=== PATIENT | male | born 1940 | race Caucasian/White ===

== ENCOUNTER 2016-09-24 11:03 | Inpatient (IN) | payer MEDICARE ==
[2016-09-24] MEDS ORDERED: SODIUM CHLORIDE 0.9% 1,000 ML IV STA (11:21)
[2016-09-24] MEDS ORDERED: methylPREDNISolone SOD SUCCI 125 MG/2 ML VIAL IV STA ×2 (11:38→11:39)
[2016-09-24] MEDS ORDERED: ALBUTEROL NEBULIZED 2.5 MG/3 ML INHALATION STA (11:39)
[2016-09-24 11:46] LABS: Basophils % (A) 0 %; CH 28.9; CHCM 30.1; Eosinophils % (A) 0 %; HCT 48.4 % (39.0-53.0); HDW 2.33; HGB 14.4 gm/dL (13.0-17.5); Hypochromasia Moderate; Luc % (Auto) 1; Lymphocytes # (A) 0.7 k/uL (1.0-4.8); Lymphocytes % (A) 7 %; MCH 28.7 pg (25.0-35.0); MCHC 29.8 g/dL (31.0-37.0); MCV 96.5 fL (80.0-100.0); Mean Platelet Volume 7.1; Monocytes # (A) 0.3 k/uL (0-1.0); Monocytes % (A) 3 %; Neutrophils # (A) 8.5 k/uL (1.3-7.7); Neutrophils % (A) 88 %; RBC 5.02 m/uL (4.30-5.90); RDW 14.1 % (11.5-15.5); WBC 9.7 k/uL (3.8-10.6); WBC (Perox) 9.21
[2016-09-24 12:01] LABS: ALT 39 U/L (21-72); AST 23 U/L (17-59); Alkaline Phosphatase 93 U/L (38-126); Anion Gap 10 mmol/L; Blood Urea Nitrogen 24 mg/dL (9-20); Carbon Dioxide 35 mmol/L (22-30); Chloride 95 mmol/L (98-107); Glucose 147 mg/dL (74-99); Non-African American GFR(MDRD) >60 (>60 ml/min/1.73 sqM); Potassium 4.9 mmol/L (3.5-5.1); Sodium 140 mmol/L (137-145); Total Bilirubin 0.6 mg/dL (0.2-1.3); Total Protein 7.3 g/dL (6.3-8.2)
[2016-09-24 12:04] LABS: Partial Thromboplastin Time 25.7 sec (22.0-30.0); Prothrombin Time 9.9 sec (9.0-12.0)
[2016-09-24] MEDS ORDERED: IPRATROPIUM-ALBUTEROL 3 ML NEB INHALATION STA (12:16)
[2016-09-24 12:21] LABS: Creatine Kinase 66 U/L (55-170)
--- NOTE | 2016-09-24 12:28 | XR ---
EXAMINATION TYPE: XR chest 2V DATE OF EXAM: 09/24/2016 COMPARISON: 06/27/2016 TECHNIQUE: PA and lateral views submitted. HISTORY: Difficulty breathing FINDINGS: The lungs are clear and there is no pneumothorax, pleural effusion, or focal pneumonia. Hyperinflat ion suggests COPD and there is an elevated left hemidiaphragm. Two surgical plates overlying the cervical spine. Arthropathy of the shoulders noted. Hypertrophic an d degenerative change of the spine. IMPRESSION: 1. No acute process. Correlate for COPD.
[2016-09-24 12:33] LABS: Troponin I <0.012 ng/mL (0.000-0.034)
[2016-09-24 12:34] LABS: Creatine Kinase MB 4.1 ng/mL (0.0-2.4)
--- NOTE | 2016-09-24 13:54 | ED ---
SOB HPI - General Chief Complaint: Shortness of Breath Stated Complaint: Diff breathing Time Seen by Provider: 09/24/16 11:13 Source: patient Mode of arrival: ambulatory Limitations: no limitations - History of Present Illness Initial Comments: 76 years old male with history of COPD, atrial fibrillation, ischemic heart disease, hypertension and on Bactroban at this point as his chest pain and shortness of breath ongoing for about 3 months now shortness of breath, worse for the last 3 days he's coughing bringing up lots of phlegm denies any fever or chills and complains about pleuritic chest pain or chest pain gets worse when he takes a deep breaths. No headaches no Past no abdominal pain no frequency urgency dysuria - Related Data Home Medications Medication Instructions Recorded Confirmed Aspirin EC [Ecotrin Low Dose] 81 mg PO Q48H 03/03/16 09/24/16 Carvedilol [Coreg] 6.25 mg PO BID 03/03/16 09/24/16 Diazepam [Valium] 10 mg PO HS 03/03/16 09/24/16 HYDROcodone/APAP 10-325MG [[place] 1 - 2 tab PO Q4HR PRN 03/03/16 09/24/16 10-325] Hydrochlorothiazide [Hydrodiuril] 50 mg PO DAILY 03/03/16 09/24/16 Olmesartan Medoxomil [Benicar] 40 mg PO DAILY 03/03/16 09/24/16 Sertraline [Zoloft] 50 mg PO DAILY 03/03/16 09/24/16 amLODIPine [Norvasc] 5 mg PO DAILY 03/03/16 09/24/16 hydrALAZINE HCL [Apresoline] 25 mg PO BID 03/03/16 09/24/16 Albuterol Inhaler [Ventolin Hfa 1 - 2 puff INHALATION RT-Q4H PRN 09/24/16 Inhaler] Fluticasone/Salmeterol [Advair Hfa 2 puff INHALATION RT-BID 09/24/16 09/24/16 115-21 Mcg Inhaler] Furosemide [Lasix] 20 mg PO DAILY 09/24/16 09/24/16 Ipratropium-Albuterol Nebulize 3 ml INHALATION RT-QID 09/24/16 09/24/16 [Duoneb 0.5 mg-3 mg/3 ml Soln] Theophylline 24 Hour [Maciej-24] 300 mg PO BID 09/24/16 09/24/16 Previous Rx's Medication Instructions Recorded Spironolactone [Aldactone] 25 mg PO DAILY #30 tab 03/11/16 Allergies Allergy/AdvReac Type Severity Reaction Status Date / Time No Known Allergies Allergy Verified 09/24/16 11:45 Review of Systems ROS Statement: Those systems with pertinent positive or pertinent negative responses have been documented in the HPI. ROS Other: All systems not noted in ROS Statement are negative. Past Medical History Past Medical History: Heart Failure, COPD, Hypertension, Myocardial Infarction ( [place]) Last Myocardial Infarction Date:: unknown History of Any Multi-Drug Resistant Organisms: None Reported Past Surgical History: Heart Catheterization With Stent Date of Last Stent Placement:: unknown Past Psychological History: No Psychological Hx Reported Smoking Status: Current every day smoker Past Alcohol Use History: None Reported Past Drug Use History: None Reported General Exam - General Exam Comments Initial Comments: General: The patient is awake and alert, in mild distress, respiratory rate is 24 Skin: Skin is warm and dry and no rashes or lesions are noted. Eye: Pupils are equal, round and reactive to light, extra-ocular movements are intact; there is normal conjunctiva bilaterally. Ears, nose, mouth and throat: There are moist mucous membranes and no oral lesions. Neck: The neck is supple, there is no tenderness Cardiovascular: There is a regular rate and rhythm. No murmur, rub or gallop is appreciated. Respiratory: To auscultation bilateral, noticed some crackles and decreased breath sounds bilateral Gastrointestinal: Soft, non-distended, non-tender abdomen without masses or organomegaly noted. There is no rebound or guarding present. Bowel sounds are unremarkable. Back: There is no tenderness to palpation in the midline. There is no obvious deformity. Musculoskeletal: Normal ROM, no tenderness, There is no pedal edema. There is no calf tenderness or swelling. No cords were appreciated. Neurological: CN II-XII intact, Cranial nerves III through XII are intact. There are no obvious motor or sensory deficits. Coordination appears grossly intact. Speech is normal. Psychiatric: Cooperative, appropriate mood & affect, normal judgment. Limitations: no limitations Course Vital Signs 09/24/16 09/24/16 09/24/16 11:07 11:10 11:30 Temperature 99.1 F Pulse Rate 86 Respiratory 24 28 H Rate Blood Pressure 153/64 O2 Sat by Pulse 79 L 90 L Oximetry 09/24/16 09/24/16 09/24/16 12:00 12:09 12:30 Temperature Pulse Rate 77 78 77 Respiratory 24 Rate Blood Pressure O2 Sat by Pulse 94 L Oximetry 09/24/16 13:00 Temperature Pulse Rate Respiratory Rate Blood Pressure O2 Sat by Pulse 92 L Oximetry EKG is normal sinus rhythm ventricular rate is 76 MN interval is 160 QRS duration is 90 QT/QTc is 370/416 review of this EKG does not reveal any ST elevation or ST depression - Reevaluation(s) Reevaluation #1: 09/24/16 13:54 Patient was reviewed at 13 45, his CBC, INR, d-dimer, compressive metabolic panel and troponin are negative his chest x-ray ruled out any pneumonia at home his O2 sat with 2 L is 88 and he is breathing pretty fast I think he needs to come in for IV steroids and inhaled steroids and some empiric antibiotics, this plan was discussed with the patient he agrees with the Medical Decision Making - Lab Data Result diagrams: 09/24/16 11:31 09/24/16 11:31 Lab Results 09/24/16 09/24/16 09/24/16 Range/Units 11:31 11:31 11:31 WBC 9.7 (3.8-10.6) k/uL RBC 5.02 (4.30-5.90) m/uL Hgb 14.4 (13.0-17.5) gm/dL Hct 48.4 (39.0-53.0) % MCV 96.5 (80.0-100.0) fL MCH 28.7 (25.0-35.0) pg MCHC 29.8 L (31.0-37.0) g/dL RDW 14.1 (11.5-15.5) % Plt Count 289 (150-450) k/uL Neutrophils % 88 % Lymphocytes % 7 % Monocytes % 3 % Eosinophils % 0 % Basophils % 0 % Neutrophils # 8.5 H (1.3-7.7) k/uL Lymphocytes # 0.7 L (1.0-4.8) k/uL Monocytes # 0.3 (0-1.0) k/uL Eosinophils # 0.0 (0-0.7) k/uL Basophils # 0.0 (0-0.2) k/uL Hypochromasia Moderate PT (9.0-12.0) sec INR (<1.1) APTT (22.0-30.0) sec D-Dimer (<0.60) mg/L FEU Sodium 140 (137-145) mmol/L Potassium 4.9 (3.5-5.1) mmol/L Chloride 95 L (98-107) mmol/L Carbon Dioxide 35 H (22-30) mmol/L Anion Gap 10 mmol/L BUN 24 H (9-20) mg/dL Creatinine 0.74 (0.66-1.25) mg/dL Est GFR (MDRD) Af Amer >60 (>60 ml/min/1.73 sqM) Est GFR (MDRD) Non-Af >60 (>60 ml/min/1.73 sqM) Glucose 147 H (74-99) mg/dL Calcium 10.0 (8.4-10.2) mg/dL Total Bilirubin 0.6 (0.2-1.3) mg/dL AST 23 (17-59) U/L ALT 39 (21-72) U/L Alkaline Phosphatase 93 (38-126) U/L Total Creatine Kinase 66 (55-170) U/L CK-MB (CK-2) 4.1 H* (0.0-2.4) ng/mL CK-MB (CK-2) Rel Index 6.2 Troponin I <0.012 (0.000-0.034) ng/mL Total Protein 7.3 (6.3-8.2) g/dL Albumin 4.2 (3.5-5.0) g/dL 09/24/16 Range/Units 11:31 WBC (3.8-10.6) k/uL RBC (4.30-5.90) m/uL Hgb (13.0-17.5) gm/dL Hct (39.0-53.0) % MCV (80.0-100.0) fL MCH (25.0-35.0) pg MCHC (31.0-37.0) g/dL RDW (11.5-15.5) % Plt Count (150-450) k/uL Neutrophils % % Lymphocytes % % Monocytes % % Eosinophils % % Basophils % % Neutrophils # (1.3-7.7) k/uL Lymphocytes # (1.0-4.8) k/uL Monocytes # (0-1.0) k/uL Eosinophils # (0-0.7) k/uL Basophils # (0-0.2) k/uL Hypochromasia PT 9.9 (9.0-12.0) sec INR 1.0 (<1.1) APTT 25.7 (22.0-30.0) sec D-Dimer 0.37 (<0.60) mg/L FEU Sodium (137-145) mmol/L Potassium (3.5-5.1) mmol/L Chloride (98-107) mmol/L Carbon Dioxide (22-30) mmol/L Anion Gap mmol/L BUN (9-20) mg/dL Creatinine (0.66-1.25) mg/dL Est GFR (MDRD) Af Amer (>60 ml/min/1.73 sqM) Est GFR (MDRD) Non-Af (>60 ml/min/1.73 sqM) Glucose (74-99) mg/dL Calcium (8.4-10.2) mg/dL Total Bilirubin (0.2-1.3) mg/dL AST (17-59) U/L ALT (21-72) U/L Alkaline Phosphatase (38-126) U/L Total Creatine Kinase (55-170) U/L CK-MB (CK-2) (0.0-2.4) ng/mL CK-MB (CK-2) Rel Index Troponin I (0.000-0.034) ng/mL Total Protein (6.3-8.2) g/dL Albumin (3.5-5.0) g/dL Disposition Clinical Impression: Acute exacerbation of COPD with asthma Disposition: ADMITTED IP TO THIS HOSP Condition: Good Referrals: Nick Lira MD [Primary Care Provider] - 1-2 days
[2016-09-24] MEDS ORDERED: IPRATROPIUM-ALBUTEROL 3 ML NEB INHALATION PRN (13:57)
[2016-09-24] MEDS ORDERED: ALBUTEROL INHALER 60 PUFF/8 GM INHALER INHALATION PRN (14:04)
[2016-09-24] MEDS ORDERED: HYDROcodone/APAP 10-325MG 1 EACH TAB PO PRN ×2 (14:04→18:39)
--- NOTE | 2016-09-24 15:37 | P.CNPUL ---
History of Present Illness Consult date: 09/24/16 Requesting physician: Miguelangel Lagunas Reason for consult: COPD Chief complaint: Shortness of breath, cough and wheezing History of present illness: This is a 76-year-old white male with history of severe end-stage COPD, O2 dependent, prednisone dependent, he is quite familiar to my service, and I see him on a regular basis at least once every 3 months. Patient continues to smoke in spite of his severe end-stage COPD, his primary care physician is Dr. Lira. Patient presented to the ER today with 4 days history of cough which is productive of greenish phlegm, wheezing, and worsening shortness of breath. Chest x-ray showed no evidence of active disease, however he has a chronic elevation of the left hemidiaphragm consistent with left hemidiaphragm paralysis. I was asked to see the patient on consultation, I went down and saw the patient in the ER, started the patient on multiple bronchodilators steroids antibiotics, and he was resumed back on his usual bronchodilators also. Reviewed the chest x-ray with the patient, and clearly the patient needs to be admitted with the impression of acute exacerbation of COPD, acute hypoxic on chronic respiratory failure, and purulent tracheobronchitis. ABC was noted to be relatively unremarkable. Electrolytes and renal profile were unremarkable except for a bicarb of 35 which is felt compensatory for chronic respiratory acidosis. Patient denies any headache, no blurred vision, no dizziness. No chest pain, no palpitations, no nausea, no vomiting, no abdominal pain, no melena, no hematemesis, no dysuria, no frequency, no urgency. Denies any symptoms of polyuria, polydipsia, heat or cold intolerance. Review of Systems 14 point review of systems were obtained, please refer to pertinent positives and negatives in HPI. Past Medical History Past Medical History: Atrial Fibrillation, Heart Failure, COPD, GERD/Reflux, Hypertension, Myocardial Infarction ([place]), Osteoarthritis (OA), Pneumonia, Respiratory Disorder, Vascular Disorder Additional Past Medical History / Comment(s): Chronic hypoxic respiratory failure, O2 at 2.5L/NC ATC, ischemic heart disease, PAD/PVD, diverticular dx, benign polypectomy, IBS, arthritis multiple joints bilaterally, numbness/ tingling bilateral feet. Last Myocardial Infarction Date:: unknown-prior to 2002 History of Any Multi-Drug Resistant Organisms: None Reported Past Surgical History: Heart Catheterization With Stent Additional Past Surgical History / Comment(s): PCI with stent 2002, L SFA angiogram/atherectomy/STITCHER HAND, R SFA atherectomy/angioplasty, pilonidal cystectomy, bilateral sebacious cysts removed from axillae, cervical sx with plates and screws, back surgery with plate, colonoscopy. Past Anesthesia/Blood Transfusion Reactions: No Reported Reaction Date of Last Stent Placement:: 2002 Past Psychological History: Depression Additional Psychological History / Comment(s): Pt resides with his spouse. He is on O2 at 2.5L/NC ATC. He ambulates mostly with a cane. He drives. He has a nebulizer. Smoking Status: Current every day smoker Past Alcohol Use History: None Reported, Occasional Additional Past Alcohol Use History / Comment(s): Pt started smoking in 1956 and is less than a ppd smoker. Past Drug Use History: None Reported - Past Family History Mother Family Medical History: No Reported History Additional Family Medical History / Comment(s): Mother was healthy and at the age of 92 yrs. Father Family Medical History: Coronary Artery Disease (CAD), Myocardial Infarction (ME ) Additional Family Medical History / Comment(s): Father had a ME in his 70's. He had CABG and back surgery. Medications and Allergies Home Medications Medication Instructions Recorded Confirmed Type Aspirin EC [Ecotrin Low Dose] 81 mg PO Q48H 03/03/16 09/24/16 History Carvedilol [Coreg] 6.25 mg PO BID 03/03/16 09/24/16 History Diazepam [Valium] 10 mg PO HS 03/03/16 09/24/16 History HYDROcodone/APAP 10-325MG [[place] 1 - 2 tab PO Q4HR PRN 03/03/16 09/24/16 History 10-325] Hydrochlorothiazide [Hydrodiuril] 50 mg PO DAILY 03/03/16 09/24/16 History Olmesartan Medoxomil [Benicar] 40 mg PO DAILY 03/03/16 09/24/16 History Sertraline [Zoloft] 50 mg PO DAILY 03/03/16 09/24/16 History amLODIPine [Norvasc] 5 mg PO DAILY 03/03/16 09/24/16 History hydrALAZINE HCL [Apresoline] 25 mg PO BID 03/03/16 09/24/16 History Albuterol Inhaler [Ventolin Hfa 1 - 2 puff INHALATION RT-Q4H PRN 09/24/16 History Inhaler] Fluticasone/Salmeterol [Advair Hfa 2 puff INHALATION RT-BID 09/24/16 09/24/16 History 115-21 Mcg Inhaler] Furosemide [Lasix] 20 mg PO DAILY 09/24/16 09/24/16 History Ipratropium-Albuterol Nebulize 3 ml INHALATION RT-QID 09/24/16 09/24/16 History [Duoneb 0.5 mg-3 mg/3 ml Soln] Theophylline 24 Hour [Maciej-24] 300 mg PO BID 09/24/16 09/24/16 History Allergies Allergy/AdvReac Type Severity Reaction Status Date / Time No Known Allergies Allergy Verified 09/24/16 11:45 Physical Exam Vitals: Vital Signs Temp Pulse Resp BP Pulse Ox 09/24/16 14:06 76 26 H 156/73 94 L 09/24/16 13:30 78 09/24/16 13:20 78 09/24/16 13:00 92 L 09/24/16 12:30 77 24 94 L 09/24/16 12:09 78 09/24/16 12:00 77 09/24/16 11:30 28 H 09/24/16 11:10 90 L 09/24/16 11:07 99.1 F 86 24 153/64 79 L Intake and Output 09/24/16 09/24/16 09/24/16 06:59 14:59 22:59 Other: Weight 106.141 kg Patient Weight 09/25/16 06:59 Weight 106.141 kg Physical Exam revealed a 76-year-old white male in mild respiratory distress. HEENT:[Neck is supple.] [No neck masses.] [No thyromegaly.] [No JVD.] Chest: [Diffuse rhonchi and wheezes noted bilaterally. Cardiac Exam: [Irregular irregular rhythm Normal S1 and S2, no S3 gallop, 2/6 systolic murmur throughout the precordium] Abdomen: [Soft, nontender, no megaly, no rebound, no guarding, normal bowel sounds.] Extremities: [No clubbing, 2+ bipedal edema, no cyanosis.] Neurological Exam: [No focal neurologic deficit.] Patient seems to be generally weak. Results - Laboratory Findings CBC and BMP: 09/24/16 11:31 09/24/16 11:31 PT/INR, D-dimer PT 9.9 sec (9.0-12.0) 09/24/16 11:31 INR 1.0 (<1.1) 09/24/16 11:31 D-Dimer 0.37 mg/L FEU (<0.60) 09/24/16 11:31 Abnormal lab findings: Abnormal Labs 09/24/16 09/24/16 09/24/16 11:31 11:31 11:31 MCHC 29.8 L Neutrophils # 8.5 H Lymphocytes # 0.7 L Chloride 95 L Carbon Dioxide 35 H BUN 24 H Glucose 147 H CK-MB (CK-2) 4.1 H* - Diagnostic Findings Chest x-ray: image reviewed (No evidence of active pulmonary status is noted, chest x-ray was compared to previous x-rays and is basically the same.) Assessment and Plan Plan: Impression: 1 acute on chronic hypoxic and hypercapnic respiratory failure secondary to severe COPD exacerbation. 2 acute exacerbation of severe end-stage COPD 3 acute tracheobronchitis 4 chronic elevation of left hemidiaphragm consistent with chronic left hemidiaphragm paralysis 5 chronic cor pulmonale secondary to severe COPD and pulmonary hypertension X multiple comorbidities including essential hypertension, chronic atrial fibrillation, cervical disc disease and previous cervical spine surgery, history of osteoarthritis, and history of tobacco dependence syndrome. Recommendation: Patient was counseled again regarding smoking cessation today, I reviewed all the meds which were ordered and I recommended that he remains on the same medications including albuterol with Atrovent updrafts, Solu-Medrol, Levaquin, Symbicort, diuretics for his chronic cor pulmonale, Huseyin, IV fluid will be placed at KVO, continue oxygen at 3 L nasal cannula, avoid high doses of narcotics and sedatives to avoid worsening hypercapnia. We'll continue to follow. Critical care time is over 30 minutes. Time with Patient: Greater than 30
[2016-09-24] MEDS: IPRATROPIUM-ALBUTEROL 3 ML NEB INHALATION SCH ×3 (15:56→21:26)
[2016-09-24] MEDS: HYDROcodone/APAP 10-325MG 1 EACH TAB PO PRN ×2 (17:06→21:17)
[2016-09-24] MEDS: ASPIRIN 81 MG CHEW PO SCH (17:21)
[2016-09-24] MEDS: LEVOFLOXACIN 500 MG TAB PO SCH (17:21)
[2016-09-24] MEDS ORDERED: methylPREDNISolone SOD SUCCI 125 MG/2 ML VIAL IV SCH (18:00)
[2016-09-24 18:24] LABS: Glucose,Whole Blood 152 mg/dL (75-99)
[2016-09-24] MEDS: CARVEDILOL 6.25 MG TAB PO SCH (18:56)
[2016-09-24] MEDS: SODIUM CHLORIDE 0.9% 1,000 ML IV SCH (18:56)
[2016-09-24] MEDS ORDERED: SALMETEROL INHALATION SCH (20:00)
[2016-09-24] MEDS ORDERED: BUDESONIDE 0.5 MG/2 ML NEBU INHALATION SCH (20:00)
[2016-09-24] MEDS ORDERED: FLUTICASONE INHALATION SCH (20:00)
[2016-09-24 20:39] LABS: Glucose,Whole Blood 190 mg/dL (75-99)
[2016-09-24] MEDS ORDERED: DIAZEPAM 5 MG TAB PO SCH ×2 (21:00)
[2016-09-24] MEDS: MELATONIN 5 MG TABLET PO SCH (21:16)
[2016-09-24] MEDS: THEOPHYLLINE 24 HOUR 300 MG CAP.ER.24H PO SCH (21:16)
[2016-09-24] MEDS: SYMBICORT 80-4.5 MCG INHALER INHALATION SCH ×2 (21:16→21:30)
[2016-09-24] MEDS: hydrALAZINE HCL 25 MG TAB PO SCH (21:16)
[2016-09-24] MEDS: INSULIN LISPRO (humaLOG) 300 UNIT/3 ML VIAL SQ SCH (21:23)
[2016-09-24] MEDS: NICOTINE 14MG/24HR PATCH TRANSDERM SCH (23:13)
[2016-09-24] MEDS: guaiFENesin 600 MG TABLET.ER PO SCH (23:13)
[2016-09-24] MEDS: methylPREDNISolone SOD SUCCI 40 MG/ML 1 ML VIAL IV SCH (23:18)
[2016-09-25] MEDS: IPRATROPIUM-ALBUTEROL 3 ML NEB INHALATION SCH ×7 (01:22→23:21)
[2016-09-25] MEDS: HYDROcodone/APAP 10-325MG 1 EACH TAB PO PRN ×4 (04:18→21:39)
[2016-09-25 06:10] LABS: Glucose,Whole Blood 180 mg/dL (75-99)
[2016-09-25] MEDS: CARVEDILOL 6.25 MG TAB PO SCH ×2 (06:40→17:34)
[2016-09-25] MEDS: INSULIN LISPRO (humaLOG) 300 UNIT/3 ML VIAL SQ SCH ×4 (06:40→21:01)
[2016-09-25] MEDS: SYMBICORT 80-4.5 MCG INHALER INHALATION SCH ×2 (08:11→22:05)
--- NOTE | 2016-09-25 08:22 | HP ---
DATE OF ADMISSION: 09/24/2016 PRESENTING COMPLAINT: Short of breath, cough. HISTORY OF PRESENTING COMPLAINT: This is a 76-year-old patient of Dr. Nick Lira with a rather extensive medical history. Patient's chronic stable medical conditions include hypertension, coronary artery with stent. Patient presented with symptoms with worsening short of breath, cough, yellow sputum. No fever, decreased appetite, some edema, very short of breath, wheezing. Patient does use oxygen at home with 2 L. Patient has continued to smoke. REVIEW OF SYSTEMS: CONSTITUTIONAL: Weak, tired. HEENT: None. RESPIRATORY: As above. CARDIOVASCULAR: Some edema. GASTROINTESTINAL: None. GENITOURINARY: None. MUSCULOSKELETAL: Pain in the joints. DERMATOLOGICAL: None. HEMATOLOGICAL: None. LYMPHATICS: None. PSYCHIATRY: Anxiety. NEUROLOGICAL: None. PAST MEDICAL HISTORY: COPD, chronic hypoxia, 2 L oxygen at home, obesity, coronary artery disease, atrial fibrillation, osteoarthritis. Past medical history also includes peripheral arterial disease, diverticular disease, irritable bowel syndrome, numbness, tingling bilateral feet. PAST SURGICAL HISTORY: Cardiac cath with stent in 2002, left superficial femoral artery angiogram, atherectomy, pilonidal cystectomy, bilateral sebaceous cyst removed from maxilla, cervical spine surgery with placement of screw, back surgery with plate. PSYCH: History of depression. SOCIAL HISTORY: , on 2.5 L at home, has a cane, smoking since 89 about 1/2 pack a day. FAMILY HISTORY: Mother was healthy, lived until the age of 92. HOME MEDICATIONS: 1. Hydralazine 25 mg b.i.d. 2. Norvasc 5 mg a day. 3. Maciej-24 three hundred mg b.i.d. 4. Aldactone 25 mg a day. 5. Zoloft 50 mg p.o. daily. 6. Benicar 40 mg p.o. daily. 7. DuoNeb q.i.d. 8. Hydrochlorothiazide 50 mg p.o. daily. 9. [place] 10 one to two tablets q.4 p.r.n. 10. Lasix 20 mg p.o. daily. 11. Advair 150/21 two puffs b.i.d. 12. Valium 10 mg q.h.s. 13. Coreg 6.25 p.o. b.i.d. 14. Aspirin 81 mg p.o. q.8. 15. Ventolin HFA 1 to 2 puffs q.4 p.r.n. ALLERGIES: None. On examination, temperature 99.1, pulse 86, respiration 24, blood pressure 150/64, pulse ox of 79% on room air. GENERAL APPEARANCE: Well built, BMI of 38.7. Sitting up edge of the bed, short of breath, wheezing. EYES: Pupils equal. Conjunctivae normal. HEENT: Oral cavity normal. NECK: JVD not raised. Mass not palpable. RESPIRATORY: Effort increased. LUNGS: Diminished breath sounds upon expiration. CARDIOVASCULAR: First and second sounds normal with mild edema. ABDOMEN: Soft, nontender. Liver and spleen not palpable. LYMPHATIC: No lymph node palpable in neck or axillae. PSYCHIATRY: Alert and oriented x3. Mood and affect anxious-appearing. NEUROLOGICAL: Pupils equal. Cranial nerves grossly intact. Power and sensation grossly intact. INVESTIGATIONS: White count 9.7, hemoglobin 14.4. Potassium 4.9. BUN 24, creatinine 0.74. Accu-Cheks are noted, troponin negative. Chest x-ray questionable infiltrate. ASSESSMENT: 1. Acute severe chronic obstructive pulmonary disease exacerbation in a smoker with acute tracheobronchitis. 2. Acute hypoxic respiratory failure on chronic hypoxic respiratory failure from underlying chronic obstructive pulmonary disease. 3. Obesity, body mass index greater than 30. 4. Coronary artery with prior history of stent. 5. Primary osteoarthrosis of multiple joints bilaterally. 6. Chronic nicotine dependence, patient is a smoker. PLAN: Patient is put on nebulized bronchodilators. Home medications are resumed. Also put on IV Solu-Medrol. Will also add some Mucinex and nicotine patch. Patient advised against smoking. Patient also put on Levaquin, Pulmonary was consulted.
[2016-09-25] MEDS: methylPREDNISolone SOD SUCCI 40 MG/ML 1 ML VIAL IV SCH ×2 (09:20→15:26)
[2016-09-25] MEDS: ENOXAPARIN 40 MG/0.4 ML SYRINGE SQ SCH (09:20)
[2016-09-25] MEDS: THEOPHYLLINE 24 HOUR 300 MG CAP.ER.24H PO SCH ×2 (09:21→21:01)
[2016-09-25] MEDS: hydrALAZINE HCL 25 MG TAB PO SCH ×2 (09:21→21:00)
[2016-09-25] MEDS: FUROSEMIDE 20 MG TAB PO SCH (09:21)
[2016-09-25] MEDS: SERTRALINE 50 MG TAB PO SCH (09:22)
[2016-09-25] MEDS: guaiFENesin 600 MG TABLET.ER PO SCH (09:22)
[2016-09-25] MEDS: HYDROCHLOROTHIAZIDE 50 MG TAB PO SCH (09:23)
[2016-09-25] MEDS: SPIRONOLACTONE 25 MG TAB PO SCH (09:23)
--- NOTE | 2016-09-25 11:09 | P.PN ---
Subjective Principal diagnosis: Acute exacerbation of severe oxygen dependent chronic obstructive pulmonary disease This is a 76-year-old white male with history of severe end-stage COPD, O2 dependent, prednisone dependent, he is quite familiar to my service, and I see him on a regular basis at least once every 3 months. Patient continues to smoke in spite of his severe end-stage COPD, his primary care physician is Dr. Lira. Patient presented to the ER today with 4 days history of cough which is productive of greenish phlegm, wheezing, and worsening shortness of breath. Chest x-ray showed no evidence of active disease, however he has a chronic elevation of the left hemidiaphragm consistent with left hemidiaphragm paralysis. I was asked to see the patient on consultation, I went down and saw the patient in the ER, started the patient on multiple bronchodilators steroids antibiotics, and he was resumed back on his usual bronchodilators also. Reviewed the chest x-ray with the patient, and clearly the patient needs to be admitted with the impression of acute exacerbation of COPD, acute hypoxic on chronic respiratory failure, and purulent tracheobronchitis. ABC was noted to be relatively unremarkable. Electrolytes and renal profile were unremarkable except for a bicarb of 35 which is felt compensatory for chronic respiratory acidosis. Patient denies any headache, no blurred vision, no dizziness. No chest pain, no palpitations, no nausea, no vomiting, no abdominal pain, no melena, no hematemesis, no dysuria, no frequency, no urgency. Denies any symptoms of polyuria, polydipsia, heat or cold intolerance. The patient is seen again today 09/25/2016 on the selective care unit. He is currently sitting up at the bedside. He is awake and alert in no acute distress. He is breathing easier today as compared to yesterday. His been treated with bronchodilators, Symbicort, theophylline, IV Solu-Medrol. He is on empiric anti-buttocks in the form of Levaquin. He is maintaining O2 saturations in the mid 90s on 3 L/m per nasal cannula. He is afebrile. Hemodynamically stable. Objective - Vital Signs Vital signs: Vital Signs Temp 96.8 F L 09/25/16 09:15 Pulse 77 09/25/16 09:15 Resp 20 09/25/16 09:15 BP 126/65 09/25/16 09:15 Pulse Ox 94 L 09/25/16 09:15 Intake & Output 09/24/16 09/25/16 09/25/16 18:59 06:59 18:59 Intake Total 240 160 Output Total 550 Balance 240 -390 Weight 102.8 kg 102.9 kg Intake: Intake, IV Titration 160 Amount Sodium Chloride 0.9% 1, 160 000 ml @ 20 mls/hr IV . Q24H [facility] Rx#:[id number] Oral 240 Output: Urine 550 Other: Voiding Method Urinal Urinal - Exam GENERAL EXAM: Obese. Alert, fairly comfortable in no apparent distress. HEAD: Normocephalic. EYES: Normal reaction of pupils, equal size. NOSE: Clear with pink turbinates. THROAT: No erythema or exudates. NECK: No masses, no JVD. CHEST: No chest wall deformity. LUNGS: Equal air entry with bilateral end expiratory wheeze, diminished throughout. CVS: S1 and S2 normal with no audible murmurs, regular rhythm. ABDOMEN: No hepatosplenomegaly, normal bowel sounds, no guarding or rigidity. SPINE: No scoliosis or deformity SKIN: No rashes CENTRAL NERVOUS SYSTEM: No focal deficits, tone is normal in all 4 extremities. Extremities: There is trace peripheral edema. No clubbing, no cyanosis. Peripheral pulses are intact. - Labs CBC & Chem 7: 09/24/16 11:31 09/24/16 11:31 Labs: Abnormal Lab Results - Last 24 Hours (Table) 09/24/16 09/24/16 09/24/16 Range/Units 11:31 11:31 11:31 MCHC 29.8 L (31.0-37.0) g/dL Neutrophils # 8.5 H (1.3-7.7) k/uL Lymphocytes # 0.7 L (1.0-4.8) k/uL Chloride 95 L (98-107) mmol/L Carbon Dioxide 35 H (22-30) mmol/L BUN 24 H (9-20) mg/dL Glucose 147 H (74-99) mg/dL POC Glucose (mg/dL) (75-99) mg/dL CK-MB (CK-2) 4.1 H* (0.0-2.4) ng/mL 09/24/16 09/24/16 09/25/16 Range/Units 18:15 20:38 06:07 MCHC (31.0-37.0) g/dL Neutrophils # (1.3-7.7) k/uL Lymphocytes # (1.0-4.8) k/uL Chloride (98-107) mmol/L Carbon Dioxide (22-30) mmol/L BUN (9-20) mg/dL Glucose (74-99) mg/dL POC Glucose (mg/dL) 152 H 190 H 180 H (75-99) mg/dL CK-MB (CK-2) (0.0-2.4) ng/mL Assessment and Plan Plan: Impression: #1 Acute on chronic hypoxic respiratory failure secondary to acute exacerbation of severe oxygen dependent chronic obstructive pulmonary disease. #2 Acute on chronic hypercapnic respiratory failure secondary to acute exacerbation of severe oxygen dependent chronic obstructive pulmonary disease. #3 Acute exacerbation of chronic obstructive pulmonary disease Complicated by purulent tracheobronchitis. #4 Chronic and ongoing tobacco dependence. 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 #6 Chronic cor pulmonale secondary to severe COPD and pulmonary hypertension. #7 Pulmonary hypertension. #8 Hypertension. #9 Chronic atrial fibrillation. #10 Osteoarthritis. Plan: The patient was seen and evaluated by Dr. Sheppard. We'll continue with his current medications including bronchodilators, Symbicort, IV Solu-Medrol and theophylline. He remains on empiric antibiotics in the form of Levaquin. He is continued on his diuretics. He is again educated regarding the importance of complete smoking cessation. We will continue to follow and make further recommendations based on his clinical status.
[2016-09-25 11:38] LABS: Glucose,Whole Blood 196 mg/dL (75-99)
[2016-09-25] MEDS: LOSARTAN 50 MG TAB PO SCH (12:04)
[2016-09-25] MEDS: amLODIPine 5 MG TAB PO SCH (12:05)
[2016-09-25] MEDS: SODIUM CHLORIDE 0.9% 1,000 ML IV SCH (14:58)
[2016-09-25] MEDS: LEVOFLOXACIN 500 MG TAB PO SCH (15:28)
[2016-09-25 17:09] LABS: Glucose,Whole Blood 119 mg/dL (75-99)
--- NOTE | 2016-09-25 19:39 | P.PN ---
Progress Note - Text DATE OF SERVICE: 09/25/2016 PRESENTING COMPLAINT: Shortness of breath and cough INTERVAL HISTORY: This patient presented with an acute severe exacerbation of COPD with acute tracheobronchitis. Patient's lying in bed, appears mildly short of breath, ambulatory to and from the bathroom, tolerating his diet, has had a BM today. REVIEW OF SYSTEMS: Done for constitutional ,cardiovascular, GI, pulmonary with relevant findings as above. CURRENT MEDICATIONS DuoNeb, Norvasc, Symbicort, Coreg, Lovenox, theophylline, nicotine patch, Solu- Medrol. PHYSICAL EXAM: VITAL SIGNS: Temperature 96.8, pulse 77, respiratory rate 20, pressure 126/65, oxygen saturation 94% on 3 L. GENERAL APPEARANCE:Lying in bed, not in distress. EYES: Pupils equal. Conjunctiva normal. NECK: JVD not raised. Mass not palpable. RESPIRATORY: Respiratory effort increased. Lungs prolonged expiration with crackles noted to auscultation. CARDIOVASCULAR: First and second sounds normal. No edema. ABDOMEN: Soft. Liver and spleen not palpable. No tenderness. No mass palpable. PSYCHIATRY: Alert and oriented x3. Mood and affect normal. INVESTIGATIONS: Labs noted ASSESSMENT: 1. Acute severe chronic obstructive pulmonary disease exacerbation in a smoker with acute tracheobronchitis. 2. Acute hypoxic respiratory failure on chronic hypoxic respiratory failure from underlying chronic obstructive pulmonary disease. 3. Obesity, body mass index greater than 30. 4. Coronary artery disease with prior history of stent. 5. Primary osteoarthritis of multiple joints bilaterally. 6 chronic nicotine dependence, patient is a smoker . PLAN: Continue current Medication and treatment plan. We'll continue to monitor closely. TECHNICAL WRITER statement: Patient was seen and examined by nurse practitioner Alycia Christie in all elements of the case discussed with attending is Dr. Lagunas
[2016-09-25 20:48] LABS: Glucose,Whole Blood 146 mg/dL (75-99)
[2016-09-25] MEDS: MELATONIN 5 MG TABLET PO SCH (21:01)
[2016-09-25] MEDS: NICOTINE 14MG/24HR PATCH TRANSDERM SCH (21:01)
--- NOTE | 2016-09-25 21:48 | PN ---
DATE OF SERVICE: 09/25/2016 ATTENDING NOTE: This patient was seen and examined by me earlier today. I reviewed the note of my nurse practitioner, Ms. Christie. Discussed additional findings below. This patient admitted with COPD exacerbation. Breathing is getting better. He has been up to the bathroom. On examination, LUNGS: Decreased breath sounds. Expiratory wheezing. Some expiratory crackles. PSYCH: Alert and oriented x3. INVESTIGATIONS: Accu-Cheks are noted. ASSESSMENT: 1. Acute chronic obstructive pulmonary disease exacerbation with tracheobronchitis. 2. Acute hypoxic respiratory failure from the above. PLAN: Continue current medication and treatment plan. Patient encouraged to be out of bed. Follow.
[2016-09-26] MEDS: methylPREDNISolone SOD SUCCI 40 MG/ML 1 ML VIAL IV SCH ×3 (00:21→16:33)
[2016-09-26] MEDS: IPRATROPIUM-ALBUTEROL 3 ML NEB INHALATION SCH ×4 (07:31→20:38)
[2016-09-26] MEDS: SYMBICORT 80-4.5 MCG INHALER INHALATION SCH ×2 (07:31→20:38)
[2016-09-26 07:41] LABS: Glucose,Whole Blood 148 mg/dL (75-99)
[2016-09-26] MEDS: CARVEDILOL 6.25 MG TAB PO SCH ×2 (08:08→16:33)
[2016-09-26] MEDS: INSULIN LISPRO (humaLOG) 300 UNIT/3 ML VIAL SQ SCH ×4 (08:08→20:59)
[2016-09-26] MEDS: amLODIPine 5 MG TAB PO SCH (08:09)
[2016-09-26] MEDS: ENOXAPARIN 40 MG/0.4 ML SYRINGE SQ SCH (08:09)
[2016-09-26] MEDS: FUROSEMIDE 20 MG TAB PO SCH (08:09)
[2016-09-26] MEDS: hydrALAZINE HCL 25 MG TAB PO SCH ×2 (08:10→21:00)
[2016-09-26] MEDS: HYDROCHLOROTHIAZIDE 50 MG TAB PO SCH (08:10)
[2016-09-26] MEDS: guaiFENesin 600 MG TABLET.ER PO SCH (08:10)
[2016-09-26] MEDS: LOSARTAN 50 MG TAB PO SCH (08:10)
[2016-09-26] MEDS: SPIRONOLACTONE 25 MG TAB PO SCH (08:11)
[2016-09-26] MEDS: SERTRALINE 50 MG TAB PO SCH (08:11)
[2016-09-26] MEDS: THEOPHYLLINE 24 HOUR 300 MG CAP.ER.24H PO SCH ×2 (08:11→21:00)
[2016-09-26] MEDS: HYDROcodone/APAP 10-325MG 1 EACH TAB PO PRN ×3 (08:21→20:59)
[2016-09-26 09:31] LABS: Basophils % (A) 0 %; CH 28.8; Eosinophils % (A) 0 %; HCT 44.3 % (39.0-53.0); HDW 2.45; HGB 13.8 gm/dL (13.0-17.5); Hypochromasia Slight; Luc # (Auto) 0.09; Luc % (Auto) 1; Lymphocytes # (A) 0.8 k/uL (1.0-4.8); Lymphocytes % (A) 7 %; MCH 29.1 pg (25.0-35.0); MCHC 31.2 g/dL (31.0-37.0); MCV 93.4 fL (80.0-100.0); Mean Platelet Volume 6.5; Monocytes # (A) 0.4 k/uL (0-1.0); Monocytes % (A) 3 %; Neutrophils # (A) 10.6 k/uL (1.3-7.7); Neutrophils % (A) 89 %; RBC 4.74 m/uL (4.30-5.90); RDW 13.4 % (11.5-15.5); WBC 11.9 k/uL (3.8-10.6); WBC (Perox) 11.42
[2016-09-26 09:42] LABS: Anion Gap 8 mmol/L; Blood Urea Nitrogen 32 mg/dL (9-20); Calcium 9.4 mg/dL (8.4-10.2); Carbon Dioxide 35 mmol/L (22-30); Chloride 92 mmol/L (98-107); Glucose 262 mg/dL (74-99); Non-African American GFR(MDRD) >60 (>60 ml/min/1.73 sqM); Potassium 4.3 mmol/L (3.5-5.1); Sodium 135 mmol/L (137-145)
[2016-09-26 11:53] LABS: Glucose,Whole Blood 216 mg/dL (75-99)
--- NOTE | 2016-09-26 14:15 | P.PN ---
Subjective Principal diagnosis: Acute exacerbation of severe oxygen dependent chronic obstructive pulmonary disease This is a 76-year-old white male with history of severe end-stage COPD, O2 dependent, prednisone dependent, he is quite familiar to my service, and I see him on a regular basis at least once every 3 months. Patient continues to smoke in spite of his severe end-stage COPD, his primary care physician is Dr. Lira. Patient presented to the ER today with 4 days history of cough which is productive of greenish phlegm, wheezing, and worsening shortness of breath. Chest x-ray showed no evidence of active disease, however he has a chronic elevation of the left hemidiaphragm consistent with left hemidiaphragm paralysis. I was asked to see the patient on consultation, I went down and saw the patient in the ER, started the patient on multiple bronchodilators steroids antibiotics, and he was resumed back on his usual bronchodilators also. Reviewed the chest x-ray with the patient, and clearly the patient needs to be admitted with the impression of acute exacerbation of COPD, acute hypoxic on chronic respiratory failure, and purulent tracheobronchitis. ABC was noted to be relatively unremarkable. Electrolytes and renal profile were unremarkable except for a bicarb of 35 which is felt compensatory for chronic respiratory acidosis. Patient denies any headache, no blurred vision, no dizziness. No chest pain, no palpitations, no nausea, no vomiting, no abdominal pain, no melena, no hematemesis, no dysuria, no frequency, no urgency. Denies any symptoms of polyuria, polydipsia, heat or cold intolerance. The patient is seen again today 09/25/2016 on the selective care unit. He is currently sitting up at the bedside. He is awake and alert in no acute distress. He is breathing easier today as compared to yesterday. His been treated with bronchodilators, Symbicort, theophylline, IV Solu-Medrol. He is on empiric anti-buttocks in the form of Levaquin. He is maintaining O2 saturations in the mid 90s on 3 L/m per nasal cannula. He is afebrile. Hemodynamically stable. The patient is seen again today 09/26/2016 in follow-up on the regular medical floor. He is awake and alert in no acute distress. He continues to have a dry nonproductive cough. He is dyspneic on minimal exertion. Not quite back to his baseline. He is maintaining O2 saturations in the low 90s on 2 L/m per nasal cannula. She's been afebrile. Hemodynamically stable. Objective - Vital Signs Vital signs: Vital Signs Temp 96.6 F L 09/26/16 07:00 Pulse 84 09/26/16 11:23 Resp 18 09/26/16 07:00 BP 146/76 09/26/16 07:00 Pulse Ox 90 L 09/26/16 07:00 Intake & Output 09/25/16 09/26/16 09/26/16 18:59 06:59 18:59 Intake Total 760 Output Total 1875 750 Balance -1115 -750 Intake: IV 160 Sodium Chloride 0.9% 1, 160 000 ml @ 20 mls/hr IV . Q24H [facility] Rx#:[id number] Oral 600 Output: Urine 1875 750 Other: Voiding Method Toilet Urinal # Voids 1 1 - Exam GENERAL EXAM: Obese. Alert, fairly comfortable in no apparent distress. HEAD: Normocephalic. EYES: Normal reaction of pupils, equal size. NOSE: Clear with pink turbinates. THROAT: No erythema or exudates. NECK: No masses, no JVD. CHEST: No chest wall deformity. LUNGS: Equal air entry with bilateral end expiratory wheeze, diminished throughout. CVS: S1 and S2 normal with no audible murmurs, regular rhythm. ABDOMEN: No hepatosplenomegaly, normal bowel sounds, no guarding or rigidity. SPINE: No scoliosis or deformity SKIN: No rashes CENTRAL NERVOUS SYSTEM: No focal deficits, tone is normal in all 4 extremities. Extremities: There is trace peripheral edema. No clubbing, no cyanosis. Peripheral pulses are intact. - Labs CBC & Chem 7: 09/26/16 08:54 09/26/16 08:52 Labs: Abnormal Lab Results - Last 24 Hours (Table) 09/25/16 09/25/16 09/26/16 Range/Units 17:04 20:46 07:39 WBC (3.8-10.6) k/uL Neutrophils # (1.3-7.7) k/uL Lymphocytes # (1.0-4.8) k/uL Sodium (137-145) mmol/L Chloride (98-107) mmol/L Carbon Dioxide (22-30) mmol/L BUN (9-20) mg/dL Glucose (74-99) mg/dL POC Glucose (mg/dL) 119 H 146 H 148 H (75-99) mg/dL 09/26/16 09/26/16 09/26/16 Range/Units 08:52 08:54 11:51 WBC 11.9 H (3.8-10.6) k/uL Neutrophils # 10.6 H (1.3-7.7) k/uL Lymphocytes # 0.8 L (1.0-4.8) k/uL Sodium 135 L (137-145) mmol/L Chloride 92 L (98-107) mmol/L Carbon Dioxide 35 H (22-30) mmol/L BUN 32 H (9-20) mg/dL Glucose 262 H (74-99) mg/dL POC Glucose (mg/dL) 216 H (75-99) mg/dL Microbiology - Last 24 Hours (Table) 09/24/16 11:31 Blood Culture - Preliminary Blood No Growth after 48 hours Assessment and Plan Plan: Impression: #1 Acute on chronic hypoxic respiratory failure secondary to acute exacerbation of severe oxygen dependent chronic obstructive pulmonary disease. #2 Acute on chronic hypercapnic respiratory failure secondary to acute exacerbation of severe oxygen dependent chronic obstructive pulmonary disease. #3 Acute exacerbation of chronic obstructive pulmonary disease Complicated by purulent tracheobronchitis. #4 Chronic and ongoing tobacco dependence. 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 #6 Chronic cor pulmonale secondary to severe COPD and pulmonary hypertension. #7 Pulmonary hypertension. #8 Hypertension. #9 Chronic atrial fibrillation. #10 Osteoarthritis. Plan: The patient was seen and evaluated by Dr. Sheppard. He is not quite back to his baseline. We'll continue with his current medications including bronchodilators , Symbicort, IV Solu-Medrol and theophylline. He remains on empiric antibiotics in the form of Levaquin. He is continued on his diuretics. He is again educated regarding the importance of complete smoking cessation. We will continue to follow and make further recommendations based on his clinical status.
[2016-09-26] MEDS: LEVOFLOXACIN 500 MG TAB PO SCH (16:32)
[2016-09-26] MEDS: ASPIRIN 81 MG CHEW PO SCH (16:32)
[2016-09-26 17:18] LABS: Glucose,Whole Blood 100 mg/dL (75-99)
[2016-09-26 20:35] LABS: Glucose,Whole Blood 139 mg/dL (75-99)
[2016-09-26] MEDS: NICOTINE 14MG/24HR PATCH TRANSDERM SCH (21:00)
[2016-09-26] MEDS: MELATONIN 5 MG TABLET PO SCH (21:00)
[2016-09-27] MEDS: methylPREDNISolone SOD SUCCI 40 MG/ML 1 ML VIAL IV SCH ×3 (00:19→15:02)
[2016-09-27 07:06] LABS: Glucose,Whole Blood 153 mg/dL (75-99)
[2016-09-27] MEDS: IPRATROPIUM-ALBUTEROL 3 ML NEB INHALATION SCH ×4 (07:30→20:57)
[2016-09-27] MEDS: SYMBICORT 80-4.5 MCG INHALER INHALATION SCH ×2 (07:30→20:42)
--- NOTE | 2016-09-27 07:43 | PN ---
DATE OF SERVICE: 09/26/2016 PRESENTING COMPLAINT: Cough. INTERVAL HISTORY: This patient presents with acute severe chronic obstructive pulmonary disease exacerbation and tracheobronchitis. Still got a cough. Some sputum production, tired, a shade better. Did tolerate some diet. REVIEW OF SYSTEMS: Done for constitutional, cardiovascular, GI, pulmonary; relevant findings as above. Current medications are as reviewed that include: Nebulized bronchodilators and IV steroids. On examination, temperature 97.1, pulse 73, respirations 16, blood pressure 137/55, pulse ox 92% on 2 liters. GENERAL APPEARANCE: Sitting up, not in distress. EYES: Pupils equal. Conjunctivae normal. NECK: JVD not raised. Mass not palpable. RESPIRATORY: Effort increased. Lungs decreased prolonged expiration. CARDIOVASCULAR: First and second sounds normal. No edema. ABDOMEN: Soft, nontender. Liver and spleen not palpable. PSYCHIATRY: Alert and oriented x3. Mood and affect normal. INVESTIGATIONS: White count 11.9, potassium 4.3. BUN 32, creatinine 0.73. Accu-Cheks are noted. ASSESSMENT: 1. Acute severe chronic obstructive pulmonary disease exacerbation in a smoker, acute purulent tracheobronchitis slow to respond. 2. Acute hypoxic respiratory failure along with chronic hypoxic respiratory failure from underlying chronic obstructive pulmonary disease. 3. Obesity, body mass index greater than 30. 4. Coronary artery disease with prior history of stent. 5. Primary osteoarthrosis multiple joints, bilateral. 6. Chronic nicotine dependence. Patient is a smoker. PLAN: Continue current medication and treatment plan. Patient will need at least 2 more days in the hospital. Care was discussed with the patient. Follow.
[2016-09-27] MEDS: LOSARTAN 50 MG TAB PO SCH (08:22)
[2016-09-27] MEDS: ENOXAPARIN 40 MG/0.4 ML SYRINGE SQ SCH (08:22)
[2016-09-27] MEDS: THEOPHYLLINE 24 HOUR 300 MG CAP.ER.24H PO SCH ×2 (08:22→22:10)
[2016-09-27] MEDS: SERTRALINE 50 MG TAB PO SCH (08:23)
[2016-09-27] MEDS: INSULIN LISPRO (humaLOG) 300 UNIT/3 ML VIAL SQ SCH ×4 (08:23→22:11)
[2016-09-27] MEDS: HYDROCHLOROTHIAZIDE 50 MG TAB PO SCH (08:23)
[2016-09-27] MEDS: CARVEDILOL 6.25 MG TAB PO SCH ×2 (08:23→15:02)
[2016-09-27] MEDS: guaiFENesin 600 MG TABLET.ER PO SCH (08:23)
[2016-09-27] MEDS: FUROSEMIDE 20 MG TAB PO SCH (08:23)
[2016-09-27] MEDS: amLODIPine 5 MG TAB PO SCH (08:23)
[2016-09-27] MEDS: hydrALAZINE HCL 25 MG TAB PO SCH ×2 (08:23→22:10)
[2016-09-27] MEDS: SPIRONOLACTONE 25 MG TAB PO SCH (08:23)
[2016-09-27] MEDS: HYDROcodone/APAP 10-325MG 1 EACH TAB PO PRN ×3 (08:40→22:11)
[2016-09-27 10:39] LABS: Anion Gap 10 mmol/L; Calcium 9.6 mg/dL (8.4-10.2); Carbon Dioxide 32 mmol/L (22-30); Chloride 92 mmol/L (98-107); Glucose 232 mg/dL (74-99); Non-African American GFR(MDRD) >60 (>60 ml/min/1.73 sqM); Sodium 134 mmol/L (137-145)
[2016-09-27 11:23] LABS: Blood Urea Nitrogen 33 mg/dL (9-20); Potassium 4.8 mmol/L (3.5-5.1)
[2016-09-27 12:01] LABS: Glucose,Whole Blood 177 mg/dL (75-99)
--- NOTE | 2016-09-27 14:22 | P.PN ---
Subjective Principal diagnosis: Acute exacerbation of severe oxygen dependent chronic obstructive pulmonary disease This is a 76-year-old white male with history of severe end-stage COPD, O2 dependent, prednisone dependent, he is quite familiar to my service, and I see him on a regular basis at least once every 3 months. Patient continues to smoke in spite of his severe end-stage COPD, his primary care physician is Dr. Lira. Patient presented to the ER today with 4 days history of cough which is productive of greenish phlegm, wheezing, and worsening shortness of breath. Chest x-ray showed no evidence of active disease, however he has a chronic elevation of the left hemidiaphragm consistent with left hemidiaphragm paralysis. I was asked to see the patient on consultation, I went down and saw the patient in the ER, started the patient on multiple bronchodilators steroids antibiotics, and he was resumed back on his usual bronchodilators also. Reviewed the chest x-ray with the patient, and clearly the patient needs to be admitted with the impression of acute exacerbation of COPD, acute hypoxic on chronic respiratory failure, and purulent tracheobronchitis. ABC was noted to be relatively unremarkable. Electrolytes and renal profile were unremarkable except for a bicarb of 35 which is felt compensatory for chronic respiratory acidosis. Patient denies any headache, no blurred vision, no dizziness. No chest pain, no palpitations, no nausea, no vomiting, no abdominal pain, no melena, no hematemesis, no dysuria, no frequency, no urgency. Denies any symptoms of polyuria, polydipsia, heat or cold intolerance. The patient is seen again today 09/25/2016 on the selective care unit. He is currently sitting up at the bedside. He is awake and alert in no acute distress. He is breathing easier today as compared to yesterday. His been treated with bronchodilators, Symbicort, theophylline, IV Solu-Medrol. He is on empiric anti-buttocks in the form of Levaquin. He is maintaining O2 saturations in the mid 90s on 3 L/m per nasal cannula. He is afebrile. Hemodynamically stable. The patient is seen again today 09/26/2016 in follow-up on the regular medical floor. He is awake and alert in no acute distress. He continues to have a dry nonproductive cough. He is dyspneic on minimal exertion. Not quite back to his baseline. He is maintaining O2 saturations in the low 90s on 2 L/m per nasal cannula. She's been afebrile. Hemodynamically stable. The patient is seen again today 09/27/2016 in follow-up on the regular medical floor. He is awake and alert in no acute distress. He is nearly back to his baseline as far as his severe COPD is concerned. His baseline is quite restricted based on the severity of his lung disease and continued and ongoing tobacco dependence. He is maintaining O2 saturations in the 90s on 3 L/m per nasal cannula. He has been afebrile. Objective - Vital Signs Vital signs: Vital Signs Temp 96.9 F L 09/27/16 07:00 Pulse 80 09/27/16 13:26 Resp 16 09/27/16 07:00 BP 139/64 09/27/16 07:00 Pulse Ox 93 L 09/27/16 13:26 Intake & Output 09/26/16 09/27/16 09/27/16 18:59 06:59 18:59 Output Total 550 Balance -550 Output: Urine 550 Other: Voiding Method Toilet Urinal # Voids 3 1 2 - Exam GENERAL EXAM: Obese. Alert, fairly comfortable in no apparent distress. HEAD: Normocephalic. EYES: Normal reaction of pupils, equal size. NOSE: Clear with pink turbinates. THROAT: No erythema or exudates. NECK: No masses, no JVD. CHEST: No chest wall deformity. LUNGS: Equal air entry with bilateral end expiratory wheeze, diminished throughout. CVS: S1 and S2 normal with no audible murmurs, regular rhythm. ABDOMEN: No hepatosplenomegaly, normal bowel sounds, no guarding or rigidity. SPINE: No scoliosis or deformity SKIN: No rashes CENTRAL NERVOUS SYSTEM: No focal deficits, tone is normal in all 4 extremities. Extremities: There is trace peripheral edema. No clubbing, no cyanosis. Peripheral pulses are intact. - Labs CBC & Chem 7: 09/26/16 08:54 09/27/16 10:13 Labs: Abnormal Lab Results - Last 24 Hours (Table) 09/26/16 09/26/16 09/27/16 Range/Units 17:16 20:33 07:04 Sodium (137-145) mmol/L Chloride (98-107) mmol/L Carbon Dioxide (22-30) mmol/L BUN (9-20) mg/dL Glucose (74-99) mg/dL POC Glucose (mg/dL) 100 H 139 H 153 H (75-99) mg/dL 09/27/16 09/27/16 Range/Units 10:13 11:52 Sodium 134 L (137-145) mmol/L Chloride 92 L (98-107) mmol/L Carbon Dioxide 32 H (22-30) mmol/L BUN 33 H (9-20) mg/dL Glucose 232 H (74-99) mg/dL POC Glucose (mg/dL) 177 H (75-99) mg/dL Microbiology - Last 24 Hours (Table) 09/24/16 11:31 Blood Culture - Preliminary Blood No Growth after 72 hours Assessment and Plan Plan: Impression: #1 Acute on chronic hypoxic respiratory failure secondary to acute exacerbation of severe oxygen dependent chronic obstructive pulmonary disease. #2 Acute on chronic hypercapnic respiratory failure secondary to acute exacerbation of severe oxygen dependent chronic obstructive pulmonary disease. #3 Acute exacerbation of chronic obstructive pulmonary disease Complicated by purulent tracheobronchitis. #4 Chronic and ongoing tobacco dependence. 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 #6 Chronic cor pulmonale secondary to severe COPD and pulmonary hypertension. #7 Pulmonary hypertension. #8 Hypertension. #9 Chronic atrial fibrillation. #10 Osteoarthritis. Plan: The patient was seen and evaluated by Dr. Sheppard. He is cleared for discharge from the pulmonary standpoint. He'll continue with the prednisone taper and empiric antibiotics along with his home pulmonary medications. He is again educated regarding the importance of complete smoking cessation and we'll continue with NicoDerm patches. He will see Dr. Sheppard in the office in 1 week. He is however encouraged to call sooner with any recurrence of symptoms or other questions or concerns.
[2016-09-27] MEDS ORDERED: LACTULOSE 20 GM/30 ML CUP PO ONE (14:30)
[2016-09-27] MEDS: LEVOFLOXACIN 500 MG TAB PO SCH (15:02)
[2016-09-27 16:57] LABS: Glucose,Whole Blood 114 mg/dL (75-99)
[2016-09-27 21:32] LABS: Glucose,Whole Blood 158 mg/dL (75-99)
--- NOTE | 2016-09-27 21:59 | P.PN ---
Progress Note - Text DATE OF SERVICE: 09/27/2016 PRESENTING COMPLAINT: Shortness of breath and cough INTERVAL HISTORY: This patient presented with an acute severe exacerbation of COPD with acute tracheobronchitis. Patient's lying in bed, appears mildly short of breath, ambulatory to and from the bathroom, tolerating his diet, has had a BM today. REVIEW OF SYSTEMS: Done for constitutional ,cardiovascular, GI, pulmonary with relevant findings as above. CURRENT MEDICATIONS DuoNeb, Norvasc, Symbicort, Coreg, Lovenox, theophylline, nicotine patch, Solu- Medrol. PHYSICAL EXAM: VITAL SIGNS: 96.9 temperature, pulse 73 respirations 16 blood pressure 139/64 oxygen saturation 93% on 2 L. GENERAL APPEARANCE:Lying in bed, not in distress. EYES: Pupils equal. Conjunctiva normal. NECK: JVD not raised. Mass not palpable. RESPIRATORY: Respiratory effort increased. Lungs prolonged expiration with crackles noted to auscultation. CARDIOVASCULAR: First and second sounds normal. No edema. ABDOMEN: Soft. Liver and spleen not palpable. No tenderness. No mass palpable. PSYCHIATRY: Alert and oriented x3. Mood and affect normal. INVESTIGATIONS: Labs noted ASSESSMENT: 1. Acute severe chronic obstructive pulmonary disease exacerbation in a smoker with acute purulent tracheobronchitis. 2. Acute hypoxic respiratory failure along with chronic hypoxic respiratory failure from underlying chronic obstructive pulmonary disease. 3. Obesity, body mass index greater than 30. 4. Coronary artery disease with prior history of stent. 5. Primary osteoarthritis of multiple joints bilaterally. 6 chronic nicotine dependence, patient is a smoker PLAN: Continue current Medication and treatment plan. Plan of care discussed with the patient. We'll continue to monitor closely. SHERIFF'S DETECTIVE statement: Patient was seen and examined by nurse practitioner Alycia Christie in all elements of the case discussed with attending is Dr. Lagunas
[2016-09-27] MEDS: MELATONIN 5 MG TABLET PO SCH (22:10)
[2016-09-27] MEDS: NICOTINE 14MG/24HR PATCH TRANSDERM SCH (22:11)
[2016-09-28] MEDS: SYMBICORT 80-4.5 MCG INHALER INHALATION SCH (07:28)
[2016-09-28] MEDS: IPRATROPIUM-ALBUTEROL 3 ML NEB INHALATION SCH ×2 (07:28→11:21)
[2016-09-28 07:32] VITALS: BP 121/60; RESP 22; TEMP 97
[2016-09-28 07:40] LABS: Glucose,Whole Blood 100 mg/dL (75-99)
[2016-09-28] MEDS: INSULIN LISPRO (humaLOG) 300 UNIT/3 ML VIAL SQ SCH ×2 (08:00→12:06)
--- NOTE | 2016-09-28 08:19 | PN ---
DATE OF SERVICE: 09/27/2016 ATTENDING NOTE: This patient was seen and examined by me earlier today. I reviewed the notes of my nurse practitioner, Ms. Christie. I discussed, reviewed with additional findings below. This patient presented with COPD exacerbation, getting better. Decreased cough. Tolerating diet. Up to the bathroom. On examination, afebrile. LUNGS: Decreased breath sounds. Prolonged expiration. CARDIOVASCULAR: First and second sounds. Decreased edema. INVESTIGATIONS: Potassium 4.8. Accu-Cheks are noted. Blood cultures negative. ASSESSMENT: 1. Acute severe chronic obstructive pulmonary disease exacerbation with acute ( ) with good clinical response. 2. Acute hypoxic respiratory failure along with chronic hypoxic respiratory failure. PLAN: Patient overall is doing better. Care was discussed with the patient. Hopefully can be discharged tomorrow. Discussed with the patient.
[2016-09-28] MEDS: THEOPHYLLINE 24 HOUR 300 MG CAP.ER.24H PO SCH (08:27)
[2016-09-28] MEDS: SERTRALINE 50 MG TAB PO SCH (08:27)
[2016-09-28] MEDS: ENOXAPARIN 40 MG/0.4 ML SYRINGE SQ SCH (08:27)
[2016-09-28] MEDS: guaiFENesin 600 MG TABLET.ER PO SCH (08:27)
[2016-09-28] MEDS: SPIRONOLACTONE 25 MG TAB PO SCH (08:27)
[2016-09-28] MEDS: FUROSEMIDE 20 MG TAB PO SCH (08:27)
[2016-09-28] MEDS: hydrALAZINE HCL 25 MG TAB PO SCH (08:27)
[2016-09-28] MEDS: CARVEDILOL 6.25 MG TAB PO SCH (08:27)
[2016-09-28] MEDS: amLODIPine 5 MG TAB PO SCH (08:27)
[2016-09-28] MEDS: LOSARTAN 50 MG TAB PO SCH (08:28)
[2016-09-28] MEDS: HYDROcodone/APAP 10-325MG 1 EACH TAB PO PRN (08:37)
[2016-09-28] MEDS ORDERED: predniSONE 20 MG TAB PO SCH (09:00)
--- NOTE | 2016-09-28 11:03 | P.PN ---
Subjective Principal diagnosis: Acute exacerbation of severe oxygen dependent chronic obstructive pulmonary disease This is a 76-year-old white male with history of severe end-stage COPD, O2 dependent, prednisone dependent, he is quite familiar to my service, and I see him on a regular basis at least once every 3 months. Patient continues to smoke in spite of his severe end-stage COPD, his primary care physician is Dr. Lira. Patient presented to the ER today with 4 days history of cough which is productive of greenish phlegm, wheezing, and worsening shortness of breath. Chest x-ray showed no evidence of active disease, however he has a chronic elevation of the left hemidiaphragm consistent with left hemidiaphragm paralysis. I was asked to see the patient on consultation, I went down and saw the patient in the ER, started the patient on multiple bronchodilators steroids antibiotics, and he was resumed back on his usual bronchodilators also. Reviewed the chest x-ray with the patient, and clearly the patient needs to be admitted with the impression of acute exacerbation of COPD, acute hypoxic on chronic respiratory failure, and purulent tracheobronchitis. ABC was noted to be relatively unremarkable. Electrolytes and renal profile were unremarkable except for a bicarb of 35 which is felt compensatory for chronic respiratory acidosis. Patient denies any headache, no blurred vision, no dizziness. No chest pain, no palpitations, no nausea, no vomiting, no abdominal pain, no melena, no hematemesis, no dysuria, no frequency, no urgency. Denies any symptoms of polyuria, polydipsia, heat or cold intolerance. The patient is seen again today 09/25/2016 on the selective care unit. He is currently sitting up at the bedside. He is awake and alert in no acute distress. He is breathing easier today as compared to yesterday. His been treated with bronchodilators, Symbicort, theophylline, IV Solu-Medrol. He is on empiric anti-buttocks in the form of Levaquin. He is maintaining O2 saturations in the mid 90s on 3 L/m per nasal cannula. He is afebrile. Hemodynamically stable. The patient is seen again today 09/26/2016 in follow-up on the regular medical floor. He is awake and alert in no acute distress. He continues to have a dry nonproductive cough. He is dyspneic on minimal exertion. Not quite back to his baseline. He is maintaining O2 saturations in the low 90s on 2 L/m per nasal cannula. She's been afebrile. Hemodynamically stable. The patient is seen again today 09/27/2016 in follow-up on the regular medical floor. He is awake and alert in no acute distress. He is nearly back to his baseline as far as his severe COPD is concerned. His baseline is quite restricted based on the severity of his lung disease and continued and ongoing tobacco dependence. He is maintaining O2 saturations in the 90s on 3 L/m per nasal cannula. He has been afebrile. The patient is seen again today 09/28/2016 in follow-up on the regular medical floor. Currently sitting up in bed he is awake and alert in no acute distress. He is about to take a shower. He denies any worsening shortness of breath, cough or congestion. He is breathing easier today as compared to yesterday. Continues to maintain good O2 saturations in the mid 90s on 3 L/m per nasal cannula. He is afebrile. Objective - Vital Signs Vital signs: Vital Signs Temp 97.0 F L 09/28/16 07:00 Pulse 80 09/28/16 07:45 Resp 22 09/28/16 07:00 BP 121/60 09/28/16 07:00 Pulse Ox 94 L 09/28/16 07:00 Intake & Output 09/27/16 09/28/16 09/28/16 18:59 06:59 18:59 Intake Total 500 240 Balance 500 240 Intake: Oral 500 240 Other: Voiding Method Toilet Toilet Urinal Urinal # Voids 2 1 - Exam GENERAL EXAM: Obese. Alert, fairly comfortable in no apparent distress. HEAD: Normocephalic. EYES: Normal reaction of pupils, equal size. NOSE: Clear with pink turbinates. THROAT: No erythema or exudates. NECK: No masses, no JVD. CHEST: No chest wall deformity. LUNGS: Equal air entry with bilateral end expiratory wheeze, diminished throughout. CVS: S1 and S2 normal with no audible murmurs, regular rhythm. ABDOMEN: No hepatosplenomegaly, normal bowel sounds, no guarding or rigidity. SPINE: No scoliosis or deformity SKIN: No rashes CENTRAL NERVOUS SYSTEM: No focal deficits, tone is normal in all 4 extremities. Extremities: There is trace peripheral edema. No clubbing, no cyanosis. Peripheral pulses are intact. - Labs CBC & Chem 7: 09/26/16 08:54 09/27/16 10:13 Labs: Abnormal Lab Results - Last 24 Hours (Table) 09/27/16 09/27/16 09/27/16 Range/Units 10:13 11:52 16:54 Sodium 134 L (137-145) mmol/L Chloride 92 L (98-107) mmol/L Carbon Dioxide 32 H (22-30) mmol/L BUN 33 H (9-20) mg/dL Glucose 232 H (74-99) mg/dL POC Glucose (mg/dL) 177 H 114 H (75-99) mg/dL 09/27/16 09/28/16 Range/Units 21:28 07:04 Sodium (137-145) mmol/L Chloride (98-107) mmol/L Carbon Dioxide (22-30) mmol/L BUN (9-20) mg/dL Glucose (74-99) mg/dL POC Glucose (mg/dL) 158 H 100 H (75-99) mg/dL Microbiology - Last 24 Hours (Table) 09/24/16 11:31 Blood Culture - Preliminary Blood No Growth after 72 hours Assessment and Plan Plan: Impression: #1 Acute on chronic hypoxic respiratory failure secondary to acute exacerbation of severe oxygen dependent chronic obstructive pulmonary disease. #2 Acute on chronic hypercapnic respiratory failure secondary to acute exacerbation of severe oxygen dependent chronic obstructive pulmonary disease. #3 Acute exacerbation of chronic obstructive pulmonary disease Complicated by purulent tracheobronchitis. #4 Chronic and ongoing tobacco dependence. 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 #6 Chronic cor pulmonale secondary to severe COPD and pulmonary hypertension. #7 Pulmonary hypertension. #8 Hypertension. #9 Chronic atrial fibrillation. #10 Osteoarthritis. Plan: The patient was seen and evaluated by Dr. Sheppard. He is cleared for discharge. He'll continue with the prednisone taper and empiric antibiotics along with his home pulmonary medications. He is again educated regarding the importance of complete smoking cessation and we'll continue with NicoDerm patches. He will see Dr. Sheppard in the office in 1 week. He is however encouraged to call sooner with any recurrence of symptoms or other questions or concerns.
[2016-09-28 11:08] LABS: Basophils % (A) 0 %; CH 28.7; CHCM 30.8; Eosinophils % (A) 0 %; HCT 49.1 % (39.0-53.0); HDW 2.29; HGB 15.1 gm/dL (13.0-17.5); Hypochromasia Slight; Luc # (Auto) 0.15; Luc % (Auto) 1; Lymphocytes # (A) 0.9 k/uL (1.0-4.8); Lymphocytes % (A) 8 %; MCH 28.7 pg (25.0-35.0); MCHC 30.7 g/dL (31.0-37.0); MCV 93.5 fL (80.0-100.0); Mean Platelet Volume 6.6; Monocytes # (A) 0.7 k/uL (0-1.0); Monocytes % (A) 6 %; Neutrophils # (A) 9.7 k/uL (1.3-7.7); Neutrophils % (A) 84 %; RBC 5.25 m/uL (4.30-5.90); RDW 13.7 % (11.5-15.5); WBC 11.6 k/uL (3.8-10.6); WBC (Perox) 11.48
[2016-09-28 11:23] VITALS: PULSE 72
[2016-09-28 11:25] LABS: Anion Gap 6 mmol/L; Blood Urea Nitrogen 31 mg/dL (9-20); Calcium 9.8 mg/dL (8.4-10.2); Carbon Dioxide 39 mmol/L (22-30); Chloride 90 mmol/L (98-107); Glucose 128 mg/dL (74-99); Non-African American GFR(MDRD) >60 (>60 ml/min/1.73 sqM); Potassium 4.8 mmol/L (3.5-5.1); Sodium 135 mmol/L (137-145)
[2016-09-28 12:04] LABS: Glucose,Whole Blood 126 mg/dL (75-99)
--- NOTE | 2016-09-30 20:56 | DS ---
DATE OF ADMISSION: 09/24/2016 DATE OF DISCHARGE: 09/28/2016 FINAL DIAGNOSES: 1. Acute severe chronic obstructive pulmonary disease exacerbation in a smoker with acute tracheobronchitis. 2. Acute hypoxic respiratory failure on chronic hypoxic respiratory failure from underlying chronic obstructive pulmonary disease, present on admission. 3. Obesity; body mass index greater than 30. 4. Coronary artery disease with prior history of stent. 5. Primary osteoarthritis of multiple joints bilaterally. 6. Chronic nicotine dependence. Patient is a smoker. HOSPITAL COURSE: This patient presents with COPD exacerbation. Doing better at the time of discharge. Symptoms have greatly improved. Patient counseled against smoking. On examination, lungs have decreased breath sounds. CARDIOVASCULAR: First and second sounds normal. Patient's blood cultures were negative. CONSULTATION: Dr. Sheppard from Pulmonary. DISCHARGE MEDICATIONS: 1. Aspirin 81 mg p.o. q.48 hours. 2. Coreg 6.25 p.o. b.i.d. 3. [place] 10 one to two tablets q.4 p.r.n. 4. Benicar 40 mg p.o. daily. 5. Zoloft 50 mg p.o. daily. 6. Norvasc 5 mg p.o. daily. 7. Hydralazine 25 mg b.i.d. 8. Aldactone 25 mg daily. 9. Ventolin HFA 1 to 2 puffs q.4 p.r.n. 10. Advair HFA 2 puffs b.i.d. 11. Lasix 20 mg p.o. daily. 12. DuoNeb q.i.d. 13. Maciej-24 300 mg b.i.d. 14. Levaquin 500 mg a day; 7 tablets. 15. Melatonin 5 mg p.o. at bedtime. 16. Nicotine patch ( ) 14. 17. Prednisone taper. Follow up with Dr. Sheppard in one week. Follow up with Dr. Nick Lira in 2 days. Steroid taper. Discharge planning more than 35 minutes.
== END 2016-09-28 16:30 | disposition home or self-care (01) | DRG 190 ==
LOC: EC 11:03 → 6SEL 13:57 → 4MS4W 09-25 13:54
PROVIDERS: ADMIT Hospitalist; ATTEND Hospitalist
DX: J44.0 Chronic obstructive pulmonary disease with (acute) lower respiratory infection (principal); J96.21 Acute and chronic respiratory failure with hypoxia; J96.22 Acute and chronic respiratory failure with hypercapnia; E87.2 Acidosis; J44.1 Chronic obstructive pulmonary disease with (acute) exacerbation; I11.0 Hypertensive heart disease with heart failure; Z99.81 Dependence on supplemental oxygen; I50.9 Heart failure, unspecified; I27.81 Cor pulmonale (chronic); I27.2 Other secondary pulmonary hypertension; J98.6 Disorders of diaphragm; J20.9 Acute bronchitis, unspecified; I25.10 Atherosclerotic heart disease of native coronary artery without angina pectoris; Z95.5 Presence of coronary angioplasty implant and graft; M19.91 Primary osteoarthritis, unspecified site; I73.9 Peripheral vascular disease, unspecified; K58.9 Irritable bowel syndrome, unspecified; F17.200 Nicotine dependence, unspecified, uncomplicated; K21.9 Gastro-esophageal reflux disease without esophagitis; I25.2 Old myocardial infarction; F32.9 Major depressive disorder, single episode, unspecified; I48.2 Chronic atrial fibrillation; K57.90 Diverticulosis of intestine, part unspecified, without perforation or abscess without bleeding; E66.9 Obesity, unspecified; Z68.30 Body mass index [BMI] 30.0-30.9, adult; Z79.82 Long term (current) use of aspirin; Z79.51 Long term (current) use of inhaled steroids; Z79.899 Other long term (current) drug therapy
CPT/HCPCS: 36415; 71020; 80048; 80053; 82550; 82553; 84484; 85025; 85379; 85610; 85730; 87040; 93005; 94640; 94760; 96374; 99285

== ENCOUNTER 2016-10-14 19:39 | Inpatient (IN) | payer MEDICARE ==
[2016-10-14] MEDS ORDERED: VANCOMYCIN 1,000 MG in SODIUM CHLORIDE 0.9% 250 ML IVPB STA (20:05)
[2016-10-14] MEDS ORDERED: SODIUM CHLORIDE 0.9% 500 ML IV STA ×2 (20:05→20:29)
[2016-10-14] MEDS ORDERED: IPRATROPIUM-ALBUTEROL 3 ML NEB INHALATION STA (20:05)
[2016-10-14] MEDS ORDERED: SODIUM CHLORIDE 0.9% 1,000 ML IV STA (20:05)
[2016-10-14] MEDS ORDERED: LEVOFLOXACIN 750MG-D5W PMX 750 MG in DEXTROSE/WATER 1 150ML.BAG IVPB STA (20:05)
[2016-10-14] MEDS ORDERED: PIPERACILLIN-TAZOBACTAM 3.375 GM in DEXTROSE/WATER 1 50ML.BAG IVPB STA (20:05)
[2016-10-14] MEDS ORDERED: KETOROLAC 30 MG/ML 1 ML VIAL IVP STA (20:06)
[2016-10-14] MEDS ORDERED: ACETAMINOPHEN TAB 500 MG TAB PO STA (20:06)
[2016-10-14] MEDS ORDERED: IV VANCOMYCIN PER PHARMACY 1 EACH MISC MISCELLANE PRN (20:07)
--- NOTE | 2016-10-14 20:14 | ED ---
SOB HPI - General Chief Complaint: Shortness of Breath Stated Complaint: JUANY Time Seen by Provider: 10/14/16 19:47 Source: patient, EMS Mode of arrival: EMS Limitations: no limitations - History of Present Illness Initial Comments: This 76-year-old white male presents with family with the complaint of shortness of breath. He relates that he was hospitalized a couple weeks ago for pneumonia. Records actually indicate that he had tracheal bronchitis and COPD. He was feeling much better after being discharged but got much worse over the last 3-4 days. He states that he's had a cough with yellowish brownish production. He has had some rigors as well as a fever at home. He has tried home breathing treatments as well. He has had occasional midsternal chest pains with coughing. The relates that she rubbed some alcohol on him to try to take care of his fever without any relief. He relates that he has been extremely weak and fell one time without injury. No other complaints or modifying factors. EMS relates that he was approximately 85% on room air when they picked him up. They gave him multiple breathing treatments as well as Solu-Medrol 125 mg IV. - Related Data Home Medications Medication Instructions Recorded Confirmed Aspirin EC [Ecotrin Low Dose] 81 mg PO Q48H 03/03/16 10/14/16 Carvedilol [Coreg] 6.25 mg PO BID 03/03/16 10/14/16 HYDROcodone/APAP 10-325MG [[place] 1.5 tab PO Q4HR PRN 03/03/16 10/14/16 10-325] Olmesartan Medoxomil [Benicar] 40 mg PO DAILY 03/03/16 10/14/16 Sertraline [Zoloft] 50 mg PO HS 03/03/16 10/14/16 amLODIPine [Norvasc] 5 mg PO HS 03/03/16 10/14/16 hydrALAZINE HCL [Apresoline] 25 mg PO BID 03/03/16 10/14/16 Albuterol Inhaler [Ventolin Hfa 2 puff INHALATION RT-Q4H PRN 09/24/16 10/14/16 Inhaler] Fluticasone/Salmeterol [Advair Hfa 2 puff INHALATION RT-BID 09/24/16 10/14/16 115-21 Mcg Inhaler] Furosemide [Lasix] 20 mg PO QAM 09/24/16 10/14/16 Ipratropium-Albuterol Nebulize 3 ml INHALATION RT-QID 09/24/16 10/14/16 [Duoneb 0.5 mg-3 mg/3 ml Soln] Theophylline 24 Hour [Maciej-24] 300 mg PO BID 09/24/16 10/14/16 Diazepam [Valium] 10 mg PO HS 10/14/16 10/14/16 Hydrochlorothiazide 50 mg PO QAM 10/14/16 10/14/16 Spironolactone [Aldactone] 25 mg PO HS 10/14/16 10/14/16 predniSONE 15 mg PO DAILY 10/14/16 10/14/16 Allergies Allergy/AdvReac Type Severity Reaction Status Date / Time No Known Allergies Allergy Verified 10/14/16 19:56 Review of Systems ROS Statement: Those systems with pertinent positive or pertinent negative responses have been documented in the HPI. ROS Other: All systems not noted in ROS Statement are negative. Past Medical History Past Medical History: Atrial Fibrillation, Heart Failure, COPD, GERD/Reflux, Hypertension, Myocardial Infarction (IA), Osteoarthritis (OA), Pneumonia, Respiratory Disorder, Vascular Disorder Additional Past Medical History / Comment(s): Chronic hypoxic respiratory failure, O2 at 2.5L/NC ATC, ischemic heart disease, PAD/PVD, diverticular dx, benign polypectomy, IBS, arthritis multiple joints bilaterally, numbness/ tingling bilateral feet. Last Myocardial Infarction Date:: unknown-prior to 2002 History of Any Multi-Drug Resistant Organisms: None Reported Past Surgical History: Heart Catheterization With Stent Additional Past Surgical History / Comment(s): PCI with stent 2002, L SFA angiogram/atherectomy/SALESPERSON CORSETS, R SFA atherectomy/angioplasty, pilonidal cystectomy, bilateral sebacious cysts removed from axillae, cervical sx with plates and screws, back surgery with plate, colonoscopy. Past Anesthesia/Blood Transfusion Reactions: No Reported Reaction Date of Last Stent Placement:: 2002 Past Psychological History: Depression Smoking Status: Current every day smoker Past Alcohol Use History: None Reported Past Drug Use History: None Reported - Past Family History Mother Family Medical History: No Reported History Additional Family Medical History / Comment(s): Mother was healthy and at the age of 92 yrs. Father Family Medical History: Coronary Artery Disease (CAD), Myocardial Infarction (IA ) Additional Family Medical History / Comment(s): Father had a IA in his 70's. He had CABG and back surgery. General Exam - General Exam Comments Initial Comments: GENERAL: The patient is well nourished and well hydrated. VITAL SIGNS: Heart rate, blood pressure, respiratory rate reviewed as recorded in nurse's notes. He has a fever of 103 and is tachycardic. EYES: Pupils are round and reactive. Extraocular movements are intact. No conjunctival / lid redness or swelling. ENT: No external evidence of injury, swelling, or ecchymosis. Airway is patent. Throat is clear. NECK: Nontender. No swelling or evidence of injury. No subcutaneous emphysema. Trachea is midline. No thyroid mass. HEART: Tachycardic but regular rhythm noted. Good peripheral pulses. LUNGS/CHEST: There is wheezing noted bilaterally with some tachypnea. No ecchymosis, subcutaneous emphysema, or tenderness. ABDOMEN: Abdomen soft without tenderness. No palpable masses or organomegaly. No peritoneal signs. No abdominal wall swelling or ecchymosis. EXTREMITIES: No extremity tenderness. Normal muscle tone and function. No thoracolumbar tenderness. NEUROLOGIC: Sensation is grossly intact. Cranial nerve exam reveals face is symmetrical, tongue is midline, speech is clear. SKIN: No abrasions or ecchymosis is noted. No induration or masses noted. PSYCHIATRIC: Alert and oriented. Appropriate behavior and judgment. Limitations: no limitations Course Vital Signs 10/14/16 10/14/16 10/14/16 19:51 20:00 20:15 Temperature 103.0 F H Pulse Rate 120 H 117 H 111 H Respiratory 24 24 24 Rate Blood Pressure 139/69 144/66 144/65 O2 Sat by Pulse 97 97 98 Oximetry 10/14/16 10/14/16 10/14/16 20:29 20:30 20:40 Temperature Pulse Rate 111 H 112 H 110 H Respiratory 24 Rate Blood Pressure 145/70 O2 Sat by Pulse 98 Oximetry 10/14/16 20:45 Temperature Pulse Rate 118 H Respiratory 24 Rate Blood Pressure 143/67 O2 Sat by Pulse 96 Oximetry Medical Decision Making - Medical Decision Making The patient was seen and examined. All diagnostics were reviewed. An IV was started and he was hydrated. He also receives Levaquin, Zosyn, and vancomycin for suspected hospital acquired pneumonia. Toradol and acetaminophen are given for fever. The EKG was done and shows a sinus tachycardia at a heart rate of 125. There is no acute ST-T wave changes identified. The MO interval is 146, QRS duration is 82, and the QTc interval is 430. The laboratory did show an elevation of the troponin. The other labs are fairly unremarkable. Radiologist read out the x-ray as showing an elevation of the left hemidiaphragm which is chronic but potentially somewhat worse. They note some haziness around the left diaphragm likely secondary to atelectasis. Upon my review, it appears that he has a left lower lobe pneumonia and possibly a right lower lobe pneumonia as compared to previous x-ray on 09/24/2016. It is felt as though this likely could be a hospital-acquired pneumonia and he will be treated for this. He did receive a breathing treatment. He previously received steroids via EMS. Appears that he has an exacerbation of his end- stage COPD as well. Negative appears that he is a degree of sepsis and would require admission to the hospital for further treatment. The patient and family are updated and they're agreeable with admission. Case is discussed with internal medicine and they are agreeable to admission with pulmonology to consult. - Lab Data Result diagrams: 10/14/16 19:50 10/14/16 19:50 Lab Results 10/14/16 10/14/16 10/14/16 Range/Units 19:50 19:50 19:50 WBC 5.5 (3.8-10.6) k/uL RBC 4.47 (4.30-5.90) m/uL Hgb 13.2 (13.0-17.5) gm/dL Hct 38.9 L (39.0-53.0) % MCV 87.1 D (80.0-100.0) fL MCH 29.4 (25.0-35.0) pg MCHC 33.8 (31.0-37.0) g/dL RDW 14.0 (11.5-15.5) % Plt Count 126 L D (150-450) k/uL Neutrophils % 78 % Lymphocytes % 13 % Monocytes % 6 % Eosinophils % 0 % Basophils % 0 % Neutrophils # 4.3 (1.3-7.7) k/uL Lymphocytes # 0.7 L (1.0-4.8) k/uL Monocytes # 0.3 (0-1.0) k/uL Eosinophils # 0.0 (0-0.7) k/uL Basophils # 0.0 (0-0.2) k/uL PT (9.0-12.0) sec INR (<1.1) APTT (22.0-30.0) sec Sodium 137 (137-145) mmol/L Potassium 3.8 (3.5-5.1) mmol/L Chloride 101 (98-107) mmol/L Carbon Dioxide 24 (22-30) mmol/L Anion Gap 12 mmol/L BUN 22 H (9-20) mg/dL Creatinine 0.95 (0.66-1.25) mg/dL Est GFR (MDRD) Af Amer >60 (>60 ml/min/1.73 sqM) Est GFR (MDRD) Non-Af >60 (>60 ml/min/1.73 sqM) Glucose 100 H (74-99) mg/dL Plasma Lactic Acid Anthony (0.7-2.0) mmol/L Calcium 8.9 (8.4-10.2) mg/dL Magnesium 1.2 L (1.6-2.3) mg/dL Total Bilirubin 0.5 (0.2-1.3) mg/dL AST 24 (17-59) U/L ALT 35 (21-72) U/L Alkaline Phosphatase 76 (38-126) U/L Total Creatine Kinase 90 (55-170) U/L CK-MB (CK-2) 1.2 (0.0-2.4) ng/mL CK-MB (CK-2) Rel Index 1.3 Troponin I 0.279 H* (0.000-0.034) ng/mL Total Protein 6.3 (6.3-8.2) g/dL Albumin 3.6 (3.5-5.0) g/dL 10/14/16 10/14/16 Range/Units 19:50 19:50 WBC (3.8-10.6) k/uL RBC (4.30-5.90) m/uL Hgb (13.0-17.5) gm/dL Hct (39.0-53.0) % MCV (80.0-100.0) fL MCH (25.0-35.0) pg MCHC (31.0-37.0) g/dL RDW (11.5-15.5) % Plt Count (150-450) k/uL Neutrophils % % Lymphocytes % % Monocytes % % Eosinophils % % Basophils % % Neutrophils # (1.3-7.7) k/uL Lymphocytes # (1.0-4.8) k/uL Monocytes # (0-1.0) k/uL Eosinophils # (0-0.7) k/uL Basophils # (0-0.2) k/uL PT 9.9 (9.0-12.0) sec INR 1.0 (<1.1) APTT 25.0 (22.0-30.0) sec Sodium (137-145) mmol/L Potassium (3.5-5.1) mmol/L Chloride (98-107) mmol/L Carbon Dioxide (22-30) mmol/L Anion Gap mmol/L BUN (9-20) mg/dL Creatinine (0.66-1.25) mg/dL Est GFR (MDRD) Af Amer (>60 ml/min/1.73 sqM) Est GFR (MDRD) Non-Af (>60 ml/min/1.73 sqM) Glucose (74-99) mg/dL Plasma Lactic Acid Anthony 1.6 (0.7-2.0) mmol/L Calcium (8.4-10.2) mg/dL Magnesium (1.6-2.3) mg/dL Total Bilirubin (0.2-1.3) mg/dL AST (17-59) U/L ALT (21-72) U/L Alkaline Phosphatase (38-126) U/L Total Creatine Kinase (55-170) U/L CK-MB (CK-2) (0.0-2.4) ng/mL CK-MB (CK-2) Rel Index Troponin I (0.000-0.034) ng/mL Total Protein (6.3-8.2) g/dL Albumin (3.5-5.0) g/dL Disposition Clinical Impression: Sepsis, Acute exacerbation of chronic obstructive airways disease, Fever, Weakness, Sinus tachycardia, Acute respiratory failure, Hospital-acquired pneumonia Disposition: ADMITTED IP TO THIS HOSP Condition: Fair Referrals: Nick Lira MD [Primary Care Provider] - 1-2 days Time of Disposition: 21:18 Decision Date: 10/14/16 Decision Time: 21:19
[2016-10-14 20:17] LABS: Basophils % (A) 0 %; CH 28.4; CHCM 32.8; Eosinophils % (A) 0 %; HCT 38.9 % (39.0-53.0); HDW 2.38; HGB 13.2 gm/dL (13.0-17.5); Luc # (Auto) 0.18; Luc % (Auto) 3; Lymphocytes # (A) 0.7 k/uL (1.0-4.8); Lymphocytes % (A) 13 %; MCH 29.4 pg (25.0-35.0); MCHC 33.8 g/dL (31.0-37.0); Mean Platelet Volume 7.6; Monocytes # (A) 0.3 k/uL (0-1.0); Monocytes % (A) 6 %; Neutrophils # (A) 4.3 k/uL (1.3-7.7); Neutrophils % (A) 78 %; RBC 4.47 m/uL (4.30-5.90); WBC 5.5 k/uL (3.8-10.6); WBC (Perox) 5.57
[2016-10-14 20:24] LABS: MCV 87.1 fL (80.0-100.0)
[2016-10-14 20:26] LABS: ALT 35 U/L (21-72); AST 24 U/L (17-59); Alkaline Phosphatase 76 U/L (38-126); Anion Gap 12 mmol/L; Blood Urea Nitrogen 22 mg/dL (9-20); Calcium 8.9 mg/dL (8.4-10.2); Carbon Dioxide 24 mmol/L (22-30); Chloride 101 mmol/L (98-107); Glucose 100 mg/dL (74-99); Magnesium 1.2 mg/dL (1.6-2.3); Non-African American GFR(MDRD) >60 (>60 ml/min/1.73 sqM); Potassium 3.8 mmol/L (3.5-5.1); Prothrombin Time 9.9 sec (9.0-12.0); Sodium 137 mmol/L (137-145); Total Bilirubin 0.5 mg/dL (0.2-1.3); Total Protein 6.3 g/dL (6.3-8.2)
--- NOTE | 2016-10-14 20:30 | XR ---
EXAMINATION TYPE: XR chest 2V DATE OF EXAM: 10/14/2016 COMPARISON: 09/24/2016 HISTORY: Short of breath and fever TECHNIQUE: Frontal and lateral views of the chest are obtained. FINDINGS: There is patchy linear density at the left lung base with elevated left diaphragm. Right l chin is clear. There is no heart failure. Cervical spine fusion surgery is noted. There are chest lead s. Bony thorax is intact. IMPRESSION: There is chronic elevated left diaphragm with left basilar atelectasis. This appears sli ghtly worse than last exam. Normal heart.
[2016-10-14 20:44] LABS: Creatine Kinase MB 1.2 ng/mL (0.0-2.4)
[2016-10-14 20:45] LABS: Troponin I 0.279 ng/mL (0.000-0.034)
[2016-10-14] MEDS ORDERED: VANCOMYCIN 2,000 MG in SODIUM CHLORIDE 0.9% 500 ML IVPB ONE (21:00)
[2016-10-14] MEDS ORDERED: PNEUMONIA PROTOCOL UTILIZED 1 EACH MISC PO PRN (21:19)
[2016-10-14] MEDS ORDERED: IBUPROFEN 400 MG TAB PO PRN (21:23)
[2016-10-14] MEDS ORDERED: ACETAMINOPHEN TAB 325 MG TAB PO PRN (21:23)
[2016-10-14] MEDS ORDERED: HEPARIN SODIUM,PORCINE 5,000 UNIT/ML 1 ML VIAL IV PRN (21:24)
[2016-10-14] MEDS ORDERED: ASPIRIN 81 MG CHEW PO STA (21:24)
[2016-10-14] MEDS ORDERED: HEPARIN SODIUM,PORCINE 5,000 UNIT/ML 1 ML VIAL IV ONE (21:24)
[2016-10-14] MEDS ORDERED: NITROGLYCERIN SL TABS 0.4 MG TAB SUBLINGUAL PRN (21:24)
[2016-10-14] MEDS ORDERED: HEPARIN SODIUM,PORCINE/D5W PMX 25,000 UNIT in DEXTROSE/WATER 1 500ML.BAG IV SCH (21:30)
[2016-10-15] MEDS: PIPERACILLIN-TAZOBACTAM 3.375 GM in DEXTROSE/WATER 1 50ML.BAG IVPB SCH ×2 (00:43→10:10)
[2016-10-15 03:22] LABS: Mean Platelet Volume 7.6
[2016-10-15] MEDS: methylPREDNISolone SOD SUCCI 125 MG/2 ML VIAL IV SCH ×3 (03:28→13:15)
[2016-10-15 03:33] LABS: Creatine Kinase MB 1.4 ng/mL (0.0-2.4)
[2016-10-15 03:40] LABS: Troponin I 0.216 ng/mL (0.000-0.034)
[2016-10-15 04:00] LABS: Cholesterol 172 mg/dL (<200); HDL Cholesterol 63 mg/dL (40-60); Triglycerides 116 mg/dL (<150)
[2016-10-15 06:03] LABS: Glucose,Whole Blood 160 mg/dL (75-99)
[2016-10-15] MEDS: NITROGLYCERIN OINT 1 INCH/GM PACKET TOPICAL SCH ×3 (06:44→13:15)
[2016-10-15 07:08] LABS: Creatine Kinase MB 1.7 ng/mL (0.0-2.4)
[2016-10-15 07:10] LABS: Troponin I 0.227 ng/mL (0.000-0.034)
[2016-10-15] MEDS: INSULIN LISPRO (humaLOG) 300 UNIT/3 ML VIAL SQ SCH ×4 (07:30→21:15)
[2016-10-15] MEDS ORDERED: SYMBICORT 80-4.5 MCG INHALER INHALATION SCH (08:00)
[2016-10-15] MEDS ORDERED: ASPIRIN 325 MG TAB PO SCH (09:00)
[2016-10-15] MEDS: HYDROcodone/APAP 10-325MG 1 EACH TAB PO PRN ×3 (10:08→22:51)
[2016-10-15] MEDS: FUROSEMIDE 20 MG TAB PO SCH (10:11)
[2016-10-15] MEDS: CARVEDILOL 6.25 MG TAB PO SCH ×2 (10:12→22:57)
[2016-10-15] MEDS: hydrALAZINE HCL 25 MG TAB PO SCH ×2 (10:12→22:57)
[2016-10-15] MEDS: HYDROCHLOROTHIAZIDE 50 MG TAB PO SCH (10:13)
[2016-10-15] MEDS: LOSARTAN 50 MG TAB PO SCH (10:14)
[2016-10-15] MEDS: THEOPHYLLINE 24 HOUR 300 MG CAP.ER.24H PO SCH ×2 (10:17→22:58)
--- NOTE | 2016-10-15 11:02 | P.CNPUL ---
History of Present Illness Consult date: 10/15/16 Requesting physician: Miguelangel Lagunas Reason for consult: COPD Chief complaint: Shortness of breath, cough, wheezing, and weakness. History of present illness: This is a 76-year-old white male with history of severe end-stage COPD, O2 dependent, prednisone dependent, quite familiar to my service. Patient is primarily a patient of Dr. Lira. He was last seen on consultation during the last admission on 09/24/2016. Patient was discharged home, and I saw him on follow-up in the office were in the patient was doing relatively well, and I was able to taper his prednisone down to 20 mg daily maintenance. Plans were even made to consider tapering down to 15 mg daily. Patient was quite pleased with his recovery. However over the last few days, patient has been developing generalized weakness, productive cough with yellow brownish phlegm, shortness of breath, wheezing, low-grade fever and chills, and some heaviness in the chest. Patient presented to the ER, chest x-ray showed atelectasis in the left lower lobe, left hemidiaphragm elevation, possible paralysis, and possible pneumonia in the left lower lobe. Patient was admitted, and this consult was initiated. He was already placed on proper antibiotics, bronchodilators, and steroids. Review of Systems 14 point review of systems were obtained, patient had mostly pulmonary symptoms as mentioned in the HPI. Denies any headaches, no blurred vision, no dizziness. No nausea no vomiting no abdominal pain no melena no hematemesis. No dysuria and no frequency no urgency. Patient is complaining of generalized aches and pains and weakness. Had a low-grade fever, and some chills. Denies any symptoms of depression, denies any symptoms of clotting bleeding or bruising. Past Medical History Past Medical History: Atrial Fibrillation, Heart Failure, COPD, GERD/Reflux, Hypertension, Myocardial Infarction ([place]), Osteoarthritis (OA), Pneumonia, Respiratory Disorder, Vascular Disorder Additional Past Medical History / Comment(s): Chronic hypoxic respiratory failure, O2 at 2.5L/NC ATC, ischemic heart disease, PAD/PVD, diverticular dx, benign polypectomy, IBS, arthritis multiple joints bilaterally, numbness/ tingling bilateral feet. 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 Past Anesthesia/Blood Transfusion Reactions: No Reported Reaction Date of Last Stent Placement:: 2002 Smoking Status: Current every day smoker - Past Family History Mother Family Medical History: No Reported History Additional Family Medical History / Comment(s): Mother was healthy and at the age of 92 yrs. Father Family Medical History: Coronary Artery Disease (CAD), Myocardial Infarction ([place] ) Additional Family Medical History / Comment(s): Father had a [place] in his 70's. He had CABG and back surgery. Medications and Allergies Home Medications Medication Instructions Recorded Confirmed Type Aspirin EC [Ecotrin Low Dose] 81 mg PO Q48H 03/03/16 10/14/16 History Carvedilol [Coreg] 6.25 mg PO BID 03/03/16 10/14/16 History HYDROcodone/APAP 10-325MG [[place] 1.5 tab PO Q4HR PRN 03/03/16 10/14/16 History 10-325] Olmesartan Medoxomil [Benicar] 40 mg PO DAILY 03/03/16 10/14/16 History Sertraline [Zoloft] 50 mg PO HS 03/03/16 10/14/16 History amLODIPine [Norvasc] 5 mg PO HS 03/03/16 10/14/16 History hydrALAZINE HCL [Apresoline] 25 mg PO BID 03/03/16 10/14/16 History Albuterol Inhaler [Ventolin Hfa 2 puff INHALATION RT-Q4H PRN 09/24/16 10/14/16 History Inhaler] Fluticasone/Salmeterol [Advair Hfa 2 puff INHALATION RT-BID 09/24/16 10/14/16 History 115-21 Mcg Inhaler] Furosemide [Lasix] 20 mg PO QAM 09/24/16 10/14/16 History Ipratropium-Albuterol Nebulize 3 ml INHALATION RT-QID 09/24/16 10/14/16 History [Duoneb 0.5 mg-3 mg/3 ml Soln] Theophylline 24 Hour [Maciej-24] 300 mg PO BID 09/24/16 10/14/16 History Diazepam [Valium] 10 mg PO HS 10/14/16 10/14/16 History Hydrochlorothiazide 50 mg PO QAM 10/14/16 10/14/16 History Spironolactone [Aldactone] 25 mg PO HS 10/14/16 10/14/16 History predniSONE 15 mg PO DAILY 10/14/16 10/14/16 History Allergies Allergy/AdvReac Type Severity Reaction Status Date / Time No Known Allergies Allergy Verified 10/14/16 19:56 Physical Exam Vitals: Vital Signs Temp Pulse Pulse Resp BP BP Pulse Ox 10/15/16 04:00 97.1 F L 76 20 111/61 94 L 10/14/16 22:30 100.7 F H 104 H 20 142/67 95 10/14/16 22:02 99.5 F 105 H 18 110/64 96 10/14/16 21:25 100.8 F H 108 H 22 120/58 94 L 10/14/16 21:05 99.1 F 111 H 18 121/55 95 10/14/16 20:45 118 H 24 143/67 96 10/14/16 20:40 110 H 10/14/16 20:30 112 H 24 145/70 98 10/14/16 20:29 111 H 10/14/16 20:15 111 H 24 144/65 98 10/14/16 20:00 117 H 24 144/66 97 10/14/16 19:51 103.0 F H 120 H 24 139/69 97 Intake and Output 10/14/16 10/15/16 10/15/16 22:59 06:59 14:59 Intake Total 1430 Balance 1430 Intake: Intake, IV Titration 1250 Amount Heparin Sodium,Porcine/ 200 D5w Pmx 25,000 unit In Dextrose/Water 1 500ml. bag @ 9.85 UNITS/KG/HR 20 .01 mls/hr IV .Q24H [facility] Rx#:[id number] Levofloxacin 750Mg-D5w 750 Pmx 750 mg In Dextrose/ Water 1 150ml.bag @ 100 mls/hr IVPB Q24H [facility] Rx#: [id number] Piperacillin-Tazobactam 3 50 .375 gm In Dextrose/Water 1 50ml.bag @ 12.5 mls/hr IVPB [facility]CE [facility] Rx#: [id number] Vancomycin 1,750 mg In 250 Sodium Chloride 0.9% 250 ml @ 125 mls/hr IVPB Q12H [facility] Rx#:[id number] Oral 180 Other: Weight 101.605 kg 101.6 kg Physical Exam revealed a 76-year-old white male in mild respiratory distress. HEENT:[Neck is supple.] [No neck masses.] [No thyromegaly.] [No JVD.] Chest: [Diffuse rhonchi and wheezes noted bilaterally. Cardiac Exam: [Irregular irregular rhythm Normal S1 and S2, no S3 gallop, 2/6 systolic murmur throughout the precordium] Abdomen: [Soft, nontender, no megaly, no rebound, no guarding, normal bowel sounds.] Extremities: [No clubbing, 2+ bipedal edema, no cyanosis.] Neurological Exam: [No focal neurologic deficit.] Patient seems to be generally weak. Results - Laboratory Findings CBC and BMP: 10/15/16 02:50 10/14/16 19:50 PT/INR, D-dimer PT 9.9 sec (9.0-12.0) 10/14/16 19:50 INR 1.0 (<1.1) 10/14/16 19:50 Abnormal lab findings: Abnormal Labs 10/14/16 10/14/16 10/14/16 19:50 19:50 19:50 Hct 38.9 L Plt Count 126 L D Lymphocytes # 0.7 L APTT BUN 22 H Glucose 100 H POC Glucose (mg/dL) Magnesium 1.2 L Troponin I 0.279 H* HDL Cholesterol 10/15/16 10/15/16 10/15/16 02:50 02:50 02:50 Hct Plt Count 104 L Lymphocytes # APTT 49.3 H BUN Glucose POC Glucose (mg/dL) Magnesium Troponin I 0.216 H* HDL Cholesterol 10/15/16 10/15/16 10/15/16 02:50 05:50 06:02 Hct Plt Count Lymphocytes # APTT 48.7 H BUN Glucose POC Glucose (mg/dL) 160 H Magnesium Troponin I HDL Cholesterol 63 H 10/15/16 06:08 Hct Plt Count Lymphocytes # APTT BUN Glucose POC Glucose (mg/dL) Magnesium Troponin I 0.227 H* HDL Cholesterol - Diagnostic Findings Chest x-ray: image reviewed (COPD, elevated left hemidiaphragm, left lower lobe atelectasis, possible pneumonia.) Assessment and Plan Plan: 1 acute on chronic hypoxic and hypercapnic respiratory failure secondary to severe COPD exacerbation. 2 acute exacerbation of severe end-stage COPD 3 acute tracheobronchitis, possible left lower lobe pneumonia, however I believe the findings are more or less findings of atelectasis. 4 chronic elevation of left hemidiaphragm consistent with chronic left hemidiaphragm paralysis 5 chronic cor pulmonale secondary to severe COPD and pulmonary hypertension X multiple comorbidities including essential hypertension, chronic atrial fibrillation, cervical disc disease and previous cervical spine surgery, history of osteoarthritis, and history of tobacco dependence syndrome. Recommendation: Agree with the present treatment plan including antibiotics bronchodilators, steroids, we'll continue to follow. Time with Patient: Greater than 30
[2016-10-15 11:30] LABS: Glucose,Whole Blood 144 mg/dL (75-99)
--- NOTE | 2016-10-15 11:41 | P.CRDCN ---
History of Present Illness Consult date: 10/15/16 History of present illness: This is a 76-year-old gentleman with history of previous ischemic heart disease and stent placement, severe COPD, hypertension and atrial fibrillation who was admitted to the hospital with increasing generalized weakness, productive cough with yellowish-brown sputum. Patient also had a low-grade fever and chills. Apparently complained of mild chest heaviness but denied any chest pain. His EKG showed sinus rhythm and sinus tachycardia without any acute ST-T abnormalities. Cardiac enzyme studies showed abnormal troponin values which are mildly elevated but the pattern is not consistent with acute myocardial injury pattern. These elevation appear to be nonspecific and could be related to hypoxia. Echocardiogram done on recent admission showed normal LV function. No further cardiac workup is suggested at this time. We'll continue to monitor him and if he clinical picture changes, we may attempt further evaluation Review of Systems As per the chart Past Medical History Past Medical History: Atrial Fibrillation, Heart Failure, COPD, GERD/Reflux, Hypertension, Myocardial Infarction ([place]), Osteoarthritis (OA), Pneumonia, Respiratory Disorder, Vascular Disorder Additional Past Medical History / Comment(s): Chronic hypoxic respiratory failure, O2 at 2.5L/NC ATC, ischemic heart disease, PAD/PVD, diverticular dx, benign polypectomy, IBS, arthritis multiple joints bilaterally, numbness/ tingling bilateral feet. 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 Past Anesthesia/Blood Transfusion Reactions: No Reported Reaction Date of Last Stent Placement:: 2002 Smoking Status: Current every day smoker - Past Family History Mother Family Medical History: No Reported History Additional Family Medical History / Comment(s): Mother was healthy and at the age of 92 yrs. Father Family Medical History: Coronary Artery Disease (CAD), Myocardial Infarction ([place] ) Additional Family Medical History / Comment(s): Father had a [place] in his 70's. He had CABG and back surgery. Medications and Allergies Home Medications Medication Instructions Recorded Confirmed Type Aspirin EC [Ecotrin Low Dose] 81 mg PO Q48H 03/03/16 10/14/16 History Carvedilol [Coreg] 6.25 mg PO BID 03/03/16 10/14/16 History HYDROcodone/APAP 10-325MG [Loving 1.5 tab PO Q4HR PRN 03/03/16 10/14/16 History 10-325] Olmesartan Medoxomil [Benicar] 40 mg PO DAILY 03/03/16 10/14/16 History Sertraline [Zoloft] 50 mg PO HS 03/03/16 10/14/16 History amLODIPine [Norvasc] 5 mg PO HS 03/03/16 10/14/16 History hydrALAZINE HCL [Apresoline] 25 mg PO BID 03/03/16 10/14/16 History Albuterol Inhaler [Ventolin Hfa 2 puff INHALATION RT-Q4H PRN 09/24/16 10/14/16 History Inhaler] Fluticasone/Salmeterol [Advair Hfa 2 puff INHALATION RT-BID 09/24/16 10/14/16 History 115-21 Mcg Inhaler] Furosemide [Lasix] 20 mg PO QAM 09/24/16 10/14/16 History Ipratropium-Albuterol Nebulize 3 ml INHALATION RT-QID 09/24/16 10/14/16 History [Duoneb 0.5 mg-3 mg/3 ml Soln] Theophylline 24 Hour [Maciej-24] 300 mg PO BID 09/24/16 10/14/16 History Diazepam [Valium] 10 mg PO HS 10/14/16 10/14/16 History Hydrochlorothiazide 50 mg PO QAM 10/14/16 10/14/16 History Spironolactone [Aldactone] 25 mg PO HS 10/14/16 10/14/16 History predniSONE 15 mg PO DAILY 10/14/16 10/14/16 History Allergies Allergy/AdvReac Type Severity Reaction Status Date / Time No Known Allergies Allergy Verified 10/14/16 19:56 Physical Exam Vitals: Vital Signs Temp Pulse Pulse Resp BP BP Pulse Ox 10/15/16 04:00 97.1 F L 76 20 111/61 94 L 10/14/16 22:30 100.7 F H 104 H 20 142/67 95 10/14/16 22:02 99.5 F 105 H 18 110/64 96 10/14/16 21:25 100.8 F H 108 H 22 120/58 94 L 10/14/16 21:05 99.1 F 111 H 18 121/55 95 10/14/16 20:45 118 H 24 143/67 96 10/14/16 20:40 110 H 10/14/16 20:30 112 H 24 145/70 98 10/14/16 20:29 111 H 10/14/16 20:15 111 H 24 144/65 98 10/14/16 20:00 117 H 24 144/66 97 10/14/16 19:51 103.0 F H 120 H 24 139/69 97 Intake and Output 10/14/16 10/15/16 10/15/16 22:59 06:59 14:59 Intake Total 1430 Balance 1430 Intake: Intake, IV Titration 1250 Amount Heparin Sodium,Porcine/ 200 D5w Pmx 25,000 unit In Dextrose/Water 1 500ml. bag @ 9.85 UNITS/KG/HR 20 .01 mls/hr IV .Q24H [facility] Rx#:[id number] Levofloxacin 750Mg-D5w 750 Pmx 750 mg In Dextrose/ Water 1 150ml.bag @ 100 mls/hr IVPB Q24H [facility] Rx#: [id number] Piperacillin-Tazobactam 3 50 .375 gm In Dextrose/Water 1 50ml.bag @ 12.5 mls/hr IVPB ONCE [facility] Rx#: [id number] Vancomycin 1,750 mg In 250 Sodium Chloride 0.9% 250 ml @ 125 mls/hr IVPB Q12H [facility] Rx#:[id number] Oral 180 Other: Weight 101.605 kg 101.6 kg GENERAL EXAM: Patient is alert and oriented and doesn't appear to be in any acute distress HEENT: Normocephalic. Normal reaction of pupils, equal size, normal range of extraocular motion. No erythema or exudates in the throat. NECK: No masses, no nuchal rigidity. CHEST: No chest wall deformity. LUNGS: Equal air entry with no crackles or wheeze. HEART: S1 and S2 normal with no audible mumurs or gallops. Regular rhythm, femorals equal on both sides.. ABDOMEN: No hepatosplenomegaly, normal bowel sounds, no guarding or rigidity. SKIN: No rashes CENTRAL NERVOUS SYSTEM: No focal deficits. EXTREMITIES: No cyanosis, clubbing or edema. Results 10/15/16 02:50 10/14/16 19:50 Cardiac Enzymes 10/14/16 10/14/16 10/15/16 Range/Units 19:50 19:50 02:50 AST 24 (17-59) U/L CK-MB (CK-2) 1.2 1.4 (0.0-2.4) ng/mL Troponin I 0.279 H* 0.216 H* (0.000-0.034) ng/mL 10/15/16 Range/Units 06:08 AST (17-59) U/L CK-MB (CK-2) 1.7 (0.0-2.4) ng/mL Troponin I 0.227 H* (0.000-0.034) ng/mL Coagulation 10/14/16 10/15/16 10/15/16 Range/Units 19:50 02:50 05:50 PT 9.9 (9.0-12.0) sec APTT 25.0 49.3 H 48.7 H (22.0-30.0) sec Lipids 10/15/16 Range/Units 02:50 Triglycerides 116 (<150) mg/dL Cholesterol 172 (<200) mg/dL HDL Cholesterol 63 H (40-60) mg/dL CBC 10/14/16 10/15/16 Range/Units 19:50 02:50 WBC 5.5 (3.8-10.6) k/uL RBC 4.47 (4.30-5.90) m/uL Hgb 13.2 (13.0-17.5) gm/dL Hct 38.9 L (39.0-53.0) % Plt Count 126 L D 104 L (150-450) k/uL Comprehensive Metabolic Panel 10/14/16 Range/Units 19:50 Sodium 137 (137-145) mmol/L Potassium 3.8 (3.5-5.1) mmol/L Chloride 101 (98-107) mmol/L Carbon Dioxide 24 (22-30) mmol/L BUN 22 H (9-20) mg/dL Creatinine 0.95 (0.66-1.25) mg/dL Glucose 100 H (74-99) mg/dL Calcium 8.9 (8.4-10.2) mg/dL AST 24 (17-59) U/L ALT 35 (21-72) U/L Alkaline Phosphatase 76 (38-126) U/L Total Protein 6.3 (6.3-8.2) g/dL Albumin 3.6 (3.5-5.0) g/dL Current Medications Generic Name Dose Route Start Last Admin Trade Name Freq PRN Reason Stop Dose Admin Acetaminophen 650 mg 10/14/16 21:23 Tylenol Tab PO Q4H PRN Fever Hydrocodone Bitart/Acetaminophen 1.5 each 10/14/16 21:32 10/15/16 10:08 Loving 10 PO 1.5 each Q4HR PRN Administration Pain Albuterol/Ipratropium 3 ml 10/14/16 21:19 Duoneb 0.5 Mg-3 Mg/3 Ml Soln INHALATION RT-Q4H PRN shortness of breath Amlodipine Besylate 5 mg 10/15/16 21:00 Norvasc PO HS [facility] Aspirin 325 mg 10/15/16 09:00 Aspirin PO DAILY [facility] Budesonide/Formoterol Fumarate 2 puff 10/15/16 08:00 10/15/16 07:57 Symbicort 80-4.5 Mcg Inhaler INHALATION 2 puff RT-BID [facility] Administration Carvedilol 6.25 mg 10/15/16 09:00 10/15/16 10:12 Coreg PO 6.25 mg BID [facility] Administration Diazepam 10 mg 10/15/16 21:00 Valium PO HS [facility] Furosemide 20 mg 10/15/16 09:00 10/15/16 10:11 Lasix PO 20 mg QAM [facility] Administration Heparin Sodium (Porcine) 0 unit 10/14/16 21:24 Heparin IV Q6HR PRN Low PTT Protocol Hydralazine HCl 25 mg 10/15/16 09:00 10/15/16 10:12 Apresoline PO 25 mg BID [facility] Administration Hydrochlorothiazide 50 mg 10/15/16 09:00 10/15/16 10:13 Hydrodiuril PO 50 mg QAM [facility] Administration Vancomycin HCl 1,750 mg/ 250 mls @ 125 mls/hr 10/15/16 16:00 Sodium Chloride IVPB Q12H [facility] Heparin Sodium/Dextrose 25,000 500 mls @ 20.01 mls/hr 10/14/16 21:30 21:55 unit/ IV Solution IV 9.84 units/kg/hr .Q24H [facility] 20 mls/hr Protocol Administration 9.85 UNITS/KG/HR Levofloxacin 750 mg/ IV 150 mls @ 100 mls/hr 10/15/16 21:00 Solution IVPB 10/27/16 21:01 Q24H [facility] Piperacillin/Tazobactam/ 50 mls @ 12.5 mls/hr 10/15/16 00:00 10/15/16 10:10 Dextrose 3.375 gm/ IV Solution IVPB 10/25/16 00:01 12.5 mls/hr Q8HR [facility] Administration Ibuprofen 400 mg 10/14/16 21:23 Motrin PO Q6H PRN Fever Insulin Human Lispro 0 unit 10/15/16 07:30 10/15/16 07:30 Humalog SQ 2 unit ACHS [facility] Administration Protocol Losartan Potassium 150 mg 10/15/16 09:00 10/15/16 10:14 Cozaar PO 150 mg DAILY [facility] Administration Methylprednisolone Sodium Succinate 60 mg 10/14/16 22:00 10/15/16 10:15 Solu-Medrol IV 60 mg QID [facility] Administration Miscellaneous Information 1 each 10/14/16 21:19 Pneumonia Protocol Utilized PO ONCE PRN Per Protocol Nitroglycerin 1 inch 10/15/16 00:00 10/15/16 07:33 Nitro-Bid Oint TOPICAL 1 inch Q6HR [facility] Administration Nitroglycerin 0.4 mg 10/14/16 21:24 Nitrostat SUBLINGUAL Q5M PRN Chest Pain Sertraline HCl 50 mg 10/15/16 21:00 Zoloft PO HS [facility] Spironolactone 25 mg 10/15/16 21:00 Aldactone PO HS [facility] Theophylline 300 mg 10/15/16 09:00 10/15/16 10:17 Maciej-24 PO 300 mg BID [facility] Administration Intake and Output 10/14/16 10/15/16 10/15/16 22:59 06:59 14:59 Intake Total 1430 Balance 1430 Intake: Intake, IV Titration 1250 Amount Heparin Sodium,Porcine/ 200 D5w Pmx 25,000 unit In Dextrose/Water 1 500ml. bag @ 9.85 UNITS/KG/HR 20 .01 mls/hr IV .Q24H [facility] Rx#:[id number] Levofloxacin 750Mg-D5w 750 Pmx 750 mg In Dextrose/ Water 1 150ml.bag @ 100 mls/hr IVPB Q24H [facility] Rx#: [id number] Piperacillin-Tazobactam 3 50 .375 gm In Dextrose/Water 1 50ml.bag @ 12.5 mls/hr IVPB ONCE [facility] Rx#: [id number] Vancomycin 1,750 mg In 250 Sodium Chloride 0.9% 250 ml @ 125 mls/hr IVPB Q12H [facility] Rx#:[id number] Oral 180 Other: Weight 101.605 kg 101.6 kg 10/15/16 02:50 10/14/16 19:50 EKG Interpretations (text) Sinus rhythm Assessment and Plan (1) Acute exacerbation of chronic obstructive airways disease Status: Acute (2) Fever Status: Acute (3) Sinus tachycardia Status: Acute (4) CAD (coronary artery disease) Status: Acute (5) HTN (hypertension) Status: Acute (6) Troponin level elevated Status: Acute Plan: Patient is admitted to mostly with exacerbation of COPD and possible underlying infection and pneumonia. His troponin values are elevated but appeared to be nonspecific and could be related to hypoxia. His recent echo- cardiogram showed normal LV function. At this point we'll continue with current medical therapy and follow the recommendation of the rubber press tender. We'll follow him. Thank you
--- NOTE | 2016-10-15 14:43 | P.HPIM ---
History of Present Illness H&P Date: 10/15/16 Chief Complaint: Cough This is a pleasant 36-year-old patient of Dr. Nick Lira with extensive medical history. Patient's chronic stable medical conditions include coronary artery disease, atrial fibrillation, osteoarthritis, peripheral artery disease, diverticular disease, irritable bowel syndrome, peripheral neuropathy. Patient presents with fever chills increasing cough yellow-green sputum production short of breath and wheezing, and rundown. Patient has stopped smoking since the last admission. Review of Systems GEN.: Tired EYES: None HEENT: None NECK: None RESPIRATORY: As above] CARDIOVASCULAR: None GASTROINTESTINAL: None GENITOURINARY: None MUSCULOSKELETAL: Pain in the joints LYMPHATICS: None HEMATOLOGICAL: None PSYCHIATRY: Anxiety NEUROLOGICAL: None Past Medical History Past Medical History: Atrial Fibrillation, Heart Failure, COPD, GERD/Reflux, Hypertension, Myocardial Infarction (LA), Osteoarthritis (OA), Pneumonia, Respiratory Disorder, Vascular Disorder Additional Past Medical History / Comment(s): Chronic hypoxic respiratory failure, O2 at 2.5L/NC ATC, ischemic heart disease, PAD/PVD, diverticular dx, benign polypectomy, IBS, arthritis multiple joints bilaterally, numbness/ tingling bilateral feet. Last Myocardial Infarction Date:: unknown-prior to 2002 History of Any Multi-Drug Resistant Organisms: None Reported Past Surgical History: Heart Catheterization With Stent Additional Past Surgical History / Comment(s): PCI with stent 2002, L SFA angiogram/atherectomy/[employer] NECKTIES, R SFA atherectomy/angioplasty, pilonidal cystectomy, bilateral sebacious cysts removed from axillae, cervical sx with plates and screws, back surgery with plate, colonoscopy. Past Anesthesia/Blood Transfusion Reactions: No Reported Reaction Date of Last Stent Placement:: 2002 Smoking Status: Former smoker (Smoking half a pack a day since 1955 stopped 3 weeks ago, ) - Past Family History Mother Family Medical History: No Reported History Additional Family Medical History / Comment(s): Mother was healthy and at the age of 92 yrs. Father Family Medical History: Coronary Artery Disease (CAD), Myocardial Infarction (LA ) Additional Family Medical History / Comment(s): Father had a LA in his 70's. He had CABG and back surgery. Medications and Allergies Home Medications Medication Instructions Recorded Confirmed Type Aspirin EC [Ecotrin Low Dose] 81 mg PO Q48H 03/03/16 10/14/16 History Carvedilol [Coreg] 6.25 mg PO BID 03/03/16 10/14/16 History HYDROcodone/APAP 10-325MG [Dierks 1.5 tab PO Q4HR PRN 03/03/16 10/14/16 History 10-325] Olmesartan Medoxomil [Benicar] 40 mg PO DAILY 03/03/16 10/14/16 History Sertraline [Zoloft] 50 mg PO HS 03/03/16 10/14/16 History amLODIPine [Norvasc] 5 mg PO HS 03/03/16 10/14/16 History hydrALAZINE HCL [Apresoline] 25 mg PO BID 03/03/16 10/14/16 History Albuterol Inhaler [Ventolin Hfa 2 puff INHALATION RT-Q4H PRN 09/24/16 10/14/16 History Inhaler] Fluticasone/Salmeterol [Advair Hfa 2 puff INHALATION RT-BID 09/24/16 10/14/16 History 115-21 Mcg Inhaler] Furosemide [Lasix] 20 mg PO QAM 09/24/16 10/14/16 History Ipratropium-Albuterol Nebulize 3 ml INHALATION RT-QID 09/24/16 10/14/16 History [Duoneb 0.5 mg-3 mg/3 ml Soln] Theophylline 24 Hour [Maciej-24] 300 mg PO BID 09/24/16 10/14/16 History Diazepam [Valium] 10 mg PO HS 10/14/16 10/14/16 History Hydrochlorothiazide 50 mg PO QAM 10/14/16 10/14/16 History Spironolactone [Aldactone] 25 mg PO HS 10/14/16 10/14/16 History predniSONE 15 mg PO DAILY 10/14/16 10/14/16 History Allergies Allergy/AdvReac Type Severity Reaction Status Date / Time No Known Allergies Allergy Verified 10/14/16 19:56 Physical Exam Vitals: VITAL SIGNS: Temperature 100.8, pulse 108, respiration 22, blood pressure 120/58 , pulse ox 94% on 3 L GENERAL: Well-built BMI 30.4, sitting up, short of breath at rest. EYES: Pupils equal. Conjunctiva normal. HEENT: External appearance of nose and ears normal, oral cavity grossly normal. NECK: JVD not raised; masses not palpable. HEART: First and second heart sounds are normal; no edema. LUNGS: Respiratory rate in increased, decreased breath sounds prolonged expiration and wheezing basal crackles. ABDOMEN: Soft, nontender, liver spleen not palpable, no masses palpable. LYMPHATICS: No lymph nodes palpable in the axilla and neck. PSYCH: Alert and oriented x3; mood and affect anxious appearingl. NEUROLOGICAL: Cranial nerves grossly intact; no facial asymmetry, power and sensation grossly intact. Results CBC & Chem 7: 10/15/16 02:50 10/14/16 19:50 Labs: White count 5.5, hemoglobin 13.2, platelets 126, potassium 3.8,. Troponin 0.2, 0.2, 0.2, Chest x-ray possible left basal infiltrate Thrombosis Risk Factor Assmnt - Choose All That Apply Any of the Below Risk Factors Present?: Yes Each Factor Represents 1 point: Abnormal pulmonary function (COPD), Obesity ( BMI >25) Each Risk Factor Represents 3 Points: Age 75 years or older Thrombosis Risk Factor Assessment Total Risk Factor Score: 5 Thrombosis Risk Factor Assessment Level: High Risk Assessment and Plan Plan: Assessment: -Possible left lower lobe pneumonia causing sepsis on presentation leading to acute COPD exacerbation -Acute COPD exacerbation and an ex-smoker -Obesity BMI greater than 30.4 -Coronary artery disease with prior history of stent next and-primary osteoarthritis of multiple joints bilateral -GERD next and-essential hypertension next 1-chronic hypoxic respiratory failure on 2.5 L that is [place] last secondary to COPD next non-peripheral arterial disease next-chronic diverticulosis next and-irritable bowel syndrome -Peripheral neuropathy cause unknown Plan: Patient home medications are resumed. Patient is put on antibiotics. Nebulized bronchodilator. IV Solu-Medrol. Troponin leak felt to be from hemodynamic instability not from acute coronary syndrome. Consultation to pulmonary and cardiology is made. Care was discussed with the patient. Sputum will be sent off for Gram stain and culture. We'll also add nebulized Pulmicort and Mucinex.
[2016-10-15] MEDS ORDERED: VANCOMYCIN 1,750 MG in SODIUM CHLORIDE 0.9% 250 ML IVPB SCH (16:00)
[2016-10-15 16:28] LABS: Glucose,Whole Blood 122 mg/dL (75-99)
[2016-10-15] MEDS: guaiFENesin 600 MG TABLET.ER PO SCH ×2 (16:32→22:56)
[2016-10-15] MEDS: ASPIRIN 81 MG CHEW PO SCH (16:32)
[2016-10-15] MEDS: methylPREDNISolone SOD SUCCI 40 MG/ML 1 ML VIAL IV SCH (16:33)
[2016-10-15] MEDS: BUDESONIDE 1 MG/2 ML NEBU INHALATION SCH (19:34)
[2016-10-15] MEDS: IPRATROPIUM-ALBUTEROL 3 ML NEB INHALATION PRN (19:36)
[2016-10-15 20:55] LABS: Glucose,Whole Blood 127 mg/dL (75-99)
[2016-10-15] MEDS ORDERED: LEVOFLOXACIN 750MG-D5W PMX 750 MG in DEXTROSE/WATER 1 150ML.BAG IVPB SCH (21:00)
[2016-10-15] MEDS: DIAZEPAM 5 MG TAB PO SCH (22:54)
[2016-10-15] MEDS: AMOXIC-POT CLAV 875-125MG 1 EACH TAB PO SCH (22:55)
[2016-10-15] MEDS: amLODIPine 5 MG TAB PO SCH (22:56)
[2016-10-15] MEDS: SPIRONOLACTONE 25 MG TAB PO SCH (22:58)
[2016-10-15] MEDS: SERTRALINE 50 MG TAB PO SCH (22:58)
[2016-10-16] MEDS: methylPREDNISolone SOD SUCCI 40 MG/ML 1 ML VIAL IV SCH ×3 (00:15→16:18)
[2016-10-16 05:45] LABS: Glucose,Whole Blood 114 mg/dL (75-99)
[2016-10-16 05:50] LABS: Mean Platelet Volume 7.3
[2016-10-16] MEDS: BUDESONIDE 1 MG/2 ML NEBU INHALATION SCH ×2 (08:13→19:55)
[2016-10-16] MEDS: IPRATROPIUM-ALBUTEROL 3 ML NEB INHALATION PRN ×4 (08:13→19:55)
[2016-10-16] MEDS: INSULIN LISPRO (humaLOG) 300 UNIT/3 ML VIAL SQ SCH ×4 (08:30→21:40)
[2016-10-16] MEDS: HYDROcodone/APAP 10-325MG 1 EACH TAB PO PRN ×3 (08:36→21:37)
[2016-10-16] MEDS: AMOXIC-POT CLAV 875-125MG 1 EACH TAB PO SCH ×2 (08:38→21:39)
[2016-10-16] MEDS: FUROSEMIDE 20 MG TAB PO SCH (08:38)
[2016-10-16] MEDS: CARVEDILOL 6.25 MG TAB PO SCH ×2 (08:38→21:39)
[2016-10-16] MEDS: ENOXAPARIN 40 MG/0.4 ML SYRINGE SQ SCH (08:38)
[2016-10-16] MEDS: guaiFENesin 600 MG TABLET.ER PO SCH ×2 (08:39→21:39)
[2016-10-16] MEDS: hydrALAZINE HCL 25 MG TAB PO SCH ×2 (08:39→21:39)
[2016-10-16] MEDS: LOSARTAN 50 MG TAB PO SCH (08:40)
[2016-10-16] MEDS: HYDROCHLOROTHIAZIDE 50 MG TAB PO SCH (08:40)
[2016-10-16] MEDS: THEOPHYLLINE 24 HOUR 300 MG CAP.ER.24H PO SCH ×2 (08:40→21:40)
[2016-10-16 09:29] LABS: Hemoglobin A1C 6.7 % (4.2-6.1)
[2016-10-16 12:09] LABS: Glucose,Whole Blood 151 mg/dL (75-99)
--- NOTE | 2016-10-16 12:23 | P.PN ---
Subjective Principal diagnosis: COPD exacerbation This is a 76-year-old white male with history of severe end-stage COPD, O2 dependent, prednisone dependent, quite familiar to Dr. Sheppard's service. Patient is primarily a patient of Dr. Lira. He was last seen on consultation during the last admission on 09/24/2016. Patient was discharged home, and Dr. Sheppard saw him on follow-up in the office were in the patient was doing relatively well, and he was able to taper his prednisone down to 20 mg daily maintenance. Plans were even made to consider tapering down to 15 mg daily. Patient was quite pleased with his recovery. However over the last few days, patient has been developing generalized weakness, productive cough with yellow brownish phlegm, shortness of breath, wheezing, low-grade fever and chills, and some heaviness in the chest. Patient presented to the ER, chest x- ray showed atelectasis in the left lower lobe, left hemidiaphragm elevation, possible paralysis, and possible pneumonia in the left lower lobe. Patient was admitted, and this consult was initiated. He was already placed on proper antibiotics, bronchodilators, and steroids. The patient is seen again today 10/16/2016 in follow-up on the selective care unit. He is currently sitting up in the chair at the bedside. He is awake and alert in no acute distress. He is breathing easier today as compared to yesterday. He denies any worsening shortness of breath, cough or congestion. He is still dyspneic on minimal exertion. He is maintaining good O2 saturations in the upper 90s on 3 L/m per nasal cannula. He has been afebrile. Objective - Vital Signs Vital signs: Vital Signs Temp 97.5 F L 10/16/16 08:15 Pulse 94 10/16/16 11:56 Resp 22 10/16/16 08:15 BP 169/82 10/16/16 08:15 Pulse Ox 98 10/16/16 08:15 Intake & Output 10/15/16 10/16/16 10/16/16 18:59 06:59 18:59 Intake Total 2060 180 Output Total 600 900 925 Balance 1460 -900 -745 Weight 101.5 kg Intake: Intake, IV Titration 1460 Amount Heparin Sodium,Porcine/ 360 D5w Pmx 25,000 unit In Dextrose/Water 1 500ml. bag @ 9.85 UNITS/KG/HR 20 .01 mls/hr IV .Q24H ON LICENSE OF [facility] Rx#:[id number] Levofloxacin 750Mg-D5w 750 Pmx 750 mg In Dextrose/ Water 1 150ml.bag @ 100 mls/hr IVPB Q24H [facility] Rx#: [id number] Piperacillin-Tazobactam 3 50 .375 gm In Dextrose/Water 1 50ml.bag @ 12.5 mls/hr IVPB ONCE [facility] Rx#: [id number] Piperacillin-Tazobactam 3 50 .375 gm In Dextrose/Water 1 50ml.bag @ 12.5 mls/hr IVPB Q8HR [facility] Rx#: [id number] Vancomycin 1,750 mg In 250 Sodium Chloride 0.9% 250 ml @ 125 mls/hr IVPB Q12H ON LICENSE OF [facility] Rx#:[id number] Oral 600 180 Output: Urine 600 900 925 Other: # Voids 1 - Exam GENERAL EXAM: Alert, active, comfortable in no apparent distress. HEAD: Normocephalic. EYES: Normal reaction of pupils, equal size. NOSE: Clear with pink turbinates. THROAT: No erythema or exudates. NECK: No masses, no JVD. CHEST: No chest wall deformity. LUNGS: Equal air entry with bilateral end expiratory wheeze. Diminished. CVS: S1 and S2 normal with no audible murmurs, regular rhythm. ABDOMEN: No hepatosplenomegaly, normal bowel sounds, no guarding or rigidity. SPINE: No scoliosis or deformity SKIN: No rashes CENTRAL NERVOUS SYSTEM: No focal deficits, tone is normal in all 4 extremities. Extremities: There is trace peripheral edema. No clubbing, no cyanosis. Peripheral pulses are intact. - Labs CBC & Chem 7: 10/16/16 05:30 10/14/16 19:50 Labs: Abnormal Lab Results - Last 24 Hours (Table) 10/15/16 10/15/16 10/15/16 Range/Units 06:08 15:28 16:26 Plt Count (150-450) k/uL APTT 36.1 H (22.0-30.0) sec POC Glucose (mg/dL) 122 H (75-99) mg/dL Hemoglobin A1c 6.7 H (4.2-6.1) % 10/15/16 10/16/16 10/16/16 Range/Units 20:53 05:30 05:43 Plt Count 104 L (150-450) k/uL APTT (22.0-30.0) sec POC Glucose (mg/dL) 127 H 114 H (75-99) mg/dL Hemoglobin A1c (4.2-6.1) % 10/16/16 Range/Units 11:46 Plt Count (150-450) k/uL APTT (22.0-30.0) sec POC Glucose (mg/dL) 151 H (75-99) mg/dL Hemoglobin A1c (4.2-6.1) % Microbiology - Last 24 Hours (Table) 10/14/16 19:50 Blood Culture - Preliminary Blood No Growth after 24 hours Assessment and Plan Plan: Impression: 1 acute on chronic hypoxic and hypercapnic respiratory failure secondary to severe COPD exacerbation. 2 acute exacerbation of severe end-stage oxygen-dependent, steroid-dependent COPD 3 acute tracheobronchitis, possible left lower lobe pneumonia, however the findings are more or less findings of atelectasis. 4 chronic elevation of left hemidiaphragm consistent with chronic left hemidiaphragm paralysis 5 chronic cor pulmonale secondary to severe COPD and pulmonary hypertension 6 multiple comorbidities including essential hypertension, chronic atrial fibrillation, cervical disc disease and previous cervical spine surgery, history of osteoarthritis, and history of tobacco dependence syndrome. Plan: The patient was seen and evaluated by Dr. Sheppard. The patient is improved today as compared to yesterday. We'll continue with his current antibiotics, bronchodilators and IV Solu-Medrol. We will increase his activity as tolerated. Plan for possible discharge in the next 24-48 hours. We'll continue to follow.
--- NOTE | 2016-10-16 14:54 | P.PN ---
Subjective Principal diagnosis: Shortness of breath and atypical chest discomfort. This is a 76-year-old gentleman with history of ischemic heart disease and prior stent placement, severe COPD, hypertension, atrial fibrillation, who was admitted to the hospital primarily with symptoms of productive cough with yellow to brown sputum, low-grade fever and chills. He is recurrently receiving treatment for pneumonia as well as exacerbation of COPD and mild heart failure. Troponins were slightly abnormal but did not appear to be consistent with myocardial injury pattern. He is currently on by mouth Lasix. Blood pressure this morning 166/80, heart rate in the 90s. We will increase the dose of Norvasc to 10 mg daily. Objective - Vital Signs Vital signs: Vital Signs Temp 97.5 F L 10/16/16 11:50 Pulse 94 10/16/16 11:56 Resp 22 10/16/16 11:50 BP 166/81 10/16/16 11:50 Pulse Ox 97 10/16/16 11:50 Intake & Output 10/15/16 10/16/16 10/16/16 18:59 06:59 18:59 Intake Total 2060 180 Output Total 056 646 2716 Balance 1460 -900 -1145 Weight 101.5 kg Intake: Intake, IV Titration 1460 Amount Heparin Sodium,Porcine/ 360 D5w Pmx 25,000 unit In Dextrose/Water 1 500ml. bag @ 9.85 UNITS/KG/HR 20 .01 mls/hr IV .Q24H [facility] Rx#:[id number] Levofloxacin 750Mg-D5w 750 Pmx 750 mg In Dextrose/ Water 1 150ml.bag @ 100 mls/hr IVPB Q24H [facility] Rx#: [id number] Piperacillin-Tazobactam 3 50 .375 gm In Dextrose/Water 1 50ml.bag @ 12.5 mls/hr IVPB ONCE [facility] Rx#: [id number] Piperacillin-Tazobactam 3 50 .375 gm In Dextrose/Water 1 50ml.bag @ 12.5 mls/hr IVPB Q8HR [facility] Rx#: [id number] Vancomycin 1,750 mg In 250 Sodium Chloride 0.9% 250 ml @ 125 mls/hr IVPB Q12H [facility] Rx#:[id number] Oral 600 180 Output: Urine 294 457 3474 Other: # Voids 1 - Exam PHYSICAL EXAMINATION: HEENT: Head is atraumatic, normocephalic. Pupils equal, round. Neck is supple. There is no elevated jugular venous pressure. HEART EXAMINATION: Heart S1, S2 normal. No murmur or gallop heard. CHEST EXAMINATION: Lungs reveal diminished air entry bilaterally with scattered coarse wheezing throughout. ABDOMEN: Soft, nontender. Bowel sounds are heard. No organomegaly noted. EXTREMITIES: 1+ peripheral pulses with no evidence of peripheral edema and no calf tenderness noted. NEUROLOGIC patient is awake, alert and oriented -3. . - Labs CBC & Chem 7: 10/16/16 05:30 10/14/16 19:50 Labs: Abnormal Lab Results - Last 24 Hours (Table) 10/15/16 10/15/16 10/15/16 Range/Units 06:08 15:28 16:26 Plt Count (150-450) k/uL APTT 36.1 H (22.0-30.0) sec POC Glucose (mg/dL) 122 H (75-99) mg/dL Hemoglobin A1c 6.7 H (4.2-6.1) % 10/15/16 10/16/16 10/16/16 Range/Units 20:53 05:30 05:43 Plt Count 104 L (150-450) k/uL APTT (22.0-30.0) sec POC Glucose (mg/dL) 127 H 114 H (75-99) mg/dL Hemoglobin A1c (4.2-6.1) % 10/16/16 Range/Units 11:46 Plt Count (150-450) k/uL APTT (22.0-30.0) sec POC Glucose (mg/dL) 151 H (75-99) mg/dL Hemoglobin A1c (4.2-6.1) % Microbiology - Last 24 Hours (Table) 10/14/16 19:50 Blood Culture - Preliminary Blood No Growth after 24 hours Assessment and Plan (1) Acute exacerbation of chronic obstructive airways disease Status: Acute (2) Acute respiratory failure Status: Acute (3) Fever Status: Acute (4) Hospital-acquired pneumonia Status: Acute (5) Sepsis Status: Acute (6) Troponin level elevated Status: Acute (7) CAD (coronary artery disease) Status: Acute (8) HTN (hypertension) Status: Acute (9) Nicotine dependence Status: Acute Plan: Cardiology's perspective we will continue current medications. We will follow him with you now on an as-needed basis only, don't hesitate to call with any questions. DNP note has been reviewed, I agree with a documented findings and plan of care. Patient was seen and examined.
--- NOTE | 2016-10-16 15:28 | P.PN ---
<Miguelangel Lagunas - Last Filed: 10/16/16 16:38> Progress Note - Text Attending note: Date of service: 10/16/2016 This patient was seen and examined by me today. I reviewed the note of ms Up. Discussed, additional finding as below Patient admitted with pneumonia and COPD exacerbation. Patient still short of breath at rest. Still, coughing and has some sputum production. Tolerating his meal better. Sitting up on a chair On examination: Lungs decreased breath sounds, decreased wheezing, no crackles. Psych slightly anxious appearing Assessment: Acute left lower lobe pneumonia with COPD exacerbation, slow to respond Plan: Continue current medication treatment plan care was discussed with the patient encouraged to be out of bed and ambulate <Alycia Christie - Last Filed: 10/16/16 18:13> Progress Note - Text DATE OF SERVICE: 10/16/2016 PRESENTING COMPLAINT: Cough INTERVAL HISTORY: This is a 76-year-old male who presents with left lower lobe pneumonia, sepsis, leading to acute exacerbation of COPD. Today, sitting up in the chair, eating breakfast, appears comfortable. REVIEW OF SYSTEMS: Done for constitutional ,cardiovascular, GI, pulmonary with relevant findings as above. CURRENT MEDICATIONS Augmentin, Coreg, Mucinex, Solu-Medrol, theophylline. PHYSICAL EXAM VITAL SIGNS: Temperature 97.5, pulse 90, Vettori rate 18, blood pressure 169/82, oxygen saturation 98% on 3 L nasal cannula. GENERAL APPEARANCE: Lying in bed, not in distress. EYES: Pupils equal. Conjunctiva normal. NECK: JVD not raised. Mass not palpable. RESPIRATORY: Respiratory effort normal. Lungs decreased bilaterally to auscultation. CARDIOVASCULAR: First and second sounds normal. No edema. ABDOMEN: Soft. Liver and spleen not palpable. No tenderness. No mass palpable. PSYCHIATRY: Alert and oriented x3. Mood and affect normal. INVESTIGATIONS: None new ASSESSMENT: -Left lower lobe pneumonia, suspect gram-negative organism, causing sepsis on presentation leading to acute COPD exacerbation, improving -Acute COPD exacerbation in an ex-smoker -Obesity BMI greater than 30.4 -Coronary artery disease with prior history of stent -primary osteoarthritis of multiple joints bilateral -GERD -essential hypertension -chronic hypoxic respiratory failure on 2.5 L home oxygen secondary to COPD -peripheral arterial disease -chronic diverticulosis -irritable bowel syndrome -Peripheral neuropathy cause unknown -Troponin leak, likely from hemodynamic instability not acute cororary syndrome PLAN: Continue current medication and treatment plan to include IV antibiotics, steroids and bronchodilators. Care was discussed with the patient. Await sputum culture. We'll monitor closely. [facility] [employer] statement: Patient was seen and examined by nurse practitioner Alycia Christie and all elements of the case discussed with attending Dr. Lagunas
[2016-10-16 16:52] LABS: Glucose,Whole Blood 108 mg/dL (75-99)
[2016-10-16 21:06] LABS: Glucose,Whole Blood 149 mg/dL (75-99)
[2016-10-16] MEDS: DIAZEPAM 5 MG TAB PO SCH (21:38)
[2016-10-16] MEDS: amLODIPine 5 MG TAB PO SCH (21:39)
[2016-10-16] MEDS: SERTRALINE 50 MG TAB PO SCH (21:40)
[2016-10-16] MEDS: SPIRONOLACTONE 25 MG TAB PO SCH (21:40)
[2016-10-17] MEDS: methylPREDNISolone SOD SUCCI 40 MG/ML 1 ML VIAL IV SCH ×4 (00:15→23:21)
[2016-10-17] MEDS: HYDROcodone/APAP 10-325MG 1 EACH TAB PO PRN ×3 (04:58→21:11)
[2016-10-17] MEDS: SPIRONOLACTONE 25 MG TAB PO SCH ×3 (05:01→21:16)
[2016-10-17 06:20] LABS: Glucose,Whole Blood 118 mg/dL (75-99)
[2016-10-17 06:33] LABS: Basophils % (A) 0 %; CH 28.3; CHCM 32.2; Eosinophils % (A) 0 %; HCT 40.7 % (39.0-53.0); HDW 2.53; HGB 13.4 gm/dL (13.0-17.5); Luc # (Auto) 0.18; Luc % (Auto) 2; Lymphocytes # (A) 0.5 k/uL (1.0-4.8); Lymphocytes % (A) 6 %; MCH 29.2 pg (25.0-35.0); MCV 88.5 fL (80.0-100.0); Mean Platelet Volume 7.6; Monocytes # (A) 0.5 k/uL (0-1.0); Monocytes % (A) 6 %; Neutrophils # (A) 7.4 k/uL (1.3-7.7); Neutrophils % (A) 86 %; RDW 14.1 % (11.5-15.5); WBC 8.6 k/uL (3.8-10.6); WBC (Perox) 8.77
[2016-10-17 06:50] LABS: Anion Gap 13 mmol/L; Blood Urea Nitrogen 26 mg/dL (9-20); Calcium 9.2 mg/dL (8.4-10.2); Carbon Dioxide 24 mmol/L (22-30); Chloride 100 mmol/L (98-107); Glucose 111 mg/dL (74-99); Non-African American GFR(MDRD) >60 (>60 ml/min/1.73 sqM); Potassium 4.4 mmol/L (3.5-5.1); Sodium 137 mmol/L (137-145)
[2016-10-17] MEDS: INSULIN LISPRO (humaLOG) 300 UNIT/3 ML VIAL SQ SCH ×4 (07:33→21:13)
[2016-10-17] MEDS: BUDESONIDE 1 MG/2 ML NEBU INHALATION SCH ×2 (08:48→19:52)
[2016-10-17] MEDS: IPRATROPIUM-ALBUTEROL 3 ML NEB INHALATION PRN ×4 (08:48→19:52)
[2016-10-17] MEDS: THEOPHYLLINE 24 HOUR 300 MG CAP.ER.24H PO SCH ×2 (09:04→21:13)
[2016-10-17] MEDS: HYDROCHLOROTHIAZIDE 50 MG TAB PO SCH (09:04)
[2016-10-17] MEDS: FUROSEMIDE 20 MG TAB PO SCH (09:04)
[2016-10-17] MEDS: LOSARTAN 50 MG TAB PO SCH (09:04)
[2016-10-17] MEDS: ENOXAPARIN 40 MG/0.4 ML SYRINGE SQ SCH (09:04)
[2016-10-17] MEDS: CARVEDILOL 6.25 MG TAB PO SCH ×2 (09:05→21:13)
[2016-10-17] MEDS: guaiFENesin 600 MG TABLET.ER PO SCH ×2 (09:05→21:13)
[2016-10-17] MEDS: AMOXIC-POT CLAV 875-125MG 1 EACH TAB PO SCH ×2 (09:05→21:13)
[2016-10-17] MEDS: hydrALAZINE HCL 25 MG TAB PO SCH ×2 (09:05→21:13)
--- NOTE | 2016-10-17 10:00 | P.PN ---
Subjective Principal diagnosis: COPD exacerbation This is a 76-year-old white male with history of severe end-stage COPD, O2 dependent, prednisone dependent, quite familiar to Dr. Sheppard's service. Patient is primarily a patient of Dr. Lira. He was last seen on consultation during the last admission on 09/24/2016. Patient was discharged home, and Dr. Sheppard saw him on follow-up in the office were in the patient was doing relatively well, and he was able to taper his prednisone down to 20 mg daily maintenance. Plans were even made to consider tapering down to 15 mg daily. Patient was quite pleased with his recovery. However over the last few days, patient has been developing generalized weakness, productive cough with yellow brownish phlegm, shortness of breath, wheezing, low-grade fever and chills, and some heaviness in the chest. Patient presented to the ER, chest x- ray showed atelectasis in the left lower lobe, left hemidiaphragm elevation, possible paralysis, and possible pneumonia in the left lower lobe. Patient was admitted, and this consult was initiated. He was already placed on proper antibiotics, bronchodilators, and steroids. The patient is seen again today 10/16/2016 in follow-up on the selective care unit. He is currently sitting up in the chair at the bedside. He is awake and alert in no acute distress. He is breathing easier today as compared to yesterday. He denies any worsening shortness of breath, cough or congestion. He is still dyspneic on minimal exertion. He is maintaining good O2 saturations in the upper 90s on 3 L/m per nasal cannula. He has been afebrile. The patient is seen again today 10/17/2016 in follow-up on the selective care unit. He is awake and alert in no acute distress. He is somewhat more bronchospastic and wheezy today as compared to yesterday however. He has not quite back to his baseline. Slight temperature at 99.9. He is tachycardic at 120. He is maintaining O2 saturations in the low 90s on 3 L/m per nasal cannula. No leukocytosis. Objective - Vital Signs Vital signs: Vital Signs Temp 99.9 F H 10/17/16 08:00 Pulse 114 H 10/17/16 09:11 Resp 22 10/17/16 08:00 BP 196/90 10/17/16 08:00 Pulse Ox 93 L 10/17/16 08:49 Intake & Output 10/16/16 10/17/16 10/17/16 18:59 06:59 18:59 Intake Total 610 100 Output Total 1525 600 300 Balance -915 -600 -200 Weight 100.7 kg Intake: Oral 610 100 Output: Urine 1525 600 300 Other: # Voids 1 1 1 # Bowel Movements 1 1 - Exam GENERAL EXAM: Alert, active, comfortable in no apparent distress. HEAD: Normocephalic. EYES: Normal reaction of pupils, equal size. NOSE: Clear with pink turbinates. THROAT: No erythema or exudates. NECK: No masses, no JVD. CHEST: No chest wall deformity. LUNGS: Equal air entry with bilateral end expiratory wheeze. Diminished. CVS: S1 and S2 normal with no audible murmurs, regular rhythm. ABDOMEN: No hepatosplenomegaly, normal bowel sounds, no guarding or rigidity. SPINE: No scoliosis or deformity SKIN: No rashes CENTRAL NERVOUS SYSTEM: No focal deficits, tone is normal in all 4 extremities. Extremities: There is trace peripheral edema. No clubbing, no cyanosis. Peripheral pulses are intact. - Labs CBC & Chem 7: 10/17/16 05:54 10/17/16 05:54 Labs: Abnormal Lab Results - Last 24 Hours (Table) 10/16/16 10/16/16 10/16/16 Range/Units 11:46 16:49 21:03 Plt Count (150-450) k/uL Lymphocytes # (1.0-4.8) k/uL BUN (9-20) mg/dL Glucose (74-99) mg/dL POC Glucose (mg/dL) 151 H 108 H 149 H (75-99) mg/dL 10/17/16 10/17/16 10/17/16 Range/Units 05:54 05:54 06:11 Plt Count 141 L (150-450) k/uL Lymphocytes # 0.5 L (1.0-4.8) k/uL BUN 26 H (9-20) mg/dL Glucose 111 H (74-99) mg/dL POC Glucose (mg/dL) 118 H (75-99) mg/dL Microbiology - Last 24 Hours (Table) 10/16/16 09:15 Gram Stain - Preliminary Sputum 10/14/16 19:50 Blood Culture - Preliminary Blood No Growth after 48 hours Assessment and Plan Plan: Impression: 1 acute on chronic hypoxic and hypercapnic respiratory failure secondary to severe COPD exacerbation. 2 acute exacerbation of severe end-stage oxygen-dependent, steroid-dependent COPD 3 acute tracheobronchitis, possible left lower lobe pneumonia, however the findings are more or less findings of atelectasis. 4 chronic elevation of left hemidiaphragm consistent with chronic left hemidiaphragm paralysis 5 chronic cor pulmonale secondary to severe COPD and pulmonary hypertension 6 multiple comorbidities including essential hypertension, chronic atrial fibrillation, cervical disc disease and previous cervical spine surgery, history of osteoarthritis, and history of tobacco dependence syndrome. Plan: The patient was seen and evaluated by Dr. Sheppard. The patient is still not quite back to baseline. We'll continue with his current antibiotics, bronchodilators and IV Solu-Medrol. We will increase his activity as tolerated. We'll continue to follow.
[2016-10-17 11:38] LABS: Glucose,Whole Blood 113 mg/dL (75-99)
[2016-10-17 16:31] LABS: Glucose,Whole Blood 145 mg/dL (75-99)
--- NOTE | 2016-10-17 16:47 | P.PN ---
<Alycia Christie - Last Filed: 10/17/16 16:37> Progress Note - Text DATE OF SERVICE: 10/17/2016 PRESENTING COMPLAINT: Cough INTERVAL HISTORY: This is a 76-year-old male who presents with left lower lobe pneumonia, sepsis, leading to acute exacerbation of COPD. Today, sitting up in the chair, taking a breathing treatment, coughing, appears uncomfortable, short of breath, tired. Patient states he does not feel very good today, did not sleep well. REVIEW OF SYSTEMS: Done for constitutional ,cardiovascular, GI, pulmonary with relevant findings as above. CURRENT MEDICATIONS Augmentin, Coreg, Mucinex, Solu-Medrol, theophylline. PHYSICAL EXAM VITAL SIGNS: Temperature 99.9, pulse 120, respiratory rate 22, blood pressure 185/91, oxygen saturation 91% on 3 L nasal cannula. GENERAL APPEARANCE: Sitting in a chair, appears distressed, short of breath, taking a breathing treatment. EYES: Pupils equal. Conjunctiva normal. NECK: JVD not raised. Mass not palpable. RESPIRATORY: Respiratory effort increased. Lungs decreased bilaterally, crackles heard to the right middle and lower base on auscultation. CARDIOVASCULAR: First and second sounds normal. No edema. ABDOMEN: Soft. Liver and spleen not palpable. No tenderness. No mass palpable. Last bowel movement 10/16/2016 PSYCHIATRY: Alert and oriented x3. Mood and affect tired and somewhat anxious appearing. INVESTIGATIONS: White blood cell count 8.6, hemoglobin 13.4, BUN 26, creatinine 0.80. Sputum culture: Pulmonary results: No organisms, many PMNs, rare squamous epithelial cells. ASSESSMENT: -Left lower lobe pneumonia, suspect gram-negative organism, causing sepsis on presentation leading to acute COPD exacerbation, slow to respond -Acute COPD exacerbation in an ex-smoker, slow to respond -Obesity BMI greater than 30.4 -Coronary artery disease with prior history of stent -primary osteoarthritis of multiple joints bilateral -GERD -essential hypertension -chronic hypoxic respiratory failure on 2.5 L home oxygen secondary to COPD -peripheral arterial disease -chronic diverticulosis -irritable bowel syndrome -Peripheral neuropathy cause unknown -Troponin leak, likely from hemodynamic instability not acute cororary syndrome PLAN: Continue current medication and treatment plan to include IV antibiotics, steroids and bronchodilators. Care was discussed with the patient. Sputum culture negative for any organisms. FURNITURE MAKER statement: Patient was seen and examined by nurse practitioner Alycia Christie and all elements of the case discussed with attending Dr. Lagunas <Miguelangel Lagunas - Last Filed: 10/17/16 22:41> Progress Note - Text Attending note. Date of service-10/17/2016 This patient was seen and examined by me today. I reviewed the note of my nurse practitioner, Ms. Christie. Discussed with her, additional findings as below Patient admitted with pneumonia and severe COPD exacerbation. Still having some yellow-green sputum production. Weak and tired. Eating some food. Sitting up in a chair. On examination: Lungs decreased breath sounds, mild wheezing, increased shortness of breath Tired appearing but able to communicate Assessment plan: Pneumonia and severe COPD exacerbation, slow to respond. Continue with steroids bronchodilators care was discussed with the patient follow-up. Cultures pending
[2016-10-17] MEDS: ASPIRIN 81 MG CHEW PO SCH (17:07)
[2016-10-17 20:53] LABS: Glucose,Whole Blood 144 mg/dL (75-99)
[2016-10-17] MEDS: SENNOSIDES-DOCUSATE SODIUM 1 EACH TAB PO SCH (21:12)
[2016-10-17] MEDS: DIAZEPAM 5 MG TAB PO SCH (21:13)
[2016-10-17] MEDS: SERTRALINE 50 MG TAB PO SCH (21:13)
[2016-10-17] MEDS: amLODIPine 5 MG TAB PO SCH (21:13)
[2016-10-18 06:15] LABS: Basophils % (A) 0 %; CH 28.2; CHCM 31.8; Eosinophils % (A) 0 %; HCT 38.6 % (39.0-53.0); HDW 2.51; HGB 12.5 gm/dL (13.0-17.5); Luc # (Auto) 0.11; Luc % (Auto) 2; Lymphocytes # (A) 0.4 k/uL (1.0-4.8); Lymphocytes % (A) 6 %; MCH 28.9 pg (25.0-35.0); MCHC 32.5 g/dL (31.0-37.0); Mean Platelet Volume 7.4; Monocytes # (A) 0.3 k/uL (0-1.0); Monocytes % (A) 4 %; Neutrophils # (A) 5.6 k/uL (1.3-7.7); Neutrophils % (A) 88 %; RBC 4.33 m/uL (4.30-5.90); WBC 6.3 k/uL (3.8-10.6); WBC (Perox) 6.87
[2016-10-18 06:29] LABS: Anion Gap 8 mmol/L; Blood Urea Nitrogen 28 mg/dL (9-20); Calcium 8.7 mg/dL (8.4-10.2); Carbon Dioxide 28 mmol/L (22-30); Chloride 99 mmol/L (98-107); Glucose 151 mg/dL (74-99); Non-African American GFR(MDRD) >60 (>60 ml/min/1.73 sqM); Sodium 135 mmol/L (137-145)
[2016-10-18 06:38] LABS: Glucose,Whole Blood 157 mg/dL (75-99)
[2016-10-18] MEDS: INSULIN LISPRO (humaLOG) 300 UNIT/3 ML VIAL SQ SCH ×4 (06:49→20:56)
[2016-10-18] MEDS: guaiFENesin 600 MG TABLET.ER PO SCH ×2 (07:56→20:56)
[2016-10-18] MEDS: THEOPHYLLINE 24 HOUR 300 MG CAP.ER.24H PO SCH ×2 (07:56→20:55)
[2016-10-18] MEDS: ENOXAPARIN 40 MG/0.4 ML SYRINGE SQ SCH (07:56)
[2016-10-18] MEDS: HYDROCHLOROTHIAZIDE 50 MG TAB PO SCH (07:56)
[2016-10-18] MEDS: AMOXIC-POT CLAV 875-125MG 1 EACH TAB PO SCH ×2 (07:56→20:56)
[2016-10-18] MEDS: CARVEDILOL 6.25 MG TAB PO SCH ×2 (07:57→20:56)
[2016-10-18] MEDS: LOSARTAN 50 MG TAB PO SCH (07:57)
[2016-10-18] MEDS: FUROSEMIDE 20 MG TAB PO SCH (07:57)
[2016-10-18] MEDS: hydrALAZINE HCL 25 MG TAB PO SCH ×2 (07:58→20:56)
[2016-10-18] MEDS: SENNOSIDES-DOCUSATE SODIUM 1 EACH TAB PO SCH ×2 (07:58→20:56)
[2016-10-18] MEDS: methylPREDNISolone SOD SUCCI 40 MG/ML 1 ML VIAL IV SCH ×3 (07:58→23:47)
[2016-10-18] MEDS: BUDESONIDE 1 MG/2 ML NEBU INHALATION SCH ×2 (08:29→20:23)
[2016-10-18] MEDS: IPRATROPIUM-ALBUTEROL 3 ML NEB INHALATION PRN ×4 (08:29→20:23)
[2016-10-18] MEDS: HYDROcodone/APAP 10-325MG 1 EACH TAB PO PRN ×2 (11:24→21:07)
[2016-10-18 11:41] LABS: Glucose,Whole Blood 166 mg/dL (75-99)
--- NOTE | 2016-10-18 11:45 | P.PN ---
Subjective Principal diagnosis: COPD exacerbation This is a 76-year-old white male with history of severe end-stage COPD, O2 dependent, prednisone dependent, quite familiar to Dr. Sheppard's service. Patient is primarily a patient of Dr. Lira. He was last seen on consultation during the last admission on 09/24/2016. Patient was discharged home, and Dr. Sheppard saw him on follow-up in the office were in the patient was doing relatively well, and he was able to taper his prednisone down to 20 mg daily maintenance. Plans were even made to consider tapering down to 15 mg daily. Patient was quite pleased with his recovery. However over the last few days, patient has been developing generalized weakness, productive cough with yellow brownish phlegm, shortness of breath, wheezing, low-grade fever and chills, and some heaviness in the chest. Patient presented to the ER, chest x- ray showed atelectasis in the left lower lobe, left hemidiaphragm elevation, possible paralysis, and possible pneumonia in the left lower lobe. Patient was admitted, and this consult was initiated. He was already placed on proper antibiotics, bronchodilators, and steroids. The patient is seen again today 10/16/2016 in follow-up on the selective care unit. He is currently sitting up in the chair at the bedside. He is awake and alert in no acute distress. He is breathing easier today as compared to yesterday. He denies any worsening shortness of breath, cough or congestion. He is still dyspneic on minimal exertion. He is maintaining good O2 saturations in the upper 90s on 3 L/m per nasal cannula. He has been afebrile. The patient is seen again today 10/17/2016 in follow-up on the selective care unit. He is awake and alert in no acute distress. He is somewhat more bronchospastic and wheezy today as compared to yesterday however. He has not quite back to his baseline. Slight temperature at 99.9. He is tachycardic at 120. He is maintaining O2 saturations in the low 90s on 3 L/m per nasal cannula. No leukocytosis. The patient is seen again today 10/18/2016 in follow-up in the selective care unit. He is currently resting quite comfortably in bed. He is awake and alert in no acute distress. He is able to lay flat or last evening then he has since admission. He states he is better today as compared to yesterday but still not quite back to his baseline. Sputum culture reveals no growth to date. Blood cultures revealed no growth. No leukocytosis. He is maintaining O2 saturations in the low 90s on 3 L/m per nasal cannula. Currently afebrile. Objective - Vital Signs Vital signs: Vital Signs Temp 97.6 F 10/18/16 11:29 Pulse 83 10/18/16 11:30 Resp 18 10/18/16 11:30 BP 92/54 10/18/16 11:29 Pulse Ox 90 L 10/18/16 11:29 Intake & Output 10/17/16 10/18/16 10/18/16 18:59 06:59 18:59 Intake Total 218 100 Output Total 600 200 250 Balance -382 -200 -150 Weight 99.1 kg Intake: Oral 218 100 Output: Urine 600 200 250 Other: # Voids 1 1 - Exam GENERAL EXAM: Alert, active, comfortable in no apparent distress. HEAD: Normocephalic. EYES: Normal reaction of pupils, equal size. NOSE: Clear with pink turbinates. THROAT: No erythema or exudates. NECK: No masses, no JVD. CHEST: No chest wall deformity. LUNGS: Equal air entry with bilateral end expiratory wheeze. Diminished. CVS: S1 and S2 normal with no audible murmurs, regular rhythm. ABDOMEN: No hepatosplenomegaly, normal bowel sounds, no guarding or rigidity. SPINE: No scoliosis or deformity SKIN: No rashes CENTRAL NERVOUS SYSTEM: No focal deficits, tone is normal in all 4 extremities. Extremities: There is trace peripheral edema. No clubbing, no cyanosis. Peripheral pulses are intact. - Labs CBC & Chem 7: 10/18/16 05:53 10/18/16 05:53 Labs: Abnormal Lab Results - Last 24 Hours (Table) 10/17/16 10/17/16 10/17/16 Range/Units 11:34 16:26 20:33 Hgb (13.0-17.5) gm/dL Hct (39.0-53.0) % Plt Count (150-450) k/uL Lymphocytes # (1.0-4.8) k/uL Sodium (137-145) mmol/L BUN (9-20) mg/dL Glucose (74-99) mg/dL POC Glucose (mg/dL) 113 H 145 H 144 H (75-99) mg/dL 10/18/16 10/18/16 10/18/16 Range/Units 05:53 05:53 06:36 Hgb 12.5 L (13.0-17.5) gm/dL Hct 38.6 L (39.0-53.0) % Plt Count 127 L (150-450) k/uL Lymphocytes # 0.4 L (1.0-4.8) k/uL Sodium 135 L (137-145) mmol/L BUN 28 H (9-20) mg/dL Glucose 151 H (74-99) mg/dL POC Glucose (mg/dL) 157 H (75-99) mg/dL Microbiology - Last 24 Hours (Table) 10/16/16 09:15 Gram Stain - Final Sputum Sputum Culture - Final 10/14/16 19:50 Blood Culture - Preliminary Blood No Growth after 72 hours Assessment and Plan Plan: Impression: 1 acute on chronic hypoxic and hypercapnic respiratory failure secondary to severe COPD exacerbation. 2 acute exacerbation of severe end-stage oxygen-dependent, steroid-dependent COPD 3 acute tracheobronchitis, possible left lower lobe pneumonia, however the findings are more or less findings of atelectasis. 4 chronic elevation of left hemidiaphragm consistent with chronic left hemidiaphragm paralysis 5 chronic cor pulmonale secondary to severe COPD and pulmonary hypertension 6 multiple comorbidities including essential hypertension, chronic atrial fibrillation, cervical disc disease and previous cervical spine surgery, history of osteoarthritis, and history of tobacco dependence syndrome. Plan: The patient was seen and evaluated by Dr. Sheppard. The patient is still not quite back to baseline. He will most likely need inpatient rehabilitation prior to his returning to home. We'll continue with his current antibiotics, bronchodilators and IV Solu-Medrol. We will increase his activity as tolerated. Physical therapy is working with the patient. We'll continue to follow.
--- NOTE | 2016-10-18 15:56 | P.PN ---
<Alycia Christie - Last Filed: 10/18/16 15:41> Progress Note - Text DATE OF SERVICE: 10/18/2016 PRESENTING COMPLAINT: Cough INTERVAL HISTORY: This is a 76-year-old male who presents with left lower lobe pneumonia, sepsis, leading to acute exacerbation of COPD. 10/17/2016:Today, sitting up in the chair, taking a breathing treatment, coughing, appears uncomfortable, short of breath, tired. Patient states he does not feel very good today, did not sleep well. 10/18/2016: Sitting at the bedside, just finished working with physical therapy , physical therapist praising patient for how good he is able to do arcing up and down the hallway, utilizing a walker and oxygen. Patient appears more relaxed today, breathing easier, continues to produce whitish sputum, more noted early in the morning less as the day progresses, more awake and more participatory in activity. REVIEW OF SYSTEMS: Done for constitutional ,cardiovascular, GI, pulmonary with relevant findings as above. CURRENT MEDICATIONS Augmentin, Coreg, Mucinex, Solu-Medrol, theophylline. PHYSICAL EXAM VITAL SIGNS: Temperature 98.2, pulse 97, respiratory rate 20, blood pressure 128/55, oxygen saturation 91% on 3 L . GENERAL APPEARANCE: Sitting up on the edge of the bed, appears happy after working with physical therapy, mildly short of breath, EYES: Pupils equal. Conjunctiva normal. NECK: JVD not raised. Mass not palpable. RESPIRATORY: Respiratory effort increased. Lungs decreased bilaterally, crackles heard bilaterally and worse to the right middle and lower base on auscultation. CARDIOVASCULAR: First and second sounds normal. No edema. ABDOMEN: Soft. Liver and spleen not palpable. No tenderness. No mass palpable. Last bowel movement 10/17/2016 PSYCHIATRY: Alert and oriented x3. Mood and affect more perky today. INVESTIGATIONS: Hemoglobin 12.5, platelet count 127, potassium 4.0, sodium 135, Sputum culture: No growth to date Blood cultures: No growth to date ASSESSMENT: -Left lower lobe pneumonia, suspect gram-negative organism, causing sepsis on presentation leading to acute COPD exacerbation, slow to respond -Acute COPD exacerbation in an ex-smoker, slow to respond -Obesity BMI greater than 30.4 -Coronary artery disease with prior history of stent -primary osteoarthritis of multiple joints bilateral -GERD -essential hypertension -chronic hypoxic respiratory failure on 2.5 L home oxygen secondary to COPD -peripheral arterial disease -chronic diverticulosis -irritable bowel syndrome -Peripheral neuropathy cause unknown -Troponin leak, likely from hemodynamic instability not acute cororary syndrome PLAN: Continue current medication and treatment plan to include IV antibiotics, steroids and bronchodilators. Patient ate about 50% of his meal today. Pulmonology suggested possibility of patient requiring rehab prior to returning home, PT eval suggests home PT. Care was discussed with the patient. Sputum culture negative for any organisms. YARN SORTER statement: Patient was seen and examined by nurse practitioner Alycia Christie and all elements of the case discussed with attending Dr. Lagunas <Miguelangel Lagunas - Last Filed: 10/18/16 19:17> Progress Note - Text Attending note. Date of service-10/18/2016 This patient was seen and examined by me today. I reviewed the note of my nurse practitioner, Ms. Christie. Discussed with her, additional findings as below Patient admitted with COPD exacerbation and pneumonia. Feels a bit better. Still producing some sputum. On examination Lungs decreased breath sounds, some wheezing, more awake Investigations White count 6.3, sputum culture negative Assessment and plan Acute COPD exacerbation pneumonia slowly improving. Continue with antibiotics, bronchodilators and steroids. Expect the patient to be in the hospital for another couple of days
[2016-10-18 16:48] LABS: Glucose,Whole Blood 151 mg/dL (75-99)
[2016-10-18 20:48] LABS: Glucose,Whole Blood 169 mg/dL (75-99)
[2016-10-18] MEDS: SPIRONOLACTONE 25 MG TAB PO SCH (20:55)
[2016-10-18] MEDS: amLODIPine 5 MG TAB PO SCH (20:56)
[2016-10-18] MEDS: SERTRALINE 50 MG TAB PO SCH (20:56)
[2016-10-18] MEDS: DIAZEPAM 5 MG TAB PO SCH (22:12)
[2016-10-19 06:05] LABS: Glucose,Whole Blood 168 mg/dL (75-99)
[2016-10-19] MEDS: INSULIN LISPRO (humaLOG) 300 UNIT/3 ML VIAL SQ SCH ×4 (06:45→21:33)
[2016-10-19] MEDS: IPRATROPIUM-ALBUTEROL 3 ML NEB INHALATION PRN ×2 (07:04→10:57)
[2016-10-19] MEDS: BUDESONIDE 1 MG/2 ML NEBU INHALATION SCH ×2 (07:04→19:37)
[2016-10-19] MEDS: methylPREDNISolone SOD SUCCI 40 MG/ML 1 ML VIAL IV SCH ×2 (09:34→18:05)
[2016-10-19] MEDS: ENOXAPARIN 40 MG/0.4 ML SYRINGE SQ SCH (09:35)
[2016-10-19] MEDS: AMOXIC-POT CLAV 875-125MG 1 EACH TAB PO SCH ×2 (09:35→21:31)
[2016-10-19] MEDS: CARVEDILOL 6.25 MG TAB PO SCH ×2 (09:35→21:32)
[2016-10-19] MEDS: FUROSEMIDE 20 MG TAB PO SCH (09:36)
[2016-10-19] MEDS: hydrALAZINE HCL 25 MG TAB PO SCH ×2 (09:37→21:33)
[2016-10-19] MEDS: guaiFENesin 600 MG TABLET.ER PO SCH ×2 (09:37→21:32)
[2016-10-19] MEDS: HYDROCHLOROTHIAZIDE 50 MG TAB PO SCH (09:38)
[2016-10-19] MEDS: LOSARTAN 50 MG TAB PO SCH (09:39)
[2016-10-19] MEDS: SENNOSIDES-DOCUSATE SODIUM 1 EACH TAB PO SCH ×2 (09:39→21:33)
[2016-10-19] MEDS: THEOPHYLLINE 24 HOUR 300 MG CAP.ER.24H PO SCH ×2 (09:40→21:32)
--- NOTE | 2016-10-19 11:14 | P.PN ---
Subjective Principal diagnosis: Acute exacerbation of COPD and acute on chronic hypoxic respiratory failure This is a 76-year-old white male with history of severe end-stage COPD, O2 dependent, prednisone dependent, quite familiar to Dr. Sheppard's service. Patient is primarily a patient of Dr. Lira. He was last seen on consultation during the last admission on 09/24/2016. Patient was discharged home, and Dr. Sheppard saw him on follow-up in the office were in the patient was doing relatively well, and he was able to taper his prednisone down to 20 mg daily maintenance. Plans were even made to consider tapering down to 15 mg daily. Patient was quite pleased with his recovery. However over the last few days, patient has been developing generalized weakness, productive cough with yellow brownish phlegm, shortness of breath, wheezing, low-grade fever and chills, and some heaviness in the chest. Patient presented to the ER, chest x- ray showed atelectasis in the left lower lobe, left hemidiaphragm elevation, possible paralysis, and possible pneumonia in the left lower lobe. Patient was admitted, and this consult was initiated. He was already placed on proper antibiotics, bronchodilators, and steroids. The patient is seen again today 10/16/2016 in follow-up on the selective care unit. He is currently sitting up in the chair at the bedside. He is awake and alert in no acute distress. He is breathing easier today as compared to yesterday. He denies any worsening shortness of breath, cough or congestion. He is still dyspneic on minimal exertion. He is maintaining good O2 saturations in the upper 90s on 3 L/m per nasal cannula. He has been afebrile. The patient is seen again today 10/17/2016 in follow-up on the selective care unit. He is awake and alert in no acute distress. He is somewhat more bronchospastic and wheezy today as compared to yesterday however. He has not quite back to his baseline. Slight temperature at 99.9. He is tachycardic at 120. He is maintaining O2 saturations in the low 90s on 3 L/m per nasal cannula. No leukocytosis. The patient is seen again today 10/18/2016 in follow-up in the selective care unit. He is currently resting quite comfortably in bed. He is awake and alert in no acute distress. He is able to lay flat or last evening then he has since admission. He states he is better today as compared to yesterday but still not quite back to his baseline. Sputum culture reveals no growth to date. Blood cultures revealed no growth. No leukocytosis. He is maintaining O2 saturations in the low 90s on 3 L/m per nasal cannula. Currently afebrile. Reevaluated today on 10/19/2016, patient seems to be resting comfortably in bed, awake, alert, in no distress. Patient developed shortness of breath with any activity. He seems to be generally weak, fatigued, hence I have recommended possible rehab referral before sending the patient home. Arrangements for rehab are in progress. Labs from yesterday were all reviewed and they seem to be relatively unremarkable. Objective - Vital Signs Vital signs: Vital Signs Temp 96.5 F L 10/19/16 04:00 Pulse 84 10/19/16 11:08 Resp 18 10/19/16 04:00 BP 120/59 10/19/16 04:00 Pulse Ox 90 L 10/19/16 04:00 Intake & Output 10/18/16 10/19/16 10/19/16 18:59 06:59 18:59 Intake Total 480 20 180 Output Total 700 800 Balance -220 -780 180 Weight 99.5 kg Intake: IV 20 Flush 20 Oral 480 180 Output: Urine 700 800 Other: # Voids 1 2 - Exam GENERAL EXAM: Alert, active, comfortable in no apparent distress. HEAD: Normocephalic. EYES: Normal reaction of pupils, equal size. NOSE: Clear with pink turbinates. THROAT: No erythema or exudates. NECK: No masses, no JVD. CHEST: No chest wall deformity. LUNGS: Equal air entry with bilateral end expiratory wheeze. Diminished. CVS: S1 and S2 normal with no audible murmurs, regular rhythm. ABDOMEN: No hepatosplenomegaly, normal bowel sounds, no guarding or rigidity. SPINE: No scoliosis or deformity SKIN: No rashes CENTRAL NERVOUS SYSTEM: No focal deficits, tone is normal in all 4 extremities. Extremities: There is trace peripheral edema. No clubbing, no cyanosis. Peripheral pulses are intact. - Labs CBC & Chem 7: 10/18/16 05:53 10/18/16 05:53 Labs: Abnormal Lab Results - Last 24 Hours (Table) 10/18/16 10/18/16 10/18/16 Range/Units 11:37 16:46 20:45 POC Glucose (mg/dL) 166 H 151 H 169 H (75-99) mg/dL 10/19/16 Range/Units 06:03 POC Glucose (mg/dL) 168 H (75-99) mg/dL Microbiology - Last 24 Hours (Table) 10/14/16 19:50 Blood Culture - Preliminary Blood No Growth after 96 hours 10/16/16 09:15 Gram Stain - Final Sputum Sputum Culture - Final Assessment and Plan Plan: 1 acute on chronic hypoxic and hypercapnic respiratory failure secondary to severe COPD exacerbation. 2 acute exacerbation of severe end-stage COPD 3 acute tracheobronchitis, possible left lower lobe pneumonia, however I believe the findings are more or less findings of atelectasis. 4 chronic elevation of left hemidiaphragm consistent with chronic left hemidiaphragm paralysis 5 chronic cor pulmonale secondary to severe COPD and pulmonary hypertension X multiple comorbidities including essential hypertension, chronic atrial fibrillation, cervical disc disease and previous cervical spine surgery, history of osteoarthritis, and history of tobacco dependence syndrome. Recommendation: Continue bronchodilators, steroids, antibiotics, possible rehab referral early next week. Time with Patient: Less than 30
[2016-10-19 12:04] LABS: Glucose,Whole Blood 165 mg/dL (75-99)
[2016-10-19] MEDS: IPRATROPIUM-ALBUTEROL 3 ML NEB INHALATION SCH ×3 (12:40→23:12)
[2016-10-19] MEDS ORDERED: LACTULOSE 20 GM/30 ML CUP PO SCH (13:30)
--- NOTE | 2016-10-19 14:11 | P.PN ---
<Alycia Christie - Last Filed: 10/19/16 14:00> Progress Note - Text DATE OF SERVICE: 10/18/2016 PRESENTING COMPLAINT: Cough INTERVAL HISTORY: This is a 76-year-old male who presents with left lower lobe pneumonia, sepsis, leading to acute exacerbation of COPD. 10/17/2016:Today, sitting up in the chair, taking a breathing treatment, coughing, appears uncomfortable, short of breath, tired. Patient states he does not feel very good today, did not sleep well. 10/18/2016: Sitting at the bedside, just finished working with physical therapy , physical therapist praising patient for how good he is able to do arcing up and down the hallway, utilizing a walker and oxygen. Patient appears more relaxed today, breathing easier, continues to produce whitish sputum, more noted early in the morning less as the day progresses, more awake and more participatory in activity. 10/19/2016: Lying in bed, resting comfortably. Appears relaxed, breathing easier, continues to produce whitish greenish sputum, sputum culture sent, states he feels better each day. Tolerating his diet, eating about 75% today. No BM since admission, ordered lactulose. REVIEW OF SYSTEMS: Done for constitutional ,cardiovascular, GI, pulmonary with relevant findings as above. CURRENT MEDICATIONS Augmentin, Coreg, Mucinex, Solu-Medrol, theophylline. PHYSICAL EXAM VITAL SIGNS: Temperature 95.7, pulse 89, respiratory rate 16, blood pressure 136/61, oxygen saturation 91% on 3 L nasal cannula. GENERAL APPEARANCE: Lying in the bed, appears alterable, mildly short of breath on minimal exertion EYES: Pupils equal. Conjunctiva normal. NECK: JVD not raised. Mass not palpable. RESPIRATORY: Respiratory effort increased. Lungs decreased bilaterally, wheezing , crackles heard bilaterally and worse to the right middle and lower base on auscultation. CARDIOVASCULAR: First and second sounds normal. No edema. ABDOMEN: Soft. Liver and spleen not palpable. No tenderness. No mass palpable. PSYCHIATRY: Alert and oriented x3. Mood and affect calm and cooperative today. INVESTIGATIONS: None new Sputum culture: Many PMNs, leukocytes, rare squamous epithelial cells, no organisms. Blood cultures: No growth after 96 hours. ASSESSMENT: -Left lower lobe pneumonia, suspect gram-negative organism, causing sepsis on presentation leading to acute COPD exacerbation, slow to respond -Acute COPD exacerbation in an ex-smoker, slow to respond -Obesity BMI greater than 30.4 -Coronary artery disease with prior history of stent -primary osteoarthritis of multiple joints bilateral -GERD -essential hypertension -chronic hypoxic respiratory failure on 2.5 L home oxygen secondary to COPD -peripheral arterial disease -chronic diverticulosis -irritable bowel syndrome -Peripheral neuropathy cause unknown -Troponin leak, likely from hemodynamic instability not acute cororary syndrome PLAN: Continue current medication and treatment plan to include IV antibiotics, steroids and bronchodilators. Pulmonology suggested possibility of patient requiring rehab prior to returning home, will discuss PT eval and their recommendations for patient. Care was discussed with the patient. IN FILE OPERATOR statement: Patient was seen and examined by nurse practitioner Alycia Christie and all elements of the case discussed with attending Dr. Lagunas <Miguelangel Lagunas - Last Filed: 10/19/16 18:34> Progress Note - Text Attending note. Date of service-10/20/2016 This patient was seen and examined by me today. I reviewed the note of my nurse practitioner, Ms. Christie. Discussed with her, additional findings as below Patient admitted with COPD exacerbation and pneumonia. Still coughing up some green-yellow sputum. Though tolerating diet better. On examination: Lungs decreased breath sounds, with prolonged expiration. Mild edema Investigations: Accu-Cheks noted Assessment and plan: Pneumonia, still bringing up sputum slow to respond, we will send off repeat sputum Acute COPD exacerbation slow to respond, continue with IV steroids and bronchodilators.
[2016-10-19 17:28] LABS: Glucose,Whole Blood 142 mg/dL (75-99)
[2016-10-19] MEDS: ASPIRIN 81 MG CHEW PO SCH (17:40)
[2016-10-19 20:41] LABS: Glucose,Whole Blood 200 mg/dL (75-99)
[2016-10-19] MEDS: SPIRONOLACTONE 25 MG TAB PO SCH (21:31)
[2016-10-19] MEDS: amLODIPine 5 MG TAB PO SCH (21:31)
[2016-10-19] MEDS: SERTRALINE 50 MG TAB PO SCH (21:33)
[2016-10-19] MEDS: HYDROcodone/APAP 10-325MG 1 EACH TAB PO PRN (21:49)
[2016-10-19] MEDS: DIAZEPAM 5 MG TAB PO SCH (21:49)
[2016-10-20] MEDS: methylPREDNISolone SOD SUCCI 40 MG/ML 1 ML VIAL IV SCH ×4 (00:14→22:50)
[2016-10-20 07:38] LABS: Glucose,Whole Blood 127 mg/dL (75-99)
[2016-10-20] MEDS: INSULIN LISPRO (humaLOG) 300 UNIT/3 ML VIAL SQ SCH ×4 (08:00→21:50)
[2016-10-20] MEDS ORDERED: BISACODYL 10 MG SUPP RECTAL STA (08:26)
[2016-10-20] MEDS: ENOXAPARIN 40 MG/0.4 ML SYRINGE SQ SCH (08:43)
[2016-10-20] MEDS: BUDESONIDE 1 MG/2 ML NEBU INHALATION SCH ×2 (08:43→20:14)
[2016-10-20] MEDS: IPRATROPIUM-ALBUTEROL 3 ML NEB INHALATION SCH ×4 (08:43→20:14)
[2016-10-20] MEDS: guaiFENesin 600 MG TABLET.ER PO SCH ×2 (08:44→21:50)
[2016-10-20] MEDS: SENNOSIDES-DOCUSATE SODIUM 1 EACH TAB PO SCH ×2 (08:44→21:49)
[2016-10-20] MEDS: CARVEDILOL 6.25 MG TAB PO SCH ×2 (08:44→21:49)
[2016-10-20] MEDS: AMOXIC-POT CLAV 875-125MG 1 EACH TAB PO SCH ×2 (08:47→22:50)
[2016-10-20] MEDS: HYDROCHLOROTHIAZIDE 50 MG TAB PO SCH (08:48)
[2016-10-20] MEDS: THEOPHYLLINE 24 HOUR 300 MG CAP.ER.24H PO SCH ×2 (08:49→22:01)
[2016-10-20] MEDS: LOSARTAN 50 MG TAB PO SCH (08:49)
[2016-10-20] MEDS: LACTULOSE 20 GM/30 ML CUP PO SCH ×3 (08:49→22:50)
[2016-10-20] MEDS: FUROSEMIDE 20 MG TAB PO SCH (08:50)
[2016-10-20] MEDS: hydrALAZINE HCL 25 MG TAB PO SCH ×2 (08:50→21:50)
[2016-10-20 10:18] LABS: Basophils % (A) 0 %; CH 28.5; CHCM 32.4; Eosinophils % (A) 0 %; HCT 40.8 % (39.0-53.0); HDW 2.57; HGB 13.3 gm/dL (13.0-17.5); Luc # (Auto) 0.14; Luc % (Auto) 2; Lymphocytes # (A) 0.5 k/uL (1.0-4.8); Lymphocytes % (A) 9 %; MCH 28.9 pg (25.0-35.0); MCHC 32.5 g/dL (31.0-37.0); MCV 88.7 fL (80.0-100.0); Mean Platelet Volume 7.8; Monocytes # (A) 0.4 k/uL (0-1.0); Monocytes % (A) 6 %; Neutrophils # (A) 5.2 k/uL (1.3-7.7); Neutrophils % (A) 83 %; RDW 14.1 % (11.5-15.5); WBC 6.2 k/uL (3.8-10.6); WBC (Perox) 6.06
--- NOTE | 2016-10-20 10:34 | P.PN ---
Subjective Principal diagnosis: COPD exacerbation This is a 76-year-old white male with history of severe end-stage COPD, O2 dependent, prednisone dependent, quite familiar to Dr. Sheppard's service. Patient is primarily a patient of Dr. Lira. He was last seen on consultation during the last admission on 09/24/2016. Patient was discharged home, and Dr. Sheppard saw him on follow-up in the office were in the patient was doing relatively well, and he was able to taper his prednisone down to 20 mg daily maintenance. Plans were even made to consider tapering down to 15 mg daily. Patient was quite pleased with his recovery. However over the last few days, patient has been developing generalized weakness, productive cough with yellow brownish phlegm, shortness of breath, wheezing, low-grade fever and chills, and some heaviness in the chest. Patient presented to the ER, chest x- ray showed atelectasis in the left lower lobe, left hemidiaphragm elevation, possible paralysis, and possible pneumonia in the left lower lobe. Patient was admitted, and this consult was initiated. He was already placed on proper antibiotics, bronchodilators, and steroids. The patient is seen again today 10/16/2016 in follow-up on the selective care unit. He is currently sitting up in the chair at the bedside. He is awake and alert in no acute distress. He is breathing easier today as compared to yesterday. He denies any worsening shortness of breath, cough or congestion. He is still dyspneic on minimal exertion. He is maintaining good O2 saturations in the upper 90s on 3 L/m per nasal cannula. He has been afebrile. The patient is seen again today 10/17/2016 in follow-up on the selective care unit. He is awake and alert in no acute distress. He is somewhat more bronchospastic and wheezy today as compared to yesterday however. He has not quite back to his baseline. Slight temperature at 99.9. He is tachycardic at 120. He is maintaining O2 saturations in the low 90s on 3 L/m per nasal cannula. No leukocytosis. The patient is seen again today 10/18/2016 in follow-up in the selective care unit. He is currently resting quite comfortably in bed. He is awake and alert in no acute distress. He is able to lay flat or last evening then he has since admission. He states he is better today as compared to yesterday but still not quite back to his baseline. Sputum culture reveals no growth to date. Blood cultures revealed no growth. No leukocytosis. He is maintaining O2 saturations in the low 90s on 3 L/m per nasal cannula. Currently afebrile. Reevaluated today on 10/19/2016, patient seems to be resting comfortably in bed, awake, alert, in no distress. Patient developed shortness of breath with any activity. He seems to be generally weak, fatigued, hence I have recommended possible rehab referral before sending the patient home. Arrangements for rehab are in progress. Labs from yesterday were all reviewed and they seem to be relatively unremarkable. The patient is seen again today 10/20/2016 in follow-up on the regular medical floor. He is awake and alert in no acute distress. He is breathing easier today as compared to yesterday. He is still quite dyspneic on minimal exertion however. He is maintaining O2 saturations in the low 90s on 3 L/m per nasal cannula. He's been afebrile. No leukocytosis. Hemodynamically stable. The plan is for probable transfer to subacute inpatient rehabilitation prior to home. Objective - Vital Signs Vital signs: Vital Signs Temp 97.0 F L 10/20/16 08:00 Pulse 90 10/20/16 08:54 Resp 16 10/20/16 08:00 BP 133/64 10/20/16 08:00 Pulse Ox 91 L 10/20/16 08:00 Intake & Output 10/19/16 10/20/16 10/20/16 18:59 06:59 18:59 Intake Total 180 Output Total 300 Balance 180 -300 Weight 100 kg Intake: Oral 180 Output: Urine 300 Other: # Voids 1 - Exam GENERAL EXAM: Alert, active, comfortable in no apparent distress. HEAD: Normocephalic. EYES: Normal reaction of pupils, equal size. NOSE: Clear with pink turbinates. THROAT: No erythema or exudates. NECK: No masses, no JVD. CHEST: No chest wall deformity. LUNGS: Equal air entry with bilateral end expiratory wheeze. Diminished. CVS: S1 and S2 normal with no audible murmurs, regular rhythm. ABDOMEN: No hepatosplenomegaly, normal bowel sounds, no guarding or rigidity. SPINE: No scoliosis or deformity SKIN: No rashes CENTRAL NERVOUS SYSTEM: No focal deficits, tone is normal in all 4 extremities. Extremities: There is trace peripheral edema. No clubbing, no cyanosis. Peripheral pulses are intact. - Labs CBC & Chem 7: 10/20/16 10:04 10/18/16 05:53 Labs: Abnormal Lab Results - Last 24 Hours (Table) 10/19/16 10/19/16 10/19/16 Range/Units 11:55 17:07 20:38 Lymphocytes # (1.0-4.8) k/uL POC Glucose (mg/dL) 165 H 142 H 200 H (75-99) mg/dL 10/20/16 10/20/16 Range/Units 07:33 10:04 Lymphocytes # 0.5 L (1.0-4.8) k/uL POC Glucose (mg/dL) 127 H (75-99) mg/dL Microbiology - Last 24 Hours (Table) 10/14/16 19:50 Blood Culture - Preliminary Blood No Growth after 120 hours Assessment and Plan Plan: Impression: 1 acute on chronic hypoxic and hypercapnic respiratory failure secondary to severe COPD exacerbation. 2 acute exacerbation of severe end-stage oxygen-dependent, steroid-dependent COPD 3 acute tracheobronchitis, possible left lower lobe pneumonia, however the findings are more or less findings of atelectasis. 4 chronic elevation of left hemidiaphragm consistent with chronic left hemidiaphragm paralysis 5 chronic cor pulmonale secondary to severe COPD and pulmonary hypertension 6 multiple comorbidities including essential hypertension, chronic atrial fibrillation, cervical disc disease and previous cervical spine surgery, history of osteoarthritis, and history of tobacco dependence syndrome. Plan: The patient was seen and evaluated by Dr. Sheppard. We'll continue with his current antibiotics, bronchodilators and IV Solu-Medrol. We will increase his activity as tolerated. Physical therapy is working with the patient. We'll continue to follow.
[2016-10-20 10:40] LABS: Anion Gap 9 mmol/L; Blood Urea Nitrogen 36 mg/dL (9-20); Calcium 9.5 mg/dL (8.4-10.2); Carbon Dioxide 31 mmol/L (22-30); Chloride 99 mmol/L (98-107); Glucose 200 mg/dL (74-99); Non-African American GFR(MDRD) >60 (>60 ml/min/1.73 sqM); Potassium 3.7 mmol/L (3.5-5.1); Sodium 139 mmol/L (137-145)
[2016-10-20 12:43] LABS: Glucose,Whole Blood 164 mg/dL (75-99)
--- NOTE | 2016-10-20 15:28 | P.PN ---
Progress Note - Text ADDENDUM: DATE of service: 10/19/2016 REGARDING: Progress note dated 10/18/2016, should be 10/19/2016.
[2016-10-20] MEDS: HYDROcodone/APAP 10-325MG 1 EACH TAB PO PRN ×2 (17:01→22:00)
[2016-10-20 17:09] LABS: Glucose,Whole Blood 145 mg/dL (75-99)
--- NOTE | 2016-10-20 19:06 | P.PN ---
<Alycia Christie - Last Filed: 10/20/16 18:58> Progress Note - Text DATE OF SERVICE: 10/20/2016 PRESENTING COMPLAINT: Cough INTERVAL HISTORY: This is a 76-year-old male who presents with left lower lobe pneumonia, sepsis, leading to acute exacerbation of COPD. 10/17/2016:Today, sitting up in the chair, taking a breathing treatment, coughing, appears uncomfortable, short of breath, tired. Patient states he does not feel very good today, did not sleep well. 10/18/2016: Sitting at the bedside, just finished working with physical therapy , physical therapist praising patient for how good he is able to do arcing up and down the hallway, utilizing a walker and oxygen. Patient appears more relaxed today, breathing easier, continues to produce whitish sputum, more noted early in the morning less as the day progresses, more awake and more participatory in activity. 10/19/2016: Lying in bed, resting comfortably. Appears relaxed, breathing easier, continues to produce whitish greenish sputum, sputum culture sent, states he feels better each day. Tolerating his diet, eating about 75% today. No BM since admission, ordered lactulose. 10/20/2016: Lying in bed, receiving treatment. Appears relaxed, breathing easier, continues to produce whitish sputum area sputum culture negative for growth. Tolerates his diet, however says his appetite is low, it only about 50 % of his meal. Last BM was today. Patient would like to go to rehab before going home. Case management notified. REVIEW OF SYSTEMS: Done for constitutional ,cardiovascular, GI, pulmonary with relevant findings as above. CURRENT MEDICATIONS Augmentin, Coreg, Mucinex, Solu-Medrol, theophylline. PHYSICAL EXAM VITAL SIGNS: Temperature 95.7, pulse 89, respiratory rate 16, blood pressure 136/61, oxygen saturation 91% on 3 L nasal cannula. GENERAL APPEARANCE: Lying in the bed, appears comfortable, mildly short of breath on minimal exertion EYES: Pupils equal. Conjunctiva normal. NECK: JVD not raised. Mass not palpable. RESPIRATORY: Respiratory effort increased. Lungs decreased bilaterally, wheezing , prolonged expiration CARDIOVASCULAR: First and second sounds normal. Mild edema. ABDOMEN: Soft. Liver and spleen not palpable. No tenderness. No mass palpable. PSYCHIATRY: Alert and oriented x3. Mood and affect calm and cooperative today. INVESTIGATIONS: None new Sputum culture: Many PMNs, leukocytes, rare squamous epithelial cells, no organisms. Blood cultures: No growth after 96 hours. ASSESSMENT: -Left lower lobe pneumonia, suspect gram-negative organism, causing sepsis on presentation leading to acute COPD exacerbation, slow to respond -Acute COPD exacerbation in an ex-smoker, slow to respond -Obesity BMI greater than 30.4 -Coronary artery disease with prior history of stent -primary osteoarthritis of multiple joints bilateral -GERD -essential hypertension -chronic hypoxic respiratory failure on 2.5 L home oxygen secondary to COPD -peripheral arterial disease -chronic diverticulosis -irritable bowel syndrome -Peripheral neuropathy cause unknown -Troponin leak, likely from hemodynamic instability not acute cororary syndrome PLAN: Continue current medication and treatment plan to include IV antibiotics, steroids and bronchodilators. Pulmonology suggested possibility of patient requiring rehab prior to returning home, will discuss PT eval and their recommendations for patient. Care was discussed with the patient. PSS DELIVERY PROFESSIONAL statement: Patient was seen and examined by nurse practitioner Alycia Christie and all elements of the case discussed with attending Dr. Lagunas <Miguelangel Lagunas - Last Filed: 10/20/16 19:35> Progress Note - Text Attending note. Date of service-10/20/2016 This patient was seen and examined by me today. I reviewed the note of my nurse practitioner, Ms. Christie. Discussed with her, additional findings as below. Patient admitted with COPD exacerbation and pneumonia. Sputum production is gone down. Tired.. Patient looking to go to inpatient rehab On examination: Lungs decreased breath sounds, expiratory wheezing Investigations: Labs noted, unremarkable Assessment and plan: Acute COPD exacerbation pneumonia with clinical improvement. Medical debility. Looking for the patient to go to rehab. Possibly next 1-2 days depending how he does. Continue on Augmentin
[2016-10-20] MEDS: DIAZEPAM 5 MG TAB PO SCH (21:49)
[2016-10-20] MEDS: amLODIPine 5 MG TAB PO SCH (21:50)
[2016-10-20] MEDS: SERTRALINE 50 MG TAB PO SCH (21:50)
[2016-10-20 21:52] LABS: Glucose,Whole Blood 210 mg/dL (75-99)
[2016-10-20] MEDS: SPIRONOLACTONE 25 MG TAB PO SCH (22:01)
[2016-10-21 07:16] LABS: Glucose,Whole Blood 130 mg/dL (75-99)
[2016-10-21] MEDS: IPRATROPIUM-ALBUTEROL 3 ML NEB INHALATION SCH ×4 (07:41→21:10)
[2016-10-21] MEDS: BUDESONIDE 1 MG/2 ML NEBU INHALATION SCH ×2 (07:41→21:10)
[2016-10-21] MEDS: INSULIN LISPRO (humaLOG) 300 UNIT/3 ML VIAL SQ SCH ×4 (08:13→23:48)
[2016-10-21] MEDS: ENOXAPARIN 40 MG/0.4 ML SYRINGE SQ SCH (08:32)
[2016-10-21] MEDS: LOSARTAN 50 MG TAB PO SCH (08:33)
[2016-10-21] MEDS: methylPREDNISolone SOD SUCCI 40 MG/ML 1 ML VIAL IV SCH ×2 (08:33→17:40)
[2016-10-21] MEDS: guaiFENesin 600 MG TABLET.ER PO SCH ×2 (08:34→21:59)
[2016-10-21] MEDS: THEOPHYLLINE 24 HOUR 300 MG CAP.ER.24H PO SCH ×2 (08:34→22:00)
[2016-10-21] MEDS: AMOXIC-POT CLAV 875-125MG 1 EACH TAB PO SCH ×2 (08:34→21:59)
[2016-10-21] MEDS: hydrALAZINE HCL 25 MG TAB PO SCH ×2 (08:34→21:59)
[2016-10-21] MEDS: FUROSEMIDE 20 MG TAB PO SCH (08:35)
[2016-10-21] MEDS: HYDROCHLOROTHIAZIDE 50 MG TAB PO SCH (08:35)
[2016-10-21] MEDS: LACTULOSE 20 GM/30 ML CUP PO SCH ×3 (08:36→22:00)
[2016-10-21] MEDS: CARVEDILOL 6.25 MG TAB PO SCH ×2 (08:36→21:59)
[2016-10-21] MEDS: SENNOSIDES-DOCUSATE SODIUM 1 EACH TAB PO SCH ×2 (08:36→22:03)
[2016-10-21] MEDS ORDERED: BISACODYL 10 MG SUPP RECTAL STA (08:38)
[2016-10-21] MEDS: HYDROcodone/APAP 10-325MG 1 EACH TAB PO PRN ×2 (08:52→22:01)
[2016-10-21 12:49] LABS: Glucose,Whole Blood 108 mg/dL (75-99)
[2016-10-21 14:41] VITALS: BMI 29.9
[2016-10-21 16:59] LABS: Glucose,Whole Blood 131 mg/dL (75-99)
--- NOTE | 2016-10-21 17:33 | PN ---
This is a 76 year old gentleman with a history of acute on chronic hypoxemic and hypercapnic respiratory failure secondary to severe COPD and COPD exacerbation. He also has a history of acute tracheobronchitis with possible left lower lobe pneumonia, chronic elevation fo left diaphragm, chronic cor pulmonale with chronic hypoxemia, pulmonary hypertension as well as multiple other co-morbidities including hypertension, chronic atrial fibrillation, cervical disc disease, previous cervical spine surgery, osteoarthritis and tobacco dependence. The patient is doing about the same. Not a really good historian. Doesn't appear to be short of breath. Laying flat in bed. Does arouse, is appropriate. Current Vital Signs: Are reviewed. They include a temperature of 96.4, heart rate 88, respiratory rate 16, blood pressure 157/72 with a mean of 100 and a 3 liter saturation of 94%. No acute distress. No respiratory distress. No audible wheezing. HEENT Examination: Is grossly unremarkable. Mucous membranes are moist, no oral lesions. Neck: Supple, full range of motion, no adenopathy or thyromegaly. neck veins are flat. Cardiovascular Examination; Reveals a regular rhythm and rate, S1, S2 normal. No murmur. Lungs: Reveal diminished breath sounds, a few scattered rhonchi. No wheezes or crackles. He does not take real deep breaths. Abdomen: Soft, bowel sounds heard. Extremities: Intact. No cyanosis, clubbing or edema. Lab data is reviewed, nothing from today. Chest x-ray from the 3rd shows evidence of chronic elevation of the left ede- diaphragm. Microbiology is all negative. ASSESSMENT: 1. Acute on chronic hypoxia and hypercapnic respiratory failure secondary to severe COPD/COPD exacerbation. 2. Purulent tracheobronchitis. 3. Possible left lower lobe pneumonia. 4. Chronic elevation of left ede-diaphragm. 5. Pulmonary hypertension. 6. Cor pulmonale. 7. Essential hypertension. 8. Chronic atrial fibrillation. 9. Cervical disc disease. 10. Previous cervical spine surgery. 11. History of osteoarthritis. 12. History of chronic tobacco dependence. PLAN: Will continue to follow up. PROGNOSIS: Guarded. MEDICATIONS: Are reviewed. Labs and x-rays are reviewed. Likely discharged hopefully in the near future. No discharge recommendations are made. PROGNOSIS: Guarded. MTDD
[2016-10-21] MEDS: ASPIRIN 81 MG CHEW PO SCH (17:40)
--- NOTE | 2016-10-21 18:48 | P.PN ---
<Alycia Christie - Last Filed: 10/22/16 15:35> Progress Note - Text DATE OF SERVICE: 10/21/2016 PRESENTING COMPLAINT: Cough INTERVAL HISTORY: This is a 76-year-old male who presents with left lower lobe pneumonia, sepsis, leading to acute exacerbation of COPD. 10/17/2016:Today, sitting up in the chair, taking a breathing treatment, coughing, appears uncomfortable, short of breath, tired. Patient states he does not feel very good today, did not sleep well. 10/18/2016: Sitting at the bedside, just finished working with physical therapy , physical therapist praising patient for how good he is able to do arcing up and down the hallway, utilizing a walker and oxygen. Patient appears more relaxed today, breathing easier, continues to produce whitish sputum, more noted early in the morning less as the day progresses, more awake and more participatory in activity. 10/19/2016: Lying in bed, resting comfortably. Appears relaxed, breathing easier, continues to produce whitish greenish sputum, sputum culture sent, states he feels better each day. Tolerating his diet, eating about 75% today. No BM since admission, ordered lactulose. 10/20/2016: Lying in bed, receiving treatment. Appears relaxed, breathing easier, continues to produce whitish sputum area sputum culture negative for growth. Tolerates his diet, however says his appetite is low, it only about 50 % of his meal. Last BM was today. Patient would like to go to rehab before going home. Case management notified. 10/21/2016: Sitting up the bed eating his meal states he feels better, breathing easier, has a cough, continues to produce whitish sputum, sputum culture negative. Tolerates his diet, happy to be going to rehab. Last BM today. REVIEW OF SYSTEMS: Done for constitutional ,cardiovascular, GI, pulmonary with relevant findings as above. CURRENT MEDICATIONS Augmentin, Coreg, Mucinex, Solu-Medrol, theophylline. PHYSICAL EXAM VITAL SIGNS: Temperature 96.4, pulse 85, respiratory rate 16 blood pressure 157/72 oxygen saturation 94% on 3 L. GENERAL APPEARANCE: Sitting on the edge of the bed, appears comfortable, mild short of breath on minimal exertion EYES: Pupils equal. Conjunctiva normal. NECK: JVD not raised. Mass not palpable. RESPIRATORY: Respiratory effort increased. Lungs decreased bilaterally, wheezing , prolonged expiration CARDIOVASCULAR: First and second sounds normal. Mild edema. ABDOMEN: Soft. Liver and spleen not palpable. No tenderness. No mass palpable. PSYCHIATRY: Alert and oriented x3. Mood and affect calm and cooperative today. INVESTIGATIONS: None new ASSESSMENT: -Left lower lobe pneumonia, suspect gram-negative organism, causing sepsis on presentation leading to acute COPD exacerbation, improving -Acute COPD exacerbation in an ex-smoker, improving -Obesity BMI greater than 30.4 -Coronary artery disease with prior history of stent -primary osteoarthritis of multiple joints bilateral -GERD -essential hypertension -chronic hypoxic respiratory failure on 2.5 L home oxygen secondary to COPD -peripheral arterial disease -chronic diverticulosis -irritable bowel syndrome -Peripheral neuropathy cause unknown -Troponin leak, likely from hemodynamic instability not acute cororary syndrome -Medical debility related to chronic disease. PLAN: Continue current medication and treatment plan to include IV antibiotics, steroids and bronchodilators. Discharge planning the next couple of days. FRICTION PAINT MACHINE TENDER statement: Patient was seen and examined by nurse practitioner Alycia Christie and all elements of the case discussed with attending Dr. Lagunas <Miguelangel Lagunas - Last Filed: 10/22/16 17:42> Progress Note - Text Attending note. Date of service-10/21/2016 This patient was seen and examined by me . I reviewed the note of my nurse practitioner, Ms. Christie. Discussed with her, additional findings as below. Patient admitted with COPD exacerbation and pneumonia. Doing better. Breathing is improved. Sputum production greatly improved. Tolerating his diet On examination: Sitting up in a chair, lungs decreased breath sounds, cardiovascular first seconds are normal Investigations: Accu-Cheks noted Assessment and plan: Acute COPD exacerbation and pneumonia, clinically improving. Pending patient transferred to go to rehab. Care was discussed with the patient
[2016-10-21 20:59] LABS: Glucose,Whole Blood 198 mg/dL (75-99)
[2016-10-21] MEDS: DIAZEPAM 5 MG TAB PO SCH (21:58)
[2016-10-21] MEDS: SPIRONOLACTONE 25 MG TAB PO SCH (21:59)
[2016-10-21] MEDS: amLODIPine 5 MG TAB PO SCH (21:59)
[2016-10-21] MEDS: SERTRALINE 50 MG TAB PO SCH (22:00)
[2016-10-22] MEDS: methylPREDNISolone SOD SUCCI 40 MG/ML 1 ML VIAL IV SCH ×3 (01:46→15:59)
[2016-10-22 07:12] LABS: Glucose,Whole Blood 88 mg/dL (75-99)
[2016-10-22] MEDS: IPRATROPIUM-ALBUTEROL 3 ML NEB INHALATION SCH ×3 (07:23→15:59)
[2016-10-22] MEDS: BUDESONIDE 1 MG/2 ML NEBU INHALATION SCH (07:23)
[2016-10-22] MEDS: INSULIN LISPRO (humaLOG) 300 UNIT/3 ML VIAL SQ SCH ×2 (08:08→12:42)
[2016-10-22] MEDS: HYDROcodone/APAP 10-325MG 1 EACH TAB PO PRN ×2 (09:53→16:01)
[2016-10-22] MEDS: LACTULOSE 20 GM/30 ML CUP PO SCH ×2 (09:53→15:59)
[2016-10-22] MEDS: ENOXAPARIN 40 MG/0.4 ML SYRINGE SQ SCH (09:53)
[2016-10-22] MEDS: THEOPHYLLINE 24 HOUR 300 MG CAP.ER.24H PO SCH (09:56)
[2016-10-22] MEDS: AMOXIC-POT CLAV 875-125MG 1 EACH TAB PO SCH (09:57)
[2016-10-22] MEDS: hydrALAZINE HCL 25 MG TAB PO SCH (09:57)
[2016-10-22] MEDS: HYDROCHLOROTHIAZIDE 50 MG TAB PO SCH (09:58)
[2016-10-22] MEDS: LOSARTAN 50 MG TAB PO SCH (09:58)
[2016-10-22] MEDS: guaiFENesin 600 MG TABLET.ER PO SCH (09:58)
[2016-10-22] MEDS: SENNOSIDES-DOCUSATE SODIUM 1 EACH TAB PO SCH (09:59)
[2016-10-22] MEDS: FUROSEMIDE 20 MG TAB PO SCH (09:59)
[2016-10-22] MEDS: CARVEDILOL 6.25 MG TAB PO SCH (09:59)
[2016-10-22 10:53] LABS: CH 28.2; CHCM 32.4; HCT 41.1 % (39.0-53.0); HDW 2.59; HGB 13.6 gm/dL (13.0-17.5); Immature Gran Flag Moderate; MCHC 33.2 g/dL (31.0-37.0); MCV 87.5 fL (80.0-100.0); Mean Platelet Volume 7.4; RDW 13.9 % (11.5-15.5); WBC 9.8 k/uL (3.8-10.6); WBC (Perox) 10.01
[2016-10-22 11:05] LABS: Anion Gap 8 mmol/L; Blood Urea Nitrogen 29 mg/dL (9-20); Calcium 9.7 mg/dL (8.4-10.2); Carbon Dioxide 33 mmol/L (22-30); Chloride 96 mmol/L (98-107); Glucose 106 mg/dL (74-99); Non-African American GFR(MDRD) >60 (>60 ml/min/1.73 sqM); Sodium 137 mmol/L (137-145)
[2016-10-22 11:47] LABS: Add Differential Manual Differential
[2016-10-22 11:51] LABS: Band Neutrophils % 1.5 %; Manual Review Performed; Nucleated Red Blood Cells 0 /100 WBC (0-0); Total Cells Counted 200
[2016-10-22 11:53] LABS: Glucose,Whole Blood 93 mg/dL (75-99)
--- NOTE | 2016-10-22 15:50 | P.DS ---
<Alycia Christie - Last Filed: 10/22/16 15:34> Providers Date of admission: 10/14/16 21:20 Expected date of discharge: 10/22/16 Attending physician: Miguelangel Lagunas Consults: 10/14/16 21:19 Consult Physician Routine Consulting Provider: Leticia Sheppard Consult Reason/Comments: resp failure, pneumonia, copd Do you want consulting provider notified?: Yes 10/14/16 21:24 Consult Physician Urgent Consulting Provider: Yoandy Tucker Consult Reason/Comments: elevated troponin Do you want consulting provider notified?: Yes Primary care physician: [facility] Hospital Course: FINAL DIAGNOSES: -Left lower lobe pneumonia, suspect gram-negative organism, causing sepsis on presentation leading to acute COPD exacerbation -Acute COPD exacerbation in an ex-smoker -Obesity BMI greater than 30.4 -Coronary artery disease with prior history of stent -primary osteoarthritis of multiple joints bilateral -GERD -essential hypertension -chronic hypoxic respiratory failure on 2.5 L home oxygen secondary to COPD -peripheral arterial disease -chronic diverticulosis -irritable bowel syndrome -Peripheral neuropathy cause unknown -Troponin leak, likely from hemodynamic instability not acute cororary syndrome -Medical debility related to chronic disease. HOSPTIAL COURSE: This is a 76-year-old male who presents with left lower lobe pneumonia, sepsis leading to acute exacerbation of COPD. Patient placed on antibiotics, nebulized bronchodilators, IV Solu-Medrol and nebulized Pulmicort and Mucinex. Pulmonology and cardiology consulted. Overall patient's cough improved, afebrile, less sputum production, continues on oxygen at 3 L nasal cannula, breathing improved, less shortness of breath, with activity tolerance improvement. Blood and sputum cultures negative. Patient's ambulatory to and from the bathroom, with oxygen, tolerating his diet. Due to patient's medical debility, will be transferred to [facility] for rehab. PHYSICAL EXAM: VITAL SIGNS: Temperature 96.9 pulse 82, respirations 16, blood pressure 145/48, oxygen saturation 95% on 3 L CARDIOVASCULAR: First and second sounds noted, trace edema noted to lower extremities RESPIRATORY: Respiratory effort increased, lung sounds diminished bilaterally, uses O2 at 3 L.. Patient was seen and examined by nurse practitioner Alycia Christie in all elements of the case discussed with attending Dr. Lagunas DISPOSITION: [facility]. Patient Condition at Discharge: Good Plan - Discharge Summary New Discharge Prescriptions: New Sennosides-Docusate Sodium [Senokot-S] 2 each PO BID #14 tab Amoxic-Pot Clav 875-125Mg [Augmentin 875-125] 1 each PO Q12HR #6 tab guaiFENesin [Mucinex] 1,200 mg PO Q12HR tab predniSONE 10 mg PO DAILY #30 tab Continue Sertraline [Zoloft] 50 mg PO HS hydrALAZINE HCL [Apresoline] 25 mg PO BID amLODIPine [Norvasc] 5 mg PO HS HYDROcodone/APAP 10-325MG [[place] 10-325] 1.5 tab PO Q4HR PRN PRN Reason: Pain Carvedilol [Coreg] 6.25 mg PO BID Aspirin EC [Ecotrin Low Dose] 81 mg PO Q48H Olmesartan Medoxomil [Benicar] 40 mg PO DAILY Albuterol Inhaler [Ventolin Hfa Inhaler] 2 puff INHALATION RT-Q4H PRN PRN Reason: Shortness Of Breath Fluticasone/Salmeterol [Advair Hfa 115-21 Mcg Inhaler] 2 puff INHALATION RT- BID Furosemide [Lasix] 20 mg PO QAM Theophylline 24 Hour [Maciej-24] 300 mg PO BID Ipratropium-Albuterol Nebulize [Duoneb 0.5 mg-3 mg/3 ml Soln] 3 ml INHALATION RT-QID Spironolactone [Aldactone] 25 mg PO HS Hydrochlorothiazide 50 mg PO QAM Diazepam [Valium] 10 mg PO HS #7 Discontinued predniSONE 15 mg PO DAILY Discharge Medication List Aspirin EC [Ecotrin Low Dose] 81 mg PO Q48H 03/03/16 [History] Carvedilol [Coreg] 6.25 mg PO BID 03/03/16 [History] HYDROcodone/APAP 10-325MG [[place] 10-325] 1.5 tab PO Q4HR PRN 03/03/16 [History] Olmesartan Medoxomil [Benicar] 40 mg PO DAILY 03/03/16 [History] Sertraline [Zoloft] 50 mg PO HS 03/03/16 [History] amLODIPine [Norvasc] 5 mg PO HS 03/03/16 [History] hydrALAZINE HCL [Apresoline] 25 mg PO BID 03/03/16 [History] Albuterol Inhaler [Ventolin Hfa Inhaler] 2 puff INHALATION RT-Q4H PRN 09/24/16 [ History] Fluticasone/Salmeterol [Advair Hfa 115-21 Mcg Inhaler] 2 puff INHALATION RT-BID 09/24/16 [History] Furosemide [Lasix] 20 mg PO QAM 09/24/16 [History] Ipratropium-Albuterol Nebulize [Duoneb 0.5 mg-3 mg/3 ml Soln] 3 ml INHALATION RT -QID 09/24/16 [History] Theophylline 24 Hour [Maciej-24] 300 mg PO BID 09/24/16 [History] Hydrochlorothiazide 50 mg PO QAM 10/14/16 [History] Spironolactone [Aldactone] 25 mg PO HS 10/14/16 [History] Amoxic-Pot Clav 875-125Mg [Augmentin 875-125] 1 each PO Q12HR #6 tab 10/22/16 [ Rx] Diazepam [Valium] 10 mg PO HS #7 10/22/16 [Rx] Sennosides-Docusate Sodium [Senokot-S] 2 each PO BID #14 tab 10/22/16 [Rx] guaiFENesin [Mucinex] 1,200 mg PO Q12HR tab 10/22/16 [Rx] predniSONE 10 mg PO DAILY #30 tab 10/22/16 [Rx] Follow up Appointment(s)/Referral(s): Jesus Manuel Quiñonez MD [REFERRING] - 10/23/16 Leticia Sheppard MD [STAFF PHYSICIAN] - 1 Week [facility], [NON-STAFF] - As Needed (When discharged from [facility] Nick Lira MD [Primary Care Provider] - 2 Weeks Yoandy Tucker MD [STAFF PHYSICIAN] - 1 Week Ambulatory/Diagnostic Orders: Basic Metabolic Panel [LAB.AMB] Location: Determined By Patient Complete Blood Count w/diff [LAB.AMB] Location: Determined By Patient Patient Instructions/Handouts: COPD (Chronic Obstructive Pulmonary Disease) (DC ) Activity/Diet/Wound Care/Special Instructions: heart healthy diet with consistent carbs. Discharge Disposition: TRANSFER TO SNF/ECF <Miguelangel Lagunas - Last Filed: 10/23/16 17:40> Hospital Course: Attending note. Date of service-10/22/2016 This patient was seen and examined by me . I reviewed the note of my nurse practitioner, Ms. Christie. Discussed with her, additional findings as below. patient admitted with acute COPD exacerbation and pneumonia. Responded well to nebulized bronchodilators IV steroids antibiotics. Doing much better the time of discharge. On examination: lungs-decreased breath sounds and mild wheezing, mild edema Investigations: Assessment and plan: acute COPD exacerbation and pneumonia, suspected gram-negative organism. Care was discussed with the patient and questions answered. Discharge planning more than 35 minutes
[2016-10-22 16:11] VITALS: BP 129/59; RESP 18; TEMP 96.1
[2016-10-22 16:13] VITALS: PULSE 90
--- NOTE | 2016-10-22 16:30 | PN ---
This is a 76-year-old gentleman admitted with diagnosis of hypoxemic respiratory failure with purulent tracheobronchitis and possible left lower lobe pneumonia. The patient is doing much better. Sitting up in bed. Talking on the phone. No obvious shortness of breath. States his breathing has improved. Not coughing. Not producing any phlegm. Short of breath with exertion. No fever, no chills. No hemoptysis. Vital signs are stable. Temperature 96.9, heart rate 80, respiratory rate 16, blood pressure 145/48, mean 83, 3-liter saturation is 95%, 2-liter saturation is 94%. Appears in no acute distress. HEENT examination is grossly unremarkable. Mucous membranes are moist. No oral lesions. Neck supple. Full range of motion. No adenopathy or thyromegaly. Neck veins are flat. Cardiovascular examination reveals regular rhythm rate. S1, S2. normal. There is no S3, no S4 or murmur. Lungs reveal diminished breath sounds. A few scattered rhonchi. No wheezes or crackles. Breath sounds are improved. Abdomen is soft. Bowel sounds are heard. Extremities are intact. No cyanosis or clubbing. Labs are reviewed. CBC is completely normal. Sodium and potassium are normal. Chloride 96. CO2 is 33 reflecting the fact that he is a CO2 retainer. Baseline CO2 is probably 58+/- 2 mmHg based on the bicarbonate concentration of 33. BUN and creatinine were 29 and 0.8. Anion gap was normal at 8. Microbiology is all negative. No recent x-rays to report. Medications are reviewed. 1. Acute on chronic hypoxemic and hypercapnic respiratory failure secondary to severe chronic obstructive pulmonary disease and chronic obstructive pulmonary disease exacerbation. 2. Purulent tracheobronchitis versus possible pneumonia left lower lobe. 3. Chronic elevation of left hemidiaphragm making the left lower lobe difficult to interpret. 4. History of moderate pulmonary hypertension. 5. Cor pulmonale. 6. Chronic hypoxemia. PLAN: The patient is doing well. No additional recommendations are made. will continue to follow. Prednisone can be substituted for Solu-Medrol. Symbicort can be substituted for Pulmicort and Perforomist. Discharge planning is apparently underway. Will continue to follow. [facility]
== END 2016-10-22 16:45 | DRG 871 ==
LOC: EC 19:39 → 6SEL 21:20 → 4MS4W 10-19 19:19
PROVIDERS: ADMIT Hospitalist; ATTEND Hospitalist
DX: A41.9 Sepsis, unspecified organism (principal); J15.6 Pneumonia due to other Gram-negative bacteria; J96.21 Acute and chronic respiratory failure with hypoxia; I11.0 Hypertensive heart disease with heart failure; I27.2 Other secondary pulmonary hypertension; I50.9 Heart failure, unspecified; Z99.81 Dependence on supplemental oxygen; J96.22 Acute and chronic respiratory failure with hypercapnia; J44.0 Chronic obstructive pulmonary disease with (acute) lower respiratory infection; J44.1 Chronic obstructive pulmonary disease with (acute) exacerbation; G62.9 Polyneuropathy, unspecified; I48.2 Chronic atrial fibrillation; E66.9 Obesity, unspecified; F17.200 Nicotine dependence, unspecified, uncomplicated; I25.10 Atherosclerotic heart disease of native coronary artery without angina pectoris; I25.2 Old myocardial infarction; I27.81 Cor pulmonale (chronic); I73.9 Peripheral vascular disease, unspecified; J98.6 Disorders of diaphragm; K21.9 Gastro-esophageal reflux disease without esophagitis; K57.90 Diverticulosis of intestine, part unspecified, without perforation or abscess without bleeding; K58.9 Irritable bowel syndrome, unspecified; M15.9 Polyosteoarthritis, unspecified; M19.91 Primary osteoarthritis, unspecified site; Y95 Nosocomial condition; Z79.51 Long term (current) use of inhaled steroids; Z79.52 Long term (current) use of systemic steroids; Z79.899 Other long term (current) drug therapy; Z82.49 Family history of ischemic heart disease and other diseases of the circulatory system; Z79.82 Long term (current) use of aspirin; Z68.30 Body mass index [BMI] 30.0-30.9, adult
CPT/HCPCS: 36415; 71020; 80048; 80053; 80061; 80198; 82550; 82553; 83036; 83605; 83735; 84484; 85025; 85049; 85610; 85730; 87040; 87070; 87205; 93005; 94640; 94760; 96365; 96366; 96375; 96376; 99285

== ENCOUNTER 2017-06-20 16:10 | Inpatient (IN) | payer MEDICARE ==
[2017-06-20] MEDS ORDERED: IPRATROPIUM-ALBUTEROL 3 ML NEB INHALATION STA (16:31)
[2017-06-20] MEDS ORDERED: methylPREDNISolone SOD SUCCI 125 MG/2 ML VIAL IV STA ×2 (16:42→22:43)
[2017-06-20] MEDS ORDERED: LEVOFLOXACIN 500MG-D5W PMX 500 MG in DEXTROSE/WATER 1 100ML.BAG IVPB STA (16:42)
[2017-06-20 16:49] LABS: ABG Base Excess 17.6 mmol/L; ABG Oxygen Saturation 92.7 % (94-97); ABG PCO2 62 mmHg (35-45); ABG PH 7.44 (7.35-7.45); ABG PO2 89 mmHg (83-108); ABG TCO2 44 mmol/L (19-24)
[2017-06-20 16:54] LABS: Basophils % (A) 0 %; Eosinophils # (A) 0.1 k/uL (0-0.7); Eosinophils % (A) 1 %; HCT 43.6 % (39.0-53.0); HGB 13.3 gm/dL (13.0-17.5); Hypochromasia Moderate; Lymphocytes # (A) 0.6 k/uL (1.0-4.8); Lymphocytes % (A) 7 %; MCH 27.7 pg (25.0-35.0); MCHC 30.6 g/dL (31.0-37.0); MCV 90.5 fL (80.0-100.0); Mean Platelet Volume 7.5; Monocytes # (A) 0.2 k/uL (0-1.0); Monocytes % (A) 2 %; Neutrophils # (A) 6.9 k/uL (1.3-7.7); Neutrophils % (A) 89 %; Platelet Count 207 k/uL (150-450); RBC 4.82 m/uL (4.30-5.90); RDW 15.2 % (11.5-15.5); WBC 7.8 k/uL (3.8-10.6)
--- NOTE | 2017-06-20 17:02 | ED ---
SOB HPI - General Chief Complaint: Shortness of Breath Stated Complaint: Cardiology consult Time Seen by Provider: 06/20/17 16:20 Source: EMS Mode of arrival: EMS Limitations: no limitations - History of Present Illness Initial Comments: This is a 77-year-old male with a history of COPD who presents emergency department for worsening cough, congestion, and shortness of breath. He originally presented to [facility] who evaluated him there. While there they noted that he was in respiratory distress. A VBG was performed that showed a CO2 of 80 and a pH of 7.36. The patient was placed on BiPAP at that time and given a breathing treatment. Blood work was also performed and showed a troponin of 1.28. He was started on heparin. Chest x-ray was unremarkable. He was transferred to this facility for definitive treatment and his elevated troponin. The patient currently denies any chest discomfort. He states he has a fluttering in his chest at times however no pain. He does state these been coughing more recently. He does follow with Dr. Scott for his COPD and continues to smoke. He's been compliant with his medications. He is chronically O2 dependent at home. He denies any abdominal pain, nausea, vomiting, or diarrhea. No lower extremity pain or swelling. No other acute complaints at this time. - Related Data Home Medications Medication Instructions Recorded Confirmed Carvedilol [Coreg] 6.25 mg PO BID 03/03/16 06/20/17 HYDROcodone/APAP 10-325MG [[place] 1 - 2 tab PO Q4HR PRN 03/03/16 06/20/17 10-325] Olmesartan Medoxomil [Benicar] 40 mg PO DAILY 03/03/16 06/20/17 Sertraline [Zoloft] 50 mg PO DAILY 03/03/16 06/20/17 amLODIPine [Norvasc] 5 mg PO DAILY 03/03/16 06/20/17 hydrALAZINE HCL [Apresoline] 25 mg PO BID 03/03/16 06/20/17 Albuterol Inhaler [Ventolin Hfa 2 puff INHALATION RT-Q4H PRN 09/24/16 06/20/17 Inhaler] Fluticasone/Salmeterol [Advair Hfa 2 puff INHALATION RT-BID 06/13/17 03/09/18 115-21 Mcg Inhaler] Furosemide [Lasix] 20 mg PO DAILY 09/24/16 06/20/17 Ipratropium-Albuterol Nebulize 3 ml INHALATION RT-QID 09/24/16 06/20/17 [Duoneb 0.5 mg-3 mg/3 ml Soln] Theophylline 24 Hour [Maciej-24] 300 mg PO BID 09/24/16 06/20/17 Hydrochlorothiazide 50 mg PO DAILY 10/14/16 06/20/17 Spironolactone [Aldactone] 25 mg PO DAILY 10/14/16 06/20/17 Diazepam [Valium] 5 mg PO HS 06/20/17 06/20/17 Triamcinolone 0.1% Ointment 1 applic TOPICAL BID PRN 06/20/17 06/20/17 [Kenalog 0.1% Ointment] Allergies Allergy/AdvReac Type Severity Reaction Status Date / Time No Known Allergies Allergy Verified 06/20/17 17:10 Review of Systems ROS Statement: Those systems with pertinent positive or pertinent negative responses have been documented in the HPI. ROS Other: All systems not noted in ROS Statement are negative. Past Medical History Past Medical History: Atrial Fibrillation, Heart Failure, COPD, GERD/Reflux, Hyperlipidemia, Hypertension, Myocardial Infarction ([place]), Osteoarthritis (OA), Pneumonia, Respiratory Disorder, Sleep Apnea/CPAP/BIPAP, Vascular Disorder Additional Past Medical History / Comment(s): Chronic hypoxic respiratory failure, O2 at 2.5L/NC ATC, ischemic heart disease, PAD/PVD, diverticular dx, benign polypectomy, IBS, arthritis multiple joints bilaterally, numbness/ tingling bilateral feet. Last Myocardial Infarction Date:: unknown-prior to 2002 History of Any Multi-Drug Resistant Organisms: None Reported Past Surgical History: Heart Catheterization With Stent Additional Past Surgical History / Comment(s): PCI with stent 2002, L SFA angiogram/atherectomy/BARREL AND RECEIVER ALIGNER, R SFA atherectomy/angioplasty, pilonidal cystectomy, bilateral sebacious cysts removed from axillae, cervical sx with plates and screws, back surgery with plate, colonoscopy. Past Anesthesia/Blood Transfusion Reactions: No Reported Reaction Date of Last Stent Placement:: 2002 Past Psychological History: Depression Smoking Status: Current every day smoker Past Alcohol Use History: Occasional Past Drug Use History: None Reported - Past Family History Mother Family Medical History: No Reported History Additional Family Medical History / Comment(s): Mother was healthy and at the age of 92 yrs. Father Family Medical History: Coronary Artery Disease (CAD), Myocardial Infarction ([place] ) Additional Family Medical History / Comment(s): Father had a [place] in his 70's. He had CABG and back surgery. General Exam - General Exam Comments Initial Comments: Constitutional: Awake alert Appears comfortable Head: Normocephalic atraumatic Eyes: no conjunctival injection No scleral icterus EOMI Neck: No JVD Supple Heart: Regular rate rhythm normal S1-S2 no murmurs Lungs: Patient is tachypneic and has conversational dyspnea, there is expiratory wheezing bilaterally, no rhonchi or rales Abdomen: Soft nondistended nontender Extremities: Non edematous DP pulses intact Radial pulses intact Neuro: A&Ox3 No focal neurologic deficits Psych: Appropriate mood and affect Limitations: no limitations Course Vital Signs 06/20/17 06/20/17 06/20/17 16:13 16:58 17:06 Temperature 98.7 F Pulse Rate 83 83 90 Respiratory 22 Rate Blood Pressure 163/70 O2 Sat by Pulse 95 Oximetry 06/20/17 17:22 Temperature Pulse Rate 85 Respiratory 16 Rate Blood Pressure 177/78 O2 Sat by Pulse 94 L Oximetry Medical Decision Making - Medical Decision Making This is a 77-year-old male who presented from outside hospital for shortness of breath and elevated troponin. The patient initially was found to be hyper With a CO2 of 80 at outside hospital. Repeat ABG here shows a CO2 of 60 which is well compensated. Patient is comfortable at bedside and does not require BiPAP at this time. Oxygen sats are low 90s on 2 L. Patient's troponin did elevate to [address] segment changes on EKGs. Patient is on heparin currently. Will admit for cardiology evaluation and also treatment of COPD exacerbation area of no chest x-ray done outside hospital did not show any infiltrates. Dr. Gibson accepts the admission. - Lab Data Result diagrams: 06/20/17 16:45 06/20/17 16:45 Lab Results 06/20/17 06/20/17 06/20/17 Range/Units 16:45 16:45 16:45 WBC 7.8 (3.8-10.6) k/uL RBC 4.82 (4.30-5.90) m/uL Hgb 13.3 (13.0-17.5) gm/dL Hct 43.6 (39.0-53.0) % MCV 90.5 (80.0-100.0) fL MCH 27.7 (25.0-35.0) pg MCHC 30.6 L (31.0-37.0) g/dL RDW 15.2 (11.5-15.5) % Plt Count 207 (150-450) k/uL Neutrophils % 89 % Lymphocytes % 7 % Monocytes % 2 % Eosinophils % 1 % Basophils % 0 % Neutrophils # 6.9 (1.3-7.7) k/uL Lymphocytes # 0.6 L (1.0-4.8) k/uL Monocytes # 0.2 (0-1.0) k/uL Eosinophils # 0.1 (0-0.7) k/uL Basophils # 0.0 (0-0.2) k/uL Hypochromasia Moderate PT 9.7 (9.0-12.0) sec INR 1.0 (<1.2) APTT 69.6 H (22.0-30.0) sec Sample Site ABG pH (7.35-7.45) ABG pCO2 (35-45) mmHg ABG pO2 (83-108) mmHg ABG HCO3 (21-25) mmol/L ABG Total CO2 (19-24) mmol/L ABG O2 Saturation (94-97) % ABG Base Excess mmol/L Raimundo Test FiO2 % Sodium 142 (137-145) mmol/L Potassium 4.1 (3.5-5.1) mmol/L Chloride 94 L (98-107) mmol/L Carbon Dioxide 38 H (22-30) mmol/L Anion Gap 10 mmol/L BUN 27 H (9-20) mg/dL Creatinine 0.70 (0.66-1.25) mg/dL Est GFR (CKD-EPI)AfAm >90 (>60 ml/min/1.73 sqM) Est GFR (CKD-EPI)NonAf >90 (>60 ml/min/1.73 sqM) Glucose 123 H (74-99) mg/dL Calcium 9.8 (8.4-10.2) mg/dL Total Bilirubin 0.5 (0.2-1.3) mg/dL AST 25 (17-59) U/L ALT 26 (21-72) U/L Alkaline Phosphatase 112 (38-126) U/L Troponin I (0.000-0.034) ng/mL Total Protein 6.6 (6.3-8.2) g/dL Albumin 3.7 (3.5-5.0) g/dL 06/20/17 06/20/17 Range/Units 16:45 16:47 WBC (3.8-10.6) k/uL RBC (4.30-5.90) m/uL Hgb (13.0-17.5) gm/dL Hct (39.0-53.0) % MCV (80.0-100.0) fL MCH (25.0-35.0) pg MCHC (31.0-37.0) g/dL RDW (11.5-15.5) % Plt Count (150-450) k/uL Neutrophils % % Lymphocytes % % Monocytes % % Eosinophils % % Basophils % % Neutrophils # (1.3-7.7) k/uL Lymphocytes # (1.0-4.8) k/uL Monocytes # (0-1.0) k/uL Eosinophils # (0-0.7) k/uL Basophils # (0-0.2) k/uL Hypochromasia PT (9.0-12.0) sec INR (<1.2) APTT (22.0-30.0) sec Sample Site LRAD ABG pH 7.44 (7.35-7.45) ABG pCO2 62 H (35-45) mmHg ABG pO2 89 (83-108) mmHg ABG HCO3 42 H* (21-25) mmol/L ABG Total CO2 44 H (19-24) mmol/L ABG O2 Saturation 92.7 L (94-97) % ABG Base Excess 17.6 mmol/L Raimundo Test Yes FiO2 36 % Sodium (137-145) mmol/L Potassium (3.5-5.1) mmol/L Chloride (98-107) mmol/L Carbon Dioxide (22-30) mmol/L Anion Gap mmol/L BUN (9-20) mg/dL Creatinine (0.66-1.25) mg/dL Est GFR (CKD-EPI)AfAm (>60 ml/min/1.73 sqM) Est GFR (CKD-EPI)NonAf (>60 ml/min/1.73 sqM) Glucose (74-99) mg/dL Calcium (8.4-10.2) mg/dL Total Bilirubin (0.2-1.3) mg/dL AST (17-59) U/L ALT (21-72) U/L Alkaline Phosphatase (38-126) U/L Troponin I 2.000 H* (0.000-0.034) ng/mL Total Protein (6.3-8.2) g/dL Albumin (3.5-5.0) g/dL Disposition Clinical Impression: NSTEMI (non-ST elevated myocardial infarction), COPD exacerbation Disposition: ADMITTED IP TO THIS HOSP Condition: Stable
[2017-06-20 17:04] LABS: ABG HCO3 42 mmol/L (21-25)
[2017-06-20 17:05] LABS: Prothrombin Time 9.7 sec (9.0-12.0)
[2017-06-20 17:20] LABS: ALT 26 U/L (21-72); AST 25 U/L (17-59); Albumin 3.7 g/dL (3.5-5.0); Alkaline Phosphatase 112 U/L (38-126); Blood Urea Nitrogen 27 mg/dL (9-20); Calcium 9.8 mg/dL (8.4-10.2); Chloride 94 mmol/L (98-107); Glucose 123 mg/dL (74-99); Potassium 4.1 mmol/L (3.5-5.1); Sodium 142 mmol/L (137-145); Total Bilirubin 0.5 mg/dL (0.2-1.3); Total Protein 6.6 g/dL (6.3-8.2)
[2017-06-20] MEDS: HEPARIN SOD,PORK IN 0.45% NACL 25,000 UNIT in 0.45% NACL 1 500ML.BAG IV SCH (17:26)
[2017-06-20 17:30] LABS: Partial Thromboplastin Time 69.6 sec (22.0-30.0)
[2017-06-20 17:32] LABS: Anion Gap 10 mmol/L; Carbon Dioxide 38 mmol/L (22-30)
[2017-06-20] MEDS ORDERED: NITROGLYCERIN SL TABS 0.4 MG TAB SUBLINGUAL PRN (17:44)
[2017-06-20] MEDS ORDERED: TRIAMCINOLONE ACET 0.1% OINTMENT 15 GM TUBE TOPICAL PRN (17:46)
[2017-06-20] MEDS: SYMBICORT 160-4.5 MCG INHALER INHALATION SCH (20:33)
[2017-06-20] MEDS: IPRATROPIUM-ALBUTEROL 3 ML NEB INHALATION SCH (20:33)
[2017-06-20] MEDS: hydrALAZINE HCL 25 MG TAB PO SCH (21:43)
[2017-06-20] MEDS: HYDROcodone/APAP 10-325MG 1 EACH TAB PO PRN (21:43)
[2017-06-20] MEDS: THEOPHYLLINE 24 HOUR 300 MG CAP.ER.24H PO SCH (21:44)
[2017-06-20] MEDS: DIAZEPAM 5 MG TAB PO SCH (22:24)
[2017-06-20] MEDS: CARVEDILOL 6.25 MG TAB PO SCH (22:27)
[2017-06-20] MEDS ORDERED: IPRATROPIUM-ALBUTEROL 3 ML NEB INHALATION PRN (22:38)
[2017-06-20] MEDS ORDERED: HEPARIN SODIUM,PORCINE 5,000 UNIT/ML 1 ML VIAL IV PRN (22:39)
[2017-06-20 23:23] LABS: Creatine Kinase MB 3.1 ng/mL (0.0-2.4); Troponin I 1.81 ng/mL (0.000-0.034)
[2017-06-21 05:29] VITALS: BMI 30.7
[2017-06-21] MEDS: amLODIPine 5 MG TAB PO SCH ×2 (05:44→11:08)
[2017-06-21] MEDS: HYDROcodone/APAP 10-325MG 1 EACH TAB PO PRN ×2 (05:48→22:02)
[2017-06-21 06:12] LABS: Cholesterol 160 mg/dL (<200); HDL Cholesterol 59 mg/dL (40-60); LDL Cholesterol,Calculated 81 mg/dL (0-99); Triglycerides 101 mg/dL (<150)
[2017-06-21] MEDS: CARVEDILOL 6.25 MG TAB PO SCH ×2 (06:41→18:18)
[2017-06-21 06:55] LABS: Creatine Kinase MB 3.3 ng/mL (0.0-2.4)
[2017-06-21 06:56] LABS: Troponin I 1.73 ng/mL (0.000-0.034)
[2017-06-21] MEDS: SYMBICORT 160-4.5 MCG INHALER INHALATION SCH ×2 (08:38→20:41)
[2017-06-21] MEDS: IPRATROPIUM-ALBUTEROL 3 ML NEB INHALATION SCH ×4 (08:38→20:41)
--- NOTE | 2017-06-21 10:40 | CONS ---
CONSULTATION Mr. Doan is a 77-year-old male patient with severe lung disease who was admitted to [facility] with severe shortness of breath. He was transferred here because of an abnormal troponin. When I saw this morning, he was very short of breath; he was cyanotic and was on a BiPAP mask. He denies any chest discomfort or any loss of consciousness. MEDICATION LIST: His medication list includes: 1. Carvedilol. 2. Benicar. 3. Amlodipine. 4. Hydralazine. 5. Lasix. 6. Spironolactone. ALLERGIES: NO KNOWN DRUG ALLERGIES. PAST HISTORY: 1. Atrial fibrillation. 2. COPD. 3. Hypertension. 4. History of MD. 5. Obstructive sleep apnea. 6. Severe lung disease. 7. Hypoxic respiratory failure, on home oxygen. 8. Peripheral vascular, disease status post stenting. 9. Coronary stenting in 2002. 10.Atherectomy in the past. SOCIAL HISTORY: He is a current smoker. FAMILY HISTORY: Noncontributory. REVIEW OF SYSTEMS: He has had some fever, chills, cough expectoration, shortness of breath. No nausea, vomiting or diarrhea. No hematuria or dysuria. No strokes or seizures. No skin lesions or musculoskeletal complaints. PHYSICAL EXAMINATION: He is very tachypneic. He is cyanotic. Even at rest his respirations are labored. Pulse rate is in the 80s. Blood pressure is 185/84 mmHg this morning, but prior to that it was 119/56 mmHg. HEAD AND NECK EXAMINATION: No JVD. Breath sounds are reduced bilaterally with rhonchorous breath sounds and crackles and bilateral wheezing. Heart sounds are distant. ABDOMEN: Soft. Extremities are fairly blue. LABS: Labs are reviewed. He has abnormal troponin with a downward trend. EKG was reviewed and shows 1.[address] depression in the lateral precordial leads and the high lateral leads. IMPRESSION: 1. Likely non-Q-wave myocardial infarction, although this could be viral myocarditis. 2. Chronic obstructive pulmonary disease exacerbation and hypoxic respiratory failure at this time. 3. Hypertension. 4. Coronary artery disease, status post stenting. 5. Peripheral vascular disease, status post atherectomy and peripheral interventions. SUGGEST: Medical treatment for now. I do not see atorvastatin on his medical records. I will start him on 20 mg of atorvastatin. I believe he had a history of intolerance to statins. MMODL / IJN: [id number] /
[2017-06-21] MEDS: methylPREDNISolone SOD SUCCI 125 MG/2 ML VIAL IV SCH ×2 (11:06→16:51)
[2017-06-21] MEDS: ASPIRIN 325 MG TAB PO SCH (11:07)
[2017-06-21] MEDS: THEOPHYLLINE 24 HOUR 300 MG CAP.ER.24H PO SCH ×2 (11:07→22:02)
[2017-06-21] MEDS: FUROSEMIDE 20 MG TAB PO SCH (11:07)
[2017-06-21] MEDS: hydrALAZINE HCL 25 MG TAB PO SCH ×2 (11:08→22:01)
[2017-06-21] MEDS: HYDROCHLOROTHIAZIDE 50 MG TAB PO SCH (11:08)
[2017-06-21] MEDS: SERTRALINE 50 MG TAB PO SCH (11:09)
[2017-06-21] MEDS: LOSARTAN 50 MG TAB PO SCH (11:09)
[2017-06-21] MEDS: SPIRONOLACTONE 25 MG TAB PO SCH (11:09)
[2017-06-21] MEDS: ATORVASTATIN 20 MG TAB PO SCH (13:35)
[2017-06-21] MEDS: HEPARIN SOD,PORK IN 0.45% NACL 25,000 UNIT in 0.45% NACL 1 500ML.BAG IV SCH (20:21)
[2017-06-21] MEDS: DIAZEPAM 5 MG TAB PO SCH (22:02)
[2017-06-22] MEDS: methylPREDNISolone SOD SUCCI 125 MG/2 ML VIAL IV SCH ×4 (01:22→23:10)
[2017-06-22] MEDS: HYDROcodone/APAP 10-325MG 1 EACH TAB PO PRN ×2 (04:12→20:20)
[2017-06-22 06:31] LABS: Basophils % (A) 0 %; Eosinophils % (A) 0 %; HCT 37.4 % (39.0-53.0); Hypochromasia Slight; Lymphocytes # (A) 0.6 k/uL (1.0-4.8); Lymphocytes % (A) 7 %; MCH 27.9 pg (25.0-35.0); MCV 87.2 fL (80.0-100.0); Mean Platelet Volume 7.8; Monocytes # (A) 0.4 k/uL (0-1.0); Monocytes % (A) 4 %; Neutrophils # (A) 7.5 k/uL (1.3-7.7); Neutrophils % (A) 88 %; Platelet Count 222 k/uL (150-450); RBC 4.29 m/uL (4.30-5.90); RDW 15.4 % (11.5-15.5); WBC 8.6 k/uL (3.8-10.6)
[2017-06-22] MEDS: CARVEDILOL 6.25 MG TAB PO SCH ×2 (06:53→16:47)
[2017-06-22 07:00] LABS: Anion Gap 8 mmol/L; Blood Urea Nitrogen 36 mg/dL (9-20); Calcium 9.6 mg/dL (8.4-10.2); Carbon Dioxide 36 mmol/L (22-30); Chloride 95 mmol/L (98-107); Glucose 137 mg/dL (74-99); Potassium 3.6 mmol/L (3.5-5.1); Sodium 139 mmol/L (137-145)
[2017-06-22] MEDS: SYMBICORT 160-4.5 MCG INHALER INHALATION SCH ×2 (08:55→20:14)
[2017-06-22] MEDS: IPRATROPIUM-ALBUTEROL 3 ML NEB INHALATION SCH ×4 (08:55→20:14)
[2017-06-22] MEDS: ASPIRIN 325 MG TAB PO SCH (09:25)
[2017-06-22] MEDS: ATORVASTATIN 20 MG TAB PO SCH (09:25)
[2017-06-22] MEDS: THEOPHYLLINE 24 HOUR 300 MG CAP.ER.24H PO SCH ×2 (09:25→20:20)
[2017-06-22] MEDS: HYDROCHLOROTHIAZIDE 50 MG TAB PO SCH (09:26)
[2017-06-22] MEDS: SERTRALINE 50 MG TAB PO SCH (09:26)
[2017-06-22] MEDS: hydrALAZINE HCL 25 MG TAB PO SCH ×2 (09:26→20:21)
[2017-06-22] MEDS: FUROSEMIDE 20 MG TAB PO SCH (09:26)
[2017-06-22] MEDS: SPIRONOLACTONE 25 MG TAB PO SCH (09:27)
--- NOTE | 2017-06-22 10:43 | P.PN ---
Subjective Patient is doing better than yesterday. He is able to lie flat in bed. He is less short of breath today. Denies any chest discomfort On examination his blood pressure is 139/69 mmHg afebrile 97.3F Breath sounds are significantly reduced with bibasilar crackles, rhonchorous breath sounds Heart sounds are soft Abdomen is soft Impression Acute and chronic respiratory failure with severe end-stage underlying lung disease Likely non-Q-wave CO Suggest Continue aspirin, continue atorvastatin, patient has a history of myalgias, continue beta blockers continue losartan Switched to 2 baby aspirins Objective - Vital Signs Vital signs: Vital Signs Temp 97.3 F L 06/22/17 09:24 Pulse 62 06/22/17 09:24 Resp 20 06/22/17 09:24 BP 139/69 06/22/17 09:24 Pulse Ox 93 L 06/22/17 09:24 Intake & Output 06/21/17 06/22/17 06/22/17 17:59 06:59 18:59 Intake Total 818.749 Output Total 300 Balance 518.749 Weight Intake: IV 208 Heparin Sod,Pork in 0.45% 208 NaCl 25,000 unit In 0.45 % NaCl 1 500ml.bag @ 9.7 UNITS/KG/HR 19.97 mls/hr IV .Q24H [facility]I Rx#: [id number] Intake, IV Titration 310.749 Amount Heparin Sod,Pork in 0.45% 310.749 NaCl 25,000 unit In 0.45 % NaCl 1 500ml.bag @ 9.7 UNITS/KG/HR 19.97 mls/hr IV .Q24H [facility]I Rx#: [id number] Oral 300 Output: Urine 300 Other: Voiding Method # Voids 250 - Labs CBC & Chem 7: 06/22/17 06:09 06/22/17 06:09 Labs: Abnormal Lab Results - Last 24 Hours (Table) 06/22/17 06/22/17 06/22/17 Range/Units 06:09 06:09 06:09 RBC 4.29 L (4.30-5.90) m/uL Hgb 12.0 L (13.0-17.5) gm/dL Hct 37.4 L (39.0-53.0) % Lymphocytes # 0.6 L (1.0-4.8) k/uL APTT 36.1 H (22.0-30.0) sec Chloride 95 L (98-107) mmol/L Carbon Dioxide 36 H (22-30) mmol/L BUN 36 H (9-20) mg/dL Glucose 137 H (74-99) mg/dL
[2017-06-22 12:16] LABS: Glucose,Whole Blood 110 mg/dL (75-99)
[2017-06-22 12:27] LABS: Glucose,Whole Blood 111 mg/dL (75-99)
[2017-06-22] MEDS: LOSARTAN 50 MG TAB PO SCH (13:01)
[2017-06-22] MEDS: HEPARIN SOD,PORK IN 0.45% NACL 25,000 UNIT in 0.45% NACL 1 500ML.BAG IV SCH (14:51)
[2017-06-22 17:07] LABS: Glucose,Whole Blood 150 mg/dL (75-99)
--- NOTE | 2017-06-22 17:11 | P.HPIM ---
History of Present Illness H&P Date: 06/21/17 Chief Complaint: Shortness of breath Patient is a 77-year-old male with a known history of COPD on home oxygen, coronary artery disease with history of stent placement and multiple other medical problems was initially presented to [facility] with complaints of worsening cough congestion and shortness of breath. Patient was placed on BiPAP at a time and was continued on breathing treatments and steroids. Patient was found to have elevated troponin level I.28. Patient was started on heparin drip and transferred to [facility] for further evaluation by cardiology. Otherwise patient denied any chest discomfort. Chest x-ray showed no acute process. Patient does have cough without much sputum production. No nausea vomiting or abdominal pain. No leg worsening leg swelling. No other plates at this time. A dsouza is currently on BiPAP machine. Troponin 2.0, 1.8 [address] depression in the lateral leads. Sinus rhythm Review of Systems Constitutional: Patient denies any fever or chills . No generalized weakness or weight loss. Abdomen: Patient denied nausea vomiting and diarrhea and abdominal pain. Cardiovascular: Patient denies any chest pain or short of breath no palpitations. Respiratory: Cough without sputum production and shortness of breath. Neurologic: Patient denied any numbness or tingling headache. Musculoskeletal: Patient denies any complaints of joint swelling or deformity. Skin: Negative Psychiatric: Negative Endocrine: No heat or cold intolerance. No recent weight gain. Genitourinary: No dysuria or hematuria. All other 14 point ROS negative except the above Past Medical History Past Medical History: Atrial Fibrillation, Heart Failure, COPD, GERD/Reflux, Hyperlipidemia, Hypertension, Myocardial Infarction (DE), Osteoarthritis (OA), Pneumonia, Respiratory Disorder, Sleep Apnea/CPAP/BIPAP, Vascular Disorder Additional Past Medical History / Comment(s): Chronic hypoxic respiratory failure, O2 at 2.5L/NC ATC, ischemic heart disease, PAD/PVD, diverticular dx, benign polypectomy, IBS, arthritis multiple joints bilaterally, numbness/ tingling bilateral feet. Last Myocardial Infarction Date:: unknown-prior to 2002 History of Any Multi-Drug Resistant Organisms: None Reported Past Surgical History: Heart Catheterization With Stent Additional Past Surgical History / Comment(s): PCI with stent 2002, L SFA angiogram/atherectomy/[employer], R SFA atherectomy/angioplasty, pilonidal cystectomy, bilateral sebacious cysts removed from axillae, cervical sx with plates and screws, back surgery with plate, colonoscopy. Past Anesthesia/Blood Transfusion Reactions: No Reported Reaction Date of Last Stent Placement:: 2002 Past Psychological History: Depression Additional Psychological History / Comment(s): Pt resides with his spouse. He is on O2 at 2.5L/NC ATC. He ambulates mostly with a cane. He drives. He has a nebulizer. Smoking Status: Current every day smoker Past Alcohol Use History: Occasional Additional Past Alcohol Use History / Comment(s): Pt started smoking in 1956 and is less than a ppd smoker. Past Drug Use History: None Reported - Past Family History Mother Family Medical History: No Reported History Additional Family Medical History / Comment(s): Mother was healthy and at the age of 92 yrs. Father Family Medical History: Coronary Artery Disease (CAD), Myocardial Infarction (DE ) Additional Family Medical History / Comment(s): Father had a DE in his 70's. He had CABG and back surgery. Medications and Allergies Home Medications Medication Instructions Recorded Confirmed Type Carvedilol [Coreg] 6.25 mg PO BID 03/03/16 06/20/17 History HYDROcodone/APAP 10-325MG [[place] 1 - 2 tab PO Q4HR PRN 03/03/16 06/20/17 History 10-325] Olmesartan Medoxomil [Benicar] 40 mg PO DAILY 03/03/16 06/20/17 History Sertraline [Zoloft] 50 mg PO DAILY 03/03/16 06/20/17 History amLODIPine [Norvasc] 5 mg PO DAILY 03/03/16 06/20/17 History hydrALAZINE HCL [Apresoline] 25 mg PO BID 03/03/16 06/20/17 History Albuterol Inhaler [Ventolin Hfa 2 puff INHALATION RT-Q4H PRN 09/24/16 06/20/17 History Inhaler] Fluticasone/Salmeterol [Advair Hfa 2 puff INHALATION RT-BID 09/24/16 06/20/17 History 115-21 Mcg Inhaler] Furosemide [Lasix] 20 mg PO DAILY 09/24/16 06/20/17 History Ipratropium-Albuterol Nebulize 3 ml INHALATION RT-QID 09/24/16 06/20/17 History [Duoneb 0.5 mg-3 mg/3 ml Soln] Theophylline 24 Hour [Maciej-24] 300 mg PO BID 09/24/16 06/20/17 History Hydrochlorothiazide 50 mg PO DAILY 10/14/16 06/20/17 History Spironolactone [Aldactone] 25 mg PO DAILY 10/14/16 06/20/17 History Diazepam [Valium] 5 mg PO HS 06/20/17 06/20/17 History Triamcinolone 0.1% Ointment 1 applic TOPICAL BID PRN 06/20/17 06/20/17 History [Kenalog 0.1% Ointment] Allergies Allergy/AdvReac Type Severity Reaction Status Date / Time No Known Allergies Allergy Verified 06/20/17 17:10 Physical Exam Vitals: Vital Signs Temp Pulse Pulse Resp BP BP Pulse Ox 06/21/17 08:51 84 06/21/17 08:40 76 90 L 06/21/17 08:13 72 20 06/21/17 04:00 96.8 F L 80 28 H 185/84 94 L 06/21/17 00:28 88 06/21/17 00:10 88 06/21/17 00:00 74 28 H 119/56 95 06/20/17 20:45 88 06/20/17 20:34 84 99 06/20/17 20:00 97.3 F L 74 30 H 149/76 95 06/20/17 18:43 98.2 F 106 H 16 175/79 98 06/20/17 18:00 83 18 171/84 94 L 06/20/17 17:22 85 16 177/78 94 L 06/20/17 17:06 90 06/20/17 16:58 83 06/20/17 16:13 98.7 F 83 22 163/70 95 Intake and Output 06/20/17 06/21/17 06/21/17 22:59 06:59 14:59 Intake Total 104.177 160 Balance 104.177 160 Intake: IV 160 Heparin Sod,Pork in 0.45% 160 NaCl 25,000 unit In 0.45 % NaCl 1 500ml.bag @ 9.7 UNITS/KG/HR 19.97 mls/hr IV .Q24H [facility] Rx#: [id number] Intake, IV Titration 104.177 Amount Heparin Sod,Pork in 0.45% 104.177 NaCl 25,000 unit In 0.45 % NaCl 1 500ml.bag @ 9.7 UNITS/KG/HR 19.97 mls/hr IV .Q24H [facility] Rx#: [id number] Other: Voiding Method Toilet Toilet Toilet Urinal # Voids 1 Weight 102.9 kg 105 kg PHYSICAL EXAMINATION: Patient is lying in the bed comfortably, no acute distress, awake alert and oriented.. HEENT: Normocephalic. Neck is supple. Pupils reactive. Nostrils clear. Oral cavity is moist. Ears reveal no drainage. Neck reveals no JVD, carotid bruits, or thyromegaly. CHEST EXAMINATION: Trachea is central. Symmetrical expansion. Bilateral diminished air entry and rhonchi and wheezing present CARDIAC: Normal S1, S2 with no gallops. No murmurs ABDOMEN: Soft. Bowel sounds normal. No organomegaly. No abdominal bruits. Extremities: reveal no edema. No clubbing or cyanosis Neurologically awake, alert, oriented x3 with well-coordinated movements. No focal deficits noted Skin: No rash or skin lesions. Psychiatric: Cooperative. Nonsuicidal Musculoskeletal: No joint swelling or deformity. Normal range of motion. Results CBC & Chem 7: 06/22/17 06:09 06/22/17 06:09 Labs: Abnormal Lab Results - Last 24 Hours (Table) 06/20/17 06/20/17 06/20/17 Range/Units 16:45 16:45 16:45 MCHC 30.6 L (31.0-37.0) g/dL Lymphocytes # 0.6 L (1.0-4.8) k/uL APTT 69.6 H (22.0-30.0) sec ABG pCO2 (35-45) mmHg ABG HCO3 (21-25) mmol/L ABG Total CO2 (19-24) mmol/L ABG O2 Saturation (94-97) % Chloride 94 L (98-107) mmol/L Carbon Dioxide 38 H (22-30) mmol/L BUN 27 H (9-20) mg/dL Glucose 123 H (74-99) mg/dL CK-MB (CK-2) (0.0-2.4) ng/mL Troponin I (0.000-0.034) ng/mL 06/20/17 06/20/17 06/20/17 Range/Units 16:45 16:47 21:36 MCHC (31.0-37.0) g/dL Lymphocytes # (1.0-4.8) k/uL APTT (22.0-30.0) sec ABG pCO2 62 H (35-45) mmHg ABG HCO3 42 H* (21-25) mmol/L ABG Total CO2 44 H (19-24) mmol/L ABG O2 Saturation 92.7 L (94-97) % Chloride (98-107) mmol/L Carbon Dioxide (22-30) mmol/L BUN (9-20) mg/dL Glucose (74-99) mg/dL CK-MB (CK-2) 3.1 H* (0.0-2.4) ng/mL Troponin I 2.000 H* 1.810 H* (0.000-0.034) ng/mL 06/20/17 06/21/17 06/21/17 Range/Units 21:36 05:01 05:01 MCHC (31.0-37.0) g/dL Lymphocytes # (1.0-4.8) k/uL APTT 35.7 H 46.4 H (22.0-30.0) sec ABG pCO2 (35-45) mmHg ABG HCO3 (21-25) mmol/L ABG Total CO2 (19-24) mmol/L ABG O2 Saturation (94-97) % Chloride (98-107) mmol/L Carbon Dioxide (22-30) mmol/L BUN (9-20) mg/dL Glucose (74-99) mg/dL CK-MB (CK-2) 3.3 H* (0.0-2.4) ng/mL Troponin I 1.730 H* (0.000-0.034) ng/mL Thrombosis Risk Factor Assmnt - Choose All That Apply Each Risk Factor Represents 3 Points: Age 75 years or older Thrombosis Risk Factor Assessment Total Risk Factor Score: 3 Thrombosis Risk Factor Assessment Level: Moderate Risk Assessment and Plan Assessment: Shortness of breath secondary to acute COPD exacerbation Acute hypoxic respiratory failure Elevated troponin likely due to non-ST elevated DE Chronic hypoxic and hypercapnic respiratory failure on home oxygen 2.5 L Hypertension Hyperlipidemia Osteoarthritis History of DE Obstructive sleep apnea on CPAP Peripheral vascular disease IBS Numbness and tingling bilateral feet History of black back surgery Depression Plan: Patient will be continued on heparin drip. Cardiology was consulted. Patient was started on atorvastatin 20 mg daily. Continue with steroids IV and breathing treatments and follow closely. Continue with home medications and further recommendations based on the clinical course. 2-D echocardiogram was ordered. Time with Patient: Greater than 30
[2017-06-22] MEDS: DIAZEPAM 5 MG TAB PO SCH (20:20)
[2017-06-22 20:53] LABS: Glucose,Whole Blood 141 mg/dL (75-99)
[2017-06-23 06:08] LABS: Basophils % (A) 0 %; Eosinophils % (A) 0 %; HGB 11.5 gm/dL (13.0-17.5); Hypochromasia Moderate; Lymphocytes # (A) 0.6 k/uL (1.0-4.8); Lymphocytes % (A) 6 %; MCH 26.6 pg (25.0-35.0); MCHC 30.3 g/dL (31.0-37.0); MCV 87.9 fL (80.0-100.0); Mean Platelet Volume 8.2; Monocytes # (A) 0.5 k/uL (0-1.0); Monocytes % (A) 5 %; Neutrophils # (A) 9.1 k/uL (1.3-7.7); Neutrophils % (A) 89 %; Platelet Count 214 k/uL (150-450); RBC 4.33 m/uL (4.30-5.90); RDW 15.7 % (11.5-15.5); WBC 10.3 k/uL (3.8-10.6)
[2017-06-23] MEDS: CARVEDILOL 6.25 MG TAB PO SCH ×2 (06:31→16:34)
[2017-06-23 06:35] LABS: Anion Gap 9 mmol/L; Blood Urea Nitrogen 32 mg/dL (9-20); Calcium 9.3 mg/dL (8.4-10.2); Carbon Dioxide 33 mmol/L (22-30); Chloride 96 mmol/L (98-107); Glucose 146 mg/dL (74-99); Potassium 3.4 mmol/L (3.5-5.1); Sodium 138 mmol/L (137-145)
[2017-06-23 06:50] LABS: Glucose,Whole Blood 145 mg/dL (75-99)
[2017-06-23] MEDS: HEPARIN SOD,PORK IN 0.45% NACL 25,000 UNIT in 0.45% NACL 1 500ML.BAG IV SCH (07:37)
[2017-06-23] MEDS: SYMBICORT 160-4.5 MCG INHALER INHALATION SCH ×2 (07:39→20:00)
[2017-06-23] MEDS: IPRATROPIUM-ALBUTEROL 3 ML NEB INHALATION SCH ×4 (07:39→20:00)
[2017-06-23] MEDS: amLODIPine 5 MG TAB PO SCH (07:52)
[2017-06-23] MEDS: ASPIRIN 81 MG PO SCH (07:52)
[2017-06-23] MEDS: methylPREDNISolone SOD SUCCI 125 MG/2 ML VIAL IV SCH ×2 (07:52→16:34)
[2017-06-23] MEDS: HYDROCHLOROTHIAZIDE 50 MG TAB PO SCH (07:53)
[2017-06-23] MEDS: ATORVASTATIN 20 MG TAB PO SCH (07:53)
[2017-06-23] MEDS: hydrALAZINE HCL 25 MG TAB PO SCH ×2 (07:53→20:10)
[2017-06-23] MEDS: FUROSEMIDE 20 MG TAB PO SCH (07:53)
[2017-06-23] MEDS: SPIRONOLACTONE 25 MG TAB PO SCH (07:54)
[2017-06-23] MEDS: SERTRALINE 50 MG TAB PO SCH (07:54)
[2017-06-23] MEDS: LOSARTAN 50 MG TAB PO SCH (07:54)
[2017-06-23] MEDS: THEOPHYLLINE 24 HOUR 300 MG CAP.ER.24H PO SCH ×2 (07:54→20:11)
[2017-06-23] MEDS: HYDROcodone/APAP 10-325MG 1 EACH TAB PO PRN ×2 (07:57→20:11)
--- NOTE | 2017-06-23 10:16 | P.PN ---
Subjective Patient is breathing a lot better. He looks a lot more comfortable he is lying flat in bed he does not appear to be in any respiratory distress. He is not experiencing any chest pain On examination he is afebrile 97.2F ulcer to 70s, blood pressure 133/62 mmHg Breath sounds are decreased bilaterally with lesser rhonchi and crackles than in the last few days Abdomen soft nontender Heart sounds are normal and soft No murmurs extended is warm no edema Labs are reviewed hemoglobin 11.5 sodium 138 potassium 3.4 renal function normal Impression Severe lung disease on home oxygen, end-stage lung disease COPD exacerbation, improving Likely non-Q-wave myocardial infarction on medical treatment Plan Continue medical treatment without any changes at this point Lipid panel on atorvastatin Previously he was experiencing a lot of aches in his muscles probably from cervical and lumbar spine disease but asked for atorvastatin to be discontinued. I would continue at least at a low dose Objective - Vital Signs Vital signs: Vital Signs Temp 97.2 F L 06/23/17 08:00 Pulse 78 06/23/17 08:00 Resp 18 06/23/17 08:00 BP 150/90 06/23/17 08:00 Pulse Ox 93 L 06/23/17 08:00 Intake & Output 06/22/17 06/23/17 06/23/17 18:59 06:59 18:59 Intake Total 1372.192 810.000 Output Total 1950 1300 Balance -577.808 -490.000 Weight 103 kg Intake: IV 208 310 Heparin Sod,Pork in 0.45% 208 310 NaCl 25,000 unit In 0.45 % NaCl 1 500ml.bag @ 9.7 UNITS/KG/HR 19.97 mls/hr IV .Q24H [facility] Rx#: [id number] Intake, IV Titration 484.192 500.000 Amount Heparin Sod,Pork in 0.45% 484.192 500.000 NaCl 25,000 unit In 0.45 % NaCl 1 500ml.bag @ 9.7 UNITS/KG/HR 19.97 mls/hr IV .Q24H [facility] Rx#: [id number] Oral 680 Output: Urine 1950 1300 Other: Voiding Method Toilet Toilet Urinal Urinal # Voids 250 1 - Labs CBC & Chem 7: 06/23/17 05:40 06/23/17 05:40 Labs: Abnormal Lab Results - Last 24 Hours (Table) 06/22/17 06/22/17 06/22/17 Range/Units 12:06 12:16 15:11 Hgb (13.0-17.5) gm/dL Hct (39.0-53.0) % MCHC (31.0-37.0) g/dL RDW (11.5-15.5) % Neutrophils # (1.3-7.7) k/uL Lymphocytes # (1.0-4.8) k/uL APTT 46.5 H (22.0-30.0) sec Potassium (3.5-5.1) mmol/L Chloride (98-107) mmol/L Carbon Dioxide (22-30) mmol/L BUN (9-20) mg/dL Glucose (74-99) mg/dL POC Glucose (mg/dL) 110 H 111 H (75-99) mg/dL 06/22/17 06/22/17 06/23/17 Range/Units 17:05 20:38 05:40 Hgb 11.5 L (13.0-17.5) gm/dL Hct 38.0 L (39.0-53.0) % MCHC 30.3 L (31.0-37.0) g/dL RDW 15.7 H (11.5-15.5) % Neutrophils # 9.1 H (1.3-7.7) k/uL Lymphocytes # 0.6 L (1.0-4.8) k/uL APTT (22.0-30.0) sec Potassium (3.5-5.1) mmol/L Chloride (98-107) mmol/L Carbon Dioxide (22-30) mmol/L BUN (9-20) mg/dL Glucose (74-99) mg/dL POC Glucose (mg/dL) 150 H 141 H (75-99) mg/dL 06/23/17 06/23/17 06/23/17 Range/Units 05:40 05:40 05:58 Hgb (13.0-17.5) gm/dL Hct (39.0-53.0) % MCHC (31.0-37.0) g/dL RDW (11.5-15.5) % Neutrophils # (1.3-7.7) k/uL Lymphocytes # (1.0-4.8) k/uL APTT 45.5 H (22.0-30.0) sec Potassium 3.4 L (3.5-5.1) mmol/L Chloride 96 L (98-107) mmol/L Carbon Dioxide 33 H (22-30) mmol/L BUN 32 H (9-20) mg/dL Glucose 146 H (74-99) mg/dL POC Glucose (mg/dL) 145 H (75-99) mg/dL
[2017-06-23] MEDS ORDERED: POTASSIUM CHLORIDE ER 20 MEQ TAB.ER PO STA (11:13)
[2017-06-23 12:00] LABS: Glucose,Whole Blood 157 mg/dL (75-99)
[2017-06-23 17:11] LABS: Glucose,Whole Blood 115 mg/dL (75-99)
--- NOTE | 2017-06-23 17:29 | P.CNPUL ---
History of Present Illness Consult date: 06/23/17 Requesting physician: Ariel Gibson Reason for consult: dyspnea, cough, COPD Chief complaint: Worsening cough, congestion, shortness of breath History of present illness: Marco is a 77-year-old white male patient of Dr. Duran, who presented to the emergency department on 06/20/2017 at 1610 with complaints of increasing shortness of breath, cough, congestion, wheezing. The onset of symptoms was 2 days prior to admission. 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 He quit smoking 2 weeks ago, he carries a long history of nicotine dependence. On presentation patient was in significant amount of respiratory distress. A blood gas showed pH of 7.44, pCO2 of 62, pO2 of 89, this was done on FiO2 of 36% . This is consistent with chronic hypercapnic respiratory failure with metabolic compensation. Patient was placed on BiPAP support. Chest x-ray was negative for any acute process. Patient had positive troponins 3, with initial troponin at 2.0. White count on admission was 7.8, hemoglobin 13.3, carbon dioxide is 38, BUN is 27, creatinine 0.70. EKG showed sinus rhythm with PVCs and ST depression in the lateral leads. Patient denies any fever chills or chest pain. His cough is nonproductive. Past medical history includes atrial fibrillation, hypertension, obstructive sleep apnea on BiPAP therapy, hypoxic respiratory failure on home oxygen, peripheral vascular disease with prior stenting, coronary artery disease with PCI and stenting. Patient was started on IV Solu-Medrol, nebulized treatments, Symbicort, aspirin, Coreg, oral Lasix and was admitted for further management. Patient was seen for cardiology, who had diagnosed the patient with non-Q-wave myocardial infarction. In addition, patient has an acute COPD exacerbation with tracheobronchitis, and will be treated for the same. At the time of my evaluation, patient is off the BiPAP support, on 3 L per nasal cannula with O2 sat at 94%. He states his breathing has improved, lung sounds are diminished, with scattered faint wheezing. Review of Systems All systems: negative Constitutional: Denies chills, Denies fever Eyes: denies blurred vision, denies pain Ears, nose, mouth and throat: Denies headache, Denies sore throat Cardiovascular: Denies chest pain, Denies shortness of breath Respiratory: Reports dyspnea, Reports home oxygen, Reports respiratory infections, Reports sleep apnea, Denies cough Gastrointestinal: Denies abdominal pain, Denies diarrhea, Denies nausea, Denies vomiting Musculoskeletal: Denies myalgias Integumentary: Denies pruritus, Denies rash Neurological: Denies numbness, Denies weakness Psychiatric: Denies anxiety, Denies depression Endocrine: Denies fatigue, Denies weight change Past Medical History Past Medical History: Atrial Fibrillation, Heart Failure, COPD, GERD/Reflux, Hyperlipidemia, Hypertension, Myocardial Infarction (MT), Osteoarthritis (OA), Pneumonia, Respiratory Disorder, Sleep Apnea/CPAP/BIPAP, Vascular Disorder Additional Past Medical History / Comment(s): Chronic hypoxic respiratory failure, O2 at 2.5L/NC ATC, ischemic heart disease, PAD/PVD, diverticular dx, benign polypectomy, IBS, arthritis multiple joints bilaterally, numbness/ tingling bilateral feet. Last Myocardial Infarction Date:: unknown-prior to 2002 History of Any Multi-Drug Resistant Organisms: None Reported Past Surgical History: Heart Catheterization With Stent Additional Past Surgical History / Comment(s): PCI with stent 2002, L SFA angiogram/atherectomy/[facility], R SFA atherectomy/angioplasty, pilonidal cystectomy, bilateral sebacious cysts removed from axillae, cervical sx with plates and screws, back surgery with plate, colonoscopy. Past Anesthesia/Blood Transfusion Reactions: No Reported Reaction Date of Last Stent Placement:: 2002 Past Psychological History: Depression Additional Psychological History / Comment(s): Pt resides with his spouse. He is on O2 at 2.5L/NC ATC. He ambulates mostly with a cane. He drives. He has a nebulizer. Smoking Status: Current every day smoker Past Alcohol Use History: Occasional Additional Past Alcohol Use History / Comment(s): Pt started smoking in 1956 and is less than a ppd smoker. Past Drug Use History: None Reported - Past Family History Mother Family Medical History: No Reported History Additional Family Medical History / Comment(s): Mother was healthy and at the age of 92 yrs. Father Family Medical History: Coronary Artery Disease (CAD), Myocardial Infarction (MT ) Additional Family Medical History / Comment(s): Father had a MT in his 70's. He had CABG and back surgery. Medications and Allergies Home Medications Medication Instructions Recorded Confirmed Type Carvedilol [Coreg] 6.25 mg PO BID 03/03/16 06/20/17 History HYDROcodone/APAP 10-325MG [Corona 1 - 2 tab PO Q4HR PRN 03/03/16 06/20/17 History 10-325] Olmesartan Medoxomil [Benicar] 40 mg PO DAILY 03/03/16 06/20/17 History Sertraline [Zoloft] 50 mg PO DAILY 03/03/16 06/20/17 History amLODIPine [Norvasc] 5 mg PO DAILY 03/03/16 06/20/17 History hydrALAZINE HCL [Apresoline] 25 mg PO BID 03/03/16 06/20/17 History Albuterol Inhaler [Ventolin Hfa 2 puff INHALATION RT-Q4H PRN 09/24/16 06/20/17 History Inhaler] Fluticasone/Salmeterol [Advair Hfa 2 puff INHALATION RT-BID 09/24/16 06/20/17 History 115-21 Mcg Inhaler] Furosemide [Lasix] 20 mg PO DAILY 09/24/16 06/20/17 History Ipratropium-Albuterol Nebulize 3 ml INHALATION RT-QID 09/24/16 06/20/17 History [Duoneb 0.5 mg-3 mg/3 ml Soln] Theophylline 24 Hour [Maciej-24] 300 mg PO BID 09/24/16 06/20/17 History Hydrochlorothiazide 50 mg PO DAILY 10/14/16 06/20/17 History Spironolactone [Aldactone] 25 mg PO DAILY 10/14/16 06/20/17 History Diazepam [Valium] 5 mg PO HS 06/20/17 06/20/17 History Triamcinolone 0.1% Ointment 1 applic TOPICAL BID PRN 06/20/17 06/20/17 History [Kenalog 0.1% Ointment] Allergies Allergy/AdvReac Type Severity Reaction Status Date / Time No Known Allergies Allergy Verified 06/20/17 17:10 Physical Exam Vitals: Vital Signs Temp Pulse Pulse Resp BP Pulse Ox 06/23/17 12:00 97.1 F L 74 18 129/62 93 L 06/23/17 11:07 92 06/23/17 10:56 92 06/23/17 08:00 97.2 F L 78 18 150/90 93 L 06/23/17 07:50 78 06/23/17 07:39 84 93 L 06/23/17 04:00 86 18 133/62 93 L 06/23/17 00:00 98.1 F 75 18 131/60 93 L 06/22/17 20:29 78 06/22/17 20:14 76 06/22/17 20:00 97.5 F L 71 17 177/82 94 L 06/22/17 16:25 78 06/22/17 16:13 78 06/22/17 15:43 97.1 F L 78 20 144/72 93 L Intake and Output 06/23/17 06/23/17 06/23/17 06:59 14:59 22:59 Intake Total 810.000 416 Output Total 900 Balance -90.000 416 Intake: IV 310 Heparin Sod,Pork in 0.45% 310 NaCl 25,000 unit In 0.45 % NaCl 1 500ml.bag @ 9.7 UNITS/KG/HR 19.97 mls/hr IV .Q24H [facility] Rx#: [id number] Intake, IV Titration 500.000 Amount Heparin Sod,Pork in 0.45% 500.000 NaCl 25,000 unit In 0.45 % NaCl 1 500ml.bag @ 9.7 UNITS/KG/HR 19.97 mls/hr IV .Q24H [facility] Rx#: [id number] Oral 416 Output: Urine 900 Other: Voiding Method Toilet Urinal # Voids 1 1 Weight 103 kg GENERAL EXAM: Alert, pleasant 77 showed white male, comfortable in no apparent distress. HEAD: Normocephalic/atraumatic. EYES: Normal reaction of pupils, equal size. Conjunctiva pink, sclera white. NOSE: Clear with pink turbinates. THROAT: No erythema or exudates. NECK: No masses, no JVD, no thyroid enlargement, no adenopathy. CHEST: No chest wall deformity. Symmetrical expansion. LUNGS: Equal air entry with faint scattered wheezes CVS: Regular rate and rhythm, normal S1 and S2, no gallops, no murmurs, no rubs ABDOMEN: Soft, nontender. No hepatosplenomegaly, normal bowel sounds, no guarding or rigidity. EXTREMITIES: No clubbing, no cyanosis, 2+ pulses and upper and lower extremities. Trace edema in bilateral lower extremities, there is chronic venous stasis in the BLE noted MUSCULOSKELETAL: Muscle strength and tone normal. SPINE: No scoliosis or deformity SKIN: No rashes CENTRAL NERVOUS SYSTEM: Alert and oriented -3. No focal deficits, tone is normal in all 4 extremities. PSYCHIATRIC: Alert and oriented -3. Appropriate affect. Intact judgment and insight. Results - Laboratory Findings CBC and BMP: 06/23/17 05:40 06/23/17 05:40 ABG ABG pH 7.44 (7.35-7.45) 06/20/17 16:47 ABG pCO2 62 mmHg (35-45) H 06/20/17 16:47 ABG pO2 89 mmHg (83-108) 06/20/17 16:47 ABG O2 Saturation 92.7 % (94-97) L 06/20/17 16:47 PT/INR, D-dimer PT 9.7 sec (9.0-12.0) 06/20/17 16:45 INR 1.0 (<1.2) 06/20/17 16:45 Abnormal lab findings: Abnormal Labs 06/20/17 06/20/17 06/20/17 16:45 16:45 16:45 RBC Hgb Hct MCHC 30.6 L RDW Neutrophils # Lymphocytes # 0.6 L APTT 69.6 H ABG pCO2 ABG HCO3 ABG Total CO2 ABG O2 Saturation Potassium Chloride 94 L Carbon Dioxide 38 H BUN 27 H Glucose 123 H POC Glucose (mg/dL) CK-MB (CK-2) Troponin I 06/20/17 06/20/17 06/20/17 16:45 16:47 21:36 RBC Hgb Hct MCHC RDW Neutrophils # Lymphocytes # APTT ABG pCO2 62 H ABG HCO3 42 H* ABG Total CO2 44 H ABG O2 Saturation 92.7 L Potassium Chloride Carbon Dioxide BUN Glucose POC Glucose (mg/dL) CK-MB (CK-2) 3.1 H* Troponin I 2.000 H* 1.810 H* 06/20/17 06/21/17 06/21/17 21:36 05:01 05:01 RBC Hgb Hct MCHC RDW Neutrophils # Lymphocytes # APTT 35.7 H 46.4 H ABG pCO2 ABG HCO3 ABG Total CO2 ABG O2 Saturation Potassium Chloride Carbon Dioxide BUN Glucose POC Glucose (mg/dL) CK-MB (CK-2) 3.3 H* Troponin I 1.730 H* 06/22/17 06/22/17 06/22/17 06:09 06:09 06:09 RBC 4.29 L Hgb 12.0 L Hct 37.4 L MCHC RDW Neutrophils # Lymphocytes # 0.6 L APTT 36.1 H ABG pCO2 ABG HCO3 ABG Total CO2 ABG O2 Saturation Potassium Chloride 95 L Carbon Dioxide 36 H BUN 36 H Glucose 137 H POC Glucose (mg/dL) CK-MB (CK-2) Troponin I 06/22/17 06/22/17 06/22/17 12:06 12:16 15:11 RBC Hgb Hct MCHC RDW Neutrophils # Lymphocytes # APTT 46.5 H ABG pCO2 ABG HCO3 ABG Total CO2 ABG O2 Saturation Potassium Chloride Carbon Dioxide BUN Glucose POC Glucose (mg/dL) 110 H 111 H CK-MB (CK-2) Troponin I 06/22/17 06/22/17 06/23/17 17:05 20:38 05:40 RBC Hgb 11.5 L Hct 38.0 L MCHC 30.3 L RDW 15.7 H Neutrophils # 9.1 H Lymphocytes # 0.6 L APTT ABG pCO2 ABG HCO3 ABG Total CO2 ABG O2 Saturation Potassium Chloride Carbon Dioxide BUN Glucose POC Glucose (mg/dL) 150 H 141 H CK-MB (CK-2) Troponin I 06/23/17 06/23/17 06/23/17 05:40 05:40 05:58 RBC Hgb Hct MCHC RDW Neutrophils # Lymphocytes # APTT 45.5 H ABG pCO2 ABG HCO3 ABG Total CO2 ABG O2 Saturation Potassium 3.4 L Chloride 96 L Carbon Dioxide 33 H BUN 32 H Glucose 146 H POC Glucose (mg/dL) 145 H CK-MB (CK-2) Troponin I 06/23/17 06/23/17 11:43 11:46 RBC Hgb Hct MCHC RDW Neutrophils # Lymphocytes # APTT 54.5 H ABG pCO2 ABG HCO3 ABG Total CO2 ABG O2 Saturation Potassium Chloride Carbon Dioxide BUN Glucose POC Glucose (mg/dL) 157 H CK-MB (CK-2) Troponin I - Diagnostic Findings Chest x-ray: report reviewed Assessment and Plan Plan: Assessment: #1. Acute on chronic hypoxic and hypercapnic respiratory failure secondary to acute COPD exacerbation with tracheobronchitis #2. Acute non-ST elevated MT with elevated troponins #3. Chronic hypoxic and hypercapnic respiratory failure secondary to advanced steroid-dependent COPD with baseline FEV1 of 50% of predicted, GOLD stage III #4. Sleep apnea, on CPAP therapy #5. History of left chronic hemidiaphragm paralysis #6. Hypertension, hyperlipidemia #7. History of atrial fibrillation, currently in sinus rhythm #8. Chronic cor pulmonale secondary to severe COPD and pulmonary hypertension #9. Depression #10. Cervical disc disease with previous cervical spine surgery #11. History of osteoarthritis #12. History of tobacco dependence syndrome, currently in remission Plan: Continue methylprednisolone, continue DuoNeb and Symbicort, Theodur. We will add doxycycline for patient's tracheobronchitis. Continue BiPAP support at bedtime and as needed during the day. Patient already reports feeling better, continue monitoring for signs of worsening dyspnea, chest congestion, chest pain. Patient was counseled again about smoking cessation. I performed a history & physical examination of the patient and discussed their management with my nurse practitioner, Shy Pennington. I reviewed the nurse practitioner's note and agree with the documented findings and plan of care. Lung sounds are positive for faint wheezes throughout the lung wen. The findings and the impression was discussed with the patient. I attest to the documentation by the nurse practitioner. Time with Patient: Greater than 30
[2017-06-23] MEDS: DIAZEPAM 5 MG TAB PO SCH (20:10)
[2017-06-23] MEDS: DOXYCYCLINE 50 MG CAP PO SCH (20:11)
[2017-06-23 21:08] LABS: Glucose,Whole Blood 151 mg/dL (75-99)
--- NOTE | 2017-06-23 21:39 | P.PN ---
Subjective Progress Note Date: 06/22/17 Principal diagnosis: Acute COPD exacerbation Patient is a 77-year-old male with a known history of COPD on home oxygen, coronary artery disease with history of stent placement and multiple other medical problems was initially presented to [facility] with complaints of worsening cough congestion and shortness of breath. Patient was placed on BiPAP at a time and was continued on breathing treatments and steroids. Patient was found to have elevated troponin level I.28. Patient was started on heparin drip and transferred to [facility] for further evaluation by cardiology. Otherwise patient denied any chest discomfort. Chest x-ray showed no acute process. Patient does have cough without much sputum production. No nausea vomiting or abdominal pain. No leg worsening leg swelling. No other plates at this time. A dsouza is currently on BiPAP machine. Troponin 2.0, 1.8 and 1[address] depression in the lateral leads. Sinus rhythm 06/22/2017 Patient says that his breathing is better today. No complaints of chest pain. Or worsening shortness of breath. No fever no chills. Does have cough without sputum production. Patient continues to be on heparin drip for non-ST elevated UT. Otherwise no acute overnight issues. Saturating well on nausea cannula oxygen. All other review of systems negative except above current medications reviewed Objective - Vital Signs Vital signs: Vital Signs Temp 97.1 F L 06/22/17 15:43 Pulse 78 06/22/17 16:25 Resp 20 06/22/17 15:43 BP 144/72 06/22/17 15:43 Pulse Ox 93 L 06/22/17 15:43 Intake & Output 06/21/17 06/22/17 06/22/17 17:59 06:59 18:59 Intake Total 1192.192 Output Total 1550 Balance -357.808 Weight Intake: IV 208 Heparin Sod,Pork in 0.45% 208 NaCl 25,000 unit In 0.45 % NaCl 1 500ml.bag @ 9.7 UNITS/KG/HR 19.97 mls/hr IV .Q24H [facility] Rx#: [id number] Intake, IV Titration 484.192 Amount Heparin Sod,Pork in 0.45% 484.192 NaCl 25,000 unit In 0.45 % NaCl 1 500ml.bag @ 9.7 UNITS/KG/HR 19.97 mls/hr IV .Q24H [facility] Rx#: [id number] Oral 500 Output: Urine 1550 Other: Voiding Method Toilet Urinal # Voids 250 - Exam PHYSICAL EXAMINATION: Patient is lying in the bed comfortably, no acute distress, awake alert and oriented.. HEENT: Normocephalic. Neck is supple. Pupils reactive. Nostrils clear. Oral cavity is moist. Ears reveal no drainage. Neck reveals no JVD, carotid bruits, or thyromegaly. CHEST EXAMINATION: Trachea is central. Symmetrical expansion. Diminished air entry. Expiratory wheezing. No crackles. CARDIAC: Normal S1, S2 with no gallops. No murmurs ABDOMEN: Soft. Bowel sounds normal. No organomegaly. No abdominal bruits. Extremities: reveal no edema. No clubbing or cyanosis Neurologically awake, alert, oriented x3 with well-coordinated movements. No focal deficits noted Skin: No rash or skin lesions. Psychiatric: Coperative. Nonsuicidal Musculoskeletal: No joint swelling or deformity. Normal range of motion. - Labs CBC & Chem 7: 06/23/17 05:40 06/23/17 05:40 Labs: Abnormal Lab Results - Last 24 Hours (Table) 06/22/17 06/22/17 06/22/17 Range/Units 06:09 06:09 06:09 RBC 4.29 L (4.30-5.90) m/uL Hgb 12.0 L (13.0-17.5) gm/dL Hct 37.4 L (39.0-53.0) % Lymphocytes # 0.6 L (1.0-4.8) k/uL APTT 36.1 H (22.0-30.0) sec Chloride 95 L (98-107) mmol/L Carbon Dioxide 36 H (22-30) mmol/L BUN 36 H (9-20) mg/dL Glucose 137 H (74-99) mg/dL POC Glucose (mg/dL) (75-99) mg/dL 06/22/17 06/22/17 06/22/17 Range/Units 12:06 12:16 15:11 RBC (4.30-5.90) m/uL Hgb (13.0-17.5) gm/dL Hct (39.0-53.0) % Lymphocytes # (1.0-4.8) k/uL APTT 46.5 H (22.0-30.0) sec Chloride (98-107) mmol/L Carbon Dioxide (22-30) mmol/L BUN (9-20) mg/dL Glucose (74-99) mg/dL POC Glucose (mg/dL) 110 H 111 H (75-99) mg/dL 06/22/17 Range/Units 17:05 RBC (4.30-5.90) m/uL Hgb (13.0-17.5) gm/dL Hct (39.0-53.0) % Lymphocytes # (1.0-4.8) k/uL APTT (22.0-30.0) sec Chloride (98-107) mmol/L Carbon Dioxide (22-30) mmol/L BUN (9-20) mg/dL Glucose (74-99) mg/dL POC Glucose (mg/dL) 150 H (75-99) mg/dL Assessment and Plan Assessment: Shortness of breath secondary to acute COPD exacerbation Acute hypoxic respiratory failure Elevated troponin likely due to non-ST elevated UT Chronic hypoxic and hypercapnic respiratory failure on home oxygen 2.5 L Hypertension Hyperlipidemia Osteoarthritis History of UT Obstructive sleep apnea on CPAP Peripheral vascular disease IBS Numbness and tingling bilateral feet History of black back surgery Depression Plan: Patient will be continued on heparin drip. Cardiology is following.. Patient was started on atorvastatin 20 mg daily. Continue with steroids IV and breathing treatments and follow closely. Continue with home medications and further recommendations based on the clinical course. 2-D echocardiogram was ordered. Time with Patient: Greater than 30
--- NOTE | 2017-06-23 21:43 | P.PN ---
Subjective Progress Note Date: 06/23/17 Principal diagnosis: Acute COPD exacerbation Patient is a 77-year-old male with a known history of COPD on home oxygen, coronary artery disease with history of stent placement and multiple other medical problems was initially presented to [facility] with complaints of worsening cough congestion and shortness of breath. Patient was placed on BiPAP at a time and was continued on breathing treatments and steroids. Patient was found to have elevated troponin level I.28. Patient was started on heparin drip and transferred to [facility] for further evaluation by cardiology. Otherwise patient denied any chest discomfort. Chest x-ray showed no acute process. Patient does have cough without much sputum production. No nausea vomiting or abdominal pain. No leg worsening leg swelling. No other plates at this time. A dsouza is currently on BiPAP machine. Troponin 2.0, 1.8 and 1.[address] depression in the lateral leads. Sinus rhythm 06/22/2017 Patient says that his breathing is better today. No complaints of chest pain. Or worsening shortness of breath. No fever no chills. Does have cough without sputum production. Patient continues to be on heparin drip for non-ST elevated [place]. Otherwise no acute overnight issues. Saturating well on nausea cannula oxygen. 06/23/2017 Patient is improving clinically. No fever no chills. No nausea vomiting or abdominal pain. PT OT will be consulted and follow up closely. Antibiotic the form of doxycycline was added. Otherwise no acute overnight issues. Cardiology and pulmonary is following. All other review of systems negative except above current medications reviewed Objective - Vital Signs Vital signs: Vital Signs Temp 98.3 F 06/23/17 20:00 Pulse 96 06/23/17 20:13 Resp 18 06/23/17 20:00 BP 144/73 06/23/17 20:00 Pulse Ox 95 06/23/17 20:00 Intake & Output 06/23/17 06/23/17 06/24/17 06:59 18:59 06:59 Intake Total 810.000 416 Output Total 1300 Balance -490.000 416 Weight 103 kg Intake: IV 310 Heparin Sod,Pork in 0.45% 310 NaCl 25,000 unit In 0.45 % NaCl 1 500ml.bag @ 9.7 UNITS/KG/HR 19.97 mls/hr IV .Q24H [facility] Rx#: [id number] Intake, IV Titration 500.000 Amount Heparin Sod,Pork in 0.45% 500.000 NaCl 25,000 unit In 0.45 % NaCl 1 500ml.bag @ 9.7 UNITS/KG/HR 19.97 mls/hr IV .Q24H [facility] Rx#: [id number] Oral 416 Output: Urine 1300 Other: Voiding Method Toilet Toilet Urinal Urinal # Voids 1 1 1 - Exam PHYSICAL EXAMINATION: Patient is lying in the bed comfortably, no acute distress, awake alert and oriented.. HEENT: Normocephalic. Neck is supple. Pupils reactive. Nostrils clear. Oral cavity is moist. Ears reveal no drainage. Neck reveals no JVD, carotid bruits, or thyromegaly. CHEST EXAMINATION: Trachea is central. Symmetrical expansion. Bibasilar diminished air entry. No wheezing. No crackles. CARDIAC: Normal S1, S2 with no gallops. No murmurs ABDOMEN: Soft. Bowel sounds normal. No organomegaly. No abdominal bruits. Extremities: reveal no edema. No clubbing or cyanosis Neurologically awake, alert, oriented x3 with well-coordinated movements. No focal deficits noted Skin: No rash or skin lesions. Psychiatric: Coperative. Nonsuicidal Musculoskeletal: No joint swelling or deformity. Normal range of motion. - Labs CBC & Chem 7: 06/23/17 05:40 06/23/17 05:40 Labs: Abnormal Lab Results - Last 24 Hours (Table) 06/23/17 06/23/17 06/23/17 Range/Units 05:40 05:40 05:40 Hgb 11.5 L (13.0-17.5) gm/dL Hct 38.0 L (39.0-53.0) % MCHC 30.3 L (31.0-37.0) g/dL RDW 15.7 H (11.5-15.5) % Neutrophils # 9.1 H (1.3-7.7) k/uL Lymphocytes # 0.6 L (1.0-4.8) k/uL APTT 45.5 H (22.0-30.0) sec Potassium 3.4 L (3.5-5.1) mmol/L Chloride 96 L (98-107) mmol/L Carbon Dioxide 33 H (22-30) mmol/L BUN 32 H (9-20) mg/dL Glucose 146 H (74-99) mg/dL POC Glucose (mg/dL) (75-99) mg/dL 06/23/17 06/23/17 06/23/17 Range/Units 05:58 11:43 11:46 Hgb (13.0-17.5) gm/dL Hct (39.0-53.0) % MCHC (31.0-37.0) g/dL RDW (11.5-15.5) % Neutrophils # (1.3-7.7) k/uL Lymphocytes # (1.0-4.8) k/uL APTT 54.5 H (22.0-30.0) sec Potassium (3.5-5.1) mmol/L Chloride (98-107) mmol/L Carbon Dioxide (22-30) mmol/L BUN (9-20) mg/dL Glucose (74-99) mg/dL POC Glucose (mg/dL) 145 H 157 H (75-99) mg/dL 06/23/17 06/23/17 Range/Units 16:57 20:50 Hgb (13.0-17.5) gm/dL Hct (39.0-53.0) % MCHC (31.0-37.0) g/dL RDW (11.5-15.5) % Neutrophils # (1.3-7.7) k/uL Lymphocytes # (1.0-4.8) k/uL APTT (22.0-30.0) sec Potassium (3.5-5.1) mmol/L Chloride (98-107) mmol/L Carbon Dioxide (22-30) mmol/L BUN (9-20) mg/dL Glucose (74-99) mg/dL POC Glucose (mg/dL) 115 H 151 H (75-99) mg/dL Assessment and Plan Assessment: Shortness of breath secondary to acute COPD exacerbation Acute hypoxic respiratory failure secondary to COPD Elevated troponin likely due to non-ST elevated [place] Chronic hypoxic and hypercapnic respiratory failure on home oxygen 2.5 L Hypertension Hyperlipidemia Osteoarthritis History of VA Obstructive sleep apnea on CPAP Peripheral vascular disease IBS Numbness and tingling bilateral feet History of black back surgery Depression Plan: Heparin discontinued. Cardiology is following.. Patient was started on atorvastatin 20 mg daily. Continue with steroids IV and breathing treatments and follow closely. Continue with home medications and further recommendations based on the clinical course. 2-D echocardiogram was ordered. Time with Patient: Greater than 30
[2017-06-24] MEDS: methylPREDNISolone SOD SUCCI 125 MG/2 ML VIAL IV SCH ×4 (00:07→23:09)
[2017-06-24] MEDS: HEPARIN SODIUM,PORCINE 5,000 UNIT/ML 1 ML VIAL SQ SCH ×4 (00:07→23:09)
[2017-06-24] MEDS: HYDROcodone/APAP 10-325MG 1 EACH TAB PO PRN ×4 (00:17→20:09)
[2017-06-24 06:19] LABS: Glucose,Whole Blood 140 mg/dL (75-99)
[2017-06-24] MEDS: CARVEDILOL 6.25 MG TAB PO SCH ×2 (06:42→17:10)
[2017-06-24] MEDS: SYMBICORT 160-4.5 MCG INHALER INHALATION SCH ×2 (07:57→21:22)
[2017-06-24] MEDS: IPRATROPIUM-ALBUTEROL 3 ML NEB INHALATION SCH ×4 (07:57→21:22)
[2017-06-24 08:53] LABS: Anion Gap 9 mmol/L; Blood Urea Nitrogen 35 mg/dL (9-20); Calcium 9.3 mg/dL (8.4-10.2); Carbon Dioxide 29 mmol/L (22-30); Chloride 99 mmol/L (98-107); Glucose 245 mg/dL (74-99); Potassium 3.9 mmol/L (3.5-5.1); Sodium 137 mmol/L (137-145)
[2017-06-24] MEDS: DOXYCYCLINE 50 MG CAP PO SCH ×2 (09:00→20:09)
[2017-06-24] MEDS: ASPIRIN 81 MG PO SCH (09:00)
[2017-06-24] MEDS: THEOPHYLLINE 24 HOUR 300 MG CAP.ER.24H PO SCH ×2 (09:00→20:09)
[2017-06-24] MEDS: ATORVASTATIN 20 MG TAB PO SCH (09:00)
[2017-06-24] MEDS: hydrALAZINE HCL 25 MG TAB PO SCH ×2 (09:01→20:08)
[2017-06-24] MEDS: HYDROCHLOROTHIAZIDE 50 MG TAB PO SCH (09:01)
[2017-06-24] MEDS: SERTRALINE 50 MG TAB PO SCH (09:03)
[2017-06-24] MEDS: SPIRONOLACTONE 25 MG TAB PO SCH (09:03)
[2017-06-24] MEDS: FUROSEMIDE 20 MG TAB PO SCH (11:41)
[2017-06-24] MEDS: LOSARTAN 50 MG TAB PO SCH (11:41)
[2017-06-24 12:13] LABS: Glucose,Whole Blood 136 mg/dL (75-99)
--- NOTE | 2017-06-24 12:16 | P.PN ---
Subjective Progress Note Date: 06/24/17 Principal diagnosis: Acute on chronic hypoxic/hypercapnic respiratory failure secondary to an acute exacerbation of chronic obstructive pulmonary disease, complicated by acute tracheobronchitisJunaid Lara is a 77-year-old white male patient of Dr. Duran, who presented to the emergency department on 06/20/2017 at 1610 with complaints of increasing shortness of breath, cough, congestion, wheezing. The onset of symptoms was 2 days prior to admission. 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 He quit smoking 2 weeks ago, he carries a long history of nicotine dependence. On presentation patient was in significant amount of respiratory distress. A blood gas showed pH of 7.44, pCO2 of 62, pO2 of 89, this was done on FiO2 of 36% . This is consistent with chronic hypercapnic respiratory failure with metabolic compensation. Patient was placed on BiPAP support. Chest x-ray was negative for any acute process. Patient had positive troponins 3, with initial troponin at 2.0. White count on admission was 7.8, hemoglobin 13.3, carbon dioxide is 38, BUN is 27, creatinine 0.70. EKG showed sinus rhythm with PVCs and ST depression in the lateral leads. Patient denies any fever chills or chest pain. His cough is nonproductive. Past medical history includes atrial fibrillation, hypertension, obstructive sleep apnea on BiPAP therapy, hypoxic respiratory failure on home oxygen, peripheral vascular disease with prior stenting, coronary artery disease with PCI and stenting. Patient was started on IV Solu-Medrol, nebulized treatments, Symbicort, aspirin, Coreg, oral Lasix and was admitted for further management. Patient was seen for cardiology, who had diagnosed the patient with non-Q-wave myocardial infarction. In addition, patient has an acute COPD exacerbation with tracheobronchitis, and will be treated for the same. At the time of my evaluation, patient is off the BiPAP support, on 3 L per nasal cannula with O2 sat at 94%. He states his breathing has improved, lung sounds are diminished, with scattered faint wheezing. The patient is seen again today 06/24/2017 in follow-up in the selective care unit. He is awake and alert in no acute distress. He states he is breathing easier today as compared to yesterday but still not quite back to his baseline. He is still dyspneic on minimal exertion. Still bronchospastic and wheezing. He did utilize the BiPAP through the night. He is currently maintaining good O2 saturations in the mid to upper 90s on 3 L/m per nasal cannula. He's been afebrile. Hemodynamically stable. Objective - Vital Signs Vital signs: Vital Signs Temp 97.5 F L 06/24/17 11:30 Pulse 68 06/24/17 11:46 Resp 20 06/24/17 11:30 BP 131/68 06/24/17 11:30 Pulse Ox 96 06/24/17 11:30 Intake & Output 06/23/17 06/24/17 06/24/17 18:59 06:59 18:59 Intake Total 416 120 180 Output Total 100 Balance 416 120 80 Weight 101.7 kg Intake: Oral 416 120 180 Output: Urine 100 Other: Voiding Method Toilet Toilet Urinal Urinal # Voids 1 1 - Exam GENERAL EXAM: Alert, pleasant male, comfortable in no apparent distress. HEAD: Normocephalic/atraumatic. EYES: Normal reaction of pupils, equal size. Conjunctiva pink, sclera white. NOSE: Clear with pink turbinates. THROAT: No erythema or exudates. NECK: No masses, no JVD, no thyroid enlargement, no adenopathy. CHEST: No chest wall deformity. Symmetrical expansion. LUNGS: Equal air entry with faint scattered wheezes CVS: Regular rate and rhythm, normal S1 and S2, no gallops, no murmurs, no rubs ABDOMEN: Soft, nontender. No hepatosplenomegaly, normal bowel sounds, no guarding or rigidity. EXTREMITIES: No clubbing, no cyanosis, 2+ pulses and upper and lower extremities. Trace edema in bilateral lower extremities, there is chronic venous stasis in the BLE noted MUSCULOSKELETAL: Muscle strength and tone normal. SPINE: No scoliosis or deformity SKIN: No rashes CENTRAL NERVOUS SYSTEM: Alert and oriented -3. No focal deficits, tone is normal in all 4 extremities. PSYCHIATRIC: Alert and oriented -3. Appropriate affect. Intact judgment and insight. - Labs CBC & Chem 7: 06/23/17 05:40 06/24/17 08:18 Labs: Abnormal Lab Results - Last 24 Hours (Table) 06/23/17 06/23/17 06/23/17 Range/Units 11:43 11:46 16:57 APTT 54.5 H (22.0-30.0) sec BUN (9-20) mg/dL Glucose (74-99) mg/dL POC Glucose (mg/dL) 157 H 115 H (75-99) mg/dL 06/23/17 06/24/17 06/24/17 Range/Units 20:50 06:11 08:18 APTT (22.0-30.0) sec BUN 35 H (9-20) mg/dL Glucose 245 H (74-99) mg/dL POC Glucose (mg/dL) 151 H 140 H (75-99) mg/dL Assessment and Plan Assessment: Assessment: #1. Acute on chronic hypoxic and hypercapnic respiratory failure secondary to acute COPD exacerbation with tracheobronchitis #2. Acute non-ST elevated [place] with elevated troponins #3. Chronic hypoxic and hypercapnic respiratory failure secondary to advanced steroid-dependent COPD with baseline FEV1 of 50% of predicted, GOLD stage III #4. Sleep apnea, on CPAP therapy #5. History of left chronic hemidiaphragm paralysis #6. Hypertension, hyperlipidemia #7. History of atrial fibrillation, currently in sinus rhythm #8. Chronic cor pulmonale secondary to severe COPD and pulmonary hypertension #9. Depression #10. Cervical disc disease with previous cervical spine surgery #11. History of osteoarthritis #12. History of tobacco dependence syndrome, currently in remission Plan: The patient was seen and evaluated by Dr. Sheppard. He is improved today as compared to yesterday. We'll continue with his BiPAP throughout the evening and during the day while napping. Continue with his DuoNeb inhalations, Symbicort, IV Solu-Medrol, theophylline, empiric antibiotics in the form of Vibramycin. Continue diuretics. Cardiology is on the case as well. Planning medical management. We will increase his activity as tolerated. We will continue to follow and make further recommendations based on his clinical status. I, the cosigning physician, performed a history & physical examination of the patient. Lungs sounds have bilateral end expiratory wheezing. Diminished.. Maintaining good O2 saturations in the 90s on 3 liters per minute per nasal cannula. I discussed the assessment and plan of care with my nurse practitioner , Jihan Hawkins. I attest to the above note as dictated by her.
--- NOTE | 2017-06-24 13:42 | P.PN ---
Subjective Patient is lying flat in bed. His color has improved dramatically. He does not appear cyanotic. His lungs are rhonchorous bilaterally reduced breath sounds bilaterally but has been a significant improvement in his condition. He denies any chest discomfort Blood pressure 131/68 mmHg pulse rate in the 50s and 60s afebrile 97.5F heart sounds are normal Breath sounds are reduced bilaterally with bilateral rhonchi No lower extremity edema Impression Severe COPD exacerbation Advanced lung disease with home oxygen Non-Q-wave myocardial infarction Plan Continue medical therapy for CAD and non-Q-wave [place] Objective - Vital Signs Vital signs: Vital Signs Temp 97.5 F L 06/24/17 11:30 Pulse 68 06/24/17 11:46 Resp 20 06/24/17 11:30 BP 131/68 06/24/17 11:30 Pulse Ox 96 06/24/17 11:30 Intake & Output 06/23/17 06/24/17 06/24/17 18:59 06:59 18:59 Intake Total 416 120 280 Output Total 300 Balance 416 120 -20 Weight 101.7 kg Intake: Oral 416 120 280 Output: Urine 300 Other: Voiding Method Toilet Toilet Urinal Urinal # Voids 1 1 - Labs CBC & Chem 7: 06/23/17 05:40 06/24/17 08:18 Labs: Abnormal Lab Results - Last 24 Hours (Table) 06/23/17 06/23/17 06/24/17 Range/Units 16:57 20:50 06:11 BUN (9-20) mg/dL Glucose (74-99) mg/dL POC Glucose (mg/dL) 115 H 151 H 140 H (75-99) mg/dL 06/24/17 06/24/17 Range/Units 08:18 11:44 BUN 35 H (9-20) mg/dL Glucose 245 H (74-99) mg/dL POC Glucose (mg/dL) 136 H (75-99) mg/dL
[2017-06-24] MEDS ORDERED: Potassium Replacement Protocol 1 EACH MISC MISCELLANE PRN (15:42)
[2017-06-24] MEDS ORDERED: Magnesium Replacement Protocol 1 EACH MISC MISCELLANE PRN (15:42)
[2017-06-24] MEDS: MAGNESIUM SULFATE-D5W PMX 1 GM in DEXTROSE/WATER 1 100ML.BAG IVPB SCH ×2 (16:17→18:03)
[2017-06-24] MEDS ORDERED: POTASSIUM CHLORIDE ER 20 MEQ TAB.ER PO SCH (17:00)
[2017-06-24] MEDS: amLODIPine 5 MG TAB PO SCH (17:10)
[2017-06-24 17:26] LABS: Glucose,Whole Blood 117 mg/dL (75-99)
[2017-06-24] MEDS: DIAZEPAM 5 MG TAB PO SCH (20:08)
[2017-06-24 20:46] LABS: Glucose,Whole Blood 219 mg/dL (75-99)
[2017-06-25 06:03] LABS: Glucose,Whole Blood 125 mg/dL (75-99)
[2017-06-25] MEDS: HYDROcodone/APAP 10-325MG 1 EACH TAB PO PRN ×3 (06:21→20:06)
[2017-06-25] MEDS: CARVEDILOL 6.25 MG TAB PO SCH ×2 (06:30→16:55)
[2017-06-25 07:57] LABS: Potassium 4.4 mmol/L (3.5-5.1)
[2017-06-25] MEDS: SYMBICORT 160-4.5 MCG INHALER INHALATION SCH ×2 (08:16→20:24)
[2017-06-25] MEDS: IPRATROPIUM-ALBUTEROL 3 ML NEB INHALATION SCH ×4 (08:16→20:26)
[2017-06-25] MEDS: SPIRONOLACTONE 25 MG TAB PO SCH (08:39)
[2017-06-25] MEDS: HEPARIN SODIUM,PORCINE 5,000 UNIT/ML 1 ML VIAL SQ SCH ×3 (08:39→23:10)
[2017-06-25] MEDS: HYDROCHLOROTHIAZIDE 50 MG TAB PO SCH (08:39)
[2017-06-25] MEDS: SERTRALINE 50 MG TAB PO SCH (08:39)
[2017-06-25] MEDS: amLODIPine 5 MG TAB PO SCH (08:39)
[2017-06-25] MEDS: methylPREDNISolone SOD SUCCI 125 MG/2 ML VIAL IV SCH ×3 (08:39→23:11)
[2017-06-25] MEDS: ASPIRIN 81 MG PO SCH (08:40)
[2017-06-25] MEDS: DOXYCYCLINE 50 MG CAP PO SCH ×2 (08:40→20:06)
[2017-06-25] MEDS: THEOPHYLLINE 24 HOUR 300 MG CAP.ER.24H PO SCH ×2 (08:40→20:06)
[2017-06-25] MEDS: ATORVASTATIN 20 MG TAB PO SCH (08:40)
[2017-06-25] MEDS: hydrALAZINE HCL 25 MG TAB PO SCH ×2 (08:40→20:05)
[2017-06-25] MEDS: LOSARTAN 50 MG TAB PO SCH (08:40)
[2017-06-25] MEDS: FUROSEMIDE 20 MG TAB PO SCH (08:40)
[2017-06-25 08:48] VITALS: RESP 18
--- NOTE | 2017-06-25 10:35 | P.PN ---
Subjective Patient is lying in bed looks comfortable. Denies any chest discomfort. Significant improvement in breathing and respiratory status. Skin color has improved dramatically. When he came in he was cyanotic. Now he looks fairly pink Denies any chest discomfort. Mild tachypnea at rest, back to his baseline Afebrile 97F, respirations 18, blood pressure 129/69 mmHg Breath sounds are reduced bilaterally bilateral rhonchus breath sounds bilateral rhonchi Heart sounds S1 and S2 are soft no murmurs or gallops Abdomen soft nontender Extremities warm no edema Labs are reviewed from yesterday. BUN 35 creatinine 0.81 potassium and normal magnesium 1.7 beats magnesium 2.0 and repeat potassium 4.4 to Impression Non-Q wave myocardial infarction Severe lung disease end-stage on home oxygen Hypertension Suggest Continue amlodipine 5 g by mouth daily along with hydralazine 25 mg either twice or thrice daily, hydrochlorothiazide and spironolactone Continue aspirin and statins Continue carvedilol Medical management of non-Q wave myocardial infarction Follow-up with Dr. Rodríguez in about 2-3 weeks postdischarge Objective - Vital Signs Vital signs: Vital Signs Temp 97 F L 06/25/17 08:40 Pulse 76 06/25/17 08:40 Resp 18 06/25/17 08:40 BP 129/69 06/25/17 08:40 Pulse Ox 91 L 06/25/17 08:40 Intake & Output 06/24/17 06/25/17 06/25/17 18:59 06:59 18:59 Intake Total 380 600 Output Total 600 900 Balance -220 -300 Weight 101.3 kg Intake: Intake, IV Titration 100 Amount Magnesium Sulfate-D5w Pmx 100 1 gm In Dextrose/Water 1 100ml.bag @ 100 mls/hr IVPB Q1H [facility] Rx#: [id number] Oral 280 600 Output: Urine 600 900 Other: Voiding Method Toilet Toilet Toilet Urinal Urinal Urinal # Bowel Movements 1 - Labs CBC & Chem 7: 06/23/17 05:40 06/25/17 06:44 Labs: Abnormal Lab Results - Last 24 Hours (Table) 06/24/17 06/24/17 06/24/17 Range/Units 11:44 16:58 20:44 POC Glucose (mg/dL) 136 H 117 H 219 H (75-99) mg/dL 06/25/17 Range/Units 06:02 POC Glucose (mg/dL) 125 H (75-99) mg/dL
[2017-06-25 11:27] LABS: Glucose,Whole Blood 202 mg/dL (75-99)
--- NOTE | 2017-06-25 12:43 | P.PN ---
Subjective Progress Note Date: 06/24/17 Principal diagnosis: Acute COPD exacerbation Patient is a 77-year-old male with a known history of COPD on home oxygen, coronary artery disease with history of stent placement and multiple other medical problems was initially presented to [facility] with complaints of worsening cough congestion and shortness of breath. Patient was placed on BiPAP at a time and was continued on breathing treatments and steroids. Patient was found to have elevated troponin level I.28. Patient was started on heparin drip and transferred to [facility] for further evaluation by cardiology. Otherwise patient denied any chest discomfort. Chest x-ray showed no acute process. Patient does have cough without much sputum production. No nausea vomiting or abdominal pain. No leg worsening leg swelling. No other plates at this time. A dsouza is currently on BiPAP machine. Troponin 2.0, 1.8 and 1[address] depression in the lateral leads. Sinus rhythm 06/22/2017 Patient says that his breathing is better today. No complaints of chest pain. Or worsening shortness of breath. No fever no chills. Does have cough without sputum production. Patient continues to be on heparin drip for non-ST elevated [place]. Otherwise no acute overnight issues. Saturating well on nausea cannula oxygen. 06/23/2017 Patient is improving clinically. No fever no chills. No nausea vomiting or abdominal pain. PT OT will be consulted and follow up closely. Antibiotic the form of doxycycline was added. Otherwise no acute overnight issues. Cardiology and pulmonary is following. 06/24/2017 Patient's breathing status is improving. Didn't require BiPAP last night and early in the morning. PT OT was consulted. Patient was seen by swallow evaluation and the patient is able to complete his meal. Otherwise family is discussing about legal guardianship and possible transfer to extended care facility. Pulmonary and cardiology is following. No complaints of chest pain. No nausea vomiting or abdominal pain. No diarrhea or constipation. All other review of systems negative except above current medications reviewed Objective - Vital Signs Vital signs: Vital Signs Temp 97 F L 06/24/17 15:37 Pulse 84 06/24/17 15:37 Resp 24 06/24/17 16:00 BP 125/74 06/24/17 15:37 Pulse Ox 95 06/24/17 15:37 Intake & Output 06/24/17 06/24/17 06/25/17 06:59 18:59 06:59 Intake Total 120 380 Output Total 600 Balance 120 -220 Weight 101.7 kg Intake: Intake, IV Titration 100 Amount Magnesium Sulfate-D5w Pmx 100 1 gm In Dextrose/Water 1 100ml.bag @ 100 mls/hr IVPB Q1H [facility] Rx#: [id number] Oral 120 280 Output: Urine 600 Other: Voiding Method Toilet Toilet Urinal Urinal # Voids 1 # Bowel Movements 1 - Exam PHYSICAL EXAMINATION: Patient is lying in the bed comfortably, no acute distress, awake alert and oriented.. HEENT: Normocephalic. Neck is supple. Pupils reactive. Nostrils clear. Oral cavity is moist. Ears reveal no drainage. Neck reveals no JVD, carotid bruits, or thyromegaly. CHEST EXAMINATION: Trachea is central. Symmetrical expansion. Bibasilar diminished air entry. No wheezing. No crackles. CARDIAC: Normal S1, S2 with no gallops. No murmurs ABDOMEN: Soft. Bowel sounds normal. No organomegaly. No abdominal bruits. Extremities: reveal no edema. No clubbing or cyanosis Neurologically awake, alert, oriented x3 with well-coordinated movements. No focal deficits noted Skin: No rash or skin lesions. Psychiatric: Coperative. Nonsuicidal Musculoskeletal: No joint swelling or deformity. Normal range of motion. - Labs CBC & Chem 7: 06/23/17 05:40 06/25/17 06:44 Labs: Abnormal Lab Results - Last 24 Hours (Table) 06/23/17 06/24/17 06/24/17 Range/Units 20:50 06:11 08:18 BUN 35 H (9-20) mg/dL Glucose 245 H (74-99) mg/dL POC Glucose (mg/dL) 151 H 140 H (75-99) mg/dL 06/24/17 06/24/17 Range/Units 11:44 16:58 BUN (9-20) mg/dL Glucose (74-99) mg/dL POC Glucose (mg/dL) 136 H 117 H (75-99) mg/dL Assessment and Plan Assessment: Shortness of breath secondary to acute COPD exacerbation due to tracheobronchitis Acute hypoxic respiratory failure secondary to COPD Elevated troponin likely due to non-ST elevated [place]. Cardiology recommends medical management Chronic hypoxic and hypercapnic respiratory failure on home oxygen 2.5 L Hypertension Hyperlipidemia Osteoarthritis History of [place] Obstructive sleep apnea on CPAP Peripheral vascular disease IBS Numbness and tingling bilateral feet History of black back surgery Depression Plan: Heparin discontinued. Cardiology is following.. Patient was started on atorvastatin 20 mg daily. Continue with steroids IV and breathing treatments and antibiotics. follow closely. Continue with home medications and further recommendations based on the clinical course. 2-D echocardiogram was ordered. Time with Patient: Greater than 30
--- NOTE | 2017-06-25 14:10 | P.PN ---
Subjective Progress Note Date: 06/25/17 Principal diagnosis: Acute on chronic hypoxic and hypercapnic respiratory failure secondary to COPD and purulent tracheobronchitisJunaid Lara is a 77-year-old white male patient of Dr. Duran, who presented to the emergency department on 06/20/2017 at 1610 with complaints of increasing shortness of breath, cough, congestion, wheezing. The onset of symptoms was 2 days prior to admission. 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 He quit smoking 2 weeks ago, he carries a long history of nicotine dependence. On presentation patient was in significant amount of respiratory distress. A blood gas showed pH of 7.44, pCO2 of 62, pO2 of 89, this was done on FiO2 of 36% . This is consistent with chronic hypercapnic respiratory failure with metabolic compensation. Patient was placed on BiPAP support. Chest x-ray was negative for any acute process. Patient had positive troponins 3, with initial troponin at 2.0. White count on admission was 7.8, hemoglobin 13.3, carbon dioxide is 38, BUN is 27, creatinine 0.70. EKG showed sinus rhythm with PVCs and ST depression in the lateral leads. Patient denies any fever chills or chest pain. His cough is nonproductive. Past medical history includes atrial fibrillation, hypertension, obstructive sleep apnea on BiPAP therapy, hypoxic respiratory failure on home oxygen, peripheral vascular disease with prior stenting, coronary artery disease with PCI and stenting. Patient was started on IV Solu-Medrol, nebulized treatments, Symbicort, aspirin, Coreg, oral Lasix and was admitted for further management. Patient was seen for cardiology, who had diagnosed the patient with non-Q-wave myocardial infarction. In addition, patient has an acute COPD exacerbation with tracheobronchitis, and will be treated for the same. At the time of my evaluation, patient is off the BiPAP support, on 3 L per nasal cannula with O2 sat at 94%. He states his breathing has improved, lung sounds are diminished, with scattered faint wheezing. The patient is seen again today 06/24/2017 in follow-up in the selective care unit. He is awake and alert in no acute distress. He states he is breathing easier today as compared to yesterday but still not quite back to his baseline. He is still dyspneic on minimal exertion. Still bronchospastic and wheezing. He did utilize the BiPAP through the night. He is currently maintaining good O2 saturations in the mid to upper 90s on 3 L/m per nasal cannula. He's been afebrile. Hemodynamically stable. Reevaluated today on 06/25/2017, patient is doing well, relatively asymptomatic, feels great, no cough no wheezing no shortness of breath and no chest pain. Labs were reviewed had a relatively normal electrolytes and renal profile is normal CBC. Objective - Vital Signs Vital signs: Vital Signs Temp 97 F L 06/25/17 08:40 Pulse 69 06/25/17 13:24 Resp 18 06/25/17 11:37 BP 134/77 06/25/17 11:37 Pulse Ox 92 L 06/25/17 11:37 Intake & Output 06/24/17 06/25/17 06/25/17 18:59 06:59 18:59 Intake Total 380 600 240 Output Total 600 900 Balance -220 -300 240 Weight 101.3 kg Intake: Intake, IV Titration 100 Amount Magnesium Sulfate-D5w Pmx 100 1 gm In Dextrose/Water 1 100ml.bag @ 100 mls/hr IVPB Q1H [facility] Rx#: [id number] Oral 280 600 240 Output: Urine 600 900 Other: Voiding Method Toilet Toilet Toilet Urinal Urinal Urinal # Bowel Movements 1 - Exam GENERAL EXAM: Alert, pleasant male, comfortable in no apparent distress. HEAD: Normocephalic/atraumatic. EYES: Normal reaction of pupils, equal size. Conjunctiva pink, sclera white. NOSE: Clear with pink turbinates. THROAT: No erythema or exudates. NECK: No masses, no JVD, no thyroid enlargement, no adenopathy. CHEST: No chest wall deformity. Symmetrical expansion. LUNGS: Equal air entry with faint scattered wheezes, more so on forced expiratory maneuver. CVS: Regular rate and rhythm, normal S1 and S2, no gallops, no murmurs, no rubs ABDOMEN: Soft, nontender. No hepatosplenomegaly, normal bowel sounds, no guarding or rigidity. EXTREMITIES: No clubbing, no cyanosis, 2+ pulses and upper and lower extremities. Trace edema in bilateral lower extremities, there is chronic venous stasis in the BLE noted MUSCULOSKELETAL: Muscle strength and tone normal. SPINE: No scoliosis or deformity SKIN: No rashes CENTRAL NERVOUS SYSTEM: Alert and oriented -3. No focal deficits, tone is normal in all 4 extremities. PSYCHIATRIC: Alert and oriented -3. Appropriate affect. Intact judgment and insight. - Labs CBC & Chem 7: 06/23/17 05:40 06/25/17 06:44 Labs: Abnormal Lab Results - Last 24 Hours (Table) 06/24/17 06/24/17 06/25/17 Range/Units 16:58 20:44 06:02 POC Glucose (mg/dL) 117 H 219 H 125 H (75-99) mg/dL 06/25/17 Range/Units 11:22 POC Glucose (mg/dL) 202 H (75-99) mg/dL Assessment and Plan Assessment: #1. Acute on chronic hypoxic and hypercapnic respiratory failure secondary to acute COPD exacerbation with tracheobronchitis #2. Acute non-ST elevated [place] with elevated troponins #3. Chronic hypoxic and hypercapnic respiratory failure secondary to advanced steroid-dependent COPD with baseline FEV1 of 50% of predicted, GOLD stage III #4. Sleep apnea, on CPAP therapy #5. History of left chronic hemidiaphragm paralysis #6. Hypertension, hyperlipidemia #7. History of atrial fibrillation, currently in sinus rhythm #8. Chronic cor pulmonale secondary to severe COPD and pulmonary hypertension #9. Depression #10. Cervical disc disease with previous cervical spine surgery #11. History of osteoarthritis #12. History of tobacco dependence syndrome, currently in remission Recommendation: Consider discharge planning today, patient has updrafts at home , BiPAP, O2, patient is to remain on the present medications including prednisone and tapered over the next 2 weeks down to his maintenance dose which is usually 5-10 mg or until he sees me in my office. Has to be cleared by cardiology since the patient also had acute non-ST elevation myocardial infarction.
[2017-06-25 16:23] LABS: Glucose,Whole Blood 128 mg/dL (75-99)
[2017-06-25] MEDS: DIAZEPAM 5 MG TAB PO SCH (20:06)
[2017-06-25 21:13] LABS: Glucose,Whole Blood 180 mg/dL (75-99)
--- NOTE | 2017-06-25 22:10 | P.PN ---
Subjective Progress Note Date: 06/25/17 Principal diagnosis: Acute COPD exacerbation Patient is a 77-year-old male with a known history of COPD on home oxygen, coronary artery disease with history of stent placement and multiple other medical problems was initially presented to [facility] with complaints of worsening cough congestion and shortness of breath. Patient was placed on BiPAP at a time and was continued on breathing treatments and steroids. Patient was found to have elevated troponin level I.28. Patient was started on heparin drip and transferred to [facility] for further evaluation by cardiology. Otherwise patient denied any chest discomfort. Chest x-ray showed no acute process. Patient does have cough without much sputum production. No nausea vomiting or abdominal pain. No leg worsening leg swelling. No other plates at this time. A dsouza is currently on BiPAP machine. Troponin 2.0, 1.8 [address] depression in the lateral leads. Sinus rhythm 06/22/2017 Patient says that his breathing is better today. No complaints of chest pain. Or worsening shortness of breath. No fever no chills. Does have cough without sputum production. Patient continues to be on heparin drip for non-ST elevated AZ. Otherwise no acute overnight issues. Saturating well on nausea cannula oxygen. 06/23/2017 Patient is improving clinically. No fever no chills. No nausea vomiting or abdominal pain. PT OT will be consulted and follow up closely. Antibiotic the form of doxycycline was added. Otherwise no acute overnight issues. Cardiology and pulmonary is following. 06/24/2017 Patient's breathing status is improving. Didn't require BiPAP last night and early in the morning. PT OT was consulted. Patient was seen by swallow evaluation and the patient is able to complete his meal. Otherwise family is discussing about legal guardianship and possible transfer to extended care facility. Pulmonary and cardiology is following. No complaints of chest pain. No nausea vomiting or abdominal pain. No diarrhea or constipation. 06/25/2017 Patient is breathing status is much improved. Currently saturating well on nausea cannula. PT OT is following. Otherwise patient is awaiting for prior authorization for rehab transfer. If not family is willing to take him home likely tomorrow. All other review of systems negative except above current medications reviewed Objective - Vital Signs Vital signs: Vital Signs Temp 97.1 F L 06/25/17 20:00 Pulse 71 06/25/17 20:26 Resp 18 03/14/18 20:00 BP 135/76 06/25/17 20:00 Pulse Ox 93 L 06/25/17 20:26 Intake & Output 06/25/17 06/25/17 06/26/17 06:59 18:59 06:59 Intake Total 600 720 Output Total 900 300 Balance -300 420 Weight 101.3 kg Intake: Oral 600 720 Output: Urine 900 300 Other: Voiding Method Toilet Toilet Toilet Urinal Urinal Urinal # Voids 2 - Exam PHYSICAL EXAMINATION: Patient is lying in the bed comfortably, no acute distress, awake alert and oriented.. HEENT: Normocephalic. Neck is supple. Pupils reactive. Nostrils clear. Oral cavity is moist. Ears reveal no drainage. Neck reveals no JVD, carotid bruits, or thyromegaly. CHEST EXAMINATION: Trachea is central. Symmetrical expansion. Bibasilar diminished air entry. No wheezing. No crackles. CARDIAC: Normal S1, S2 with no gallops. No murmurs ABDOMEN: Soft. Bowel sounds normal. No organomegaly. No abdominal bruits. Extremities: reveal no edema. No clubbing or cyanosis Neurologically awake, alert, oriented x3 with well-coordinated movements. No focal deficits noted Skin: No rash or skin lesions. Psychiatric: Coperative. Nonsuicidal Musculoskeletal: No joint swelling or deformity. Normal range of motion. - Labs CBC & Chem 7: 06/23/17 05:40 06/25/17 06:44 Labs: Abnormal Lab Results - Last 24 Hours (Table) 06/25/17 06/25/17 06/25/17 Range/Units 06:02 11:22 16:17 POC Glucose (mg/dL) 125 H 202 H 128 H (75-99) mg/dL 06/25/17 Range/Units 21:11 POC Glucose (mg/dL) 180 H (75-99) mg/dL Assessment and Plan Assessment: Shortness of breath secondary to acute COPD exacerbation due to tracheobronchitis Acute hypoxic respiratory failure secondary to COPD Elevated troponin likely due to non-ST elevated AZ. 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 Cardiology is following.. Patient was started on atorvastatin 20 mg daily. Continue with steroids IV and breathing treatments and antibiotics. follow closely. Continue with home medications and further recommendations based on the clinical course. 2-D echocardiogram was ordered. Time with Patient: Greater than 30
[2017-06-25 23:40] VITALS: TEMP 97.2
[2017-06-26 05:59] LABS: Glucose,Whole Blood 135 mg/dL (75-99)
[2017-06-26] MEDS: HYDROcodone/APAP 10-325MG 1 EACH TAB PO PRN (06:41)
[2017-06-26] MEDS: CARVEDILOL 6.25 MG TAB PO SCH (06:41)
[2017-06-26] MEDS: methylPREDNISolone SOD SUCCI 125 MG/2 ML VIAL IV SCH (08:15)
[2017-06-26] MEDS: hydrALAZINE HCL 25 MG TAB PO SCH (08:15)
[2017-06-26] MEDS: ATORVASTATIN 20 MG TAB PO SCH (08:15)
[2017-06-26] MEDS: HYDROCHLOROTHIAZIDE 50 MG TAB PO SCH (08:15)
[2017-06-26] MEDS: HEPARIN SODIUM,PORCINE 5,000 UNIT/ML 1 ML VIAL SQ SCH (08:15)
[2017-06-26] MEDS: FUROSEMIDE 20 MG TAB PO SCH (08:16)
[2017-06-26] MEDS: THEOPHYLLINE 24 HOUR 300 MG CAP.ER.24H PO SCH (08:16)
[2017-06-26] MEDS: SPIRONOLACTONE 25 MG TAB PO SCH (08:16)
[2017-06-26] MEDS: ASPIRIN 81 MG PO SCH (08:16)
[2017-06-26] MEDS: DOXYCYCLINE 50 MG CAP PO SCH (08:16)
[2017-06-26] MEDS: amLODIPine 5 MG TAB PO SCH (08:16)
[2017-06-26] MEDS: SERTRALINE 50 MG TAB PO SCH (08:16)
[2017-06-26] MEDS: LOSARTAN 50 MG TAB PO SCH (08:16)
[2017-06-26 08:21] VITALS: BP 141/70
[2017-06-26] MEDS: SYMBICORT 160-4.5 MCG INHALER INHALATION SCH (08:21)
[2017-06-26] MEDS: IPRATROPIUM-ALBUTEROL 3 ML NEB INHALATION SCH ×2 (08:21→12:13)
[2017-06-26 08:24] VITALS: PULSE 72
--- NOTE | 2017-06-26 11:29 | P.PN ---
Subjective Progress Note Date: 06/26/17 Principal diagnosis: COPD exacerbation and non-STEMI This is a 77-year-old gentleman who presented to the emergency room initially with symptoms of progressively worsening shortness of breath with associated productive cough, congestion and significant wheezing. He's been receiving treatment here for COPD exacerbation. Patient does have known history of hypertension, hyperlipidemia, obstructive sleep apnea, paroxysmal atrial fibrillation, coronary artery disease with prior stenting, PVD with prior stenting. He did rule in for non-Q-wave myocardial infarction and the decision was made to maximize medical therapy. Patient was seen and examined this morning, overall breathing is significantly improved. Objective - Vital Signs Vital signs: Vital Signs Temp 97.2 F L 06/26/17 03:30 Pulse 72 06/26/17 08:36 Resp 18 06/26/17 08:15 BP 141/70 06/26/17 08:15 Pulse Ox 93 L 06/26/17 08:15 Intake & Output 06/25/17 06/26/17 06/26/17 18:59 06:59 18:59 Intake Total 720 300 480 Output Total 300 525 Balance 420 -225 480 Intake: Oral 720 300 480 Output: Urine 300 525 Other: Voiding Method Toilet Toilet Toilet Urinal Urinal Urinal # Voids 2 - Exam PHYSICAL EXAMINATION: HEENT: Head is atraumatic, normocephalic. Pupils equal, round. Neck is supple. There is no elevated jugular venous pressure. HEART EXAMINATION: Heart S1, S2 normal. No murmur or gallop heard. CHEST EXAMINATION: Lungs reveal decreased air exchange throughout with scattered wheezes ABDOMEN: Soft, nontender. Bowel sounds are heard. No organomegaly noted. EXTREMITIES: 1+ peripheral pulses with trace evidence of peripheral edema and no calf tenderness noted. Bilateral venous stasis NEUROLOGIC patient is awake, alert and oriented -3. . - Labs CBC & Chem 7: 06/23/17 05:40 06/25/17 06:44 Labs: Abnormal Lab Results - Last 24 Hours (Table) 06/25/17 06/25/17 06/25/17 Range/Units 11:22 16:17 21:11 POC Glucose (mg/dL) 202 H 128 H 180 H (75-99) mg/dL 06/26/17 Range/Units 05:58 POC Glucose (mg/dL) 135 H (75-99) mg/dL Assessment and Plan Plan: Assessment and plan #1 COPD exacerbation with associated tracheobronchitis #2 non-ST elevation myocardial infarction, medical therapy advised #3 sleep apnea #4 known severe COPD # 5 history of coronary artery disease with prior PCI #6 hypertension #7 hyperlipidemia #8 history of nicotine dependence #9 PVD with prior stenting Plan From cardiology's perspective, we will recommend to continue current medical therapy. On discharge patient will follow-up with Dr. Govea in the office in 2-3 weeks. DNP note has been reviewed, I agree with a documented findings and plan of care. Patient was seen and examined.
[2017-06-26 11:44] LABS: Glucose,Whole Blood 140 mg/dL (75-99)
--- NOTE | 2017-06-26 11:57 | P.PN ---
Subjective Progress Note Date: 06/26/17 Principal diagnosis: Acute on chronic hypoxic and hypercapnic respiratory failure secondary to COPD and purulent tracheobronchitisJunaid Lara is a 77-year-old white male patient of Dr. Duran, who presented to the emergency department on 06/20/2017 at 1610 with complaints of increasing shortness of breath, cough, congestion, wheezing. The onset of symptoms was 2 days prior to admission. 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 He quit smoking 2 weeks ago, he carries a long history of nicotine dependence. On presentation patient was in significant amount of respiratory distress. A blood gas showed pH of 7.44, pCO2 of 62, pO2 of 89, this was done on FiO2 of 36% . This is consistent with chronic hypercapnic respiratory failure with metabolic compensation. Patient was placed on BiPAP support. Chest x-ray was negative for any acute process. Patient had positive troponins 3, with initial troponin at 2.0. White count on admission was 7.8, hemoglobin 13.3, carbon dioxide is 38, BUN is 27, creatinine 0.70. EKG showed sinus rhythm with PVCs and ST depression in the lateral leads. Patient denies any fever chills or chest pain. His cough is nonproductive. Past medical history includes atrial fibrillation, hypertension, obstructive sleep apnea on BiPAP therapy, hypoxic respiratory failure on home oxygen, peripheral vascular disease with prior stenting, coronary artery disease with PCI and stenting. Patient was started on IV Solu-Medrol, nebulized treatments, Symbicort, aspirin, Coreg, oral Lasix and was admitted for further management. Patient was seen for cardiology, who had diagnosed the patient with non-Q-wave myocardial infarction. In addition, patient has an acute COPD exacerbation with tracheobronchitis, and will be treated for the same. At the time of my evaluation, patient is off the BiPAP support, on 3 L per nasal cannula with O2 sat at 94%. He states his breathing has improved, lung sounds are diminished, with scattered faint wheezing. The patient is seen again today 06/24/2017 in follow-up in the selective care unit. He is awake and alert in no acute distress. He states he is breathing easier today as compared to yesterday but still not quite back to his baseline. He is still dyspneic on minimal exertion. Still bronchospastic and wheezing. He did utilize the BiPAP through the night. He is currently maintaining good O2 saturations in the mid to upper 90s on 3 L/m per nasal cannula. He's been afebrile. Hemodynamically stable. Reevaluated today on 06/25/2017, patient is doing well, relatively asymptomatic, feels great, no cough no wheezing no shortness of breath and no chest pain. Labs were reviewed had a relatively normal electrolytes and renal profile is normal CBC. Reevaluated today on 06/26/2017, patient is doing well, anxious to go home, he is denying any shortness of breath cough or wheezing, does not seem to be in any form of respiratory distress. Objective - Vital Signs Vital signs: Vital Signs Temp 97.2 F L 06/26/17 03:30 Pulse 72 06/26/17 08:36 Resp 18 06/26/17 08:15 BP 141/70 06/26/17 08:15 Pulse Ox 93 L 06/26/17 08:15 Intake & Output 06/25/17 06/26/17 06/26/17 18:59 06:59 18:59 Intake Total 720 300 480 Output Total 300 525 Balance 420 -225 480 Intake: Oral 720 300 480 Output: Urine 300 525 Other: Voiding Method Toilet Toilet Toilet Urinal Urinal Urinal # Voids 2 - Exam GENERAL EXAM: Alert, pleasant male, cushingoid-looking, comfortable in no apparent distress. HEAD: Normocephalic/atraumatic. EYES: Normal reaction of pupils, equal size. Conjunctiva pink, sclera white. NOSE: Clear with pink turbinates. THROAT: No erythema or exudates. NECK: No masses, no JVD, no thyroid enlargement, no adenopathy. CHEST: No chest wall deformity. Symmetrical expansion. LUNGS: Equal air entry no wheezing noted except on forced expiratory maneuver.. CVS: Regular rate and rhythm, normal S1 and S2, no gallops, no murmurs, no rubs ABDOMEN: Soft, nontender. No hepatosplenomegaly, normal bowel sounds, no guarding or rigidity. EXTREMITIES: No clubbing, no cyanosis, 2+ pulses and upper and lower extremities. Trace edema in bilateral lower extremities, there is chronic venous stasis in the BLE noted MUSCULOSKELETAL: Muscle strength and tone normal. SPINE: No scoliosis or deformity SKIN: No rashes CENTRAL NERVOUS SYSTEM: Alert and oriented -3. No focal deficits, tone is normal in all 4 extremities. PSYCHIATRIC: Alert and oriented -3. Appropriate affect. Intact judgment and insight. - Labs CBC & Chem 7: 06/23/17 05:40 06/25/17 06:44 Labs: Abnormal Lab Results - Last 24 Hours (Table) 06/25/17 06/25/17 06/26/17 Range/Units 16:17 21:11 05:58 POC Glucose (mg/dL) 128 H 180 H 135 H (75-99) mg/dL 06/26/17 Range/Units 11:40 POC Glucose (mg/dL) 140 H (75-99) mg/dL Assessment and Plan Assessment: #1. Acute on chronic hypoxic and hypercapnic respiratory failure secondary to acute COPD exacerbation with tracheobronchitis #2. Acute non-ST elevated CA with elevated troponins #3. Chronic hypoxic and hypercapnic respiratory failure secondary to advanced steroid-dependent COPD with baseline FEV1 of 50% of predicted, GOLD stage III #4. Sleep apnea, on CPAP therapy #5. History of left chronic hemidiaphragm paralysis #6. Hypertension, hyperlipidemia #7. History of atrial fibrillation, currently in sinus rhythm #8. Chronic cor pulmonale secondary to severe COPD and pulmonary hypertension #9. Depression #10. Cervical disc disease with previous cervical spine surgery #11. History of osteoarthritis #12. History of tobacco dependence syndrome, currently in remission Recommendation: Consider discharge planning today, cleared by pulmonary for discharge planning today, we will see the patient on outpatient basis. Time with Patient: Less than 30
[2017-06-26] MEDS ORDERED: predniSONE 50 MG TAB PO SCH (12:00)
--- NOTE | 2017-06-30 20:41 | ECHOF ---
Referral Reason:nstemi MEASUREMENTS -------- HEIGHT: 182.9 cm WEIGHT: 101.2 kg BP: 141/70 IVSd: 1.3 cm (0.6 - 1.1) LVIDd: 3.7 cm (3.9 - 5.3) LVPWd: 1.3 cm (0.6 - 1.1) IVSs: 1.5 cm LVIDs: 2.4 cm LVPWs: 1.4 cm MV E Alan: 0.60 m/s MV DecT: 158 ms MV A Alan: 0.80 m/s MV E/A Ratio: 0.74 FINDINGS -------- Sinus rhythm. This was a technically difficult study with suboptimal views. No plax views or psax views. Pt has se kateryna COPD. The left ventricular size is normal. Left ventricular wall thickness is normal. Overall left vent ricular systolic function is normal with, an EF between 55 - 60 %. The RV was not well visualized. The left atrium is normal in size. The right atrium was not well visualized. The aortic valve was not well visualized. The mitral valve was not well visualized. The tricuspid valve was not well visualized. The pulmonic valve was not well visualized. CONCLUSIONS -------- 1. Sinus rhythm. 2. This was a technically difficult study with suboptimal views. No plax views or psax views. 3. Pt has severe COPD. 4. The left ventricular size is normal. 5. Left ventricular wall thickness is normal. 6. Overall left ventricular systolic function is normal with, an EF between 55 - 60 %. 7. The RV was not well visualized. 8. The left atrium is normal in size. 9. The right atrium was not well visualized. 10. Lumason used. 11. The aortic valve was not well visualized. 12. The mitral valve was not well visualized. 13. The tricuspid valve was not well visualized. 14. The pulmonic valve was not well visualized. PARTS COUNTER REPRESENTATIVE: Velma Conroy RDCS
--- NOTE | 2017-06-30 21:48 | P.DS ---
Providers Date of admission: 06/20/17 17:44 Expected date of discharge: 06/26/17 Attending physician: Ariel Gibson Consults: 06/20/17 17:44 Consult Physician Urgent Consulting Provider: [facility] Consult Reason/Comments: NSTEMI Do you want consulting provider notified?: Yes 06/22/17 14:40 Consult Physician Urgent Consulting Provider: Chucky Lee Consult Reason/Comments: copd, respiratory distress Do you want consulting provider notified?: Yes Primary care physician: Erik Duran MD Hospital Course: Discharge diagnosis Shortness of breath secondary to acute COPD exacerbation due to tracheobronchitis Acute hypoxic respiratory failure secondary to COPD Elevated troponin likely due to non-ST elevated FL. Cardiology recommends medical management Chronic hypoxic and hypercapnic respiratory failure on home oxygen 2.5 L Hypertension Hyperlipidemia Osteoarthritis History of FL Obstructive sleep apnea on CPAP Peripheral vascular disease IBS Numbness and tingling bilateral feet History of black back surgery Depression Hospital course Patient is a 77-year-old male with a known history of COPD on home oxygen, coronary artery disease with history of stent placement and multiple other medical problems was initially presented to [facility] with complaints of worsening cough congestion and shortness of breath. Patient was placed on BiPAP at a time and was continued on breathing treatments and steroids. Patient was found to have elevated troponin level I.28. Patient was started on heparin drip and transferred to [facility] for further evaluation by cardiology. Otherwise patient denied any chest discomfort. Chest x-ray showed no acute process. Patient does have cough without much sputum production. No nausea vomiting or abdominal pain. No leg worsening leg swelling. No other plates at this time. A dsouza is currently on BiPAP machine. Troponin 2.0, 1.8 [address] depression in the lateral leads. Sinus rhythm 06/22/2017 Patient says that his breathing is better today. No complaints of chest pain. Or worsening shortness of breath. No fever no chills. Does have cough without sputum production. Patient continues to be on heparin drip for non-ST elevated FL. Otherwise no acute overnight issues. Saturating well on nausea cannula oxygen. 06/23/2017 Patient is improving clinically. No fever no chills. No nausea vomiting or abdominal pain. PT OT will be consulted and follow up closely. Antibiotic the form of doxycycline was added. Otherwise no acute overnight issues. Cardiology and pulmonary is following. 06/24/2017 Patient's breathing status is improving. Didn't require BiPAP last night and early in the morning. PT OT was consulted. Patient was seen by swallow evaluation and the patient is able to complete his meal. Otherwise family is discussing about legal guardianship and possible transfer to extended care facility. Pulmonary and cardiology is following. No complaints of chest pain. No nausea vomiting or abdominal pain. No diarrhea or constipation. 06/25/2017 Patient is breathing status is much improved. Currently saturating well on nausea cannula. PT OT is following. Otherwise patient is awaiting for prior authorization for rehab transfer. If not family is willing to take him home likely tomorrow. Patient will be discharged on tapering steroid dose, antibiotics and recommended to follow up with primary care physician and cardiology as well as pulmonary in the clinic. Otherwise patient is stable to be discharged home with family . Discharge physical examination was done and vitals reviewed Vital Signs 06/20/17 06/20/17 06/20/17 16:13 16:58 17:06 Temperature 98.7 F Pulse Rate 83 83 90 Pulse Rate [ Pulse Oximetery ] Respiratory 22 Rate Blood Pressure 163/70 Blood Pressure [Left Arm] Blood Pressure [Right Arm] O2 Sat by Pulse 95 Oximetry 06/20/17 06/20/17 06/20/17 17:22 18:00 18:43 Temperature 98.2 F Pulse Rate 85 83 106 H Pulse Rate [ Pulse Oximetery ] Respiratory 16 18 16 Rate Blood Pressure 177/78 171/84 175/79 Blood Pressure [Left Arm] Blood Pressure [Right Arm] O2 Sat by Pulse 94 L 94 L 98 Oximetry 06/20/17 06/20/17 06/20/17 20:00 20:34 20:45 Temperature 97.3 F L Pulse Rate 84 88 Pulse Rate [ 74 Pulse Oximetery ] Respiratory 30 H Rate Blood Pressure Blood Pressure [Left Arm] Blood Pressure 149/76 [Right Arm] O2 Sat by Pulse 95 99 Oximetry 06/21/17 06/21/17 06/21/17 00:00 00:10 00:28 Temperature Pulse Rate 88 88 Pulse Rate [ 74 Pulse Oximetery ] Respiratory 28 H Rate Blood Pressure Blood Pressure [Left Arm] Blood Pressure 119/56 [Right Arm] O2 Sat by Pulse 95 Oximetry 06/21/17 06/21/17 06/21/17 04:00 08:13 08:40 Temperature 96.8 F L Pulse Rate 76 Pulse Rate [ 80 72 Pulse Oximetery ] Respiratory 28 H 20 Rate Blood Pressure Blood Pressure [Left Arm] Blood Pressure 185/84 [Right Arm] O2 Sat by Pulse 94 L 90 L Oximetry 06/21/17 06/21/17 06/21/17 08:51 09:00 12:41 Temperature 96.4 F L Pulse Rate 84 Pulse Rate [ 78 78 Pulse Oximetery ] Respiratory 14 22 Rate Blood Pressure Blood Pressure [Left Arm] Blood Pressure 158/68 130/70 [Right Arm] O2 Sat by Pulse 94 L 96 Oximetry 06/21/17 06/21/17 06/21/17 13:01 13:09 16:31 Temperature Pulse Rate 80 86 84 Pulse Rate [ Pulse Oximetery ] Respiratory Rate Blood Pressure Blood Pressure [Left Arm] Blood Pressure [Right Arm] O2 Sat by Pulse Oximetry 06/21/17 06/21/17 06/21/17 16:41 17:44 18:00 Temperature Pulse Rate 86 Pulse Rate [ 81 Pulse Oximetery ] Respiratory 22 Rate Blood Pressure Blood Pressure [Left Arm] Blood Pressure 155/81 [Right Arm] O2 Sat by Pulse 93 L 93 L Oximetry 06/21/17 06/21/17 06/21/17 20:00 20:41 20:53 Temperature 97.1 F L Pulse Rate 76 78 Pulse Rate [ 81 Pulse Oximetery ] Respiratory 20 Rate Blood Pressure Blood Pressure [Left Arm] Blood Pressure 173/81 [Right Arm] O2 Sat by Pulse 94 L Oximetry 06/22/17 06/22/17 06/22/17 00:00 04:00 08:55 Temperature 98.2 F Pulse Rate 78 Pulse Rate [ 77 73 Pulse Oximetery ] Respiratory 20 20 Rate Blood Pressure Blood Pressure [Left Arm] Blood Pressure 125/59 159/76 [Right Arm] O2 Sat by Pulse 91 L 94 L Oximetry 06/22/17 06/22/17 06/22/17 09:12 09:24 12:00 Temperature 97.3 F L 96.8 F L Pulse Rate 80 Pulse Rate [ 62 83 Pulse Oximetery ] Respiratory 20 16 Rate Blood Pressure Blood Pressure 139/69 146/70 [Left Arm] Blood Pressure [Right Arm] O2 Sat by Pulse 93 L 93 L Oximetry 03/03/0106/22/17 06/22/17 12:49 13:02 15:43 Temperature 97.1 F L Pulse Rate 84 82 Pulse Rate [ 78 Pulse Oximetery ] Respiratory 20 Rate Blood Pressure Blood Pressure 144/72 [Left Arm] Blood Pressure [Right Arm] O2 Sat by Pulse 93 L Oximetry 06/22/17 06/22/17 06/22/17 16:13 16:25 20:00 Temperature 97.5 F L Pulse Rate 78 78 Pulse Rate [ 71 Pulse Oximetery ] Respiratory 17 Rate Blood Pressure Blood Pressure 177/82 [Left Arm] Blood Pressure [Right Arm] O2 Sat by Pulse 94 L Oximetry 06/22/17 06/22/17 06/23/17 20:14 20:29 00:00 Temperature 98.1 F Pulse Rate 76 78 Pulse Rate [ 75 Pulse Oximetery ] Respiratory 18 Rate Blood Pressure Blood Pressure 131/60 [Left Arm] Blood Pressure [Right Arm] O2 Sat by Pulse 93 L Oximetry 06/23/17 06/23/17 06/23/17 04:00 07:39 07:50 Temperature Pulse Rate 84 78 Pulse Rate [ 86 Pulse Oximetery ] Respiratory 18 Rate Blood Pressure Blood Pressure 133/62 [Left Arm] Blood Pressure [Right Arm] O2 Sat by Pulse 93 L 93 L Oximetry 06/23/17 06/23/17 06/23/17 08:00 10:56 11:07 Temperature 97.2 F L Pulse Rate 92 92 Pulse Rate [ 78 Pulse Oximetery ] Respiratory 18 Rate Blood Pressure Blood Pressure 150/90 [Left Arm] Blood Pressure [Right Arm] O2 Sat by Pulse 93 L Oximetry 06/23/17 06/23/17 06/23/17 12:00 16:00 16:31 Temperature 97.1 F L 97.8 F Pulse Rate 90 Pulse Rate [ 74 94 Pulse Oximetery ] Respiratory 18 18 Rate Blood Pressure Blood Pressure 129/62 158/83 [Left Arm] Blood Pressure [Right Arm] O2 Sat by Pulse 93 L 94 L Oximetry 06/23/17 06/23/17 06/23/17 16:42 20:00 20:13 Temperature 98.3 F Pulse Rate 94 92 96 Pulse Rate [ 80 Pulse Oximetery ] Respiratory 18 Rate Blood Pressure Blood Pressure 144/73 [Left Arm] Blood Pressure [Right Arm] O2 Sat by Pulse 95 Oximetry 06/24/17 06/24/17 06/24/17 00:00 04:00 07:58 Temperature Pulse Rate 84 Pulse Rate [ 72 69 Pulse Oximetery ] Respiratory 18 17 Rate Blood Pressure Blood Pressure 136/66 108/59 [Left Arm] Blood Pressure [Right Arm] O2 Sat by Pulse 95 91 L 93 L Oximetry 06/24/17 06/24/17 06/24/17 08:11 08:55 11:30 Temperature 97 F L 97.5 F L Pulse Rate 88 Pulse Rate [ 61 53 L Pulse Oximetery ] Respiratory 16 20 Rate Blood Pressure Blood Pressure 105/56 131/68 [Left Arm] Blood Pressure [Right Arm] O2 Sat by Pulse 93 L 96 Oximetry 06/24/17 06/24/17 06/24/17 11:35 11:46 15:37 Temperature 97 F L Pulse Rate 68 68 Pulse Rate [ 84 Pulse Oximetery ] Respiratory 24 Rate Blood Pressure Blood Pressure 125/74 [Left Arm] Blood Pressure [Right Arm] O2 Sat by Pulse 95 Oximetry 06/24/17 06/24/17 06/24/17 16:00 20:00 21:22 Temperature 96.8 F L Pulse Rate 71 Pulse Rate [ 76 Pulse Oximetery ] Respiratory 24 20 16 Rate Blood Pressure Blood Pressure 143/77 [Left Arm] Blood Pressure [Right Arm] O2 Sat by Pulse 97 97 Oximetry 06/24/17 06/24/17 06/25/17 21:32 23:05 03:40 Temperature 97.0 F L 97.0 F L Pulse Rate 72 Pulse Rate [ 64 74 Pulse Oximetery ] Respiratory 16 20 20 Rate Blood Pressure Blood Pressure 122/64 144/72 [Left Arm] Blood Pressure [Right Arm] O2 Sat by Pulse 92 L 96 Oximetry 06/25/17 06/25/17 06/25/17 06:25 08:16 08:26 Temperature Pulse Rate 76 72 Pulse Rate [ 67 Pulse Oximetery ] Respiratory Rate Blood Pressure Blood Pressure 138/66 [Left Arm] Blood Pressure [Right Arm] O2 Sat by Pulse Oximetry 06/25/17 06/25/17 06/25/17 08:40 11:37 13:14 Temperature 97 F L Pulse Rate 68 Pulse Rate [ 76 63 Pulse Oximetery ] Respiratory 18 18 Rate Blood Pressure Blood Pressure 129/69 134/77 [Left Arm] Blood Pressure [Right Arm] O2 Sat by Pulse 91 L 92 L Oximetry 06/25/17 06/25/17 06/25/17 13:24 15:30 16:56 Temperature 97.1 F L Pulse Rate 69 72 Pulse Rate [ 80 Pulse Oximetery ] Respiratory 18 Rate Blood Pressure Blood Pressure 135/58 [Left Arm] Blood Pressure [Right Arm] O2 Sat by Pulse 90 L Oximetry 06/25/17 06/25/17 06/25/17 20:00 20:26 23:10 Temperature 97.1 F L 97.2 F L Pulse Rate 71 Pulse Rate [ 79 72 Pulse Oximetery ] Respiratory 18 18 Rate Blood Pressure Blood Pressure 135/76 109/56 [Left Arm] Blood Pressure [Right Arm] O2 Sat by Pulse 93 L 93 L 95 Oximetry 06/26/17 06/26/17 06/26/17 03:30 08:15 08:23 Temperature 97.2 F L Pulse Rate 72 Pulse Rate [ 62 75 Pulse Oximetery ] Respiratory 18 18 Rate Blood Pressure Blood Pressure 132/83 141/70 [Left Arm] Blood Pressure [Right Arm] O2 Sat by Pulse 96 93 L Oximetry 06/26/17 06/26/17 06/26/17 08:36 12:14 12:25 Temperature Pulse Rate 72 72 72 Pulse Rate [ Pulse Oximetery ] Respiratory Rate Blood Pressure Blood Pressure [Left Arm] Blood Pressure [Right Arm] O2 Sat by Pulse Oximetry Patient Condition at Discharge: Stable Plan - Discharge Summary Discharge Rx Participant: No New Discharge Prescriptions: New Aspirin 81 mg PO DAILY #90 chewable Atorvastatin [Lipitor] 20 mg PO HS #90 tablet Doxycycline [Vibramycin] 100 mg PO BID 7 Days #14 cap predniSONE See Taper PO DAILY #30 tab Aspirin 162 mg PO DAILY #30 chew Atorvastatin [Lipitor] 20 mg PO DAILY #30 tab Continue Sertraline [Zoloft] 50 mg PO DAILY hydrALAZINE HCL [Apresoline] 25 mg PO BID amLODIPine [Norvasc] 5 mg PO DAILY HYDROcodone/APAP 10-325MG [[place] 10-325] 1 - 2 tab PO Q4HR PRN PRN Reason: Pain Carvedilol [Coreg] 6.25 mg PO BID Olmesartan Medoxomil [Benicar] 40 mg PO DAILY Albuterol Inhaler [Ventolin Hfa Inhaler] 2 puff INHALATION RT-Q4H PRN PRN Reason: Shortness Of Breath Fluticasone/Salmeterol [Advair Hfa 115-21 Mcg Inhaler] 2 puff INHALATION RT- BID Furosemide [Lasix] 20 mg PO DAILY Theophylline 24 Hour [Maciej-24] 300 mg PO BID Ipratropium-Albuterol Nebulize [Duoneb 0.5 mg-3 mg/3 ml Soln] 3 ml INHALATION RT-QID Spironolactone [Aldactone] 25 mg PO DAILY Hydrochlorothiazide 50 mg PO DAILY Triamcinolone 0.1% Ointment [Kenalog 0.1% Ointment] 1 applic TOPICAL BID PRN PRN Reason: Rash Diazepam [Valium] 5 mg PO HS Discharge Medication List Carvedilol [Coreg] 6.25 mg PO BID 03/03/16 [History] HYDROcodone/APAP 10-325MG [[place] 10-325] 1 - 2 tab PO Q4HR PRN 03/03/16 [History ] Olmesartan Medoxomil [Benicar] 40 mg PO DAILY 03/03/16 [History] Sertraline [Zoloft] 50 mg PO DAILY 03/03/16 [History] amLODIPine [Norvasc] 5 mg PO DAILY 03/03/16 [History] hydrALAZINE HCL [Apresoline] 25 mg PO BID 03/03/16 [History] Albuterol Inhaler [Ventolin Hfa Inhaler] 2 puff INHALATION RT-Q4H PRN 09/24/16 [ History] Fluticasone/Salmeterol [Advair Hfa 115-21 Mcg Inhaler] 2 puff INHALATION RT-BID 09/24/16 [History] Furosemide [Lasix] 20 mg PO DAILY 09/24/16 [History] Ipratropium-Albuterol Nebulize [Duoneb 0.5 mg-3 mg/3 ml Soln] 3 ml INHALATION RT -QID 09/24/16 [History] Theophylline 24 Hour [Maciej-24] 300 mg PO BID 09/24/16 [History] Hydrochlorothiazide 50 mg PO DAILY 10/14/16 [History] Spironolactone [Aldactone] 25 mg PO DAILY 10/14/16 [History] Diazepam [Valium] 5 mg PO HS 03/09/18 [History] Triamcinolone 0.1% Ointment [Kenalog 0.1% Ointment] 1 applic TOPICAL BID PRN 12/30 [History] Aspirin 81 mg PO DAILY #90 chewable 06/25/17 [Rx] Atorvastatin [Lipitor] 20 mg PO HS #90 tablet 06/25/17 [Rx] Aspirin 162 mg PO DAILY #30 chew 06/26/17 [Rx] Atorvastatin [Lipitor] 20 mg PO DAILY #30 tab 06/26/17 [Rx] Doxycycline [Vibramycin] 100 mg PO BID 7 Days #14 cap 06/26/17 [Rx] predniSONE See Taper PO DAILY #30 tab 06/26/17 [Rx] Follow up Appointment(s)/Referral(s): Leticia Sheppard MD [STAFF PHYSICIAN] - 1 Week (Please call to make appointment) Jaron Edwards MD [STAFF PHYSICIAN] - 3 Weeks (Spoke to vannesa. Office will call with appointment time.) Erik Duran MD [Primary Care Provider] - 1-2 days (Office is closed. Please call to make appointment.) Patient Instructions/Handouts: COPD (Chronic Obstructive Pulmonary Disease) (DC ) Activity/Diet/Wound Care/Special Instructions: [facility]: #[phone] Discharge Disposition: HOME WITH HOME HEALTH SERVICES
--- NOTE | 2017-07-01 07:20 | CDI ---
Documentation Clarification Form Date: 07/01/2017 12:00:00 AM From: MARIUSZ Roman Phone: If you have question, contact Linda Coelho [place] at M-F 8:30 am to 6pm. Admit Date: 06/20/2017 5:44:00 PM Patient Name: Marco Doan Visit Number: [id number] Discharge Date: 06/26/2017 ATTENTION: The Clinical Documentation Specialists (CDI) and [facility] Coding Staff appreciate your assistance in clarifying documentation. Please respond to the clarification below the line at the bottom and electronically sign. The CDI & [facility] Coding staff will review the response and follow-up if needed. Please note: Queries are made part of the Legal Health Record. If you have any questions, please contact the author of this message via ITS. Dr. Ariel Gibson Mr. Doan was admitted with a NSTEMI and COPD exacerbation. It is noted that he has a history of CHF and is current with his home medication of Lasix. Echocardiogram done on 06/26/17 indicated an EF of between 55-60%. Further clarification of the type of CHF is needed for proper reporting purposes. In your professional opinion, can you please clarify type of CHF if known? Chronic Systolic Heart Failure Chronic Diastolic Heart Failure Chronic Systolic & Diastolic Heart Failure: Unable to Determine Other, please specify Chronic Diastolic Heart Failure MTDD
== END 2017-06-26 15:33 | disposition home health service (06) | DRG 280 ==
LOC: EC 16:10 → 6SEL 17:44
PROVIDERS: ADMIT Internal Medicine; ATTEND Internal Medicine
DX: I21.4 Non-ST elevation (NSTEMI) myocardial infarction (principal); J96.21 Acute and chronic respiratory failure with hypoxia; I27.29 Other secondary pulmonary hypertension; J96.22 Acute and chronic respiratory failure with hypercapnia; J44.1 Chronic obstructive pulmonary disease with (acute) exacerbation; J44.0 Chronic obstructive pulmonary disease with (acute) lower respiratory infection; I50.32 Chronic diastolic (congestive) heart failure; I27.81 Cor pulmonale (chronic); Z99.81 Dependence on supplemental oxygen; I25.10 Atherosclerotic heart disease of native coronary artery without angina pectoris; J20.9 Acute bronchitis, unspecified; I10 Essential (primary) hypertension; E78.5 Hyperlipidemia, unspecified; M19.90 Unspecified osteoarthritis, unspecified site; G47.33 Obstructive sleep apnea (adult) (pediatric); I73.9 Peripheral vascular disease, unspecified; K58.9 Irritable bowel syndrome, unspecified; R20.0 Anesthesia of skin; I11.0 Hypertensive heart disease with heart failure; R20.2 Paresthesia of skin; F32.9 Major depressive disorder, single episode, unspecified; F17.210 Nicotine dependence, cigarettes, uncomplicated; I49.3 Ventricular premature depolarization; K21.9 Gastro-esophageal reflux disease without esophagitis; I48.0 Paroxysmal atrial fibrillation; Z79.899 Other long term (current) drug therapy; Z79.51 Long term (current) use of inhaled steroids; Z82.49 Family history of ischemic heart disease and other diseases of the circulatory system; I25.2 Old myocardial infarction; Z95.5 Presence of coronary angioplasty implant and graft; Z99.89 Dependence on other enabling machines and devices; Z98.890 Other specified postprocedural states; Z79.82 Long term (current) use of aspirin
CPT/HCPCS: 36415; 36600; 80048; 80053; 80061; 82550; 82553; 82805; 83735; 84132; 84484; 85025; 85610; 85730; 93005; 93306; 94640; 94660; 94760; 96365; 96375; 99285

== ENCOUNTER 2017-11-02 10:57 | Inpatient (IN) | payer MEDICARE ==
[2017-11-02] MEDS ORDERED: methylPREDNISolone SOD SUCCI 125 MG/2 ML VIAL IV STA (11:35)
[2017-11-02] MEDS ORDERED: ACETAMINOPHEN TAB 500 MG TAB PO STA (11:35)
[2017-11-02] MEDS ORDERED: IPRATROPIUM-ALBUTEROL 3 ML NEB INHALATION STA (11:35)
--- NOTE | 2017-11-02 11:40 | ED ---
General Adult HPI - General Chief complaint: Weakness Stated complaint: low back pain Time Seen by Provider: 11/02/17 11:01 Source: patient Mode of arrival: EMS Limitations: no limitations - History of Present Illness Initial comments: 77-year-old male patient with past medical history significant for atrial fibrillation, coronary artery disease, heart failure, COPD, [place], and hypertension presents to the emergency department today for evaluation of increased shortness of breath and weakness. Patient states that he has been feeling this way over the last couple of days. Patient does wear home O2 but seems to be somewhat noncompliant with treatment and medications. Patient does admit to smoking currently. Patient states that shortness of breath increases with activity and when attempting to lie flat. Patient states he has been coughing frequently with white sputum production. In triage patient was found to have a temperature 100.7F. Patient states that his legs seem to be weak and he is unable to get around like usual. He denies any chest pain, numbness, or tingling. Patient denies any recent rash, abdominal pain, nausea, vomiting, back pain, numbness, tingling, dizziness, hematuria, dysuria, urinary urgency, urinary frequency, headache, visual changes, or any other complaints. - Related Data Home Medications Medication Instructions Recorded Confirmed Carvedilol [Coreg] 6.25 mg PO BID 03/03/16 06/20/17 HYDROcodone/APAP 10-325MG [[place] 1 - 2 tab PO Q4HR PRN 03/03/16 06/20/17 10-325] Olmesartan Medoxomil [Benicar] 40 mg PO DAILY 03/03/16 06/20/17 Sertraline [Zoloft] 50 mg PO DAILY 03/03/16 06/20/17 amLODIPine [Norvasc] 5 mg PO DAILY 03/03/16 06/20/17 hydrALAZINE HCL [Apresoline] 25 mg PO BID 03/03/16 06/20/17 Albuterol Inhaler [Ventolin Hfa 2 puff INHALATION RT-Q4H PRN 09/24/16 06/20/17 Inhaler] Fluticasone/Salmeterol [Advair Hfa 2 puff INHALATION RT-BID 09/24/16 06/20/17 115-21 Mcg Inhaler] Furosemide [Lasix] 20 mg PO DAILY 09/24/16 06/20/17 Ipratropium-Albuterol Nebulize 3 ml INHALATION RT-QID 09/24/16 06/20/17 [Duoneb 0.5 mg-3 mg/3 ml Soln] Theophylline 24 Hour [Maciej-24] 300 mg PO BID 09/24/16 06/20/17 Hydrochlorothiazide 50 mg PO DAILY 10/14/16 06/20/17 Spironolactone [Aldactone] 25 mg PO DAILY 10/14/16 06/20/17 Diazepam [Valium] 5 mg PO HS 06/20/17 06/20/17 Triamcinolone 0.1% Ointment 1 applic TOPICAL BID PRN 06/20/17 06/20/17 [Kenalog 0.1% Ointment] Previous Rx's Medication Instructions Recorded Aspirin 81 mg PO DAILY #90 chewable 06/25/17 Atorvastatin [Lipitor] 20 mg PO HS #90 tablet 06/25/17 Aspirin 162 mg PO DAILY #30 chew 06/26/17 Atorvastatin [Lipitor] 20 mg PO DAILY #30 tab 06/26/17 Doxycycline [Vibramycin] 100 mg PO BID 7 Days #14 cap 06/26/17 predniSONE See Taper PO DAILY #30 tab 06/26/17 Allergies Allergy/AdvReac Type Severity Reaction Status Date / Time No Known Allergies Allergy Verified 06/20/17 17:10 Review of Systems ROS Statement: Those systems with pertinent positive or pertinent negative responses have been documented in the HPI. ROS Other: All systems not noted in ROS Statement are negative. Past Medical History Past Medical History: Atrial Fibrillation, Coronary Artery Disease (CAD), Heart Failure, COPD, GERD/Reflux, Hyperlipidemia, Hypertension, Myocardial Infarction (TN), Osteoarthritis (OA), Pneumonia, Respiratory Disorder, Sleep Apnea/CPAP/ BIPAP, Vascular Disorder Additional Past Medical History / Comment(s): Chronic hypoxic respiratory failure, O2 at 2.5L/NC ATC, ischemic heart disease, PAD/PVD, diverticular dx, benign polypectomy, IBS, arthritis multiple joints bilaterally, numbness/ tingling bilateral feet. Last Myocardial Infarction Date:: unknown-prior to 2002 History of Any Multi-Drug Resistant Organisms: None Reported Past Surgical History: Heart Catheterization With Stent Additional Past Surgical History / Comment(s): PCI with stent 2002, L SFA angiogram/atherectomy/[facility], R SFA atherectomy/angioplasty, pilonidal cystectomy, bilateral sebacious cysts removed from axillae, cervical sx with plates and screws, back surgery with plate, colonoscopy. Past Anesthesia/Blood Transfusion Reactions: No Reported Reaction Date of Last Stent Placement:: 2002 Past Psychological History: Depression Smoking Status: Current every day smoker Past Alcohol Use History: Occasional Past Drug Use History: None Reported - Past Family History Mother Family Medical History: No Reported History Additional Family Medical History / Comment(s): Mother was healthy and at the age of 92 yrs. Father Family Medical History: Coronary Artery Disease (CAD), Myocardial Infarction (TN ) Additional Family Medical History / Comment(s): Father had a TN in his 70's. He had CABG and back surgery. General Exam Limitations: no limitations General appearance: alert, in no apparent distress, other (This is an ill- appearing elderly male patient in no acute distress. Vital signs upon presentation are temperature 100.7F, pulse 107, respirations 22, blood pressure 120/58, pulse ox 96% on room air.) Eye exam: Present: normal appearance, PERRL, EOMI. Absent: scleral icterus, conjunctival injection, periorbital swelling ENT exam: Present: normal exam, normal oropharynx, mucous membranes moist Neck exam: Present: normal inspection. Absent: tenderness, meningismus, lymphadenopathy Respiratory exam: Present: wheezes (Expiratory wheezing noted to the right posterior lung wen.), accessory muscle use, decreased breath sounds ( Bilateral), other (Congested cough). Absent: normal lung sounds bilaterally Cardiovascular Exam: Present: normal rhythm, tachycardia, normal heart sounds. Absent: systolic murmur, diastolic murmur, rubs, gallop, clicks GI/Abdominal exam: Present: soft, normal bowel sounds. Absent: distended, tenderness, guarding, rebound, rigid Neurological exam: Present: alert, oriented X3, CN II-XII intact Psychiatric exam: Present: normal affect, normal mood Skin exam: Present: warm, dry, intact, normal color. Absent: rash Course Vital Signs 11/02/17 11/02/17 11/02/17 11:00 11:27 12:19 Temperature 100.7 F H Pulse Rate 107 H 91 Pulse Rate [ 117 H Passenger Solicitor ] Respiratory 22 22 18 Rate Blood Pressure 128/58 151/98 O2 Sat by Pulse 96 98 Oximetry 07/22/18 07/22/18 07/22/18 13:15 13:20 13:31 Temperature Pulse Rate 151 H 95 89 Pulse Rate [ Passenger Solicitor ] Respiratory 20 Rate Blood Pressure 133/67 O2 Sat by Pulse 93 L Oximetry 11/02/17 11/02/17 11/02/17 13:41 13:55 13:57 Temperature 98.3 F Pulse Rate 96 161 H 92 Pulse Rate [ Passenger Solicitor ] Respiratory 20 20 Rate Blood Pressure 132/68 O2 Sat by Pulse 94 L 94 L Oximetry 11/02/17 15:03 Temperature 98.2 F Pulse Rate 98 Pulse Rate [ Passenger Solicitor ] Respiratory 20 Rate Blood Pressure 157/76 O2 Sat by Pulse 93 L Oximetry EKG Findings - EKG Comments: EKG Findings:: #1: EKG obtained at 1121 shows sinus tachycardia with frequent premature ventricular complexes. Ventricular rate is 101, OR interval 164, QR religious 86, QT 3:30, QTC 427. No evidence of ST elevation or depression. # 2: EKG obtained at 1319 shows A. fib with RVR with a ventricular rate of 165, QRS duration 84, QTC 290, QTC 480. #3: EKG obtained at 1322 shows sinus rhythm with frequent premature ventricular complexes. Ventricular rate is 96, OR interval 174, QRS duration 84, QT 342, QTc 432. Medical Decision Making - Medical Decision Making 77 year-old male patient presents to emergency department today for complaints of increased confusion, shortness of breath, and weakness. Labs reviewed and did reveal an elevated white blood cell count 11.8, BUN 25, carbon dioxide 35. Troponin was elevated at 0.039. Patient did have 2 episodes where he went into A. fib with RVR with rates in the 160s. Patient does have a history of A. fib, currently not anticoagulated. Chest x-ray showed no acute cardiopulmonary process however patient clinically has signs and symptoms of pneumonia including a frequent productive cough, fever, and shortness of breath. Patient was given Solu Medrol, DuoNeb, and started on Rocephin and azithromycin. He is also started on heparin and Cardizem for rate control. Patient will be admitted to the service of Dr. De La Fuente with cardiology consultation. - Lab Data Result diagrams: 11/02/17 11:15 11/02/17 11:15 Lab Results 11/02/17 11/02/1718 Range/Units 11:15 11:15 11:15 WBC 11.8 H (3.8-10.6) k/uL RBC 4.48 (4.30-5.90) m/uL Hgb 12.9 L (13.0-17.5) gm/dL Hct 39.6 (39.0-53.0) % MCV 88.4 (80.0-100.0) fL MCH 28.8 (25.0-35.0) pg MCHC 32.6 (31.0-37.0) g/dL RDW 14.3 (11.5-15.5) % Plt Count 189 (150-450) k/uL Neutrophils % 80 % Lymphocytes % 8 % Monocytes % 8 % Eosinophils % 1 % Basophils % 0 % Neutrophils # 9.4 H (1.3-7.7) k/uL Lymphocytes # 0.9 L (1.0-4.8) k/uL Monocytes # 1.0 (0-1.0) k/uL Eosinophils # 0.2 (0-0.7) k/uL Basophils # 0.0 (0-0.2) k/uL PT (9.0-12.0) sec INR (<1.2) APTT (22.0-30.0) sec Sodium 139 (137-145) mmol/L Potassium 3.7 (3.5-5.1) mmol/L Chloride 97 L (98-107) mmol/L Carbon Dioxide 35 H (22-30) mmol/L Anion Gap 7 mmol/L BUN 25 H (9-20) mg/dL Creatinine 1.19 (0.66-1.25) mg/dL Est GFR (CKD-EPI)AfAm 68 (>60 ml/min/1.73 sqM) Est GFR (CKD-EPI)NonAf 59 (>60 ml/min/1.73 sqM) Glucose 102 H (74-99) mg/dL Plasma Lactic Acid Anthony (0.7-2.0) mmol/L Calcium 9.2 (8.4-10.2) mg/dL Total Bilirubin 0.7 (0.2-1.3) mg/dL AST 23 (17-59) U/L ALT 25 (21-72) U/L Alkaline Phosphatase 94 (38-126) U/L Total Creatine Kinase 426 H (55-170) U/L CK-MB (CK-2) 1.3 (0.0-2.4) ng/mL CK-MB (CK-2) Rel Index 0.3 Troponin I 0.039 H* (0.000-0.034) ng/mL NT-Pro-B Natriuret Pep pg/mL Total Protein 5.8 L (6.3-8.2) g/dL Albumin 3.5 (3.5-5.0) g/dL Urine Color Urine Appearance (Clear) Urine pH (5.0-8.0) Ur Specific [place] (1.001-1.035) Urine Protein (Negative) Urine Glucose (UA) (Negative) Urine Ketones (Negative) Urine Blood (Negative) Urine Nitrite (Negative) Urine Bilirubin (Negative) Urine Urobilinogen (<2.0) mg/dL Ur Leukocyte Esterase (Negative) 11/02/17 11/02/17 11/02/17 Range/Units 11:15 11:15 12:11 WBC (3.8-10.6) k/uL RBC (4.30-5.90) m/uL Hgb (13.0-17.5) gm/dL Hct (39.0-53.0) % MCV (80.0-100.0) fL MCH (25.0-35.0) pg MCHC (31.0-37.0) g/dL RDW (11.5-15.5) % Plt Count (150-450) k/uL Neutrophils % % Lymphocytes % % Monocytes % % Eosinophils % % Basophils % % Neutrophils # (1.3-7.7) k/uL Lymphocytes # (1.0-4.8) k/uL Monocytes # (0-1.0) k/uL Eosinophils # (0-0.7) k/uL Basophils # (0-0.2) k/uL PT 9.8 (9.0-12.0) sec INR 1.0 (<1.2) APTT 23.9 (22.0-30.0) sec Sodium (137-145) mmol/L Potassium (3.5-5.1) mmol/L Chloride (98-107) mmol/L Carbon Dioxide (22-30) mmol/L Anion Gap mmol/L BUN (9-20) mg/dL Creatinine (0.66-1.25) mg/dL Est GFR (CKD-EPI)AfAm (>60 ml/min/1.73 sqM) Est GFR (CKD-EPI)NonAf (>60 ml/min/1.73 sqM) Glucose (74-99) mg/dL Plasma Lactic Acid Anthony 1.1 (0.7-2.0) mmol/L Calcium (8.4-10.2) mg/dL Total Bilirubin (0.2-1.3) mg/dL AST (17-59) U/L ALT (21-72) U/L Alkaline Phosphatase (38-126) U/L Total Creatine Kinase (55-170) U/L CK-MB (CK-2) (0.0-2.4) ng/mL CK-MB (CK-2) Rel Index Troponin I (0.000-0.034) ng/mL NT-Pro-B Natriuret Pep 719 pg/mL Total Protein (6.3-8.2) g/dL Albumin (3.5-5.0) g/dL Urine Color Urine Appearance (Clear) Urine pH (5.0-8.0) Ur Specific [place] (1.001-1.035) Urine Protein (Negative) Urine Glucose (UA) (Negative) Urine Ketones (Negative) Urine Blood (Negative) Urine Nitrite (Negative) Urine Bilirubin (Negative) Urine Urobilinogen (<2.0) mg/dL Ur Leukocyte Esterase (Negative) 11/02/17 Range/Units 14:01 WBC (3.8-10.6) k/uL RBC (4.30-5.90) m/uL Hgb (13.0-17.5) gm/dL Hct (39.0-53.0) % MCV (80.0-100.0) fL MCH (25.0-35.0) pg MCHC (31.0-37.0) g/dL RDW (11.5-15.5) % Plt Count (150-450) k/uL Neutrophils % % Lymphocytes % % Monocytes % % Eosinophils % % Basophils % % Neutrophils # (1.3-7.7) k/uL Lymphocytes # (1.0-4.8) k/uL Monocytes # (0-1.0) k/uL Eosinophils # (0-0.7) k/uL Basophils # (0-0.2) k/uL PT (9.0-12.0) sec INR (<1.2) APTT (22.0-30.0) sec Sodium (137-145) mmol/L Potassium (3.5-5.1) mmol/L Chloride (98-107) mmol/L Carbon Dioxide (22-30) mmol/L Anion Gap mmol/L BUN (9-20) mg/dL Creatinine (0.66-1.25) mg/dL Est GFR (CKD-EPI)AfAm (>60 ml/min/1.73 sqM) Est GFR (CKD-EPI)NonAf (>60 ml/min/1.73 sqM) Glucose (74-99) mg/dL Plasma Lactic Acid Anthony (0.7-2.0) mmol/L Calcium (8.4-10.2) mg/dL Total Bilirubin (0.2-1.3) mg/dL AST (17-59) U/L ALT (21-72) U/L Alkaline Phosphatase (38-126) U/L Total Creatine Kinase (55-170) U/L CK-MB (CK-2) (0.0-2.4) ng/mL CK-MB (CK-2) Rel Index Troponin I (0.000-0.034) ng/mL NT-Pro-B Natriuret Pep pg/mL Total Protein (6.3-8.2) g/dL Albumin (3.5-5.0) g/dL Urine Color Yellow Urine Appearance Clear (Clear) Urine pH 8.0 (5.0-8.0) Ur Specific [place] 1.013 (1.001-1.035) Urine Protein Negative (Negative) Urine Glucose (UA) Negative (Negative) Urine Ketones Negative (Negative) Urine Blood Negative (Negative) Urine Nitrite Negative (Negative) Urine Bilirubin Negative (Negative) Urine Urobilinogen <2.0 (<2.0) mg/dL Ur Leukocyte Esterase Negative (Negative) - Radiology Data Radiology results: report reviewed, image reviewed Two-view x-ray of the chest is obtained. It and previous lower cervical fusion. Lungs are clear. Pleural spaces are clear. Heart is not enlarged. Impression by Dr. Agarwal shows no active intrathoracic disease. Disposition Clinical Impression: Altered mental status, Pneumonia, Atrial fibrillation with RVR Disposition: ADMITTED IP TO THIS HOSP Condition: Serious Referrals: Erik Duran MD [Primary Care Provider] - 1-2 days Decision to Admit Reason: Admit from EC Decision Date: 11/02/17 Decision Time: 15:16
[2017-11-02 11:59] LABS: Basophils % (A) 0 %; Eosinophils # (A) 0.2 k/uL (0-0.7); Eosinophils % (A) 1 %; HCT 39.6 % (39.0-53.0); HGB 12.9 gm/dL (13.0-17.5); Lymphocytes # (A) 0.9 k/uL (1.0-4.8); Lymphocytes % (A) 8 %; MCH 28.8 pg (25.0-35.0); MCHC 32.6 g/dL (31.0-37.0); MCV 88.4 fL (80.0-100.0); Mean Platelet Volume 7.7; Monocytes % (A) 8 %; Neutrophils # (A) 9.4 k/uL (1.3-7.7); Neutrophils % (A) 80 %; Platelet Count 189 k/uL (150-450); RBC 4.48 m/uL (4.30-5.90); RDW 14.3 % (11.5-15.5); WBC 11.8 k/uL (3.8-10.6)
[2017-11-02 12:10] LABS: Albumin 3.5 g/dL (3.5-5.0); Calcium 9.2 mg/dL (8.4-10.2); Potassium 3.7 mmol/L (3.5-5.1); Total Bilirubin 0.7 mg/dL (0.2-1.3); Total Protein 5.8 g/dL (6.3-8.2)
[2017-11-02 12:11] LABS: Partial Thromboplastin Time 23.9 sec (22.0-30.0); Prothrombin Time 9.8 sec (9.0-12.0)
[2017-11-02] MEDS: SODIUM CHLORIDE 0.9% 500 ML IV SCH ×2 (12:12→13:33)
[2017-11-02 12:32] LABS: Creatine Kinase MB 1.3 ng/mL (0.0-2.4)
[2017-11-02 12:35] LABS: Troponin I 0.039 ng/mL (0.000-0.034)
--- NOTE | 2017-11-02 13:07 | XR ---
EXAMINATION TYPE: XR chest 2V DATE OF EXAM: 11/02/2017 HISTORY: Fever. REFERENCE: Previous study dated 02/27/2017. FINDINGS: There has been a previous lower cervical fusion.. The lungs are clear. Pleural spaces are clear. The heart is not enlarged. IMPRESSION: NO ACTIVE INTRATHORACIC DISEASE.
[2017-11-02] MEDS ORDERED: DILTIAZEM DRIP BOLUS FROM BAG 1 MG SOLN IV ONE (14:00)
[2017-11-02] MEDS ORDERED: HEPARIN SODIUM,PORCINE 5,000 UNIT/ML 1 ML VIAL IV ONE (14:00)
[2017-11-02 14:13] LABS: Appearance,Urine Clear (Clear); Bilirubin,Urine Negative (Negative); Blood,Urine Negative (Negative); Color,Urine Yellow; Glucose,Urine (UA) Negative (Negative); Ketones,Urine Negative (Negative); Leukocyte Esterase,Urine Negative (Negative); Nitrite,Urine Negative (Negative); Protein,Urine Negative (Negative); Specific Gravity,Urine 1.013 (1.001-1.035); Urobilinogen,Urine <2.0 mg/dL (<2.0)
[2017-11-02] MEDS ORDERED: AZITHROMYCIN 500 MG in DEXTROSE 5% IN WATER 250 ML IVPB STA ×2 (14:14)
[2017-11-02] MEDS ORDERED: cefTRIAXone IN SWFI 1,000 MG/10 ML SYRINGE IVP STA (14:15)
[2017-11-02] MEDS ORDERED: NALOXONE 0.4 MG/ML 1 ML VIAL IV PRN (14:40)
[2017-11-02] MEDS ORDERED: ACETAMINOPHEN TAB 325 MG TAB PO PRN (14:40)
[2017-11-02] MEDS ORDERED: PNEUMONIA PROTOCOL UTILIZED 1 EACH MISC PO PRN (14:43)
[2017-11-02] MEDS ORDERED: IPRATROPIUM-ALBUTEROL 3 ML NEB INHALATION PRN ×2 (14:44→20:02)
[2017-11-02] MEDS: HEPARIN SOD,PORK IN 0.45% NACL 25,000 UNIT in 0.45% NACL 1 500ML.BAG IV SCH (14:58)
[2017-11-02] MEDS: DILTIAZEM 50 MG in SODIUM CHLORIDE 0.9% 40 ML IV SCH ×2 (15:02→23:34)
[2017-11-02] MEDS: SODIUM CHLORIDE 0.9% 1,000 ML IV SCH (16:17)
[2017-11-02] MEDS: IPRATROPIUM-ALBUTEROL 3 ML NEB INHALATION SCH ×2 (17:08→20:59)
[2017-11-02] MEDS: methylPREDNISolone SOD SUCCI 125 MG/2 ML VIAL IV SCH ×2 (17:39→23:44)
[2017-11-02] MEDS ORDERED: Magnesium Replacement Protocol 1 EACH MISC MISCELLANE PRN (19:33)
--- NOTE | 2017-11-02 20:24 | CT ---
EXAMINATION TYPE: CT brain wo con DATE OF EXAM: 11/02/2017 COMPARISON: None HISTORY: ams CT DLP: 1235.2 mGycm Automated exposure control for dose reduction was used. FINDINGS: There is cerebral cortical atrophy. There is no mass effect nor midline shift. There is no sign of in tracranial hemorrhage. There is debris in the right external auditory canal. Calvarium is intact. IMPRESSION: CEREBRAL ATROPHY. NO ACUTE INTRACRANIAL ABNORMALITY.
[2017-11-02] MEDS: MAGNESIUM SULFATE-D5W PMX 1 GM in DEXTROSE/WATER 1 100ML.BAG IVPB SCH ×3 (20:25→23:44)
[2017-11-02 20:49] LABS: Glucose,Whole Blood 153 mg/dL (75-99)
[2017-11-02 20:51] LABS: ABG Base Excess 8.7 mmol/L; ABG HCO3 32 mmol/L (21-25); ABG Oxygen Saturation 90.7 % (94-97); ABG PCO2 43 mmHg (35-45); ABG PH 7.48 (7.35-7.45); ABG PO2 55 mmHg (83-108); ABG TCO2 34 mmol/L (19-24)
--- NOTE | 2017-11-02 21:07 | HP ---
HISTORY AND PHYSICAL DATE OF SERVICE: 11/02/2017 CHIEF COMPLAINTS: Weakness, back pain, cough, change in mental status. HISTORY OF PRESENT ILLNESS: This 77-year-old gentleman with a past medical history of multiple medical problems including COPD, respiratory failure, atrial fibrillation, CAD, CHF, GERD, hypertension, hyperlipidemia, history of DJD, history of pneumonia, history of sleep apnea, history of hypothyroidism, history of chronic upper respiratory failure being followed by Josiah Duran in the outpatient setting was complaining of increased shortness of breath and weakness also. The patient was not feeling well. The patient was wearing oxygen. The patient is slightly stuporous today. Pneumonia suspected in the ER. The patient started on IV antibiotics. The patient apparently was noncompliant with medications also. Currently the patient is unable to obtain a detailed history from the patient and most of the history taken from my discussion with staff and review of chart at this time. There is no history of any headache, loss of consciousness, seizures. No history of trauma. PAST MEDICAL HISTORY: Atrial fibrillation, CAD, CHF, COPD, GERD, hypertension, hyperlipidemia, history of myocardial infarction, DJD, history of pneumonia, sleep apnea. HOME MEDICATIONS ARE: Reviewed and include home medications are: 1. Prednisone 10 mg p.o. daily. 2. Wellbutrin XL 150 mg p.o. daily. 3. Maciej-24 300 mg p.o. b.i.d. 4. Zoloft 50 mg q.h.s. 5. Benicar 40 mg p.o. daily. 6. Mycostatin 5 mg q.i.d. 7. DuoNeb q.i.d. 8. Hydrochlorothiazide 50 mg p.o. daily. 9. Hydrocodone 1 tablet q.4h p.r.n. 10.Lasix 20 mg p.o. daily. 11.Valium 5 mg q.h.s. 12.Coreg 6.25 mg p.o. b.i.d. 13.Lipitor 20 mg p.o. daily. 14.Ventolin HFA 2 puffs q.4h p.r.n. ALLERGIES: Allergies are none. Family history, social history, review of systems could not be taken because of the change in mental status. PHYSICAL EXAM: Patient is stuporous. Pulse 89, arousable, blood pressure 140/82, respiration 18, temperature 97.4, pulse ox 91% on 2 L. HEENT is conjunctivae normal. Oral mucosa moist. NECK: Neck is no jugular venous distention. No carotid bruit. No lymph node enlargement. Axillary muscles respirations acting. CARDIOVASCULAR system: S1, S2 muffled. No S3, no S4. RESPIRATORY: Breath sounds diminished in the bases. Bilateral scattered rhonchi and expiratory wheezing and crackles. ABDOMEN: Soft, obese, nontender. No mass palpable. LEGS: No edema and no swelling. NERVOUS SYSTEM: Higher functions as mentioned earlier. Otherwise moves all 4 limbs. The patient is stuporous. The full exam is not possible. SKIN: No ulcer, rash or bleeding. LYMPHATICS: No lymph nodes palpable in the neck, axillae or groin. JOINTS: No active deforming arthropathy. LABS: WBC 11.8, hemoglobin 12.9, sodium 139, potassium 3.7 and troponin 0.039. ASSESSMENT: 1. Chronic obstructive pulmonary disease acute exacerbation with possible acute bronchopneumonia with possible acute hypoxic hypercapnic respiratory failure. 2. Chronic hypoxic respiratory failure. 3. Change in mental status, possibly acute metabolic encephalopathy present on admission. 4. Troponin 0.039, indeterminate. 5. Increased creatinine kinase. 6. Increased WBC. 7. History of atrial fibrillation. 8. History of congestive heart failure. 9. History of coronary artery disease. 10.History of gastroesophageal reflux disease. 11.Hypertension. 12.Hyperlipidemia. 13.History of myocardial infarction. 14.History of pneumonia. 15.Sleep apnea. 16.Hypothyroidism. 17.History of peripheral vascular disease. 18.History of noncompliance. 19.History of coronary artery disease/stent. 20.History of depression. RECOMMENDATIONS AND DISCUSSION: In this 77-year-old gentleman who presented with multiple complex medical issues, we will monitor the patient closely. Continue the current management and symptomatic treatment. Otherwise, I will initiate broad-spectrum IV antibiotics. Cardiology and pulmonology consultations. Otherwise, I would also recommend a CT scan. Neurology evaluation. ABG will be also ordered to check for the pH and the patient also might require BiPAP because of the change in mental status, metabolic encephalopathy, which could be related to hypercarbic respiratory failure. Otherwise continue to monitor. Again, overall prognosis guarded. Further recommendations to follow. See orders. Discussed with staff. MMODL / IJN: [id number] /
[2017-11-02] MEDS: THEOPHYLLINE 24 HOUR 300 MG CAP.ER.24H PO SCH (21:47)
[2017-11-02] MEDS: NYSTATIN 100,000 UNIT/ML SUSP 500,000 UNIT/5 ML CUP PO SCH (21:47)
[2017-11-02] MEDS: SERTRALINE 50 MG TAB PO SCH (21:47)
[2017-11-02] MEDS: CARVEDILOL 6.25 MG TAB PO SCH (21:47)
[2017-11-02] MEDS: HEPARIN SODIUM,PORCINE 5,000 UNIT/ML 1 ML VIAL IV PRN (21:48)
[2017-11-03 03:58] LABS: Basophils % (A) 0 %; Eosinophils % (A) 0 %; HCT 39.7 % (39.0-53.0); HGB 12.3 gm/dL (13.0-17.5); Lymphocytes # (A) 0.5 k/uL (1.0-4.8); Lymphocytes % (A) 5 %; MCH 27.3 pg (25.0-35.0); MCHC 31.1 g/dL (31.0-37.0); Mean Platelet Volume 7.9; Monocytes # (A) 0.4 k/uL (0-1.0); Monocytes % (A) 4 %; Neutrophils # (A) 8.3 k/uL (1.3-7.7); Neutrophils % (A) 90 %; Platelet Count 169 k/uL (150-450); RBC 4.51 m/uL (4.30-5.90); RDW 14.1 % (11.5-15.5); WBC 9.3 k/uL (3.8-10.6)
[2017-11-03 04:08] LABS: Anion Gap 7 mmol/L; Blood Urea Nitrogen 27 mg/dL (9-20); Calcium 9.3 mg/dL (8.4-10.2); Carbon Dioxide 34 mmol/L (22-30); Chloride 97 mmol/L (98-107); Glucose 153 mg/dL (74-99); Magnesium 2.3 mg/dL (1.6-2.3); Potassium 3.4 mmol/L (3.5-5.1); Sodium 138 mmol/L (137-145)
[2017-11-03] MEDS ORDERED: HYDROcodone/APAP 10-325MG 1 EACH TAB PO ONE (04:09)
[2017-11-03] MEDS ORDERED: Potassium Replacement Protocol 1 EACH MISC MISCELLANE PRN (04:34)
[2017-11-03] MEDS: DILTIAZEM 50 MG in SODIUM CHLORIDE 0.9% 40 ML IV SCH ×3 (04:35→22:23)
[2017-11-03 05:54] LABS: Glucose,Whole Blood 181 mg/dL (75-99)
[2017-11-03] MEDS: methylPREDNISolone SOD SUCCI 125 MG/2 ML VIAL IV SCH ×2 (06:03→11:47)
[2017-11-03] MEDS: POTASSIUM CHLORIDE ER 20 MEQ TAB.ER PO SCH ×4 (06:03→23:25)
[2017-11-03] MEDS: CARVEDILOL 6.25 MG TAB PO SCH ×2 (06:48→16:33)
[2017-11-03] MEDS: INSULIN ASPART 100 UNIT/ML 1 ML 10 ML VIAL SQ SCH ×4 (07:06→21:05)
[2017-11-03] MEDS: FORMOTEROL FUMARATE 20 MCG/2 ML NEBU INHALATION SCH ×2 (08:14→19:39)
[2017-11-03] MEDS: IPRATROPIUM-ALBUTEROL 3 ML NEB INHALATION SCH ×4 (08:15→19:39)
[2017-11-03] MEDS: BUDESONIDE 1 MG/2 ML NEBU INHALATION SCH ×2 (08:15→19:39)
[2017-11-03] MEDS: PANTOPRAZOLE 40 MG/10 ML VIAL IVP SCH (08:31)
[2017-11-03] MEDS: NYSTATIN 100,000 UNIT/ML SUSP 500,000 UNIT/5 ML CUP PO SCH ×4 (08:31→20:57)
[2017-11-03] MEDS: ATORVASTATIN 20 MG TAB PO SCH (08:31)
[2017-11-03] MEDS: buPROPion XL 150 MG TAB.ER.24H PO SCH (08:32)
[2017-11-03] MEDS: LOSARTAN 50 MG TAB PO SCH (08:32)
[2017-11-03] MEDS: FUROSEMIDE 20 MG TAB PO SCH (08:32)
[2017-11-03] MEDS: THEOPHYLLINE 24 HOUR 300 MG CAP.ER.24H PO SCH ×2 (08:32→20:57)
[2017-11-03] MEDS: HYDROCHLOROTHIAZIDE 50 MG TAB PO SCH (08:33)
--- NOTE | 2017-11-03 08:40 | P.CRDCN ---
History of Present Illness Consult date: 11/03/17 Requesting physician: Fam Caicedo Consult reason: atrial fibrillation Chief complaint: Shortness of breath and weakness History of present illness: This is a 77-year-old gentleman with known history of coronary artery disease and prior stent placement, severe COPD with home O2 use, paroxysmal atrial fibrillation, hypertension, hyperlipidemia, PAD and PVD, EtOH use, history of noncompliance, who presents to the hospital with symptoms of progressively worsening shortness of breath with associated weakness. According to the patient is also been coughing up a significant amount of dark yellow sputum. His EKG on presentation here showed atrial fibrillation with a rapid ventricular response , patient was initiated on IV Cardizem. shortly thereafter patient did convert to normal sinus rhythm, this morning continues to be in a normal sinus rhythm , because of the atrial fibrillation a cardiology consultation has been requested. Chest x-ray on arrival here did not reveal any active disease. CAT scan of the brain revealed cerebral atrophy with no acute intracranial abnormality. Temperature on arrival here 100.7, heart rate 107, blood pressure 128/50, 96% on 2 L of oxygen. Let pressure this morning 142/70 with a heart rate in the 70s, 92% on 4 L of oxygen. White blood cell count on admission 11.8, 9.3 this morning, hemoglobin 12.3, platelet count 169. Blood gases were obtained on admission, pH 7.4, pO2 55, bicarb 32, CO2 34 , sodium on admission 138, potassium 3.4, BUN 27, creatinine 0.8. Magnesium on admission 1.3, 2.3 this morning. BNP [id number]. Troponins 0.039, 0.034, 0.024. Patient did have an admission to the hospital in June of this year with a non -Q-wave myocardial infarction, medical therapy advised at that time. An echocardiogram with Doppler study was performed at that time as well which revealed an ejection fraction of 55-60%. At the time of my examination this morning, patient states that his breathing is improved from admission, still appears to be somewhat short of breath, continues to cough up productive sputum. Patient continues to be on IV Cardizem at 5 mg per hour, in normal sinus rhythm, he is also on IV heparin. Past Medical History Past Medical History: Atrial Fibrillation, Coronary Artery Disease (CAD), Heart Failure, COPD, GERD/Reflux, Hyperlipidemia, Hypertension, Myocardial Infarction (UT), Osteoarthritis (OA), Pneumonia, Respiratory Disorder, Sleep Apnea/CPAP/ BIPAP, Thyroid Disorder, Vascular Disorder Additional Past Medical History / Comment(s): Chronic hypoxic respiratory failure, O2 at 2.5L/NC ATC, ischemic heart disease, PAD/PVD, diverticular dx, benign polypectomy, IBS, arthritis multiple joints bilaterally, numbness/ tingling bilateral feet. Last Myocardial Infarction Date:: unknown-prior to 2002 History of Any Multi-Drug Resistant Organisms: None Reported Past Surgical History: Heart Catheterization With Stent Additional Past Surgical History / Comment(s): PCI with stent 2002, L SFA angiogram/atherectomy/[employer], R SFA atherectomy/angioplasty, pilonidal cystectomy, bilateral sebacious cysts removed from axillae, cervical sx with plates and screws, back surgery with plate, colonoscopy. Past Anesthesia/Blood Transfusion Reactions: No Reported Reaction Date of Last Stent Placement:: 2002 Past Psychological History: Depression Additional Psychological History / Comment(s): Pt resides with his spouse. He is on O2 at 2.5L/NC ATC. He ambulates mostly with a cane. He drives. He has a nebulizer. Smoking Status: Current every day smoker Past Alcohol Use History: Occasional Additional Past Alcohol Use History / Comment(s): Pt started smoking in 1956 and is less than a ppd smoker. Past Drug Use History: None Reported - Past Family History Mother Family Medical History: No Reported History Additional Family Medical History / Comment(s): Mother was healthy and at the age of 92 yrs. Father Family Medical History: Coronary Artery Disease (CAD), Myocardial Infarction (UT ) Additional Family Medical History / Comment(s): Father had a UT in his 70's. He had CABG and back surgery. Medications and Allergies Home Medications Medication Instructions Recorded Confirmed Type Carvedilol [Coreg] 6.25 mg PO BID 03/03/16 11/02/17 History HYDROcodone/APAP 10-325MG [[place] 1 tab PO Q4HR PRN 03/03/16 11/02/17 History 10-325] Olmesartan Medoxomil [Benicar] 40 mg PO DAILY 03/03/16 11/02/17 History Sertraline [Zoloft] 50 mg PO HS 03/03/16 11/02/17 History Albuterol Inhaler [Ventolin Hfa 2 puff INHALATION RT-Q4H PRN 09/24/16 11/02/17 History Inhaler] Furosemide [Lasix] 20 mg PO DAILY 09/24/16 11/02/17 History Ipratropium-Albuterol Nebulize 3 ml INHALATION RT-QID 09/24/16 11/02/17 History [Duoneb 0.5 mg-3 mg/3 ml Soln] Theophylline 24 Hour [Maciej-24] 300 mg PO BID 09/24/16 11/02/17 History Hydrochlorothiazide 50 mg PO DAILY 10/14/16 11/02/17 History Diazepam [Valium] 5 mg PO HS 06/20/17 11/02/17 History Atorvastatin [Lipitor] 20 mg PO DAILY #30 tab 06/26/17 11/02/17 Rx Nystatin 100,000 Unit/ml Susp 5 ml PO QID 11/02/17 11/02/17 History [Mycostatin Oral Susp] buPROPion XL [Wellbutrin Xl] 150 mg PO DAILY 11/02/17 11/02/17 History predniSONE 10 mg PO DAILY 11/02/17 11/02/17 History Allergies Allergy/AdvReac Type Severity Reaction Status Date / Time No Known Allergies Allergy Verified 11/02/17 16:57 Physical Exam Vitals: Vital Signs Temp Pulse Pulse Resp BP BP Pulse Ox 11/03/17 08:19 90 11/03/17 04:00 97.0 F L 73 18 143/74 92 L 11/02/17 23:10 97.9 F 80 18 105/58 94 L 11/02/17 21:15 92 11/02/17 21:02 90 11/02/17 20:35 98.3 F 83 18 129/76 91 L 11/02/17 17:21 92 11/02/17 17:08 94 93 L 11/02/17 16:20 97.4 F L 89 18 145/82 91 L 11/02/17 15:42 98.7 F 96 20 150/67 93 L 11/02/17 15:26 96 20 144/76 94 L 11/02/17 15:16 92 20 141/77 94 L 11/02/17 15:06 92 20 143/84 94 L 11/02/17 15:03 98.2 F 98 20 157/76 93 L 11/02/17 13:57 98.3 F 92 20 132/68 94 L 11/02/17 13:55 161 H 20 94 L 11/02/17 13:41 96 11/02/17 13:31 89 11/02/17 13:20 95 20 133/67 93 L 11/02/17 13:15 151 H 11/02/17 12:19 91 18 151/98 98 11/02/17 11:27 117 H 22 11/02/17 11:00 100.7 F H 107 H 22 128/58 96 Intake and Output 11/02/17 11/03/17 11/03/17 22:59 06:59 14:59 Intake Total 136.667 67.750 Output Total 525 Balance 136.667 -457.250 Intake: Intake, IV Titration 136.667 67.750 Amount Diltiazem 50 mg In Sodium 67.750 Chloride 0.9% 40 ml @ 5 MG/HR 5 mls/hr IV .Q10H [facility] Rx#:[id number] Heparin Sod,Pork in 0.45% 136.667 NaCl 25,000 unit In 0.45 % NaCl 1 500ml.bag @ 10.4 UNITS/KG/HR 20 mls/hr IV .Q24H [facility] Rx#:[id number] Output: Urine 525 Other: Voiding Method Urinal Weight 95.3 kg PHYSICAL EXAMINATION: GENERAL: 77-year-old gentleman in no acute distress at the time of my examination HEENT: Head is atraumatic, normocephalic. Pupils equal, round. Sclera anicteric. Conjunctiva are clear. Mucous membranes of the mouth are moist. Neck is supple. There is no elevated jugular venous pressure. No carotid bruit is heard. HEART EXAMINATION: Heart S1, S2 normal. No murmur or gallop heard. CHEST EXAMINATION: Lungs reveal scattered coarse rhonchi and wheezing throughout ABDOMEN: Soft, nontender. Bowel sounds are heard. No organomegaly noted. EXTREMITIES: 1+ peripheral pulses with evidence of peripheral edema and no calf tenderness noted]. NEUROLOGIC [ptient is awake, alert and oriented X2. . Results 11/03/17 03:48 11/03/17 03:48 Cardiac Enzymes 11/02/17 11/02/17 11/02/17 Range/Units 11:15 11:15 17:07 AST 23 (17-59) U/L CK-MB (CK-2) 1.3 (0.0-2.4) ng/mL Troponin I 0.039 H* 0.034 (0.000-0.034) ng/mL 11/02/17 Range/Units 23:11 AST (17-59) U/L CK-MB (CK-2) (0.0-2.4) ng/mL Troponin I 0.024 (0.000-0.034) ng/mL Coagulation 11/02/17 11/02/17 11/03/17 Range/Units 11:15 20:20 03:48 PT 9.8 (9.0-12.0) sec APTT 23.9 33.1 H 46.8 H (22.0-30.0) sec CBC 11/02/17 11/03/17 Range/Units 11:15 03:48 WBC 11.8 H 9.3 (3.8-10.6) k/uL RBC 4.48 4.51 (4.30-5.90) m/uL Hgb 12.9 L 12.3 L (13.0-17.5) gm/dL Hct 39.6 39.7 (39.0-53.0) % Plt Count 189 169 (150-450) k/uL Comprehensive Metabolic Panel 11/02/17 11/03/17 Range/Units 11:15 03:48 Sodium 139 138 (137-145) mmol/L Potassium 3.7 3.4 L (3.5-5.1) mmol/L Chloride 97 L 97 L (98-107) mmol/L Carbon Dioxide 35 H 34 H (22-30) mmol/L BUN 25 H 27 H (9-20) mg/dL Creatinine 1.19 0.88 (0.66-1.25) mg/dL Glucose 102 H 153 H (74-99) mg/dL Calcium 9.2 9.3 (8.4-10.2) mg/dL AST 23 (17-59) U/L ALT 25 (21-72) U/L Alkaline Phosphatase 94 (38-126) U/L Total Protein 5.8 L (6.3-8.2) g/dL Albumin 3.5 (3.5-5.0) g/dL Current Medications Generic Name Dose Route Start Last Admin Trade Name Freq PRN Reason Stop Dose Admin Acetaminophen 650 mg 11/02/17 14:40 Tylenol Tab PO Q6HR PRN Mild Pain or Fever > 100.5 Albuterol/Ipratropium 3 ml 11/03/17 08:00 11/03/17 08:15 Duoneb 0.5 Mg-3 Mg/3 Ml Soln INHALATION 3 ml RT-QID [facility] Administration Albuterol/Ipratropium 3 ml 11/02/17 20:02 11/02/17 20:57 Duoneb 0.5 Mg-3 Mg/3 Ml Soln INHALATION 3 ml RT-QID PRN Administration Shortness Of Breath Or Wheezing Atorvastatin Calcium 20 mg 11/03/17 09:00 Lipitor PO DAILY [facility] Budesonide 1 mg 11/03/17 08:00 11/03/17 08:15 Pulmicort INHALATION 1 mg RT-BID [facility] Administration Bupropion HCl 150 mg 11/03/17 09:00 Wellbutrin Xl PO DAILY [facility] Carvedilol 6.25 mg 11/02/17 21:00 11/03/17 06:48 Coreg PO 6.25 mg AC-BID [facility] Administration Ceftriaxone Sodium 1,000 mg 11/03/17 16:00 Rocephin IVP Q24H [facility] Formoterol Fumarate 20 mcg 11/03/17 08:00 11/03/17 08:14 Perforomist INHALATION 20 mcg RT-BID [facility] Administration Furosemide 20 mg 11/03/17 09:00 Lasix PO DAILY [facility] Heparin Sodium (Porcine) 0 unit 11/02/17 14:00 11/02/17 21:48 Heparin IV 4,000 unit PER PROTOCOL PRN Administration Low PTT Protocol Hydrochlorothiazide 50 mg 11/03/17 09:00 Hydrodiuril PO DAILY [facility] Diltiazem HCl 50 mg/ Sodium 50 mls @ 5 mls/hr 11/02/17 14:15 11/03/17 04:35 Chloride IV 5 mg/hr .Q10H [facility] 5 mls/hr Administration 5 MG/HR Heparin Sodium/Sodium Chloride 500 mls @ 20 mls/hr 11/02/17 14:00 11/02/17 21 :48 25,000 unit/ Sodium Chloride IV 13.4 units/kg/hr .Q24H [facility] 25.77 mls/hr Titration Protocol 10.4 UNITS/KG/HR Sodium Chloride 1,000 mls @ 50 mls/hr 11/02/17 14:45 11/02/17 16:17 Saline 0.9% IV Not Given .Q20H [facility] Azithromycin 500 mg/ Dextrose/ 250 mls @ 125 mls/hr 11/03/17 16:00 Water IVPB Q24H [facility] Insulin Aspart 0 unit 11/03/17 07:30 11/03/17 07:06 Novolog SQ 4 unit ACHS [facility] Administration Protocol Losartan Potassium 150 mg 11/03/17 09:00 Cozaar PO DAILY [facility] Methylprednisolone Sodium Succinate 60 mg 11/02/17 18:00 11/03/17 06:03 Solu-Medrol IV 60 mg Q6HR [facility] Administration Miscellaneous Information 1 each 11/02/17 14:43 Pneumonia Protocol Utilized PO ONCE PRN Per Protocol Miscellaneous Information 1 each 11/02/17 19:33 Magnesium Per Protocol MISCELLANE DAILY PRN Per Protocol Protocol Miscellaneous Information 1 each 11/03/17 04:34 Potassium Per Protocol MISCELLANE DAILY PRN Per Protocol Protocol Naloxone HCl 0.2 mg 11/02/17 14:40 Narcan IV Q2M PRN Opioid Reversal Nystatin 500,000 unit 11/02/17 22:00 11/02/17 21:47 Mycostatin Oral Susp PO 500,000 unit QID [facility] Administration Pantoprazole Sodium 40 mg 11/03/17 09:00 Protonix IVP DAILY [facility] Sertraline HCl 50 mg 11/02/17 21:00 11/02/17 21:47 Zoloft PO 50 mg HS [facility] Administration Theophylline 300 mg 11/02/17 21:00 11/02/17 21:47 Maciej-24 PO 300 mg BID [facility] Administration Intake and Output 11/02/17 11/03/17 11/03/17 22:59 06:59 14:59 Intake Total 136.667 67.750 Output Total 525 Balance 136.667 -457.250 Intake: Intake, IV Titration 136.667 67.750 Amount Diltiazem 50 mg In Sodium 67.750 Chloride 0.9% 40 ml @ 5 MG/HR 5 mls/hr IV .Q10H [facility] Rx#:[id number] Heparin Sod,Pork in 0.45% 136.667 NaCl 25,000 unit In 0.45 % NaCl 1 500ml.bag @ 10.4 UNITS/KG/HR 20 mls/hr IV .Q24H [facility] Rx#:[id number] Output: Urine 525 Other: Voiding Method Urinal Weight 95.3 kg 11/03/17 03:48 11/03/17 03:48 EKG Interpretations (text) Initial EKG on presentation here showed atrial fibrillation with rapid ventricular response, frequent PVCs, subsequent EKG shows normal sinus rhythm with frequent PVCs Assessment and Plan Plan: Assessment and plan #1 symptoms of progressively worsening shortness of breath with associated productive sputum and low-grade temperature suggestive of possible acute bronchopneumonia possible COPD exacerbation. #2 moderate to severe COPD with home O2 use #3 mental status changes on admission, could be secondary to hypoxemia #4 atrial fibrillation with rapid ventricular response, paroxysmal, patient is currently on IV heparin and Cardizem drips. In normal sinus rhythm with PVCs at this time. #5 hypomagnesemia, replaced #6 known history of coronary artery disease with prior stent placement #7 hypertension #8 hyperlipidemia #9 sleep apnea #10 PVD #11 history of noncompliance #12 EtOH use #13 hypokalemia, being replaced Plan Patient had an echocardiogram with Doppler study performed in June of this year which revealed a normal left ventricular systolic function, we will not repeat an echo on this admission. We will obtain a free T4 and TSH level. Discontinue IV Cardizem. We will also obtain the patient's office note regarding why he was not on anticoagulation in the past, if there is no contraindication, patient will require anticoagulation for stroke prevention. A. fib may have been triggered on this occasion by hypomagnesemia , hypokalemia and acute lung process. Further recommendations to follow. DNP note has been reviewed, I agree with a documented findings and plan of care. Patient was seen and examined.
[2017-11-03] MEDS: SODIUM CHLORIDE 0.9% 1,000 ML IV SCH (08:41)
--- NOTE | 2017-11-03 09:32 | XR ---
EXAMINATION TYPE: XR chest 1V portable DATE OF EXAM: 11/03/2017 COMPARISON: 11/02/2017 HISTORY: Pneumonia TECHNIQUE: Single frontal view of the chest is obtained. FINDINGS: Elevated left hemidiaphragm with subsegmental consolidation surgical change overlying cerv ical spine. Underlying COPD. No pneumothorax interstitial edema. IMPRESSION: Left lower lobe infiltrate. Findings progressed from previous exam.
[2017-11-03 11:25] LABS: Glucose,Whole Blood 154 mg/dL (75-99)
--- NOTE | 2017-11-03 12:23 | P.CNPUL ---
History of Present Illness Consult date: 11/03/17 Reason for consult: dyspnea Chief complaint: Shortness of breath, atrial fibrillation History of present illness: Pulmonary consult dated 11/04/2017 77-year-old male with a history of atrial fibrillation CAD heart failure COPD GA and hypertension who presents to the emergency department complaining of increasing shortness of breath palpitations or weakness. The symptoms have been present for a couple days and have been increasing over the last couple of days. In addition, the patient has been coughing and producing some phlegm. He was found initially in the emergency room to have a temperature of 100.7. He was weak particularly in the leg area. He denies any chest pain or chest pressure. He did have some palpitations and possibly some rapid heartbeat. The patient seemed be resting comfortably at the current time. The patient does have a history of chronic atrial fibrillation CAD heart failure COPD GERD hyperlipidemia hypertension myocardial infarction DJD pneumonia sleep apnea chronic hypoxemic respiratory failure and a history of irritable bowel syndrome. The patient continues to smoke every day. He drinks occasionally. Denies any illicit drug use. His apparently this some surgical procedures, which can be found under the surgical history in the dictation by the ER physician. His ER admission diagnoses included MENTAL status, pneumonia, and atrial fibrillation with RVR. Chest x-ray apparently did not show any acute infiltrates. He was placed on IV heparin for his atrial fibrillation/RVR. Subsequent chest x-ray done on November 03 shows a mild left lower lobe infiltrate. Review of Systems A 12 point review of system is positive for weakness and shortness of breath chest congestion and occasional cough palpitations and rapid heartbeat. Apparently also had some mental status changes and a slight temperature elevation. Past Medical History Past Medical History: Atrial Fibrillation, Coronary Artery Disease (CAD), Heart Failure, COPD, GERD/Reflux, Hyperlipidemia, Hypertension, Myocardial Infarction (GA), Osteoarthritis (OA), Pneumonia, Respiratory Disorder, Sleep Apnea/CPAP/ BIPAP, Thyroid Disorder, Vascular Disorder Additional Past Medical History / Comment(s): Chronic hypoxic respiratory failure, O2 at 2.5L/NC ATC, ischemic heart disease, PAD/PVD, diverticular dx, benign polypectomy, IBS, arthritis multiple joints bilaterally, numbness/ tingling bilateral feet. 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 Past Anesthesia/Blood Transfusion Reactions: No Reported Reaction Date of Last Stent Placement:: 2002 Past Psychological History: Depression Additional Psychological History / Comment(s): Pt resides with his spouse. He is on O2 at 2.5L/NC ATC. He ambulates mostly with a cane. He drives. He has a nebulizer. Smoking Status: Current every day smoker Past Alcohol Use History: Occasional Additional Past Alcohol Use History / Comment(s): Pt started smoking in 1956 and is less than a ppd smoker. Past Drug Use History: None Reported - Past Family History Mother Family Medical History: No Reported History Additional Family Medical History / Comment(s): Mother was healthy and at the age of 92 yrs. Father Family Medical History: Coronary Artery Disease (CAD), Myocardial Infarction (GA ) Additional Family Medical History / Comment(s): Father had a GA in his 70's. He had CABG and back surgery. Medications and Allergies Home Medications Medication Instructions Recorded Confirmed Type Carvedilol [Coreg] 6.25 mg PO BID 03/03/16 11/02/17 History HYDROcodone/APAP 10-325MG [[place] 1 tab PO Q4HR PRN 03/03/16 11/02/17 History 10-325] Olmesartan Medoxomil [Benicar] 40 mg PO DAILY 03/03/16 11/02/17 History Sertraline [Zoloft] 50 mg PO HS 03/03/16 11/02/17 History Albuterol Inhaler [Ventolin Hfa 2 puff INHALATION RT-Q4H PRN 09/24/16 11/02/17 History Inhaler] Furosemide [Lasix] 20 mg PO DAILY 09/24/16 11/02/17 History Ipratropium-Albuterol Nebulize 3 ml INHALATION RT-QID 09/24/16 11/02/17 History [Duoneb 0.5 mg-3 mg/3 ml Soln] Theophylline 24 Hour [Maciej-24] 300 mg PO BID 09/24/16 11/02/17 History Hydrochlorothiazide 50 mg PO DAILY 10/14/16 11/02/17 History Diazepam [Valium] 5 mg PO HS 06/20/17 11/02/17 History Atorvastatin [Lipitor] 20 mg PO DAILY #30 tab 06/26/17 11/02/17 Rx Nystatin 100,000 Unit/ml Susp 5 ml PO QID 11/02/17 11/02/17 History [Mycostatin Oral Susp] buPROPion XL [Wellbutrin Xl] 150 mg PO DAILY 11/02/17 11/02/17 History predniSONE 10 mg PO DAILY 11/02/17 11/02/17 History Allergies Allergy/AdvReac Type Severity Reaction Status Date / Time No Known Allergies Allergy Verified 11/02/17 16:57 Physical Exam Osteopathic Statement: *. No significant issues noted on an osteopathic structural exam other than those noted in the History and Physical/Consult. Vitals: Vital Signs Temp Pulse Pulse Resp BP BP Pulse Ox 11/03/17 12:00 77 11/03/17 11:47 88 11/03/17 08:38 86 11/03/17 08:29 82 11/03/17 08:28 82 11/03/17 08:19 90 11/03/17 04:00 97.0 F L 73 18 143/74 92 L 11/02/17 23:10 97.9 F 80 18 105/58 94 L 11/02/17 21:15 92 11/02/17 21:02 90 11/02/17 20:35 98.3 F 83 18 129/76 91 L 11/02/17 17:21 92 11/02/17 17:08 94 93 L 11/02/17 16:20 97.4 F L 89 18 145/82 91 L 11/02/17 15:42 98.7 F 96 20 150/67 93 L 11/02/17 15:26 96 20 144/76 94 L 11/02/17 15:16 92 20 141/77 94 L 11/02/17 15:06 92 20 143/84 94 L 11/02/17 15:03 98.2 F 98 20 157/76 93 L 11/02/17 13:57 98.3 F 92 20 132/68 94 L 11/02/17 13:55 161 H 20 94 L 11/02/17 13:41 96 07/22/18 13:31 89 11/02/17 13:20 95 20 133/67 93 L 11/02/17 13:15 151 H 11/02/17 12:19 91 18 151/98 98 Intake and Output 11/02/17 11/03/17 11/03/17 22:59 06:59 14:59 Intake Total 136.667 67.750 240 Output Total 525 475 Balance 136.667 -457.250 -235 Intake: Intake, IV Titration 136.667 67.750 Amount Diltiazem 50 mg In Sodium 67.750 Chloride 0.9% 40 ml @ 5 MG/HR 5 mls/hr IV .Q10H [facility] Rx#:[id number] Heparin Sod,Pork in 0.45% 136.667 NaCl 25,000 unit In 0.45 % NaCl 1 500ml.bag @ 10.4 UNITS/KG/HR 20 mls/hr IV .Q24H [facility] Rx#:[id number] Oral 240 Output: Urine 525 475 Other: Voiding Method Urinal # Voids 1 # Bowel Movements 0 Weight 95.3 kg No acute distress, oriented 3. Nasal O2 in place. HEENT examination is grossly unremarkable. Mucous membranes are moist. No oral lesions. Neck supple. Full range of motion. No adenopathy thyromegaly or neck vein distention. Cardiovascular examination reveals regular rhythm rate. S1-S2 normal. No S3 or S4. No discernible murmur noted. Lungs a few scattered rhonchi and wheezes. Breath sounds are diminished. Breath sounds are equal bilaterally. Abdomen soft bowel sounds are heard. No masses or tenderness. Extremities are intact. No cyanosis clubbing or edema. Skin is without rash or lesion. Neurologic examination is brief but nonfocal. Results - Laboratory Findings CBC and BMP: 11/03/17 03:48 11/03/17 03:48 ABG ABG pH 7.48 (7.35-7.45) H 11/02/17 20:47 ABG pCO2 43 mmHg (35-45) 11/02/17 20:47 ABG pO2 55 mmHg (83-108) L 11/02/17 20:47 ABG O2 Saturation 90.7 % (94-97) L 11/02/17 20:47 PT/INR, D-dimer PT 9.8 sec (9.0-12.0) 11/02/17 11:15 INR 1.0 (<1.2) 11/02/17 11:15 Abnormal lab findings: Abnormal Labs 11/02/17 11/02/17 11/02/17 11:15 11:15 11:15 WBC 11.8 H Hgb 12.9 L Neutrophils # 9.4 H Lymphocytes # 0.9 L APTT ABG pH ABG pO2 ABG HCO3 ABG Total CO2 ABG O2 Saturation Potassium Chloride 97 L Carbon Dioxide 35 H BUN 25 H Glucose 102 H POC Glucose (mg/dL) Magnesium Total Creatine Kinase 426 H Troponin I 0.039 H* Total Protein 5.8 L TSH 11/02/17 11/02/17 11/02/17 11:15 20:20 20:47 WBC Hgb Neutrophils # Lymphocytes # APTT 33.1 H ABG pH 7.48 H ABG pO2 55 L ABG HCO3 32 H ABG Total CO2 34 H ABG O2 Saturation 90.7 L Potassium Chloride Carbon Dioxide BUN Glucose POC Glucose (mg/dL) Magnesium 1.3 L Total Creatine Kinase Troponin I Total Protein TSH 11/02/17 11/03/17 11/03/17 20:48 03:48 03:48 WBC Hgb 12.3 L Neutrophils # 8.3 H Lymphocytes # 0.5 L APTT ABG pH ABG pO2 ABG HCO3 ABG Total CO2 ABG O2 Saturation Potassium 3.4 L Chloride 97 L Carbon Dioxide 34 H BUN 27 H Glucose 153 H POC Glucose (mg/dL) 153 H Magnesium Total Creatine Kinase Troponin I Total Protein TSH 11/03/17 11/03/17 11/03/17 03:48 03:48 05:53 WBC Hgb Neutrophils # Lymphocytes # APTT 46.8 H ABG pH ABG pO2 ABG HCO3 ABG Total CO2 ABG O2 Saturation Potassium Chloride Carbon Dioxide BUN Glucose POC Glucose (mg/dL) 181 H Magnesium Total Creatine Kinase Troponin I Total Protein TSH 0.265 L 11/03/17 11:23 WBC Hgb Neutrophils # Lymphocytes # APTT ABG pH ABG pO2 ABG HCO3 ABG Total CO2 ABG O2 Saturation Potassium Chloride Carbon Dioxide BUN Glucose POC Glucose (mg/dL) 154 H Magnesium Total Creatine Kinase Troponin I Total Protein TSH - Diagnostic Findings Chest x-ray: report reviewed (Labs x-rays a medications are all reviewed.), image reviewed Assessment and Plan Assessment: Assessment COPD exacerbation likely complicated by left midlung infiltrate/pneumonia Atrial fibrillation with RVR. Chronic hypoxemic respiratory failure History of hypertension History of atrial fibrillation History of CAD with previous myocardial infarction History of heart failure. GERD by history Hyperlipidemia by history History of sleep apnea syndrome Multiple other medical problems and comorbidities Ongoing tobacco use with nicotine addiction Plan: Plan dated 11/03/2017 The patient's medications labs x-rays are all reviewed. Initial chest x-ray looks relatively normal but subsequent x-ray done today reveals possible left midlung infiltrate. Additional recommendations and suggestions are forthcoming. The patient's currently being treated for his atrial fibrillation and RVR by cardiology. IV heparin and placed. Medications are reviewed. Additional recommendations and suggestions are forthcoming. Time with Patient: Greater than 30
[2017-11-03] MEDS: HEPARIN SOD,PORK IN 0.45% NACL 25,000 UNIT in 0.45% NACL 1 500ML.BAG IV SCH (12:31)
[2017-11-03 12:41] LABS: T4, Free (Free Thyroxine) 1.27 ng/dL (0.78-2.19)
--- NOTE | 2017-11-03 15:53 | PN ---
PROGRESS NOTE DATE OF SERVICE: 11/03/2017. This 77-year-old gentleman who was admitted with COPD acute exacerbation as well as possible left-sided pneumonia also had acute hypoxic respiratory failure. Patient also had some change in mental status, history of possible acute metabolic encephalopathy secondary to hypercarbia and medications. I had a detailed discussion with the and granddaughter at the bedside. The patient apparently is noncompliant with medications even when the patient tries to take medications the patient did not let anybody else to help him control the pill boxes and the finds the pills on the floor sometimes. The patient is also taking [place] which might have contributed to the patient's diminished sensorium yesterday. The CT scan of the brain showed no acute abnormality. As mentioned earlier the patient started on IV antibiotics. Dr. Gil and Cardiology evaluation in progress. No history of chest pain, palpitation. PAST MEDICAL HISTORY: Reviewed. REVIEW OF SYSTEM: CARDIOVASCULAR: As mentioned. RESPIRATORY: As mentioned earlier. GI: No nausea. : No dysuria. NERVOUS SYSTEM: No numbness or weakness. CURRENT MEDICATIONS: Reviewed and include: 1. Tylenol p.r.n. 2. DuoNeb q.i.d. and p.r.n. 3. Lipitor 20 mg daily. 4. Zithromax 500 mg. 5. Pulmicort 1 mg. 6. Wellbutrin 150 mg. 7. Coreg 6.25 b.i.d. 8. Rocephin 1 g daily. 9. Diltiazem. 10.Perforomist 20 g b.i.d. 11.Lasix 20 mg b.i.d. 12.Heparin drip. 13.HydroDIURIL 50 mg p.o. daily. 14.NovoLog scale. 15.Cozaar 150 mg daily. 16.Solu-Medrol 40 IV q.8h. 17.Replacement protocols. 18.Narcan p.r.n. 19.Protonix. 20.Maciej-24. PHYSICAL EXAM: Patient is alert, oriented x3. The pulse is 90, blood pressure 143/75, respiration 18, temperature 97 degrees, pulse ox 90% on 4 L. HEENT: Conjunctivae normal. Oral mucosa moist. NECK: No jugular venous distention. No carotid bruit. No lymph node enlargement. CARDIOVASCULAR: S1, S2. No S3, no S4. RESPIRATORY: Breath sounds diminished in the bases. A few scattered rhonchi and crackles. Expiratory wheezing also present. ABDOMEN: Soft, obese, nontender. LEGS: No edema. NERVOUS SYSTEM: Higher functions as mentioned earlier. Moves all 4 limbs. No focal motor deficits. LYMPHATIC: No lymphadenopathy in the neck, axillae, groin. SKIN: No ulcer, rash, bleeding. LABS: WBC 9.2, hemoglobin is 12.3, ABGs noted. The pH is 7.48. TSH is 0.26 and free T3 is 2.5 and free T4 is 1.27. ASSESSMENT: 1. Chronic obstructive pulmonary disease acute exacerbation with acute bronchopneumonia left-sided pneumonia possibly gram-negative with acute hypoxic hypercapnic respiratory failure. 2. Chronic hypoxic respiratory failure on home O2. 3. Change in mental status, acute metabolic encephalopathy, present on admission possibly 2nd hypercarbia and medication induced. 4. Troponin 0.039, indeterminate. 5. Increased creatine kinase. 6. Increased WBC. 7. History atrial fibrillation. 8. Sick euthyroid syndrome. 9. History of congestive heart failure. 10.History of coronary artery disease. 11.History of gastroesophageal reflux disease. 12.Hypertension. 13.Hyperlipidemia. 14.History of myocardial infarction. 15.History of pneumonia. 16.History of sleep apnea. 17.Hypothyroidism. 18.Peripheral vascular disease. 19.History of noncompliance. 20.Coronary artery disease, stent. 21.History of depression. RECOMMENDATIONS AND DISCUSSION: This 77-year-old gentleman who presented with multiple complex medical issues, will monitor the patient closely. Continue the current management and continue the bronchodilators, empiric antibiotics and IV steroids. Monitor blood sugars closely. Importance of compliance stressed with the patient. I had a detailed discussion with family as mentioned earlier. Also recommend social sciences professor to follow home care to help out with medication situation. Otherwise, overall prognosis guarded because of multiple complex medical issues. further recommendations to follow. MMODL / IJN: [id number] /
[2017-11-03] MEDS ORDERED: AZITHROMYCIN 500 MG in DEXTROSE 5% IN WATER 250 ML IVPB SCH ×2 (16:00)
[2017-11-03] MEDS: cefTRIAXone IN SWFI 1,000 MG/10 ML SYRINGE IVP SCH (16:35)
[2017-11-03 16:46] LABS: Glucose,Whole Blood 199 mg/dL (75-99)
[2017-11-03] MEDS: HYDROcodone/APAP 5-325MG 1 EACH TAB PO PRN ×2 (16:58→23:25)
[2017-11-03] MEDS: methylPREDNISolone SOD SUCCI 40 MG/ML 1 ML VIAL IV SCH ×2 (17:03→23:27)
[2017-11-03] MEDS: HEPARIN SODIUM,PORCINE 5,000 UNIT/ML 1 ML VIAL IV PRN (19:02)
[2017-11-03] MEDS: SERTRALINE 50 MG TAB PO SCH (20:57)
[2017-11-03 21:03] LABS: Glucose,Whole Blood 138 mg/dL (75-99)
[2017-11-04] MEDS: HEPARIN SOD,PORK IN 0.45% NACL 25,000 UNIT in 0.45% NACL 1 500ML.BAG IV SCH (02:27)
[2017-11-04 06:04] LABS: Glucose,Whole Blood 148 mg/dL (75-99)
[2017-11-04] MEDS: methylPREDNISolone SOD SUCCI 40 MG/ML 1 ML VIAL IV SCH ×4 (06:56→22:52)
[2017-11-04] MEDS: SODIUM CHLORIDE 0.9% 1,000 ML IV SCH (06:57)
[2017-11-04] MEDS: CARVEDILOL 6.25 MG TAB PO SCH ×2 (06:57→17:20)
[2017-11-04] MEDS: INSULIN ASPART 100 UNIT/ML 1 ML 10 ML VIAL SQ SCH ×4 (06:58→21:25)
[2017-11-04 07:39] LABS: Basophils % (A) 0 %; Eosinophils % (A) 0 %; HCT 35.5 % (39.0-53.0); HGB 11.2 gm/dL (13.0-17.5); Hypochromasia Slight; Lymphocytes # (A) 0.6 k/uL (1.0-4.8); Lymphocytes % (A) 5 %; MCH 28.1 pg (25.0-35.0); MCHC 31.5 g/dL (31.0-37.0); MCV 89.1 fL (80.0-100.0); Mean Platelet Volume 7.9; Monocytes # (A) 0.5 k/uL (0-1.0); Monocytes % (A) 5 %; Neutrophils # (A) 10.6 k/uL (1.3-7.7); Neutrophils % (A) 90 %; Platelet Count 176 k/uL (150-450); RBC 3.98 m/uL (4.30-5.90); RDW 14.2 % (11.5-15.5); WBC 11.9 k/uL (3.8-10.6)
[2017-11-04 07:58] LABS: Calcium 8.9 mg/dL (8.4-10.2); Potassium 3.9 mmol/L (3.5-5.1)
--- NOTE | 2017-11-04 08:27 | CONS ---
CONSULTATION DATE OF CONSULTATION: 11/03/2017 CHIEF COMPLAINT: Altered mental status. HISTORY OF PRESENT ILLNESS: Mr. Doan is a pleasant 77-year-old, male, who is being evaluated today on 11/03/2017 by the neurology service per the request of Dr. De La Fuente for altered mental status. The patient was brought in to [facility] Emergency Room after his noticed that he was somewhat confused. The patient was also complaining of shortness of breath. He also reports that he has been feeling weak over the past few days. His weakness was more generalized and more consistent with fatigability. In the emergency room, a CT scan of the brain was done, which showed generalized atrophy with no acute abnormalities. His CBC and urinalysis were normal. His comprehensive metabolic profile showed mild hypokalemia at 3.4 and elevated BUN at 27. His TSH was low at 0.265 and his free T3 level was low at 2.5. The patient was admitted for further workup and management. He is currently receiving oxygen supplementation and is back to his baseline. His pulse ox at this time is 90% on 4 L nasal cannula. He does have a history of chronic obstructive pulmonary disease and congestive heart failure. At the time of my evaluation, the patient is lying in his bed and appears to be in no acute distress. He reports significant improvement in his weakness and he is quite awake and oriented. PAST MEDICAL HISTORY: Atrial fibrillation, coronary artery disease, congestive heart failure, chronic obstructive pulmonary disease, gastroesophageal reflux disease, hypertension, dyslipidemia, history of myocardial infarction, degenerative joint disease, sleep apnea. FAMILY HISTORY: Noncontributory. SOCIAL HISTORY: The patient is a former smoker. There is no history of any alcohol or drug abuse. HOME MEDICATIONS: Reviewed in the chart. ALLERGIES: No known drug allergies. REVIEW OF SYSTEM: CONSTITUTIONAL: As mentioned above. EYES: Negative. ENT: Negative. CARDIOVASCULAR: As mentioned above. RESPIRATORY: As mentioned above. NEUROLOGICAL: As mentioned above. GASTROINTESTINAL: Positive for occasional heartburn. GENITOURINARY: Negative. PSYCHIATRIC: Negative. MUSCULOSKELETAL: Positive for frequent joint pain. ENDOCRINE: Negative. DERMATOLOGICAL: Negative. PHYSICAL EXAM: Vital signs show a temperature of 97.5, pulse 78, respiration 18, blood pressure 117/63. GENERAL APPEARANCE: The patient is a well-developed, elderly male who appears to be in no acute distress. HEENT: Normocephalic, atraumatic. No facial asymmetry is seen. Extraocular muscles are intact. Neck is supple with no masses felt. CARDIOVASCULAR: Regular rate and rhythm. ABDOMEN: Nontender, nondistended. Extremities showed no edema or clubbing. NEUROLOGICAL EXAM: The patient is awake and oriented x3. Speech and language are normal. Strength is full in all 4 extremities. Sensory exam showed diminished light touch sensation in bilateral distal lower extremities. No pronator drift is seen. Mild postural tremors are noticed. No seizure-like activity is seen. No facial asymmetry is noticed on cranial nerve testing. IMPRESSION: 1. Altered mental status, improved. 2. Hypoxic encephalopathy. 3. Lower extremity sensory deficit. 4. Atrial fibrillation. 5. Hypothyroidism. 6. Weakness, improved. RECOMMENDATION: The patient's altered mental status was likely due to hypoxia as he was quite short of breath when he arrived. He is currently receiving oxygen supplementation but he still saturating at 90% at the time of my evaluation. From a neurology standpoint, his mental status has returned to baseline. The patient's laboratory workup did reveal evidence of hypothyroidism. I do recommend further workup and management for this. As for his sensory deficit on his neurological examination, he will need further outpatient neurophysiological workup to check for evidence of neuropathy. Physical therapy has been consulted. Continue the rest of your current workup and management. I will continue to follow with you. Further recommendations to follow. Thank you for allowing me to participate in the care of your patient. If you have any questions, please feel free to contact me. BETHANIE / ALEJANDRO: [id number] /
[2017-11-04] MEDS: BUDESONIDE 1 MG/2 ML NEBU INHALATION SCH ×2 (08:43→20:22)
[2017-11-04] MEDS: FORMOTEROL FUMARATE 20 MCG/2 ML NEBU INHALATION SCH ×2 (08:43→20:22)
[2017-11-04] MEDS: IPRATROPIUM-ALBUTEROL 3 ML NEB INHALATION SCH ×4 (08:43→20:22)
[2017-11-04] MEDS: ATORVASTATIN 20 MG TAB PO SCH (11:05)
[2017-11-04] MEDS: NYSTATIN 100,000 UNIT/ML SUSP 500,000 UNIT/5 ML CUP PO SCH ×4 (11:06→21:26)
[2017-11-04] MEDS: HYDROCHLOROTHIAZIDE 50 MG TAB PO SCH (11:06)
[2017-11-04] MEDS: PANTOPRAZOLE 40 MG/10 ML VIAL IVP SCH (11:07)
[2017-11-04] MEDS: FUROSEMIDE 20 MG TAB PO SCH (11:07)
[2017-11-04] MEDS: LOSARTAN 50 MG TAB PO SCH (11:07)
[2017-11-04] MEDS: buPROPion XL 150 MG TAB.ER.24H PO SCH (11:08)
[2017-11-04] MEDS: AZITHROMYCIN 500 MG TAB PO SCH (11:08)
[2017-11-04] MEDS: THEOPHYLLINE 24 HOUR 300 MG CAP.ER.24H PO SCH ×2 (11:08→21:20)
[2017-11-04 11:23] LABS: Glucose,Whole Blood 140 mg/dL (75-99)
--- NOTE | 2017-11-04 11:53 | P.PN ---
Subjective Progress Note Date: 11/04/17 Principal diagnosis: COPD exacerbation, left mid lung infiltrate/pneumonia, A. fib with RVR Pulmonary consult dated 11/04/2017 77-year-old male with a history of atrial fibrillation CAD heart failure COPD [place] and hypertension who presents to the emergency department complaining of increasing shortness of breath palpitations or weakness. The symptoms have been present for a couple days and have been increasing over the last couple of days. In addition, the patient has been coughing and producing some phlegm. He was found initially in the emergency room to have a temperature of 100.7. He was weak particularly in the leg area. He denies any chest pain or chest pressure. He did have some palpitations and possibly some rapid heartbeat. The patient seemed be resting comfortably at the current time. The patient does have a history of chronic atrial fibrillation CAD heart failure COPD GERD hyperlipidemia hypertension myocardial infarction DJD pneumonia sleep apnea chronic hypoxemic respiratory failure and a history of irritable bowel syndrome. The patient continues to smoke every day. He drinks occasionally. Denies any illicit drug use. His apparently this some surgical procedures, which can be found under the surgical history in the dictation by the ER physician. His ER admission diagnoses included MENTAL status, pneumonia, and atrial fibrillation with RVR. Chest x-ray apparently did not show any acute infiltrates. He was placed on IV heparin for his atrial fibrillation/RVR. Subsequent chest x-ray done on November 03 shows a mild left lower lobe infiltrate. On 11/04/2017 patient seen in follow-up on selective care unit. He has just returned from [facility] [place], is sitting up in the wheelchair, in no acute distress. He reports his breathing is easier today, lung sounds are diminished, no rhonchi no wheezes noted. Denies any fever or chills, remains on 3 L per nasal cannula his pulse ox is 93%. Vitals are stable. Blood and urine cultures remain negative. He is on empiric antibiotics, currently on Zithromax and Rocephin. Is on oral diuretics, on IV steroids, denies any increased phlegm production, denies any hemoptysis or chest wall tenderness. These labs showed WBC of 11.9, hemoglobin of 11.2, electrolytes are normal, patient is slightly prerenal, B1 is 39, creatinine is 1.01. Patient apparently was quite confused on presentation, his mentation is back to baseline, neurology is following. He remains on IV heparin for elevated troponins and paroxysmal atrial fibrillation. Clinically patient is stable, and improving. Objective - Vital Signs Vital signs: Vital Signs Temp 97 F L 11/04/17 08:31 Pulse 92 11/04/17 09:02 Resp 18 11/04/17 09:02 BP 120/61 11/04/17 08:31 Pulse Ox 93 L 11/04/17 08:31 Intake & Output 11/03/17 11/04/17 11/04/17 18:59 06:59 18:59 Intake Total 1569.812 284.666 600 Output Total 875 800 Balance 694.812 -515.334 600 Weight 97.5 kg Intake: Intake, IV Titration 569.812 284.666 Amount Diltiazem 50 mg In Sodium 39.833 49.167 Chloride 0.9% 40 ml @ 5 MG/HR 5 mls/hr IV .Q10H [facility] Rx#:[id number] Heparin Sod,Pork in 0.45% 529.979 235.499 NaCl 25,000 unit In 0.45 % NaCl 1 500ml.bag @ 10.4 UNITS/KG/HR 20 mls/hr IV .Q24H [facility] Rx#:[id number] Oral 1000 600 Output: Urine 875 800 Other: Voiding Method Urinal Urinal Urinal # Voids 1 1 # Bowel Movements 0 - Exam No acute distress, oriented 3. Nasal O2 in place. HEENT examination is grossly unremarkable. Mucous membranes are moist. No oral lesions. Neck supple. Full range of motion. No adenopathy thyromegaly or neck vein distention. Cardiovascular examination reveals regular rhythm rate. S1-S2 normal. No S3 or S4. No discernible murmur noted. Lungs reveal diminished breath sounds. Breath sounds are equal bilaterally. No rhonchi no rales, no wheezes Abdomen soft bowel sounds are heard. No masses or tenderness. Extremities are intact. No cyanosis clubbing or edema. Skin is without rash or lesion. Neurologic examination is brief but nonfocal. - Labs CBC & Chem 7: 11/04/17 06:17 11/04/17 06:17 Labs: Abnormal Lab Results - Last 24 Hours (Table) 11/03/17 11/03/17 11/03/17 Range/Units 03:48 16:26 16:44 WBC (3.8-10.6) k/uL RBC (4.30-5.90) m/uL Hgb (13.0-17.5) gm/dL Hct (39.0-53.0) % Neutrophils # (1.3-7.7) k/uL Lymphocytes # (1.0-4.8) k/uL APTT 34.9 H (22.0-30.0) sec BUN (9-20) mg/dL Glucose (74-99) mg/dL POC Glucose (mg/dL) 199 H (75-99) mg/dL Free T3 pg/mL 2.5 L (2.8-5.3) pg/ml 11/03/17 11/04/17 11/04/17 Range/Units 21:02 01:03 06:03 WBC (3.8-10.6) k/uL RBC (4.30-5.90) m/uL Hgb (13.0-17.5) gm/dL Hct (39.0-53.0) % Neutrophils # (1.3-7.7) k/uL Lymphocytes # (1.0-4.8) k/uL APTT 65.4 H (22.0-30.0) sec BUN (9-20) mg/dL Glucose (74-99) mg/dL POC Glucose (mg/dL) 138 H 148 H (75-99) mg/dL Free T3 pg/mL (2.8-5.3) pg/ml 11/04/17 11/04/17 11/04/17 Range/Units 06:17 06:17 06:17 WBC 11.9 H (3.8-10.6) k/uL RBC 3.98 L (4.30-5.90) m/uL Hgb 11.2 L (13.0-17.5) gm/dL Hct 35.5 L (39.0-53.0) % Neutrophils # 10.6 H (1.3-7.7) k/uL Lymphocytes # 0.6 L (1.0-4.8) k/uL APTT 69.1 H (22.0-30.0) sec BUN 39 H (9-20) mg/dL Glucose 124 H (74-99) mg/dL POC Glucose (mg/dL) (75-99) mg/dL Free T3 pg/mL (2.8-5.3) pg/ml 11/04/17 Range/Units 11:22 WBC (3.8-10.6) k/uL RBC (4.30-5.90) m/uL Hgb (13.0-17.5) gm/dL Hct (39.0-53.0) % Neutrophils # (1.3-7.7) k/uL Lymphocytes # (1.0-4.8) k/uL APTT (22.0-30.0) sec BUN (9-20) mg/dL Glucose (74-99) mg/dL POC Glucose (mg/dL) 140 H (75-99) mg/dL Free T3 pg/mL (2.8-5.3) pg/ml Microbiology - Last 24 Hours (Table) 11/02/17 14:01 Urine Culture - Final Urine,Catheterized 11/02/17 17:07 Blood Culture - Preliminary Blood No Growth after 24 hours 11/02/17 16:14 Blood Culture - Preliminary Blood No Growth after 24 hours 11/02/17 11:15 Blood Culture - Preliminary Blood No Growth after 24 hours Assessment and Plan Plan: Assessment: COPD exacerbation likely complicated by left midlung infiltrate/pneumonia Atrial fibrillation with RVR. Chronic hypoxemic respiratory failure History of hypertension History of atrial fibrillation History of CAD with previous myocardial infarction History of heart failure. GERD by history Hyperlipidemia by history History of sleep apnea syndrome Multiple other medical problems and comorbidities Ongoing tobacco use with nicotine addiction Plan: Continue current antibiotic coverage, continue nebulized bronchodilators and IV steroids. The patient's mentation is back to baseline, no fever, no chills, no chest pain. When dynamically stable, heart rate is controlled. Patient remains on heparin drip. Cultures are negative. We'll continue to follow I performed a history & physical examination of the patient and discussed their management with my nurse practitioner, Shy Pennington. I reviewed the nurse practitioner's note and agree with the documented findings and plan of care. Lung sounds are diminished. The findings and the impression was discussed with the patient. I attest to the documentation by the nurse practitioner. Time with Patient: Less than 30
[2017-11-04] MEDS: APIXABAN 5 MG TAB PO SCH ×2 (14:10→21:20)
--- NOTE | 2017-11-04 14:49 | P.PN ---
Subjective Progress Note Date: 11/04/17 This is a 77-year-old gentleman with known history of coronary artery disease and prior stent placement, severe COPD with home O2 use, paroxysmal atrial fibrillation, hypertension, hyperlipidemia, PAD and PVD, EtOH use, history of noncompliance, who presents to the hospital with symptoms of progressively worsening shortness of breath with associated weakness. According to the patient is also been coughing up a significant amount of dark yellow sputum. His EKG on presentation here showed atrial fibrillation with a rapid ventricular response , patient was initiated on IV Cardizem. shortly thereafter patient did convert to normal sinus rhythm, this morning continues to be in a normal sinus rhythm , because of the atrial fibrillation a cardiology consultation has been requested. Chest x-ray on arrival here did not reveal any active disease. CAT scan of the brain revealed cerebral atrophy with no acute intracranial abnormality. Temperature on arrival here 100.7, heart rate 107, blood pressure 128/50, 96% on 2 L of oxygen. Let pressure this morning 142/70 with a heart rate in the 70s, 92% on 4 L of oxygen. White blood cell count on admission 11.8, 9.3 this morning, hemoglobin 12.3, platelet count 169. Blood gases were obtained on admission, pH 7.4, pO2 55, bicarb 32, CO2 34 , sodium on admission 138, potassium 3.4, BUN 27, creatinine 0.8. Magnesium on admission 1.3, 2.3 this morning. BNP [id number]. Troponins 0.039, 0.034, 0.024. Patient did have an admission to the hospital in June of this year with a non -Q-wave myocardial infarction, medical therapy advised at that time. An echocardiogram with Doppler study was performed at that time as well which revealed an ejection fraction of 55-60%. At the time of my examination this morning, patient states that his breathing is improved from admission, still appears to be somewhat short of breath, continues to cough up productive sputum. Patient continues to be on IV Cardizem at 5 mg per hour, in normal sinus rhythm, he is also on IV heparin. 11/04/2017 converted to normal sinus rhythm through the night last night, present drip has been discontinued. Patient was also approved for one of the newer anticoagulants, so we will discontinue the heparin today and start the patient on Eliquis 5 mg one tablet by mouth twice a day. Overall his breathing is improved significantly today as well. I pressure 138/90 with a heart rate in the 70s, 92% on 4 L of oxygen. White blood cell count 11.9, hemoglobin 11.2, platelet count 176. Sodium 138, potassium 3.9, BUN 39, creatinine 1.0. Objective - Vital Signs Vital signs: Vital Signs Temp 97.5 F L 11/04/17 12:00 Pulse 80 11/04/17 12:14 Resp 18 11/04/17 12:00 BP 138/90 11/04/17 12:00 Pulse Ox 92 L 11/04/17 12:00 Intake & Output 11/03/17 11/04/17 11/04/17 18:59 06:59 18:59 Intake Total 1569.812 284.666 720 Output Total 875 800 Balance 694.812 -515.334 720 Weight 97.5 kg Intake: Intake, IV Titration 569.812 284.666 Amount Diltiazem 50 mg In Sodium 39.833 49.167 Chloride 0.9% 40 ml @ 5 MG/HR 5 mls/hr IV .Q10H [facility] Rx#:[id number] Heparin Sod,Pork in 0.45% 529.979 235.499 NaCl 25,000 unit In 0.45 % NaCl 1 500ml.bag @ 10.4 UNITS/KG/HR 20 mls/hr IV .Q24H [facility]I Rx#:[id number] Oral 1000 720 Output: Urine 875 800 Other: Voiding Method Urinal Urinal Urinal # Voids 1 1 0 # Bowel Movements 0 0 - Exam PHYSICAL EXAMINATION: GENERAL: 77-year-old gentleman in no acute distress at the time of my examination HEENT: Head is atraumatic, normocephalic. Pupils equal, round. Sclera anicteric. Conjunctiva are clear. Mucous membranes of the mouth are moist. Neck is supple. There is no elevated jugular venous pressure. No carotid bruit is heard. HEART EXAMINATION: Heart S1, S2 normal. No murmur or gallop heard. CHEST EXAMINATION: Lungs reveal scattered coarse rhonchi and wheezing throughout ABDOMEN: Soft, nontender. Bowel sounds are heard. No organomegaly noted. EXTREMITIES: 1+ peripheral pulses with evidence of peripheral edema and no calf tenderness noted]. NEUROLOGIC [ptient is awake, alert and oriented X2. . - Labs CBC & Chem 7: 11/04/17 06:17 11/04/17 06:17 Labs: Abnormal Lab Results - Last 24 Hours (Table) 11/03/17 11/03/17 11/03/17 Range/Units 16:26 16:44 21:02 WBC (3.8-10.6) k/uL RBC (4.30-5.90) m/uL Hgb (13.0-17.5) gm/dL Hct (39.0-53.0) % Neutrophils # (1.3-7.7) k/uL Lymphocytes # (1.0-4.8) k/uL APTT 34.9 H (22.0-30.0) sec BUN (9-20) mg/dL Glucose (74-99) mg/dL POC Glucose (mg/dL) 199 H 138 H (75-99) mg/dL 11/04/17 11/04/17 11/04/17 Range/Units 01:03 06:03 06:17 WBC 11.9 H (3.8-10.6) k/uL RBC 3.98 L (4.30-5.90) m/uL Hgb 11.2 L (13.0-17.5) gm/dL Hct 35.5 L (39.0-53.0) % Neutrophils # 10.6 H (1.3-7.7) k/uL Lymphocytes # 0.6 L (1.0-4.8) k/uL APTT 65.4 H (22.0-30.0) sec BUN (9-20) mg/dL Glucose (74-99) mg/dL POC Glucose (mg/dL) 148 H (75-99) mg/dL 11/04/17 11/04/17 11/04/17 Range/Units 06:17 06:17 11:22 WBC (3.8-10.6) k/uL RBC (4.30-5.90) m/uL Hgb (13.0-17.5) gm/dL Hct (39.0-53.0) % Neutrophils # (1.3-7.7) k/uL Lymphocytes # (1.0-4.8) k/uL APTT 69.1 H (22.0-30.0) sec BUN 39 H (9-20) mg/dL Glucose 124 H (74-99) mg/dL POC Glucose (mg/dL) 140 H (75-99) mg/dL Microbiology - Last 24 Hours (Table) 11/02/17 11:15 Blood Culture - Preliminary Blood No Growth after 48 hours 11/02/17 14:01 Urine Culture - Final Urine,Catheterized 11/02/17 17:07 Blood Culture - Preliminary Blood No Growth after 24 hours 11/02/17 16:14 Blood Culture - Preliminary Blood No Growth after 24 hours Assessment and Plan Plan: Assessment and plan #1 symptoms of progressively worsening shortness of breath with associated productive sputum and low-grade temperature suggestive of possible acute bronchopneumonia possible COPD exacerbation. #2 moderate to severe COPD with home O2 use #3 mental status changes on admission, could be secondary to hypoxemia #4 atrial fibrillation with rapid ventricular response, paroxysmal, patient is currently on IV heparin and Cardizem drips. In normal sinus rhythm with PVCs at this time. #5 hypomagnesemia, replaced #6 known history of coronary artery disease with prior stent placement #7 hypertension #8 hyperlipidemia #9 sleep apnea #10 PVD #11 history of noncompliance #12 EtOH use #13 hypokalemia, being replaced Plan Patient had an echocardiogram with Doppler study performed in June of this year which revealed a normal left ventricular systolic function, we will not repeat an echo on this admission. Patient is currently in normal sinus rhythm. We'll discontinue the IV Cardizem, we will also discontinue the IV heparin and start the patient on Eliquis 5 mg one tablet by mouth twice a day. DNP note has been reviewed, I agree with a documented findings and plan of care. Patient was seen and examined.
--- NOTE | 2017-11-04 15:53 | PN ---
PROGRESS NOTE DATE OF SERVICE: 11/04/2017 This 77-year-old gentleman who was admitted after COPD acute exacerbation also had acute bronchopneumonia and the patient also had acute respiratory failure. The patient also had atrial fibrillation with fast ventricular rate. The patient is being closely monitored. No chest pain. No palpitations. EXAM: Alert and oriented x3. The pulse is 90. The blood pressure 126/77, respiration 18, temperature 97 degrees. Pulse ox 98% on 4 L. HEENT: Conjunctivae normal. NECK: No jugular venous distention. CARDIOVASCULAR: S1, S2 muffled. RESPIRATORY: Breath sounds diminished in the bases. A few scattered rhonchi and crackles. ABDOMEN is soft, nontender. Legs: Legs are no edema, no swelling. Nervous system: No focal deficits. LAB STUDIES: WBC 11.9, hemoglobin 11.2. ASSESSMENT: 1. Chronic obstructive pulmonary disease acute exacerbation with acute bronchopneumonia left-sided pneumonia possibly gram-negative with acute hypoxic hypercarbic respiratory failure. 2. Atrial fibrillation with fast ventricular rate. 3. Chronic hypoxic respiratory failure on home O2. 4. Change in mental status acute metabolic encephalopathy present on admission possibly secondary to hypercarbia and medication induced. 5. Troponin 0.039, indeterminate. 6. Increased creatinine kinase. 7. Increased WBC. 8. History atrial fibrillation. 9. Sick euthyroid syndrome. 10.History of congestive heart failure. 11.History of coronary artery disease. 12.Gastroesophageal reflux disease. 13.Hypertension. 14.Hyperlipidemia. 15.History of myocardial infarction. 16.History of pneumonia. 17.History of sleep apnea. 18.Hypothyroidism. 19.History of peripheral vascular disease. 20.History of noncompliance. 21.Coronary artery disease/stent. 22.History of depression. RECOMMENDATIONS AND DISCUSSION: Recommend to continue current medication, continue to monitor. Symptomatic treatment. Otherwise, at this time I recommend continue with bronchodilators, antibiotics. Closely follow with multiple consultants. Increase ambulation. Taper steroids per Pulmonary. Guarded prognosis. Further recommendations to follow. MMODL / IJN: [id number] /
[2017-11-04 16:22] LABS: Glucose,Whole Blood 159 mg/dL (75-99)
--- NOTE | 2017-11-04 17:11 | P.PN ---
Subjective Progress Note Date: 11/04/17 Principal diagnosis: Altered Mental Status Neurology is consulting on a 77-year-old male for altered mental status. Patient was brought to the emergency room with complaints of shortness of breath. Patient appeared confused. Patient has been weak for the last several days prior to presentation. Weakness was more generalized and consistent with fatigagibility. CT brain was done in the ER showed generalized atrophy no acute process. CBC and UA were normal. Patient had mild hypokalemia, elevated BUN,. TSH and T3 were low. Patient was admitted for further workup and management. Patient has a significant medical history of COPD, A-fib, CHF, HTN, GERD. On contact the patient had just been seen by cardiology. He was alert and oriented x2, resting in bed in no acute distress. Patient had EEG taken earlier today but results were pending. Objective - Vital Signs Vital signs: Vital Signs Temp 97.5 F L 11/04/17 12:00 Pulse 82 11/04/17 16:04 Resp 18 11/04/17 16:00 BP 138/90 11/04/17 12:00 Pulse Ox 92 L 11/04/17 12:00 Intake & Output 11/03/17 11/04/17 11/04/17 18:59 06:59 18:59 Intake Total 1569.812 284.666 720 Output Total 875 800 550 Balance 694.812 -515.334 170 Weight 97.5 kg Intake: Intake, IV Titration 569.812 284.666 Amount Diltiazem 50 mg In Sodium 39.833 49.167 Chloride 0.9% 40 ml @ 5 MG/HR 5 mls/hr IV .Q10H [facility] Rx#:[id number] Heparin Sod,Pork in 0.45% 529.979 235.499 NaCl 25,000 unit In 0.45 % NaCl 1 500ml.bag @ 10.4 UNITS/KG/HR 20 mls/hr IV .Q24H [facility] Rx#:[id number] Oral 1000 720 Output: Urine 875 800 550 Other: Voiding Method Urinal Urinal Urinal # Voids 1 1 1 # Bowel Movements 0 0 - Exam General appearance: Alert & oriented x2, no apparent distress. Head: Atraumatic, normocephalic, normal inspection Eyes: Well appearance, PERRLA, EOMI. Ear, nose and throat: Normal exam, mucous membranes moist Neck: Normal inspection, absent tenderness, lymphadenopathy. Respiratory: No increased work of breathing Cardiovascular: Regular rate, rhythm- telemetry monitoring GI/abdominal: no tenderness, no guarding Extremities: Moves extremities x4 Neurological: cranial nerves II through XII intact no lateralizing weakness no seizure activity noted on physical exam no pronator drift and no nystagmus. strength equal and full in all 4 extremities Sensation: Left lower extremity: diminished Right lower extremity: diminished Left upper extremity: normal Right upper extremity: normal Psychological: Mood and affect appropriate for setting. - Labs CBC & Chem 7: 11/04/17 06:17 11/04/17 06:17 Labs: Abnormal Lab Results - Last 24 Hours (Table) 11/03/17 11/03/17 11/04/17 Range/Units 16:26 21:02 01:03 WBC (3.8-10.6) k/uL RBC (4.30-5.90) m/uL Hgb (13.0-17.5) gm/dL Hct (39.0-53.0) % Neutrophils # (1.3-7.7) k/uL Lymphocytes # (1.0-4.8) k/uL APTT 34.9 H 65.4 H (22.0-30.0) sec BUN (9-20) mg/dL Glucose (74-99) mg/dL POC Glucose (mg/dL) 138 H (75-99) mg/dL 11/04/17 11/04/17 11/04/17 Range/Units 06:03 06:17 06:17 WBC 11.9 H (3.8-10.6) k/uL RBC 3.98 L (4.30-5.90) m/uL Hgb 11.2 L (13.0-17.5) gm/dL Hct 35.5 L (39.0-53.0) % Neutrophils # 10.6 H (1.3-7.7) k/uL Lymphocytes # 0.6 L (1.0-4.8) k/uL APTT 69.1 H (22.0-30.0) sec BUN (9-20) mg/dL Glucose (74-99) mg/dL POC Glucose (mg/dL) 148 H (75-99) mg/dL 11/04/17 11/04/17 11/04/17 Range/Units 06:17 11:22 16:21 WBC (3.8-10.6) k/uL RBC (4.30-5.90) m/uL Hgb (13.0-17.5) gm/dL Hct (39.0-53.0) % Neutrophils # (1.3-7.7) k/uL Lymphocytes # (1.0-4.8) k/uL APTT (22.0-30.0) sec BUN 39 H (9-20) mg/dL Glucose 124 H (74-99) mg/dL POC Glucose (mg/dL) 140 H 159 H (75-99) mg/dL Microbiology - Last 24 Hours (Table) 11/02/17 11:15 Blood Culture - Preliminary Blood No Growth after 48 hours 11/02/17 14:01 Urine Culture - Final Urine,Catheterized 11/02/17 17:07 Blood Culture - Preliminary Blood No Growth after 24 hours 11/02/17 16:14 Blood Culture - Preliminary Blood No Growth after 24 hours Assessment and Plan (1) Altered mental status Current Visit: Yes Status: Acute Code(s): R41.82 - ALTERED MENTAL STATUS, UNSPECIFIED SNOMED Code(s): 981965952 (2) Weakness Current Visit: No Status: Acute Code(s): R53.1 - WEAKNESS SNOMED Code(s): 13524625 (3) Hypothyroidism Current Visit: Yes Status: Acute Code(s): E03.9 - HYPOTHYROIDISM, UNSPECIFIED SNOMED Code(s): 56417919 (4) Atrial fibrillation with RVR Current Visit: Yes Status: Acute Code(s): I48.91 - UNSPECIFIED ATRIAL FIBRILLATION SNOMED Code(s): 804791936277720 Plan: 1. Altered mental status/hypoxic encephalopathy: Patient is improving and is over 90% O2 saturation on 4L O2. Patient is alert x2 Continue with plan of care- near baseline EEG taken not read 2. hypothyroidism Continue management per primary team 3. Atrial fibrillation with RVR: Continue management per Cardiology 4. Weakness: Improving- near baseline STATUS: Neurology will continue to follow on an as needed basis. Contact our office prior to discharge for further follow up instructions. Feel free to contact our offices with any questions. I have discussed the plan of care with the physician prior to implementation and he agrees with the plan as implemented.
[2017-11-04] MEDS: cefTRIAXone IN SWFI 1,000 MG/10 ML SYRINGE IVP SCH (17:20)
[2017-11-04] MEDS: DILTIAZEM 50 MG in SODIUM CHLORIDE 0.9% 40 ML IV SCH (17:21)
[2017-11-04] MEDS: HYDROcodone/APAP 5-325MG 1 EACH TAB PO PRN (18:00)
--- NOTE | 2017-11-04 19:04 | EEG ---
ELECTROENCEPHALOGRAM REPORT DATE OF SERVICE: 11/04/2017. REASON FOR TESTING: Altered mental status. DESCRIPTION OF THE PROCEDURE: This EEG was performed using a 21 channel digital electroencephalograph, following international 10-20 system. DESCRIPTION OF THE RECORDING: From the beginning of the of the tracing, and with patient's eyes closed, the background rhythm was mostly consisting of 8-9 Hz alpha frequency in the posterior occipital leads. No obvious asymmetry is seen. Photic stimulation was performed with a minimal driving response seen. No pathological waves were elicited. Frequent movement and muscle artifacts are seen. Hyperventilation was not performed. The patient does reach stage II of sleep during the tracing and occasional sleep spindles are seen. No epileptiform discharges were seen. His EKG lead showed an irregularly irregular rhythm with a normal rate. INTERPRETATION: This asleep and awake EEG can be considered within normal limits except his EKG lead showed an irregularly irregular rhythm with a normal rate. No epileptiform discharges were seen. The absence of epileptiform discharges does not rule out the diagnosis of epilepsy; therefore, clinical correlation is recommended. MMNATHAN / ALEJANDRO: [id number] /
[2017-11-04 21:07] LABS: Glucose,Whole Blood 182 mg/dL (75-99)
[2017-11-04] MEDS: SERTRALINE 50 MG TAB PO SCH (21:20)
[2017-11-05] MEDS: HYDROcodone/APAP 5-325MG 1 EACH TAB PO PRN ×3 (03:36→21:34)
[2017-11-05] MEDS: SODIUM CHLORIDE 0.9% 1,000 ML IV SCH ×2 (05:21→21:23)
[2017-11-05] MEDS: CARVEDILOL 6.25 MG TAB PO SCH (05:45)
[2017-11-05 06:12] LABS: Glucose,Whole Blood 153 mg/dL (75-99)
[2017-11-05] MEDS: PANTOPRAZOLE 40 MG TABLET PO SCH (06:21)
[2017-11-05] MEDS: methylPREDNISolone SOD SUCCI 40 MG/ML 1 ML VIAL IV SCH (06:21)
[2017-11-05] MEDS: INSULIN ASPART 100 UNIT/ML 1 ML 10 ML VIAL SQ SCH ×4 (06:22→21:17)
[2017-11-05 06:56] LABS: Basophils % (A) 0 %; Eosinophils % (A) 0 %; HGB 11.2 gm/dL (13.0-17.5); Hypochromasia Slight; Lymphocytes # (A) 0.5 k/uL (1.0-4.8); Lymphocytes % (A) 5 %; MCH 26.9 pg (25.0-35.0); MCHC 30.2 g/dL (31.0-37.0); MCV 89.1 fL (80.0-100.0); Mean Platelet Volume 7.4; Monocytes # (A) 0.3 k/uL (0-1.0); Monocytes % (A) 3 %; Neutrophils # (A) 9.6 k/uL (1.3-7.7); Neutrophils % (A) 92 %; Platelet Count 218 k/uL (150-450); RBC 4.15 m/uL (4.30-5.90); RDW 14.1 % (11.5-15.5); WBC 10.4 k/uL (3.8-10.6)
[2017-11-05 07:24] LABS: Calcium 9.1 mg/dL (8.4-10.2); Potassium 3.9 mmol/L (3.5-5.1)
[2017-11-05] MEDS: FORMOTEROL FUMARATE 20 MCG/2 ML NEBU INHALATION SCH (07:38)
[2017-11-05] MEDS: BUDESONIDE 1 MG/2 ML NEBU INHALATION SCH (07:38)
[2017-11-05] MEDS: IPRATROPIUM-ALBUTEROL 3 ML NEB INHALATION SCH ×4 (07:38→18:59)
[2017-11-05] MEDS: NYSTATIN 100,000 UNIT/ML SUSP 500,000 UNIT/5 ML CUP PO SCH ×4 (08:19→21:16)
[2017-11-05] MEDS: ATORVASTATIN 20 MG TAB PO SCH (08:19)
[2017-11-05] MEDS: LOSARTAN 50 MG TAB PO SCH (08:19)
[2017-11-05] MEDS: buPROPion XL 150 MG TAB.ER.24H PO SCH (08:19)
[2017-11-05] MEDS: HYDROCHLOROTHIAZIDE 50 MG TAB PO SCH (08:20)
[2017-11-05] MEDS: APIXABAN 5 MG TAB PO SCH ×2 (08:20→21:16)
[2017-11-05] MEDS: AZITHROMYCIN 500 MG TAB PO SCH (08:20)
[2017-11-05] MEDS: THEOPHYLLINE 24 HOUR 300 MG CAP.ER.24H PO SCH ×2 (08:20→21:16)
[2017-11-05] MEDS: FUROSEMIDE 20 MG TAB PO SCH (08:20)
[2017-11-05 09:50] LABS: Glucose,Whole Blood 269 mg/dL (75-99)
[2017-11-05 11:23] LABS: Glucose,Whole Blood 172 mg/dL (75-99)
--- NOTE | 2017-11-05 11:35 | P.PN ---
Subjective Progress Note Date: 11/05/17 Principal diagnosis: COPD exacerbation, left mid lung infiltrate/pneumonia, A. fib with RVR Pulmonary consult dated 11/04/2017 77-year-old male with a history of atrial fibrillation CAD heart failure COPD [place] and hypertension who presents to the emergency department complaining of increasing shortness of breath palpitations or weakness. The symptoms have been present for a couple days and have been increasing over the last couple of days. In addition, the patient has been coughing and producing some phlegm. He was found initially in the emergency room to have a temperature of 100.7. He was weak particularly in the leg area. He denies any chest pain or chest pressure. He did have some palpitations and possibly some rapid heartbeat. The patient seemed be resting comfortably at the current time. The patient does have a history of chronic atrial fibrillation CAD heart failure COPD GERD hyperlipidemia hypertension myocardial infarction DJD pneumonia sleep apnea chronic hypoxemic respiratory failure and a history of irritable bowel syndrome. The patient continues to smoke every day. He drinks occasionally. Denies any illicit drug use. His apparently this some surgical procedures, which can be found under the surgical history in the dictation by the ER physician. His ER admission diagnoses included MENTAL status, pneumonia, and atrial fibrillation with RVR. Chest x-ray apparently did not show any acute infiltrates. He was placed on IV heparin for his atrial fibrillation/RVR. Subsequent chest x-ray done on November 03 shows a mild left lower lobe infiltrate. On 11/04/2017 patient seen in follow-up on selective care unit. He has just returned from [facility], is sitting up in the wheelchair, in no acute distress. He reports his breathing is easier today, lung sounds are diminished, no rhonchi no wheezes noted. Denies any fever or chills, remains on 3 L per nasal cannula his pulse ox is 93%. Vitals are stable. Blood and urine cultures remain negative. He is on empiric antibiotics, currently on Zithromax and Rocephin. Is on oral diuretics, on IV steroids, denies any increased phlegm production, denies any hemoptysis or chest wall tenderness. These labs showed WBC of 11.9, hemoglobin of 11.2, electrolytes are normal, patient is slightly prerenal, B1 is 39, creatinine is 1.01. Patient apparently was quite confused on presentation, his mentation is back to baseline, neurology is following. He remains on IV heparin for elevated troponins and paroxysmal atrial fibrillation. Clinically patient is stable, and improving. On 11/05/2017 patient seen in follow-up on selective care unit. In his been, in no acute distress, today's exam feels better air entry noted bilaterally, scattered wheezes. But no rhonchi. Patient is known to be a bit warm, but he denies any chills, no febrile episodes, she remains on 4 L per nasal cannula his pulse ox is 94%, hemodynamically stable. Not bringing up any sputum. Urine and blood cultures remain negative to date. Today's labs were noted, no leukocytosis, the PVCs 10.4, hemoglobin is 9.2, was within normal limits, B1 is 33 and creatinine 0.97. Patient was started on IV antibiotics on admission, Zithromax and Rocephin, we will switch the antibiotics to oral Levaquin, we'll switch IV steroids to oral prednisone, and Pulmicort and Perforomist to Symbicort. Patient has not been up out of bed much more ambulated. Neurologically patient is improving, still experiencing some confusion. His altered mentation was thought to be related to hypoxic encephalopathy. Neurology is following. Objective - Vital Signs Vital signs: Vital Signs Temp 97.4 F L 11/05/17 11:06 Pulse 95 11/05/17 11:06 Resp 18 11/05/17 11:06 BP 153/95 11/05/17 11:06 Pulse Ox 94 L 11/05/17 11:06 Intake & Output 11/04/17 11/05/17 11/05/17 18:59 06:59 18:59 Intake Total 840 180 Output Total 550 1150 300 Balance 290 -1150 -120 Weight 97 kg Intake: Oral 840 180 Output: Urine 550 1150 300 Other: Voiding Method Urinal Urinal Urinal # Voids 1 1 1 # Bowel Movements 0 - Exam No acute distress, oriented 2. Nasal O2 in place. HEENT examination is grossly unremarkable. Mucous membranes are moist. No oral lesions. Neck supple. Full range of motion. No adenopathy thyromegaly or neck vein distention. Cardiovascular examination reveals regular rhythm rate. S1-S2 normal. No S3 or S4. No discernible murmur noted. Lungs reveal better air entry noted bilaterally on today's exam, a few scattered wheezes. Abdomen soft bowel sounds are heard. No masses or tenderness. Extremities are intact. No cyanosis clubbing or edema. Skin is without rash or lesion. Neurologic examination is brief but nonfocal. - Labs CBC & Chem 7: 11/05/17 06:29 11/05/17 06:29 Labs: Abnormal Lab Results - Last 24 Hours (Table) 11/04/17 11/04/17 11/05/17 Range/Units 16:21 21:05 06:11 RBC (4.30-5.90) m/uL Hgb (13.0-17.5) gm/dL Hct (39.0-53.0) % MCHC (31.0-37.0) g/dL Neutrophils # (1.3-7.7) k/uL Lymphocytes # (1.0-4.8) k/uL BUN (9-20) mg/dL Glucose (74-99) mg/dL POC Glucose (mg/dL) 159 H 182 H 153 H (75-99) mg/dL 11/05/17 11/05/17 11/05/17 Range/Units 06:29 06:29 09:42 RBC 4.15 L (4.30-5.90) m/uL Hgb 11.2 L (13.0-17.5) gm/dL Hct 37.0 L (39.0-53.0) % MCHC 30.2 L (31.0-37.0) g/dL Neutrophils # 9.6 H (1.3-7.7) k/uL Lymphocytes # 0.5 L (1.0-4.8) k/uL BUN 33 H (9-20) mg/dL Glucose 125 H (74-99) mg/dL POC Glucose (mg/dL) 269 H (75-99) mg/dL 11/05/17 Range/Units 11:19 RBC (4.30-5.90) m/uL Hgb (13.0-17.5) gm/dL Hct (39.0-53.0) % MCHC (31.0-37.0) g/dL Neutrophils # (1.3-7.7) k/uL Lymphocytes # (1.0-4.8) k/uL BUN (9-20) mg/dL Glucose (74-99) mg/dL POC Glucose (mg/dL) 172 H (75-99) mg/dL Microbiology - Last 24 Hours (Table) 11/02/17 17:07 Blood Culture - Preliminary Blood No Growth after 48 hours 11/02/17 16:14 Blood Culture - Preliminary Blood No Growth after 48 hours 11/02/17 11:15 Blood Culture - Preliminary Blood No Growth after 48 hours Assessment and Plan Plan: Assessment: COPD exacerbation likely complicated by left midlung infiltrate/pneumonia Atrial fibrillation with RVR. Chronic hypoxemic respiratory failure History of hypertension History of atrial fibrillation History of CAD with previous myocardial infarction History of heart failure. GERD by history Hyperlipidemia by history History of sleep apnea syndrome Multiple other medical problems and comorbidities Ongoing tobacco use with nicotine addiction Plan: No fever, no chills, we'll switch the IV antibiotics to oral Levaquin, we'll switch the IV steroids to oral prednisone, Symbicort, continue DuoNeb. Neurologically patient mentation is improving, although patient is still experiencing some confusion. Vital signs are stable, sputum production. Increase activity as tolerated, patient will need an the 24 hours of inpatient treatment, will need physical therapy consul, patient has not been out of bed or ambulated much. Otherwise remains stable, and improving. I performed a history & physical examination of the patient and discussed their management with my nurse practitioner, Shy Pennington. I reviewed the nurse practitioner's note and agree with the documented findings and plan of care. Lung sounds are diminished. The findings and the impression was discussed with the patient. I attest to the documentation by the nurse practitioner. Time with Patient: Less than 30
--- NOTE | 2017-11-05 11:36 | CDI ---
Last Revision, March 2017 Documentation Clarification Form Date: 11/05/17 From: Zaida Bruce RN Admit Date: 11/02/2017 2:52:00 PM Patient Name: Marco Doan Visit Number: [id number] ATTENTION: The Clinical Documentation Specialists (CDI) and [facility] Coding Staff appreciate your assistance in clarifying documentation. Please respond to the clarification below the line at the bottom and electronically sign. The CDI & [facility] Coding staff will review the response and follow-up if needed. Please note: Queries are made part of the Legal Health Record. If you have any questions, please contact the author of this message via ITS. Dr. Mcgee E Sheet, Please render your opinion on the following documentation. Documentation and location in medical record included the following: Patient presented to the ED with weakness and altered mental status History/Risk Factors: COPD, A FIB, CAD, CHF, GERD, HTN, respiratory failure, pneumonia, sleep apnea, hypothyroidism, chronic upper resp., DJD. failure. noncompliance, home 02 Clinical Indicators: WBC on admission: 11.8 Lactic acid: 1.1 Blood cultures: Preliminary, no growth after 48 hours Vitals signs on admission: T 100.7, P 107, R 22, 128/58, 96% 2L Patient is being treated for pneumonia, hypoxic respiratory failure and metabolic encephalopathy Treatment: Antibiotics: Azithromycin IVPB, Rocephin IVPB, Levaquin PO, Zithromax PO IV Bolus: x 1L Other: Pneumonia protocol In your professional opinion, please clarify if these findings signify one of the following conditions, whether the condition is POA, and cause, if known: Condition Sepsis ruled in Sepsis ruled out Severe Sepsis Septic Shock Other, please specify Unable to determine Present on Admission: Yes No Please continue to document in your progress notes, under the line below and/or in the discharge summary in order to capture severity of illness and risk of mortality. Include clinical findings that support your diagnosis. Sepsis ruled out MTDD
[2017-11-05] MEDS: LEVOFLOXACIN 500 MG TAB PO SCH (11:54)
--- NOTE | 2017-11-05 12:01 | P.PN ---
Subjective Progress Note Date: 11/05/17 This is a 77-year-old gentleman with known history of coronary artery disease and prior stent placement, severe COPD with home O2 use, paroxysmal atrial fibrillation, hypertension, hyperlipidemia, PAD and PVD, EtOH use, history of noncompliance, who presents to the hospital with symptoms of progressively worsening shortness of breath with associated weakness. According to the patient is also been coughing up a significant amount of dark yellow sputum. His EKG on presentation here showed atrial fibrillation with a rapid ventricular response , patient was initiated on IV Cardizem. shortly thereafter patient did convert to normal sinus rhythm, this morning continues to be in a normal sinus rhythm , because of the atrial fibrillation a cardiology consultation has been requested. Chest x-ray on arrival here did not reveal any active disease. CAT scan of the brain revealed cerebral atrophy with no acute intracranial abnormality. Temperature on arrival here 100.7, heart rate 107, blood pressure 128/50, 96% on 2 L of oxygen. Let pressure this morning 142/70 with a heart rate in the 70s, 92% on 4 L of oxygen. White blood cell count on admission 11.8, 9.3 this morning, hemoglobin 12.3, platelet count 169. Blood gases were obtained on admission, pH 7.4, pO2 55, bicarb 32, CO2 34 , sodium on admission 138, potassium 3.4, BUN 27, creatinine 0.8. Magnesium on admission 1.3, 2.3 this morning. BNP [id number]. Troponins 0.039, 0.034, 0.024. Patient did have an admission to the hospital in June of this year with a non -Q-wave myocardial infarction, medical therapy advised at that time. An echocardiogram with Doppler study was performed at that time as well which revealed an ejection fraction of 55-60%. At the time of my examination this morning, patient states that his breathing is improved from admission, still appears to be somewhat short of breath, continues to cough up productive sputum. Patient continues to be on IV Cardizem at 5 mg per hour, in normal sinus rhythm, he is also on IV heparin. 11/04/2017 Patient converted to normal sinus rhythm through the night last night, present drip has been discontinued. Patient was also approved for one of the newer anticoagulants, so we will discontinue the heparin today and start the patient on Eliquis 5 mg one tablet by mouth twice a day. Overall his breathing is improved significantly today as well. I pressure 138/90 with a heart rate in the 70s, 92% on 4 L of oxygen. White blood cell count 11.9, hemoglobin 11.2, platelet count 176. Sodium 138, potassium 3.9, BUN 39, creatinine 1.0. 11/05/2017 Patient continues to be in normal sinus rhythm today. Productive cough. Blood pressure 152/94, 94% on 4 L of oxygen. Objective - Vital Signs Vital signs: Vital Signs Temp 97.4 F L 11/05/17 11:06 Pulse 95 11/05/17 11:06 Resp 18 11/05/17 11:06 BP 153/95 11/05/17 11:06 Pulse Ox 94 L 11/05/17 11:06 Intake & Output 11/04/17 11/05/17 11/05/17 18:59 06:59 18:59 Intake Total 840 180 Output Total 550 1150 300 Balance 290 -1150 -120 Weight 97 kg Intake: Oral 840 180 Output: Urine 550 1150 300 Other: Voiding Method Urinal Urinal Urinal # Voids 1 1 1 # Bowel Movements 0 - Exam PHYSICAL EXAMINATION: GENERAL: 77-year-old gentleman in no acute distress at the time of my examination HEENT: Head is atraumatic, normocephalic. Pupils equal, round. Sclera anicteric. Conjunctiva are clear. Mucous membranes of the mouth are moist. Neck is supple. There is no elevated jugular venous pressure. No carotid bruit is heard. HEART EXAMINATION: Heart S1, S2 normal. No murmur or gallop heard. CHEST EXAMINATION: Lungs reveal scattered coarse rhonchi and wheezing throughout ABDOMEN: Soft, nontender. Bowel sounds are heard. No organomegaly noted. EXTREMITIES: 1+ peripheral pulses with evidence of peripheral edema and no calf tenderness noted]. NEUROLOGIC [ptient is awake, alert and oriented X2. . - Labs CBC & Chem 7: 11/05/17 06:29 11/05/17 06:29 Labs: Abnormal Lab Results - Last 24 Hours (Table) 11/04/17 11/04/17 11/05/17 Range/Units 16:21 21:05 06:11 RBC (4.30-5.90) m/uL Hgb (13.0-17.5) gm/dL Hct (39.0-53.0) % MCHC (31.0-37.0) g/dL Neutrophils # (1.3-7.7) k/uL Lymphocytes # (1.0-4.8) k/uL BUN (9-20) mg/dL Glucose (74-99) mg/dL POC Glucose (mg/dL) 159 H 182 H 153 H (75-99) mg/dL 11/05/17 11/05/17 11/05/17 Range/Units 06:29 06:29 09:42 RBC 4.15 L (4.30-5.90) m/uL Hgb 11.2 L (13.0-17.5) gm/dL Hct 37.0 L (39.0-53.0) % MCHC 30.2 L (31.0-37.0) g/dL Neutrophils # 9.6 H (1.3-7.7) k/uL Lymphocytes # 0.5 L (1.0-4.8) k/uL BUN 33 H (9-20) mg/dL Glucose 125 H (74-99) mg/dL POC Glucose (mg/dL) 269 H (75-99) mg/dL 11/05/17 Range/Units 11:19 RBC (4.30-5.90) m/uL Hgb (13.0-17.5) gm/dL Hct (39.0-53.0) % MCHC (31.0-37.0) g/dL Neutrophils # (1.3-7.7) k/uL Lymphocytes # (1.0-4.8) k/uL BUN (9-20) mg/dL Glucose (74-99) mg/dL POC Glucose (mg/dL) 172 H (75-99) mg/dL Microbiology - Last 24 Hours (Table) 11/02/17 17:07 Blood Culture - Preliminary Blood No Growth after 48 hours 11/02/17 16:14 Blood Culture - Preliminary Blood No Growth after 48 hours 11/02/17 11:15 Blood Culture - Preliminary Blood No Growth after 48 hours Assessment and Plan Plan: Assessment and plan #1 symptoms of progressively worsening shortness of breath with associated productive sputum and low-grade temperature suggestive of possible acute bronchopneumonia possible COPD exacerbation. #2 moderate to severe COPD with home O2 use #3 mental status changes on admission, could be secondary to hypoxemia #4 atrial fibrillation with rapid ventricular response, paroxysmal, patient is currently on IV heparin and Cardizem drips. In normal sinus rhythm with PVCs at this time. #5 hypomagnesemia, replaced #6 known history of coronary artery disease with prior stent placement #7 hypertension #8 hyperlipidemia #9 sleep apnea #10 PVD #11 history of noncompliance #12 EtOH use #13 hypokalemia, being replaced Plan Patient had an echocardiogram with Doppler study performed in June of this year which revealed a normal left ventricular systolic function, we will not repeat an echo on this admission. Patient is currently in normal sinus rhythm. We will continue him on his current medications including the Eliquis 5 mg one tablet by mouth twice a day. We will follow him along with you now on an as -needed basis only, please don't hesitate to call with any questions. DNP note has been reviewed, I agree with a documented findings and plan of care. Patient was seen and examined.
[2017-11-05] MEDS ORDERED: METOPROLOL TARTRATE 5 MG/5 ML VIAL IVP ONE (14:15)
--- NOTE | 2017-11-05 15:02 | PN ---
PROGRESS NOTE DATE OF SERVICE: 11/05/2017 This 77-year-old gentleman who was admitted with COPD exacerbation also had pneumonia also. The patient has atrial fibrillation with fast ventricular rate, which is paroxysmal. Patient had an episode last night. No chest pain. No palpitations. No fever. PHYSICAL EXAM: Alert and oriented x3. Pulse 95, blood pressure 130/95, respiration 18, temperature 98.4, pulse ox 94% on room air. HEENT: Conjunctivae normal. Oral mucosa moist. NECK: No jugular venous distention. No carotid bruit. No lymph node enlargement. CARDIOVASCULAR: S1, S2. RESPIRATORY: Breath sounds diminished in the bases. A few scattered rhonchi and crackles. ABDOMEN: Soft, nontender. No mass palpable. LEGS: No edema, no swelling. NERVOUS SYSTEM: Higher functions as mentioned earlier. Moves all four limbs. No focal deficits. LYMPHATIC: No lymphadenopathy in the neck, axillae, groin. SKIN: No ulcer, rash, bleeding. LABS: WBC 10.2, hemoglobin 11.2, glucose 269. ASSESSMENT: 1. Chronic obstructive pulmonary disease exacerbation with acute bronchopneumonia left- sided pneumonia with possibly gram-negative with acute hypoxic hypercarbic respiratory failure. 2. Atrial fibrillation with fast ventricular rate, paroxysmal. 3. Chronic hypoxic respiratory on home O2. 4. Change in mental status, metabolic encephalopathy, present on admission, possibly secondary to hypercarbia and medication induced. 5. Troponin 0.039, indeterminate. 6. Increased creatine kinase. 7. Increased WBC. 8. History of atrial fibrillation. 9. Sick euthyroid syndrome. 10.History of congestive heart failure. 11.History of coronary artery disease. 12.Hypertension. 13.Hyperlipidemia. 14.History of myocardial infarction. 15.History pneumonia. 16.History of sleep apnea. 17.Hypothyroidism. 18.History of peripheral vascular disease. 19.History of noncompliance. 20.Coronary artery disease, stent. 21.History of depression. RECOMMENDATIONS AND DISCUSSION I recommend to continue current management and symptomatic treatment. Otherwise at this time, I recommend taper the steroids. Continue the bronchodilators and antibiotics. Closely follow with Cardiology and Pulmonology. Guarded prognosis. Further recommendations to follow. Patient is started on Eliquis 5 mg p.o. b.i.d. Further recommendations to follow. MMODL / IJN: [id number] /
[2017-11-05] MEDS ORDERED: METOPROLOL TARTRATE 50 MG TAB PO STA (16:24)
[2017-11-05 17:06] LABS: Glucose,Whole Blood 94 mg/dL (75-99)
[2017-11-05] MEDS: SYMBICORT 160-4.5 MCG INHALER INHALATION SCH (18:59)
[2017-11-05] MEDS ORDERED: LORazepam 2 MG/ML INJ IV PRN ×3 (19:14)
[2017-11-05 20:48] LABS: Glucose,Whole Blood 185 mg/dL (75-99)
[2017-11-05] MEDS: SERTRALINE 50 MG TAB PO SCH (21:16)
[2017-11-05] MEDS: METOPROLOL TARTRATE 50 MG TAB PO SCH (21:17)
[2017-11-06 06:14] LABS: Glucose,Whole Blood 97 mg/dL (75-99)
[2017-11-06] MEDS: INSULIN ASPART 100 UNIT/ML 1 ML 10 ML VIAL SQ SCH ×3 (06:15→15:56)
[2017-11-06 06:26] LABS: Basophils % (A) 0 %; Eosinophils % (A) 0 %; HCT 38.2 % (39.0-53.0); HGB 11.9 gm/dL (13.0-17.5); Hypochromasia Moderate; Lymphocytes # (A) 1.2 k/uL (1.0-4.8); Lymphocytes % (A) 11 %; MCH 28.1 pg (25.0-35.0); MCHC 31.2 g/dL (31.0-37.0); Mean Platelet Volume 6.9; Monocytes # (A) 0.7 k/uL (0-1.0); Monocytes % (A) 7 %; Neutrophils # (A) 8.7 k/uL (1.3-7.7); Neutrophils % (A) 80 %; Platelet Count 212 k/uL (150-450); RBC 4.24 m/uL (4.30-5.90); RDW 14.1 % (11.5-15.5); WBC 10.8 k/uL (3.8-10.6)
[2017-11-06] MEDS: PANTOPRAZOLE 40 MG TABLET PO SCH (06:29)
[2017-11-06 07:11] LABS: Anion Gap 5 mmol/L; Blood Urea Nitrogen 34 mg/dL (9-20); Calcium 9.4 mg/dL (8.4-10.2); Carbon Dioxide 30 mmol/L (22-30); Chloride 107 mmol/L (98-107); Glucose 98 mg/dL (74-99); Sodium 142 mmol/L (137-145)
[2017-11-06] MEDS: IPRATROPIUM-ALBUTEROL 3 ML NEB INHALATION SCH ×3 (07:11→15:40)
[2017-11-06] MEDS: SYMBICORT 160-4.5 MCG INHALER INHALATION SCH (07:11)
[2017-11-06] MEDS: HYDROcodone/APAP 5-325MG 1 EACH TAB PO PRN (08:33)
[2017-11-06] MEDS: buPROPion XL 150 MG TAB.ER.24H PO SCH (08:34)
[2017-11-06] MEDS: NYSTATIN 100,000 UNIT/ML SUSP 500,000 UNIT/5 ML CUP PO SCH ×3 (08:34→15:56)
[2017-11-06] MEDS: APIXABAN 5 MG TAB PO SCH (08:34)
[2017-11-06] MEDS: HYDROCHLOROTHIAZIDE 50 MG TAB PO SCH (08:34)
[2017-11-06] MEDS: METOPROLOL TARTRATE 50 MG TAB PO SCH (08:34)
[2017-11-06] MEDS: THEOPHYLLINE 24 HOUR 300 MG CAP.ER.24H PO SCH (08:34)
[2017-11-06] MEDS: LOSARTAN 50 MG TAB PO SCH (08:35)
[2017-11-06] MEDS: ATORVASTATIN 20 MG TAB PO SCH (08:35)
[2017-11-06] MEDS: FUROSEMIDE 20 MG TAB PO SCH (08:35)
[2017-11-06] MEDS ORDERED: predniSONE 10 MG TAB PO SCH (09:00)
[2017-11-06 11:31] VITALS: BP 143/85; PULSE 67; RESP 22; TEMP 97.5
[2017-11-06 11:48] LABS: Glucose,Whole Blood 123 mg/dL (75-99)
[2017-11-06] MEDS: LEVOFLOXACIN 500 MG TAB PO SCH (11:54)
--- NOTE | 2017-11-06 15:30 | P.PN ---
Subjective Progress Note Date: 11/06/17 Principal diagnosis: COPD exacerbation, left mid lung infiltrate/pneumonia, A. fib with RVR Pulmonary consult dated 11/04/2017 77-year-old male with a history of atrial fibrillation CAD heart failure COPD [place] and hypertension who presents to the emergency department complaining of increasing shortness of breath palpitations or weakness. The symptoms have been present for a couple days and have been increasing over the last couple of days. In addition, the patient has been coughing and producing some phlegm. He was found initially in the emergency room to have a temperature of 100.7. He was weak particularly in the leg area. He denies any chest pain or chest pressure. He did have some palpitations and possibly some rapid heartbeat. The patient seemed be resting comfortably at the current time. The patient does have a history of chronic atrial fibrillation CAD heart failure COPD GERD hyperlipidemia hypertension myocardial infarction DJD pneumonia sleep apnea chronic hypoxemic respiratory failure and a history of irritable bowel syndrome. The patient continues to smoke every day. He drinks occasionally. Denies any illicit drug use. His apparently this some surgical procedures, which can be found under the surgical history in the dictation by the ER physician. His ER admission diagnoses included MENTAL status, pneumonia, and atrial fibrillation with RVR. Chest x-ray apparently did not show any acute infiltrates. He was placed on IV heparin for his atrial fibrillation/RVR. Subsequent chest x-ray done on November 03 shows a mild left lower lobe infiltrate. On 11/04/2017 patient seen in follow-up on selective care unit. He has just returned from [facility], is sitting up in the wheelchair, in no acute distress. He reports his breathing is easier today, lung sounds are diminished, no rhonchi no wheezes noted. Denies any fever or chills, remains on 3 L per nasal cannula his pulse ox is 93%. Vitals are stable. Blood and urine cultures remain negative. He is on empiric antibiotics, currently on Zithromax and Rocephin. Is on oral diuretics, on IV steroids, denies any increased phlegm production, denies any hemoptysis or chest wall tenderness. These labs showed WBC of 11.9, hemoglobin of 11.2, electrolytes are normal, patient is slightly prerenal, B1 is 39, creatinine is 1.01. Patient apparently was quite confused on presentation, his mentation is back to baseline, neurology is following. He remains on IV heparin for elevated troponins and paroxysmal atrial fibrillation. Clinically patient is stable, and improving. On 11/05/2017 patient seen in follow-up on selective care unit. In his been, in no acute distress, today's exam feels better air entry noted bilaterally, scattered wheezes. But no rhonchi. Patient is known to be a bit warm, but he denies any chills, no febrile episodes, she remains on 4 L per nasal cannula his pulse ox is 94%, hemodynamically stable. Not bringing up any sputum. Urine and blood cultures remain negative to date. Today's labs were noted, no leukocytosis, the PVCs 10.4, hemoglobin is 9.2, was within normal limits, B1 is 33 and creatinine 0.97. Patient was started on IV antibiotics on admission, Zithromax and Rocephin, we will switch the antibiotics to oral Levaquin, we'll switch IV steroids to oral prednisone, and Pulmicort and Perforomist to Symbicort. Patient has not been up out of bed much more ambulated. Neurologically patient is improving, still experiencing some confusion. His altered mentation was thought to be related to hypoxic encephalopathy. Neurology is following. On 11/06/2017 patient seen in follow-up on selective care unit. Feeling significantly better today, lung sounds no wheezing, overall diminished breath sounds, no rhonchi, no rales. No chest congestion, not bringing up any sputum. No fever, no chills, he is on 4 L per nasal cannula with pulse ox is 95%, hemodynamically stable. Remains on oral prednisone, nebulized bronchodilators, oral diuretics. Continues to improve, his mentation continues to improve, no signs of delirium confusion. Today's labs were noted. Objective - Vital Signs Vital signs: Vital Signs Temp 97.5 F L 11/06/17 11:30 Pulse 67 11/06/17 11:30 Resp 22 11/06/17 11:30 BP 143/85 11/06/17 11:30 Pulse Ox 95 11/06/17 11:30 Intake & Output 11/05/17 11/06/17 11/06/17 18:59 06:59 18:59 Intake Total 190 800 Output Total 450 750 400 Balance -260 -750 400 Weight 95.8 kg Intake: IV 10 0.9 10 Oral 180 800 Output: Urine 450 750 400 Other: Voiding Method Urinal Urinal Toilet Urinal # Voids 1 1 1 # Bowel Movements 1 - Exam No acute distress, oriented 2. Nasal O2 in place. HEENT examination is grossly unremarkable. Mucous membranes are moist. No oral lesions. Neck supple. Full range of motion. No adenopathy thyromegaly or neck vein distention. Cardiovascular examination reveals regular rhythm rate. S1-S2 normal. No S3 or S4. No discernible murmur noted. Lungs reveal better air entry noted bilaterally on today's exam, no wheezing, Abdomen soft bowel sounds are heard. No masses or tenderness. Extremities are intact. No cyanosis clubbing or edema. Skin is without rash or lesion. Neurologic examination is brief but nonfocal. - Labs CBC & Chem 7: 11/06/17 05:52 11/06/17 05:52 Labs: Abnormal Lab Results - Last 24 Hours (Table) 11/05/17 11/06/17 11/06/17 Range/Units 20:46 05:52 05:52 WBC 10.8 H (3.8-10.6) k/uL RBC 4.24 L (4.30-5.90) m/uL Hgb 11.9 L (13.0-17.5) gm/dL Hct 38.2 L (39.0-53.0) % Neutrophils # 8.7 H (1.3-7.7) k/uL BUN 34 H (9-20) mg/dL POC Glucose (mg/dL) 185 H (75-99) mg/dL 11/06/17 Range/Units 11:46 WBC (3.8-10.6) k/uL RBC (4.30-5.90) m/uL Hgb (13.0-17.5) gm/dL Hct (39.0-53.0) % Neutrophils # (1.3-7.7) k/uL BUN (9-20) mg/dL POC Glucose (mg/dL) 123 H (75-99) mg/dL Microbiology - Last 24 Hours (Table) 11/02/17 11:15 Blood Culture - Preliminary Blood No Growth after 96 hours 11/02/17 17:07 Blood Culture - Preliminary Blood No Growth after 72 hours 11/02/17 16:14 Blood Culture - Preliminary Blood No Growth after 72 hours Assessment and Plan Plan: Assessment: COPD exacerbation likely complicated by left midlung infiltrate/pneumonia Atrial fibrillation with RVR. Chronic hypoxemic respiratory failure History of hypertension History of atrial fibrillation History of CAD with previous myocardial infarction History of heart failure. GERD by history Hyperlipidemia by history History of sleep apnea syndrome Multiple other medical problems and comorbidities Ongoing tobacco use with nicotine addiction Plan: Patient is stable, and continues to improve, vital signs are stable. No acute events overnight, his mentation continues to improve. From pulmonary standpoint patient is stable for discharge home on outpatient course of Levaquin , prednisone taper, follow-up with Dr. Gil in the office in 7-10 days. I performed a history & physical examination of the patient and discussed their management with my nurse practitioner, Shy Pennington. I reviewed the nurse practitioner's note and agree with the documented findings and plan of care. Lung sounds are diminished. The findings and the impression was discussed with the patient. I attest to the documentation by the nurse practitioner. Time with Patient: Less than 30
[2017-11-06] MEDS: SODIUM CHLORIDE 0.9% 1,000 ML IV SCH (15:56)
--- NOTE | 2017-11-06 20:42 | DS ---
DISCHARGE SUMMARY FINAL DIAGNOSES: 1. Chronic obstructive pulmonary disease acute exacerbation with left-sided pneumonia with possibly gram-negative with acute hypoxic hypercarbic respiratory failure. 2. Atrial fibrillation with fast ventricular rate, paroxysmal. 3. Chronic hypoxic respiratory failure on home O2. 4. Change in mental status, metabolic encephalopathy present on admission possibly secondary to hypercarbia and medication induced. 5. Troponin 0.039, indeterminate. 6. Increased creatinine kinase. 7. Increased WBC. 8. History of atrial fibrillation. 9. Sick euthyroid syndrome. 10.History of congestive heart failure. 11.History of coronary artery disease. 12.Hypertension. 13.Hyperlipidemia. 14.History of myocardial infarction. 15.History of pneumonia. 16.History of sleep apnea. 17.History of hypothyroidism. 18.History of peripheral vascular disease. 19.History of noncompliance. 20.History of coronary artery disease/stent. 21.History of depression. DISCHARGE ADVICE AND MEDICATIONS: The patient is being discharged in stable condition with guarded prognosis. Total time taken 35 minutes. HISTORY OF PRESENT ILLNESS: This 77-year-old gentleman with a past medical history of multiple medical problems admitted to the hospital with COPD acute exacerbation, atrial ablation, multiple medical problems, patient treated with bronchodilators and antibiotics. The patient also rather noncompliant with medications at home, which was stressed with the family and as well as social work job titles. Multiple consultants including cardiology and pulmonology saw the patient. PHYSICAL EXAMINATION: On exam vitals are stable. Cardiovascular system: S1, S2. n ABDOMEN: Soft, nontender. NERVOUS SYSTEM: No focal deficits. Respiratory: A few scattered rhonchi heard. DISCHARGE ADVICE AND MEDICATIONS: 1. Discharge diet is cardiac. 2. Activity limited until followup. MEDICATIONS ARE: 1. Albuterol p.r.n. 2. Wellbutrin XR 150 mg p.o. daily. 3. Lasix 20 mg p.o. daily. 4. Hydrochlorothiazide 50 mg p.o. daily. 5. DuoNeb q.i.d. and p.r.n. 6. Nystatin 5 mL p.o. q.i.d. 7. Benicar 40 mg p.o. daily. 8. Prednisone taper 40 mg daily for 3 days, 30 for 3 days, 20 for 3 days, then 10 for 3 days to be continued. 9. Zoloft 50 mg q.h.s. 10.Maciej-24 300 mg p.o. b.i.d. 11.Eliquis 5 mg p.o. b.i.d. 12.Lipitor 20 mg p.o. daily. 13.No smoking. 14.Symbicort 160/4.5 two puffs b.i.d. 15.Hydrocodone 10 mg half tablets q.4h p.r.n. 16.Levaquin 500 mg p.o. daily for 5 days. 17.Lopressor 50 mg p.o. b.i.d. 18.Follow with Dr. Gil as advised. MMODL / IJN: [id number] / KATRIN
== END 2017-11-06 16:13 | disposition home health service (06) | DRG 177 ==
LOC: EC 10:57 → 6SEL 14:52
PROVIDERS: ADMIT Internal Medicine; ATTEND Internal Medicine
DX: J15.6 Pneumonia due to other Gram-negative bacteria (principal); J96.21 Acute and chronic respiratory failure with hypoxia; G93.41 Metabolic encephalopathy; J96.22 Acute and chronic respiratory failure with hypercapnia; J44.0 Chronic obstructive pulmonary disease with (acute) lower respiratory infection; J44.1 Chronic obstructive pulmonary disease with (acute) exacerbation; E03.9 Hypothyroidism, unspecified; E07.81 Sick-euthyroid syndrome; E78.5 Hyperlipidemia, unspecified; E83.42 Hypomagnesemia; E87.6 Hypokalemia; F17.200 Nicotine dependence, unspecified, uncomplicated; G47.30 Sleep apnea, unspecified; I11.0 Hypertensive heart disease with heart failure; I25.10 Atherosclerotic heart disease of native coronary artery without angina pectoris; I25.2 Old myocardial infarction; I48.2 Chronic atrial fibrillation; I49.3 Ventricular premature depolarization; I50.9 Heart failure, unspecified; I73.9 Peripheral vascular disease, unspecified; K21.9 Gastro-esophageal reflux disease without esophagitis; K58.9 Irritable bowel syndrome, unspecified; Z79.51 Long term (current) use of inhaled steroids; Z79.82 Long term (current) use of aspirin; Z79.899 Other long term (current) drug therapy; Z82.49 Family history of ischemic heart disease and other diseases of the circulatory system; Z87.01 Personal history of pneumonia (recurrent); Z91.14 Patient's other noncompliance with medication regimen; Z91.19 Patient's noncompliance with other medical treatment and regimen; Z95.5 Presence of coronary angioplasty implant and graft; Z99.81 Dependence on supplemental oxygen; Z79.891 Long term (current) use of opiate analgesic; Z79.52 Long term (current) use of systemic steroids; F32.9 Major depressive disorder, single episode, unspecified
CPT/HCPCS: 36415; 36600; 70450; 71045; 71046; 80048; 80053; 81003; 82550; 82553; 82805; 83605; 83735; 83880; 84436; 84439; 84443; 84481; 84484; 85025; 85610; 85730; 87040; 87086; 93005; 94640; 94760; 95819; 96361; 96365; 96375; 96376; 99285

== ENCOUNTER 2018-04-05 06:02 | Emergency (ER) | payer MEDICARE ==
[2018-04-05 06:45] LABS: HCT 38.7 % (39.0-53.0); HGB 11.3 gm/dL (13.0-17.5); MCH 24.9 pg (25.0-35.0); MCHC 29.3 g/dL (31.0-37.0); RBC 4.55 m/uL (4.30-5.90); RDW 16.3 % (11.5-15.5); WBC 11.2 k/uL (3.8-10.6)
[2018-04-05 06:46] LABS: Anisocytosis Slight; Basophils % (A) 0 %; Eosinophils # (A) 0.4 k/uL (0-0.7); Eosinophils % (A) 3 %; Hypochromasia Marked; Lymphocytes # (A) 1.2 k/uL (1.0-4.8); Lymphocytes % (A) 11 %; Mean Platelet Volume 7.7; Monocytes # (A) 0.6 k/uL (0-1.0); Monocytes % (A) 5 %; Neutrophils # (A) 8.8 k/uL (1.3-7.7); Neutrophils % (A) 79 %; Platelet Count 242 k/uL (150-450)
[2018-04-05 06:52] LABS: INR 0.9 (<1.2); Partial Thromboplastin Time 23.3 sec (22.0-30.0)
[2018-04-05] MEDS ORDERED: MORPHINE SULFATE 4 MG/ML SYRINGE IVP STA (06:53)
[2018-04-05 06:55] LABS: ALT 20 U/L (21-72); AST 26 U/L (17-59); Albumin 3.6 g/dL (3.5-5.0); Alkaline Phosphatase 105 U/L (38-126); Anion Gap 7 mmol/L; Blood Urea Nitrogen 14 mg/dL (9-20); Calcium 9.2 mg/dL (8.4-10.2); Carbon Dioxide 29 mmol/L (22-30); Chloride 104 mmol/L (98-107); Glucose 98 mg/dL (74-99); Potassium 3.8 mmol/L (3.5-5.1); Sodium 140 mmol/L (137-145); Total Bilirubin 0.3 mg/dL (0.2-1.3); Total Protein 6.2 g/dL (6.3-8.2)
[2018-04-05 06:59] VITALS: TEMP 98.8
--- NOTE | 2018-04-05 07:04 | CT ---
EXAMINATION TYPE: CT brain cspine wo con DATE OF EXAM: 04/05/2018 COMPARISON: CT brain November 02, 2017 HISTORY: fall today head and neck pain. CT DLP: 1688.6 mGycm. Automated Exposure Control for Dose Reduction was Utilized. TECHNIQUE: CT scan of the head and cervical spine are performed without contrast. FINDINGS: There is no acute intracranial hemorrhage or midline shift identified. There is ventricul ar and sulcal prominence consistent with diffuse cerebral atrophy. Low-attenuation periventricular wh ite matter is redemonstrated. The calvarium is intact. Mild mucosal thickening involving right maxill angela sinus is present. Remainder paranasal sinuses are clear. The globes are intact bilaterally. Vascu lar calcification bilateral distal internal carotid arteries is again seen. Cervical spine is visualized in its entirety from C1 through upper thoracic levels and demonstrates s atisfactory alignment without evidence of acute fracture or dislocation. Prevertebral soft tissue ap pears within normal limits. The C1-C2 articulation is within normal limits on the coronal images. T here is anterior fusion plate with ossific fusion and artificial disc material C4-C7 levels. There is moderate disc space narrowing and spurring C3-C4 level. There is moderate disc space narrowing with mild spurring C7-T1 level. Spinal canal is grossly preserved. Review of axial images shows bilateral uncovertebral facet degenerative changes contributing to moderate to severe bilateral neural foramina l narrowing at C2-C3 and C3-C4 levels. Thyroid gland is felt within normal limits. Lung apices show n o pneumothorax. IMPRESSION: 1. There is no acute fracture or dislocation evident in the cervical spine. 2. No acute intracranial hemorrhage or midline shift is seen. Moderate diffuse cerebral atrophy and c hronic small vessel ischemic change redemonstrated.
[2018-04-05 07:13] LABS: Creatine Kinase MB 5.8 ng/mL (0.0-2.4); Troponin I 0.023 ng/mL (0.000-0.034)
[2018-04-05] MEDS ORDERED: DIPH,PERTUS(ACELL)TETVAC-LF 0.5 ML VIAL IM ONE (07:21)
--- NOTE | 2018-04-05 07:54 | XR ---
EXAMINATION TYPE: XR chest 2V DATE OF EXAM: 04/05/2018 COMPARISON: Chest pain per order. HISTORY: Chest x-ray November 03, 2017 TECHNIQUE: Frontal and lateral views of the chest are obtained. FINDINGS: There is chronically elevated left hemidiaphragm with associated left basilar linear scarri ng and/or atelectasis. There is no new suspicious focal air space opacity, pleural effusion, or pneum othorax seen. The cardiac silhouette size is stable and within normal limits. Postsurgical change to the cervical spine is partially imaged. IMPRESSION: Chronic elevated left hemidiaphragm with persistent left basilar linear scarring and/or atelectasis. No new infiltrate is seen.
--- NOTE | 2018-04-05 07:55 | XR ---
EXAMINATION TYPE: XR shoulder complete RT DATE OF EXAM: 04/05/2018 CLINICAL HISTORY: Right shoulder pain. TECHNIQUE: Three views of the right shoulder are obtained. COMPARISON: None. FINDINGS: There is no acute fracture/dislocation evident in the right shoulder. Moderate narrowing a t acromioclavicular joint with calcified capsular hypertrophy is seen and mild spurring. Glenohumeral joint is maintained. Some ossific density is seen near level of greater tuberosity, favor small spur at this level on the internally rotated view The visualized ribs are intact and unremarkable. IMPRESSION: As above.
[2018-04-05 08:54] LABS: Appearance,Urine Clear (Clear); Bilirubin,Urine Negative (Negative); Blood,Urine Negative (Negative); Color,Urine Light Yellow; Glucose,Urine (UA) Negative (Negative); Ketones,Urine Trace (Negative); Leukocyte Esterase,Urine Negative (Negative); Nitrite,Urine Negative (Negative); Protein,Urine Trace (Negative); Specific Gravity,Urine 1.011 (1.001-1.035); Urobilinogen,Urine <2.0 mg/dL (<2.0)
--- NOTE | 2018-04-05 09:16 | ED ---
General Adult HPI - General Chief complaint: Fall Stated complaint: Fall Time Seen by Provider: 04/05/18 06:44 Source: patient, RN notes reviewed, old records reviewed Mode of arrival: EMS - History of Present Illness Initial comments: 77-year-old male presents status post fall. Patient has history of COPD, he is on home BiPAP and supplemental oxygen as needed. Presents with facial trauma. pt is on Eliquis. No loss of consciousness. Complaining of right shoulder pain. Patient denies chest pain, denies worsening dyspnea, does have baseline dyspnea secondary to COPD. No fever chills. No chest pain. No abdominal pain. No lower extremity pain. - Related Data Home Medications Medication Instructions Recorded Confirmed Olmesartan Medoxomil [Benicar] 40 mg PO DAILY 03/03/16 11/02/17 Sertraline [Zoloft] 50 mg PO HS 03/03/16 11/02/17 Albuterol Inhaler [Ventolin Hfa 2 puff INHALATION RT-Q4H PRN 09/24/16 11/02/17 Inhaler] Furosemide [Lasix] 20 mg PO DAILY 09/24/16 11/02/17 Ipratropium-Albuterol Nebulize 3 ml INHALATION RT-QID 09/24/16 11/02/17 [Duoneb 0.5 mg-3 mg/3 ml Soln] Theophylline 24 Hour [Maciej-24] 300 mg PO BID 09/24/16 11/02/17 Hydrochlorothiazide 50 mg PO DAILY 10/14/16 11/02/17 Nystatin 100,000 Unit/ml Susp 5 ml PO QID 11/02/17 11/02/17 [Mycostatin Oral Susp] buPROPion XL [Wellbutrin XL] 150 mg PO DAILY 11/02/17 11/02/17 predniSONE 10 mg PO DAILY 11/02/17 11/02/17 Previous Rx's Medication Instructions Recorded Atorvastatin [Lipitor] 20 mg PO DAILY #30 tab 06/26/17 Apixaban [Eliquis] 5 mg PO BID #60 tab 11/06/17 Budesonide-Formot 160-4.5 Mcg 2 puff INHALATION RT-BID #1 puff 11/06/17 [Symbicort 160-4.5 Mcg Inhaler] HYDROcodone/APAP 10-325MG [[place] 0.5 tab PO Q4HR PRN #1 11/06/17 10-325] Levofloxacin [Levaquin] 500 mg PO Q24H #5 tab 11/06/17 Metoprolol Tartrate [Lopressor] 50 mg PO BID #60 tab 11/06/17 predniSONE 10 mg PO DIRECTED #30 tab 11/06/17 Azithromycin [Zithromax Z-pack] 0 mg PO DIRECTED #6 tab 04/05/18 predniSONE 50 mg PO DAILY #5 tab 04/05/18 Allergies Allergy/AdvReac Type Severity Reaction Status Date / Time No Known Allergies Allergy Verified 04/05/18 06:17 Review of Systems ROS Statement: Those systems with pertinent positive or pertinent negative responses have been documented in the HPI. ROS Other: All systems not noted in ROS Statement are negative. Past Medical History Past Medical History: Atrial Fibrillation, Coronary Artery Disease (CAD), Heart Failure, COPD, GERD/Reflux, Hyperlipidemia, Hypertension, Myocardial Infarction ([place]), Osteoarthritis (OA), Pneumonia, Respiratory Disorder, Sleep Apnea/CPAP/ BIPAP, Thyroid Disorder, Vascular Disorder Additional Past Medical History / Comment(s): Chronic hypoxic respiratory failure, O2 at 2.5L/NC ATC, ischemic heart disease, PAD/PVD, diverticular dx, benign polypectomy, IBS, arthritis multiple joints bilaterally, numbness/ tingling bilateral feet. Last Myocardial Infarction Date:: unknown-prior to 2002 History of Any Multi-Drug Resistant Organisms: None Reported Past Surgical History: Heart Catheterization With Stent Additional Past Surgical History / Comment(s): PCI with stent 2002, L SFA angiogram/atherectomy/[employer], R SFA atherectomy/angioplasty, pilonidal cystectomy, bilateral sebacious cysts removed from axillae, cervical sx with plates and screws, back surgery with plate, colonoscopy. Past Anesthesia/Blood Transfusion Reactions: No Reported Reaction Date of Last Stent Placement:: 2002 Past Psychological History: Depression Smoking Status: Current every day smoker Past Alcohol Use History: Occasional Past Drug Use History: None Reported - Past Family History Mother Family Medical History: No Reported History Additional Family Medical History / Comment(s): Mother was healthy and at the age of 92 yrs. Father Family Medical History: Coronary Artery Disease (CAD), Myocardial Infarction ([place] ) Additional Family Medical History / Comment(s): Father had a [place] in his 70's. He had CABG and back surgery. General Exam General appearance: alert, in no apparent distress Head exam: Present: atraumatic, normocephalic Eye exam: Present: normal appearance, PERRL, other (Mild left periorbital ecchymosis, small superficial laceration to the infraorbital region, not repairable.) Respiratory exam: Present: respiratory distress (mild), wheezes, rhonchi Cardiovascular Exam: Present: regular rate, normal rhythm GI/Abdominal exam: Present: soft. Absent: distended, tenderness Extremities exam: Present: normal inspection, full ROM. Absent: tenderness, joint swelling Neurological exam: Present: alert, oriented X3, CN II-XII intact. Absent: motor sensory deficit Psychiatric exam: Present: normal affect, normal mood Skin exam: Present: warm, dry Course Vital Signs 04/05/18 04/05/18 06:10 06:58 Temperature 98.3 F 98.8 F Pulse Rate 82 71 Respiratory 20 20 Rate Blood Pressure 158/76 170/79 O2 Sat by Pulse 99 97 Oximetry Medical Decision Making - Medical Decision Making 77-year-old male with fall. Minor injuries from fall, head CT obtained, negative for intracranial hemorrhage or mass effect, negative C-spine no fracture subluxation, x-ray of the right shoulder was obtained, negative for fracture dislocation. Chest x-ray negative for any acute cardiopulmonary disease, there is no focal pneumonia. Regarding the patient's respiratory symptoms, he is have some diffuse wheezing and rhonchi. There was concern for COPD with exacerbation although patient denies worsening of his symptoms. He is offered observation for treatment of COPD, he declines. Patient is eager for discharge. He states he has all of his medications at home, including CPAP and nebulizer. Patient's granddaughter was in the room and she is agreeable. Laboratory studies revealed mild leukocytosis, stable hemoglobin. - Lab Data Result diagrams: 04/05/18 06:21 04/05/18 06:21 Lab Results 04/05/18 04/05/18 04/05/18 Range/Units 06:21 06:21 06:21 WBC 11.2 H (3.8-10.6) k/uL RBC 4.55 (4.30-5.90) m/uL Hgb 11.3 L (13.0-17.5) gm/dL Hct 38.7 L (39.0-53.0) % MCV 85.0 (80.0-100.0) fL MCH 24.9 L (25.0-35.0) pg MCHC 29.3 L (31.0-37.0) g/dL RDW 16.3 H (11.5-15.5) % Plt Count 242 (150-450) k/uL Neutrophils % 79 % Lymphocytes % 11 % Monocytes % 5 % Eosinophils % 3 % Basophils % 0 % Neutrophils # 8.8 H (1.3-7.7) k/uL Lymphocytes # 1.2 (1.0-4.8) k/uL Monocytes # 0.6 (0-1.0) k/uL Eosinophils # 0.4 (0-0.7) k/uL Basophils # 0.0 (0-0.2) k/uL Hypochromasia Marked Anisocytosis Slight PT (9.0-12.0) sec INR (<1.2) APTT (22.0-30.0) sec Sodium 140 (137-145) mmol/L Potassium 3.8 (3.5-5.1) mmol/L Chloride 104 (98-107) mmol/L Carbon Dioxide 29 (22-30) mmol/L Anion Gap 7 mmol/L BUN 14 (9-20) mg/dL Creatinine 0.79 (0.66-1.25) mg/dL Est GFR (CKD-EPI)AfAm >90 (>60 ml/min/1.73 sqM) Est GFR (CKD-EPI)NonAf 88 (>60 ml/min/1.73 sqM) Glucose 98 (74-99) mg/dL Calcium 9.2 (8.4-10.2) mg/dL Total Bilirubin 0.3 (0.2-1.3) mg/dL AST 26 (17-59) U/L ALT 20 L (21-72) U/L Alkaline Phosphatase 105 (38-126) U/L Total Creatine Kinase 326 H (55-170) U/L CK-MB (CK-2) 5.8 H (0.0-2.4) ng/mL CK-MB (CK-2) Rel Index 1.8 Troponin I 0.023 (0.000-0.034) ng/mL Total Protein 6.2 L (6.3-8.2) g/dL Albumin 3.6 (3.5-5.0) g/dL Urine Color Urine Appearance (Clear) Urine pH (5.0-8.0) Ur Specific [place] (1.001-1.035) Urine Protein (Negative) Urine Glucose (UA) (Negative) Urine Ketones (Negative) Urine Blood (Negative) Urine Nitrite (Negative) Urine Bilirubin (Negative) Urine Urobilinogen (<2.0) mg/dL Ur Leukocyte Esterase (Negative) 04/05/18 04/05/18 Range/Units 06:21 08:38 WBC (3.8-10.6) k/uL RBC (4.30-5.90) m/uL Hgb (13.0-17.5) gm/dL Hct (39.0-53.0) % MCV (80.0-100.0) fL MCH (25.0-35.0) pg MCHC (31.0-37.0) g/dL RDW (11.5-15.5) % Plt Count (150-450) k/uL Neutrophils % % Lymphocytes % % Monocytes % % Eosinophils % % Basophils % % Neutrophils # (1.3-7.7) k/uL Lymphocytes # (1.0-4.8) k/uL Monocytes # (0-1.0) k/uL Eosinophils # (0-0.7) k/uL Basophils # (0-0.2) k/uL Hypochromasia Anisocytosis PT 10.0 (9.0-12.0) sec INR 0.9 (<1.2) APTT 23.3 (22.0-30.0) sec Sodium (137-145) mmol/L Potassium (3.5-5.1) mmol/L Chloride (98-107) mmol/L Carbon Dioxide (22-30) mmol/L Anion Gap mmol/L BUN (9-20) mg/dL Creatinine (0.66-1.25) mg/dL Est GFR (CKD-EPI)AfAm (>60 ml/min/1.73 sqM) Est GFR (CKD-EPI)NonAf (>60 ml/min/1.73 sqM) Glucose (74-99) mg/dL Calcium (8.4-10.2) mg/dL Total Bilirubin (0.2-1.3) mg/dL AST (17-59) U/L ALT (21-72) U/L Alkaline Phosphatase (38-126) U/L Total Creatine Kinase (55-170) U/L CK-MB (CK-2) (0.0-2.4) ng/mL CK-MB (CK-2) Rel Index Troponin I (0.000-0.034) ng/mL Total Protein (6.3-8.2) g/dL Albumin (3.5-5.0) g/dL Urine Color Light Yellow Urine Appearance Clear (Clear) Urine pH 7.0 (5.0-8.0) Ur Specific [place] 1.011 (1.001-1.035) Urine Protein Trace H (Negative) Urine Glucose (UA) Negative (Negative) Urine Ketones Trace H (Negative) Urine Blood Negative (Negative) Urine Nitrite Negative (Negative) Urine Bilirubin Negative (Negative) Urine Urobilinogen <2.0 (<2.0) mg/dL Ur Leukocyte Esterase Negative (Negative) Disposition Clinical Impression: Acute exacerbation of COPD with asthma, Fall Disposition: HOME SELF-CARE Condition: Fair Instructions: Fall Prevention for Older Adults (ED), COPD (Chronic Obstructive Pulmonary Disease) (ED) Prescriptions: Azithromycin [Zithromax Z-pack] 0 mg PO DIRECTED #6 tab predniSONE 50 mg PO DAILY #5 tab Is patient prescribed a controlled substance at d/c from ED?: No Referrals: Erik Duran MD [Primary Care Provider] - 1-2 days Time of Disposition: 09:14
[2018-04-05 09:54] VITALS: BP 166/75; PULSE 70; RESP 18
== END 2018-04-05 09:54 | disposition home or self-care (01) ==
LOC: EC 06:02
DX: S01.111A Laceration without foreign body of right eyelid and periocular area, initial encounter (principal); J44.1 Chronic obstructive pulmonary disease with (acute) exacerbation; D72.829 Elevated white blood cell count, unspecified; I49.3 Ventricular premature depolarization; M25.511 Pain in right shoulder; I48.91 Unspecified atrial fibrillation; I11.0 Hypertensive heart disease with heart failure; I25.10 Atherosclerotic heart disease of native coronary artery without angina pectoris; I25.2 Old myocardial infarction; G47.30 Sleep apnea, unspecified; J96.11 Chronic respiratory failure with hypoxia; E07.9 Disorder of thyroid, unspecified; M19.90 Unspecified osteoarthritis, unspecified site; F32.9 Major depressive disorder, single episode, unspecified; F17.200 Nicotine dependence, unspecified, uncomplicated; Z79.52 Long term (current) use of systemic steroids; Z79.899 Other long term (current) drug therapy; Z95.5 Presence of coronary angioplasty implant and graft; Z99.89 Dependence on other enabling machines and devices; Z99.81 Dependence on supplemental oxygen; Z82.49 Family history of ischemic heart disease and other diseases of the circulatory system; Z23 Encounter for immunization; W01.0XXA Fall on same level from slipping, tripping and stumbling without subsequent striking against object, initial encounter; Y92.254 Theater (live) as the place of occurrence of the external cause
CPT/HCPCS: 36415; 93005; 80053; 82550; 82553; 84484; 85025; 85610; 85730; 81003; 73030; 71046; 72125; 70450; 90715; 99285; 96374; 90471; J2270